=== PATIENT | female | born 1940 | race Caucasian/White ===

== ENCOUNTER 2024-07-19 20:58 | Observation (INO) ==
--- OUTSIDE RECORDS SUMMARY | 2024-07-19 21:04 | External Medical Summary | Summary of Care ---
Author Name Unknown Organization [facility] Address [address] [place] [address] Phone [phone] Care Team Providers Care Taxi Servicer Name Role Phone Lu Phillips DO Primary Care Provider Reason for Visit * Reason Onset Date Comments Advice 06/05/2024 Encounter Details Date Type Department Care Team (Late st Contact Info) Description 06/05/2024 Telephone [facility] [address] [place] [address] Lu Phillips DO [address] [place] [address] Advice Allergies No known active allergiesdocumented as of this encounter (statuses as of 07/12/2024) Medications Atorvastatin Calcium 20 MG Oral Tablet (Lipitor) Take 1 Tablet by mouth in the morning. One tab by mouth daily. 11/24/19 24 Active Lisinopril 10 MG Oral Tablet (Prinivil) Take 1 Tablet by mouth in the morning. 11/24/19 24 Active Memantine HCl 10 MG Oral Tablet (Namenda) Take 1 Tablet by mouth 2 times a day with morning and evening meals. 12/16/19 24 Active traZODone HCl 50 MG Oral Tablet (Desyrel) Take 1 Tablet by mouth at bedtime. 12/23/19 24 Active Aspirin 81 MG Oral Tablet Chewable Take 1 Tablet by mouth in the morning. 01/02/20 24 Active Multi Adult Gummies Oral Tablet Chewable Take by mouth. Active Calcitriol 0.5 MCG Oral Capsule (Rocaltrol) Take 1 Capsule by mouth in the morning. 90 Capsule 3 04/01/20 24 Active Metoprolol Succinate ER 25 MG Oral Tablet Extended Release 24 Hour (Toprol XL)Indications:E ssential hypertension with goal blood pressure less than 140/90 Take 1 Tablet by mouth in the morning. 90 Tablet 3 05/28/20 24 Active Vitamin C ER 1000-100 MG Oral Tablet Extended Release Take by mouth. Active Donepezil HCl 5 MG Oral Tablet (Aricept) Take 1 Tablet by mouth in the morning. Take with largest meal of the day.. Active Famotidine 40 MG Oral Tablet (Pepcid)Indicati ons:Hiatal hernia Take 1 Tablet by mouth at bedtime. 90 Tablet 1 12/25/19 24 024 Discontinued documented as of this encounter (statuses as of 07/12/2024) Active Problems Problem Noted Date Diagnosed Date Chronic kidney disease, stage 3b 04/01/2024 Overview: Per CKD protocol MDS (myelodysplastic syndrome) 01/10/2024 Hearing aid worn 12/25/2023 documented as of this encounter (statuses as of 07/12/2024) Immunizations Name Administration Dates Next Due Seasonal Influenza, High Dos e, Trivalent, PF, IM (Fluzone HD) 05/07/2024 documented as of this encounter Social History Tobacco Use Types Packs/Day Years Used Date Smoking Tobacco: Every Day Cigarettes Smokeless Tobacco: Never Alcohol Use Standard Drinks/Week Comments Not Currently 0 (1 standard drink = 0.6 oz pur e alcohol) PHQ-2 Answer Date Recorded PHQ Adult Total Score 0 05/30/2024 Hunger Vital Sign Answer Date Recorded Within the past 12 months, y ou worried that your food would run out before you got the money to buy more. Never true 05/30/20 24 Within the past 12 months, t he food you bought just didn't last and you didn't have money to get more. Never true 05/30/2024 Childcare Answer Date Recorded Do you feel overwhelmed with taking care of a child, family member or friend? No 05/30/2024 Does your family need help f inding childcare? (Household - for ages 0-17 years) Not on file 05/30/2024 Clothing Answer Date Recorded Have you been unable to get clothing when it was really needed? No 05/30/2024 Is your family able to get c lothes or diapers when needed? (Household - for ages 0-17 years) Not on file 05/30/2024 Personal Safety Answer Date Recorded Do you feel unsafe or have concerns for your saf ety? No 05/30/2024 Do you have concerns for you r family's safety? (Household - for ages 0-17 years) Not on file 05/30/2024 Utilities Answer Date Recorded Do you have trouble paying y our heating, water, or electric bill? No 05/30/2024 Is your family able to pay t he heat, water, or electric bill? (Household - for ages 0-17 years) Not on file 05/30/2024 Does your family have access to good internet? (Household - for ages 0-17 years) Not on file 05/30/2024 Employment Status Answer Date Recorded Are you unemployed or without regular income? No 05/30/2024 Does the household have a [facility] source of income? (Household - for ages 0-17 years) Not on file 05/30/2024 Social Connections Answer Date Recorded How often do you feel lonely or isolated from th ose around you? Never 05/30/2024 Financial Resource Strain Answer Date R ecorded Do you have any trouble payi ng for your medications, or do you think you might in the future? No 05/30/2024 Does your family have troubl e paying for medicine? (Household - for ages 0-17 years) Not on file 05/30/2024 Transportation Needs Answer Date Record ed Do you have trouble getting a ride to medical visits or work? (Adult - for ages 18 years and over) Not on file 05/30/2024 Does your family have a hard time getting a ride to doctors visits? (Household - for ages 0-17 years) Not on file 05/30/2024 Has lack of transportation k ept you from medical appointments, meetings, work, or from getting things needed for daily living? Check all that apply. No 05/30/2024 Do you (or your family) have trouble finding or paying for a ride (transportation)? (Household - for ages 0-17 years) Not on file 05/30/2024 Housing Stability Answer Date Recorded Do you currently live in a s helter or have no steady place to sleep at night? No 05/30/2024 Do you think you are at risk of becoming homeless? (Adult - for ages 18 years and over) Not on file 05/30/2024 Does your family worry about paying for your home or becoming homeless? (Household - for ages 0-17 years) Not on file 1 Are you homeless or worried that you might be in the future? No 05/30/2024 Are you (or your family) misael eless or worried that you might be in the future? (Household - for ages 0-17 years) Not on file Food Insecurity Answer Date Recorded Do you need food for this week? No 05/30/2024 Are you able to get enough f ood for your family? (Household - for ages 0-17 years) Not on file 05/30/2024 Does your family need food t his week? (Household - for ages 0-17 years) Not on file 05/30/2024 Do you always have enough fo od for your family? (Household - for ages 0-17 years) Not on file 05/30/2024 Comments No Sex and Gender Information Value Date Recorded Sex Assigned at Female 05/30/2024 10:43 AM EDT Legal Sex Female 8:28 AM EDT Gender Identity Female 05/30/2024 10:43 AM EDT Sexual Orientation Straight 05/30/2024 10 :43 AM EDT documented as of this encounter Miscellaneous Notes * Telephone Encounter - Heidi Jordan LPN - 07/11/2024 2:52 PM EST Daughter Fara calling [facility] Garcia never received the referral for Nephrology. Faxed to [facility], received confirmation that the transmission was successful. * Telephone Encounter - Weston Siddiqi OSA - 06/13/2024 8:20 AM EDT Faxed 06/13 * Telephone Encounter - Lu Phillips DO - 06/06/2024 2:15 PM EDT Okay then fax to [facility]. * Telephone Encounter - Heidi Jordan LPN - 06/05/2024 4:32 PM EDT Daughter calling would like referral for nephrology sent to [facility]. Ed is not able to see pt until December 2024. Daughter would like pt seen before then. Please fax nephrology referral to [facility] documented in this encounter Plan of Treatment Upcoming Encounters Date Type Department Care Team (Late st Contact Info) Description 07/29/2024 9:50 AM EST Laboratory Laboratory [facility] [place] [address] [place] [phone] Nader Medrano Joaquin [address] [facility] [place] [address] 07/29/2024 10:30 AM EST Office Visit Hematology/Oncology [facility] Marcela [place] [address] [phone] Nyasia Feliz MD [address] [facility] [place] [address] 07/29/2024 11:00 AM EST Immunization/Injecti on Hematology/Oncology Treatment, [place] [address] [place], [place] [phone] Marcela, Chair 10 Hem Onc [address] [place] [address] 07/30/2024 2:15 PM EST Office Visit Interventional Pain Center, [facility] [address] [place] [address] Raymundo Reynoso, DO [address] [place] [phone] 08/01/2024 1:15 PM EST Imaging [facility] [address] [place] [address] 08/19/2024 1:00 PM EST Laboratory Laboratory [facility] [place] [address] [place] [phone] Marcela, Lab Scenery [address] [place], [place] [address] 08/19/2024 2:00 PM EST Immunization/Injecti on Hematology/Oncology Treatment, [place] [address] [facility] [address] [place], [place] [phone] Marcela, Chair 9 Hem Onc [address] [place] [address] 09/23/2024 8:30 AM EST Office Visit [facility] [address] [facility] [place] [phone] Lu Phillips, DO [address] [facility] [place] [address] 10/02/2024 3:30 PM EST Office Visit Cardiology, [facility] [address] [place] [address] Vidal Phillips, DO [address] [place] [address] 01/01/2025 12:10 PM EDT Office Visit [facility] [address] [facility] [place] [phone] Lu Phillips DO [address] [facility] [place] [address] Health Maintenance Due Date Last Done Comments Pneumococcal Vaccine: 65+ Years (1 of 2 - PCV) 1946 DTap/Tdap Vaccines (1 - Tdap) 1960 Zoster Vaccines (1 of 2) 1991 Adult Wellness Visit 2007 COVID-19 Vaccine (1 - 2023- season) 2024 GFR 11/28/2024 05/30/2024, 04/21, 04/15/2024, Additional history exists Albumin/Creatinine Ratio 03/26/2025 03/26/2024 CKD PHOS USE SMARTSET 07110 04/15/2025 04/15/2024 Depression Screening 05/30/2025 05/30/2024 CKD HGB USE SMARTSET 27276 07/08/202507/08, 07/08/2024, 06/18/2024, Additional history exists DXA Scan 06/03/2034 06/03/2024 Influenza Vaccine (FLU shot) Completed 05/07/2024 HPV (Gardasil) Vaccine Aged Out No lo nger eligible based on patient's age to complete this topic Hepatitis B Vaccine Aged Out No longe r eligible based on patient's age to complete this topic MENINGOCOCCAL (MENACTRA/MENVEO) Aged Out No longer eligible based on patient's age to complete this topic documented as of this encounter Medical Devices Not on filedocumented as of this encounter Advance Directives Documents on File Type Date Recorded Patient Lab Head Expl anation Advance Directives and Living Will 01/04/2024 Fara Crowe Combined Medical POA & Living Will - signed on 11/24/2022 Healthcare Agents on File Name Relationship Healthcare Agent Relationshi p Communication Fara Junior Adult Child Health Care Agen t (per Health Care Power of Crt document) Nick Crowe Adult Child First Alternate Health Care Agent (per Health Care Power of Crt document) Care Teams Taxi Servicer Relationship Specialty Start Date End Date Lu Phillips DO [address] [place] [address] PCP - General Family Medicine 12/25/23 documented as of this encounter
--- OUTSIDE RECORDS SUMMARY | 2024-07-19 21:05 | External Medical Summary | Summary of Care ---
Author Name Unknown Organization [facility] Address [address] [place] [address] Phone [phone] Care Team Providers Care Clinical Consultant Name Role Phone Lu Phillips DO Primary Care Provider Reason for Visit * Reason Onset Date Comments Advice 06/05/2024 Encounter Details Date Type Department Care Team (Late st Contact Info) Description 06/05/2024 Telephone [facility] [address] [place] [address] Lu Phillips DO [address] [place] [address] Advice Allergies No known active allergiesdocumented as of this encounter (statuses as of 06/13/2024) Medications Medication Sig Dispensed Refills Start Date End Date Status Atorvastatin Calcium 20 MG Oral Tablet (Lipitor) Take 1 Tablet by mouth in the morning. One tab by mouth daily. 11/24/2023 Active Lisinopril 10 MG Oral Tablet (Prinivil) Take 1 Tablet by mouth in the morning. 11/24/2023 Active Memantine HCl 10 MG Oral Tablet (Namenda) Take 1 Tablet by mouth 2 times a day with morning and evening meals. 12/16/2023 Active traZODone HCl 50 MG Oral Tablet (Desyrel) Take 1 Tablet by mouth at bedtime. 12/23/2023 Active Famotidine 40 MG Oral Tablet (Pepcid)Indications:H iatal hernia Take 1 Tablet by mouth at bedtime. 90 Tablet 1 12/25/2023 Active Aspirin 81 MG Oral Tablet Chewable Take 1 Tablet by mouth in the morning. 01/02/2024 Active Multi Adult Gummies Oral Tablet Chewable Take by mouth. Active Calcitriol 0.5 MCG Oral Capsule (Rocaltrol) Take 1 Capsule by mouth in the morning. 90 Capsule 3 04/01/2024 Active Metoprolol Succinate ER 25 MG Oral Tablet Extended Release 24 Hour (Toprol XL)Indications:Essent ial hypertension with goal blood pressure less than 140/90 Take 1 Tablet by mouth in the morning. 90 Tablet 3 05/28/2024 Active Vitamin C ER 1000-100 MG Oral Tablet Extended Release Take by mouth. Acti ve Donepezil HCl 5 MG Oral Tablet (Aricept) Take 1 Tablet by mouth in the morning. Take with largest meal of the day.. Active documented as of this encounter (statuses as of 06/13/2024) Active Problems Problem Noted Date Diagnosed Date Chronic kidney disease, stage 3b 04/01/2024 Overview: Per CKD protocol MDS (myelodysplastic syndrome) 01/10/2024 Hearing aid worn 12/25/2023 documented as of this encounter (statuses as of 06/13/2024) Immunizations Name Administration Dates Next Due Seasonal [...] No 05/30/2024 Does the household have a re gular source of income? (Household - for ages [...] ages 0-17 years) Not on file 05/30/2024 Sex and Gender Information Value Date Recorded Sex Assigned at Female 05/30/2024 10:43 AM EDT Gender Identity Female 05/30/2024 10:43 AM EDT Sexual Orientation Straight 05/30/2024 10 :43 AM EDT Job Start Date Occupation Industry Not on file Not on file Not on file documented as of this encounter Miscellaneous Notes * Telephone Encounter - Weston Siddiqi OSA - 06/13/2024 8:20 AM EDT Faxed 06/13 * Telephone Encounter - Lu Phillips DO - 06/06/2024 2:15 PM EDT Okay then fax to [facility]. * Telephone Encounter - Heidi Jordan LPN - 06/05/2024 4:32 PM EDT Daughter calling would like referral for nephrology sent to [facility]. Ed is not able to see pt until December 2024. Daughter would like pt seen before then. Please fax nephrology referral to [facility] documented in this encounter Plan of Treatment Upcoming Encounters Date Type Department Care Team (Late st Contact Info) Description 06/18/2024 7:30 AM EDT Laboratory Laboratory [facility] [place] [address] [place] [phone] Nader Medrano [address] [facility] [place] [address] 06/18/2024 8:00 AM EDT Office Visit Hematology/Oncology [facility] [place] [address] [place] [phone] Nyasia Feliz MD 200 [facility] [place] [address] 06/18/2024 8:30 AM EDT Immunization/Injecti on Hematology/Oncology Treatment, [place] [address] [place] [phone] Marcela, Chair 9 Hem Onc [facility] [address] [place], [place] [address] 07/08/2024 1:00 PM EST Laboratory Laboratory [facility] Marcela [place] [address] [place] [phone] Marcela Lab [facility] [address] [place], [place] [address] 07/08/2024 2:00 PM EST Immunization/Injecti on Hematology/Oncology Treatment, [place] [address] [place] [phone] Park, Chair 9 Hem Onc [address] [place] [address] 07/30/2024 2:15 PM EST Office Visit Interventional Pain Center, [facility] [address] [place] [address] Raymundo Reynoso, DO [address] [place] [phone] 08/01/2024 1:15 PM EST Imaging Radiology [facility] 1st Floor, [place] [address] [place] [address] 09/23/2024 8:30 AM EST Office [facility] [address] [facility] [place] [phone] Lu Phillips, DO [address] [facility] [address] 10/02/2024 3:30 PM EST Office Visit Cardiology, [facility] [address] [place] [address] Vidal Phillips, DO [address] [facility] [place] [address] 01/01/2025 12:10 PM EDT Office Visit [facility] [place] [address] [facility] [place] [phone] Lu Phillips, DO [address] [facility] [address] Health Maintenance Due Date Last Done Comments Pneumococcal Vaccine: 65+ Years (1 of 2 - PCV) 1946 Adult Wellness Visit 2007 COVID-19 Vaccine (1 - 2024-25 season) 2024 DTap/Tdap Vaccines (1 - Tdap) 06/29/2024 Postponed from 1960 (Insurance/Financial) Zoster Vaccines (1 of 2) 06/29/2024 Pos tponed from 1991 (Insurance/Financial) GFR 11/28/2024 05/30/2024, 04/21, 04/15/2024, Additional history exists Albumin/Creatinine Ratio 03/26/2025 03/26/2024 CKD PHOS USE SMARTSET 38516 04/15/2025 04/15/2024 CKD HGB USE SMARTSET 09259 05/28/202505/28, 05/28/2024, 05/07/2024, Additional history exists Depression Screening 05/30/2025 05/30/2024 DXA Scan 06/03/2034 06/03/2024 Influenza Vaccine (FLU [...] Documents on File Type Date Recorded Patient Assessor Expl anation Advance Directives and Living Will 01/04/2024 Fara Crowe Combined Medical POA & Living Will - signed on 11/24/2022 Healthcare Agents on File Name Relationship Healthcare Agent Relationshi p Communication Fara Junior Adult Child Health Care Agen t (per Health Care Power of Technical Applications Specialist document) Nick Crowe Adult Child First Alternate Health Care Agent (per Health Care Power of Technical Applications Specialist document) Care Teams Clinical Consultant Relationship Specialty Start Date End Date Lu Phillips DO [address] [place] [address] PCP - General Family Medicine 12/25/23 documented as of this encounter
--- OUTSIDE RECORDS SUMMARY | 2024-07-19 21:05 | External Medical Summary | Summary of Care ---
Author Name Unknown Organization [facility] Address [address] [place] [address] Phone [phone] Care Team Providers Care Director Appointment Name Role Phone Lu Phillips DO Primary Care Provider [phone] Reason for Visit * Reason Comments Medication Administration Reblozyl 31.7m g each syringe x 2 syringes * Episode Based Medications (Routine) - Authorized Specialty Diagnoses / Procedures Referred By Contac t Referred To Contact Diagnoses MDS (myelodysplastic syndrome) (HCC) Procedures [place] INJ LUSPATERCEPT-AAMT 0.25MG Nyasia Feliz MD [address] [facility] [place] [address] Anc Hem/Onc [address] [phone] Referral ID Status Reason Start Date Expiration Date V isits Requested Visits Authorized [id number] Authorized 01/12/2024 08/20/2099 99 99 Encounter Details Date Type Department Care Team (Late st Contact Info) Description 06/18/2024 8:30 AM EDT Immunization/I njection Hematology/Oncology Treatment, [address] [phone] Marcela, Chair [address] On[address] [place] [address] MDS (myelodysplastic syndrome) (HCC)* Allergies No known active allergiesdocumented as of this encounter (statuses as of 06/18/2024) Medications Medication Sig Dispensed Refills Start Date [...] as of this encounter (statuses as of 06/18/2024) Active Problems Problem Noted Date Diagnosed Date Chronic kidney disease, stage 3b 04/01/2024 Overview: Per CKD protocol MDS (myelodysplastic syndrome) 01/10/2024 Hearing aid worn 12/25/2023 documented as of this encounter (statuses as of 06/18/2024) Immunizations Name Administration Dates Next Due Seasonal [...] on file documented as of this encounter Nursing Notes * Pita Ortiz LPN - 06/18/2024 9:09 AM EDT Reblozyl 63.4mg (31.7mg each syringe x 2 syringes) administered SQ into the left and right upper extremity per patient request. Patient tolerated injection and will return in 3 weeks. documented in this encounter Plan of Treatment Upcoming Encounters Date Type Department Care Team (Late st Contact Info) Description 07/08/2024 1:00 PM EST Laboratory Laboratory [facility] [place] [address] [phone] Nader Medrano [place] [address] [address] [facility] [place] [address] 07/08/2024 2:00 PM EST Immunization/Injecti on Hematology/Oncology Treatment, [place] [address] [place] [phone] Marcela, Chair 9 Hem Onc [facility] [address] [place] [address] 07/29/2024 9:50 AM EST Laboratory Laboratory [facility] Marcela [place] [address] [place] [address] Marcela Lab [facility] [address] [facility] [place] [address] 07/29/2024 10:30 AM EST Office Visit Hematology/Oncology [facility] Marcela [place] [address] [place] [phone] Nyasia Feliz MD [address] [place] [place] [address] 07/29/2024 11:00 AM EST Immunization/Injecti on Hematology/Oncology Treatment, [place] [address] [place] [phone] Marcela, Chair 10 Hem Onc [address] [place], [place] [address] 07/30/2024 2:15 PM EST Office Visit Interventional Pain Center, [facility] [address] [place] [address] Raymundo Reynoso, DO [address] [place] [phone] 08/01/2024 1:15 PM EST Imaging Radiology [facility] 1st Floor, [place] [address] [place] [address] 09/23/2024 8:30 AM EST Office Visit Family [facility] [place] [address] [place] [place] [phone] Lu Phillips, DO [address] [facility] [place] [address] 10/02/2024 3:30 PM EST Office Visit Cardiology, [facility] [address] [place] [address] Vidal Phillips, DO [address] [facility] [place] [address] 01/01/2025 12:10 PM EDT Office Visit [facility] [place] [place] [address] [place] [phone] Lu Phillips, DO [address] [facility] [place] [address] Health Maintenance Due Date Last Done Comments Pneumococcal Vaccine: 65+ Years (1 of 2 - PCV) 1946 Adult Wellness Visit 2007 COVID-19 Vaccine (1 - season) 2024 DTap/Tdap Vaccines (1 - Tdap) 06/29/2024 Postponed from 1960 (Insurance/Financial) Zoster Vaccines (1 of 2) 06/29/2024 Pos tponed from 1991 (Insurance/Financial) GFR 11/28/2024 05/30/2024, 04/21, 04/15/2024, Additional history exists Albumin/Creatinine Ratio 03/26/2025 03/26/2024 CKD PHOS USE SMARTSET 33890 04/15/2025 04/15/2024 Depression Screening 05/30/2025 05/30/2024 CKD HGB USE SMARTSET 04588 06/18/202506/18, 06/18/2024, 05/28/2024, Additional history exists DXA Scan 06/03/2034 06/03/2024 [...] Not on filedocumented as of this encounter Visit Diagnoses Diagnosis MDS (myelodysplastic syndrome) (HCC)- Primary Myelodysplastic syndrome, unspecified Screening mammogram for breast cancer documented in this encounter Administered Medications Active Administered Medications - up to 3 most recent administrations Medication Order MAR Action Action Date Dose Rate Site diphenhydrAMINE (Benadryl) inj 50 mg 50 mg, IV Push, ONCE PRN Other, Hypersensitivity Reaction, Starting on Mon06/18/24 at 0759, Until Mon06/19/24 at 0758, For 24 hours EPINEPHrine 1 MG/ML inj 0.3 mg 0.3 mg, Intramuscular, ONCE PRN Other, Hypersensitivity Reaction or Anaphylaxis, Starting on Mon06/18/24 at 0759, Until Mon06/19/24 at 0758, For 24 hours Hydrocortisone Sod Suc (PF) (Solu-Cortef) inj 100 mg 100 mg, IV Push, ONCE PRN Other, Hypersensitivity Reaction, Starting on Mon06/18/24 at 0759, Until Mon06/19/24 at 0758, For 24 hours oxygen GAS Inhalation, OXYGEN, First dose on Mon06/18/24 at 0830, Until Discontinued, Device/Managed by: Low Flow Device, Goal SPO2 (%): 91-95, Starting Device: Nasal Cannula, Initial Flow Rate (LPM): 2, Lowest Support: Nasal Cannula: Flow 0-6 LPM. Titrate up/down by 1 LPM., Higher Support: Non-Rebreather (NRB) Mask: Minimum of 10 LPM. Titrate to maintain bag inflation., Titration Interval: Q2 minutes and as needed., Notify Provider: For sudden DECREASE in resting SPO2 to less than 85% and when escalating delivery device., Wean patient off Oxygen when the oxygen saturation is greater than or equal to 93% Inactive Administered Medications - up to 3 most recent administrations Medication Order MAR Action Action Date Dose Rate Site Luspatercept-aamt (Reblozyl) subcutaneous inj 63.4 mg 63.4 mg (1 mg/kg 63.4 kg Treatment plan Recorded weight), Subcutaneous, ONCE, On Mon06/18/24 at 0930, For 1 dose, MAX volume 1.2 mL per syringe. Administer ____ syringes, each containing mg for TOTAL DOSE = mg. Administer subcutaneously into upper arm, thigh, and/or abdomen. If giving as multiple injections must inject into separate sites. Given 06/18/2024 9:02 AM EDT 31.7 mg Arm Left Upper Subsq SYR 06/18/2024 9:01 AM EDT 31.7 mg Ar m Right Upper documented in this encounter Advance Directives Documents on File Type Date Recorded Patient [employer] Advance Directives and Living Will 01/04/2024 Fara Crowe Combined Medical POA & Living Will - signed on 11/24/2022 Healthcare Agents on File Name Relationship [facility] Junior Adult Child Health Care Agen t (per Health Care Power of Underground Production Foreperson document) Nick Crowe Adult Child First Alternate Health Care Agent (per Health Care Power of Underground Production Foreperson document) Care Teams Director Appointment Relationship Specialty Start Date End Date Lu Phillips DO [address] [address] PCP - General Family Medicine 12/25/23 documented as of this encounter
--- OUTSIDE RECORDS SUMMARY | 2024-07-19 21:05 | External Medical Summary | Summary of Care ---
Author Name Unknown Organization [facility] Address [address] [place] [address] Phone [phone] Care Team Providers Care Sawsmith Name Role Phone Lu Phillips DO Primary Care Provider [phone] Reason for Visit * Reason Comments Follow Up Encounter Details Date Type Department Care Team (Late st Contact Info) Description 05/30/2024 10:50 AM EDT Office Visit [facility] [address] [place] [address] Lu Phillips DO [address], [place] [id number] MDS (myelodysplastic syndrome) (HCC)*; Risk and functional assessment; Chronic kidney disease, stage 3b (HCC); Coronary artery disease due to calcified coronary lesion Allergies No known active allergiesdocumented as of this encounter (statuses as of 05/30/2024) Medications Medication Sig Dispensed Refills Start Date [...] 12/23/2023 Active Famotidine 40 MG Oral Tablet (Pepcid)Indication s:Hiatal hernia Take 1 Tablet by mouth at bedtime. 90 Tablet 1 12/25/2023 Active Aspirin 81 MG Oral Tablet Chewable Take 1 Tablet by mouth in the morning. 01/02/2024 Active Multi Adult Gummies Oral Tablet Chewable Take by mouth. Activ e Calcitriol 0.5 MCG Oral Capsule (Rocaltrol) Take 1 Capsule by mouth in the morning. 90 Capsule 3 04/01/2024 Active Metoprolol Succinate ER 25 MG Oral Tablet Extended Release 24 Hour (Toprol XL)Indications:Ess ential hypertension with goal blood pressure less than 140/90 Take 1 Tablet by mouth in the morning. 90 Tablet 3 05/28/2024 Active Vitamin C ER 1000-100 MG Oral Tablet Extended Release Take by mouth. Active Donepezil HCl 5 MG Oral Tablet (Aricept) Take 1 Tablet by mouth in the morning. Take with largest meal of the day.. Active Vitamin C Adult Gummies 125 MG Oral Tablet Chewable (Ascorbic Acid) Take by mouth. 05/30/2024 Discontinu e d(Medicatio n List Clean Up) Lidocaine Viscous HCl 2 % Mouth/Throat Solution Swish and spit 15 mL as needed for Pain, Severe. Can apply using a cotton ball as well to specific tender spots 100 mL 04/01/2024 05/30/2024 Discontinue d(Medicatio n List Clean Up) documented as of this encounter (statuses as of 05/30/2024) Active Problems Problem Noted Date Diagnosed Date Chronic kidney disease, stage 3b 04/01/2024 Overview: Per CKD protocol MDS (myelodysplastic syndrome) 01/10/2024 Hearing aid worn 12/25/2023 documented as of this encounter (statuses as of 05/30/2024) Immunizations Name Administration Dates Next Due Seasonal Influenza, High Dos e, Trivalent, PF, IM (Fluzone HD) 05/07/2024 documented as of this encounter Social History Tobacco Use Types Packs/Day Years Used Date Smoking Tobacco: Every Day Cigarettes Smokeless Tobacco: Never Tobacco Cessation:Ready to Q uit: Not Asked; Counseling Given: Not Answered Alcohol Use Standard Drinks/Week Comments Not Currently [...] on file documented as of this encounter Last Filed Vital Signs Vital Sign Reading Time Taken Comments Blood Pressure 138/80 05/30/2024 10:43 AM EDT Pulse 66 05/30/2024 10:43 AM EDT Temperature 36.2 C (97.2 F) 05/30/2024 1 0:43 AM EDT Respiratory Rate 18 05/30/2024 10:4 3 AM EDT Oxygen Saturation 98% 05/30/2024 10: 43 AM EDT Inhaled Oxygen Concentration - - Weight 62.9 kg (138 lb 11.2 oz) 024 10:43 AM EDT Height 157.5 cm (5' 2") 05/30/2024 10:4 3 AM EDT Body Mass Index 25.37 05/30/2024 10:43 AM EDT documented in this encounter Patient Instructions * Patient Instructions* Alisa Buitrago LPN - 05/30/2024 10:40 AM EDT Patient Instructions - Fall Prevention (This education is for all patients over 65 regardless of symptoms) Remember to take your current medications as prescribed. In order to prevent falls, you are encouraged to: Exercise Utilize assistive/adaptive devices Avoid multifocal lenses when walking Avoid hazards in home Maintain a regular toileting schedule Any questions please contact our office. Preventing Falls in the Home (This education is for all patients over 65 regardless of symptoms) As you get older, falls are more likely. Thats because your reaction time slows. Your muscles and joints may also get stiffer, making them less flexible. Illness, medications, and vision changes can also affect your balance. A fall could leave you unable to live on your own. To make your home safer, follow these tips: Floors Put nonskid pads under area rugs Remove throw rugs Replace worn floor coverings Tack carpets firmly to each step on carpeted stairs. Put nonskid strips on the edges of uncarpeted stairs Keep floors and stairs free of clutter and cords Arrange furniture so there are clear pathways Clean up any spills right away Bathrooms Install grab bars in the tub or shower Apply nonskid strips or put a nonskid rubber mat in the tub or shower Sit on a bath chair to bathe Use bathmats with nonskid backing Lighting Keep a flashlight in each room Put a nightlight along the pathway between the bedroom and the bathroom Ramsey[employer]athan Patient Education Copyright 2008 - 2010 Anoop except where otherwise noted Preventing Falls: Exercises to Improve Balance, Flexibility, Strength, and Staying Power (This education is for all patients over 65 regardless of symptoms) Certain types of exercises may help make you less likely to fall. Try the ones below. Or do other exercises that your healthcare provider suggests. Depending on your health, you may need to start slowly. Dont let that stop you. Even small amounts of exercise can help you. Be sure to talk to yourhealthcare provider before starting any exercise program. Improve Balance Many types of exercise can help improve balance. Arnaud chi and yoga are good examples. Heres another one to try. You can do it anytime and almost anywhere. Stand next to a counter or solid support. Push yourself up onto your tiptoes. Hold for 5 seconds. If you start to lose your balance, hold on to the counter. Rest and repeat 5 times. Work up to holding for 20 to 30 seconds, if you can. Increase Flexibility Being more flexible makes it easier for you to move around safely. Try exercises like the seated hamstring stretch. Sit in a chair and put one foot on a stool. Straighten your leg and reach with both hands down either side of your leg. Reach as far down your leg as you can. Hold for about 20 seconds. Go back to the starting position. Then repeat 5 times. Switch legs. Build Strength Resistance exercises help build strength. You can do them without equipment. Or you can use weights, elastic bands, or special machines. One such exercise is called the biceps curl. You can hold a 1 pound weight or even a can of soup. Do this exercise at least 3 times a week. Strive for everyday. Sit up straight in a chair. Keep your elbow close to your body and your wrist straight. Bend your arm, moving your hand up to your shoulder. Then slowly lower your arm. Repeat 5 times. Switch to the other arm. Build Your Staying Power Aerobic exercises make your heart and lungs stronger so you can keep moving longer. Walking and swimming are two of the best types of exercises you can do. Using a stationary bike is great, too. Find an aerobic exercise that you enjoy. Start slowly and build up. Even 5 minutes is helpful. Aimfor a goal of 30 minutes, at least 3 times a week. You dont have to do 30 minutes in one session. Break it up and walk a little throughout the day. More Helpful Tips Start easy. Slowly work up to doing more. Talk with your healthcare provider about the best exercises for you. Call senior centers or health clubs about exercise programs. If needed, have a family member watch you walk every so often to check your stability. Exercise with a friend. Choose an activity you both enjoy. Try exercises that you can do anytime, anywhere. Here are two examples. Have someone with you when you first try these: Practice walking by placing one foot right in front of the other. Stand up and sit down 10 times. Repeat this throughout the day. RamseyWonolo Patient Education Copyright 2009 - 2010 Anoop except where otherwise noted. Preventing Falls: Moving Safely Using a Cane or Walker (This education is for all patients over 65 regardless of symptoms) Keep the cane away from your feet so you dont trip. A walking aid, such as a cane or walker, can help you stay more independent and avoid falls. Remember to keep your walking aid within easy reach when youre in a chair or in bed. And learn how to use it safely so you dont injure yourself. Using a Cane If you have a stronger side, hold the cane on that side. Get your balance. Move the cane and your weaker leg forward. Support your weight on both the cane and your weaker side. Step with your stronger leg. Start again from step 1. If youre using a folding walker, be sure you know how to lock it open. Check that its locked open before each use. Using a Walker Roll the walker (or lift it, if youre using one without wheels) forward about 12 inches. Step forward with your weaker leg first. Use the walker to help keep your balance. Bring your other foot forward to the center of the walker. Start again from step 1. Helpful Tips Check with your healthcare provider about the right walking aid to use. Ask about a walker with a seat attached. Check the tips of your cane or walker to make sure they have nonskid covers. Move slowly from room to room. Dont alcaraz. Sit down to get dressed. Use a jazzmine pack or backpack to keep your hands free. Get help for jobs that mean climbing, even on a stepstool. Anoop Patient Education Copyright 2008 - 2010 Anoop except where otherwise noted. Urinary Incontinence Plan of Care Documentation: (This education is for all patients over 65 regardless of symptoms) Current medications reconciled. Patient encouraged to: Practice kegal exercises Provide education materials Use the restroom every 2 hours throughout the day Limit caffeine, alcohol, spicy foods and acidic foods Keep a bladder diary Limit fluid intake 3-4 hours before bed Lose weight Prevent constipation Take fluid pills at a time when you can get to the bathroom quickly Control sugar better if diabetic Limit fluid intake to 60 oz. per day Wear support stockings (TEDs)if you have edema Alisa Buitrago LPN 05/30/2024 Kegel Exercises Kegel exercises dont require special clothing or equipment. Theyre easy to learn and simple to do. And if you do them right, no one can tell youre doing them, so they can be done almost anywhere. Your doctor, nurse, or physical therapist can answer any questions you have and help you get started. A Weak Pelvic Floor The pelvic floor muscles may weaken due to aging, and vaginal childbirth, injury, surgery, chronic cough, or lack of exercise. If the pelvic floor is weak, your bladder and other pelvic organs may sag out of place. The urethra may also open too easily and allow urine to leak out. Kegel exercises can help you strengthen your pelvic floor muscles so they can better support the pelvic organs and control urine flow. How Kegel Exercises Are Done Try each of the Kegel exercises described below. When youre doing them, try not to move your leg, buttock, or stomach muscles. While youre urinating, try to stop the flow of urine. Start and stop it as often as you can. Contract as if you were stopping your urine stream, but do it when youre not urinating. Tighten your rectum as if trying not to pass gas. Contract your anus, but dont move your buttocks. Helpful Hints Do your Kegels as often as you can. The more you do them, the faster youll feel the results. Pick an activity you do often as a reminder. For instance, do your Kegels every time you sit down. Tighten your pelvic floor before you sneeze, get up from a chair, cough, laugh, or lift. This protects your pelvic floor from injury and can help prevent urine leakage. Try to hold each Kegel for a slow count to five. You probably wont be able to hold them for thatlong at first, but keep practicing. It will get easier as your pelvic floor gets stronger. Eventually, special weights that you place in your vagina may be recommended to help make your Kegels even more effective. Anoop Patient Education Copyright 2008 - 2010 Anoop except where otherwise noted. Here are some helpful tips for your urinary incontinence: (This education is for all patients over 65 regardless of symptoms) Practice Kegel exercises Use the restroom every 2 hours throughout the day Limit caffeine, alcohol, spicy foods, and acidic foods Keep a bladder diary Limit fluid intake 3-4 hours before bed Lose weight Prevent constipation Take fluid pills at a time when can get to the bathroom quickly Control sugar better if diabetic Limit fluid intake to 60 oz. per day Any questions, please feel free to contact our office. documented in this encounter Progress Notes * Lu Phillips, - 05/30/2024 10:56 AM EDT Subjective: Isabelle Crowe is a 83 year old female. Chief Complaint Patient presents with Follow Up HPI: 83 year old female presents today with her daughter as a new patient. She carries hx of Myelodysplastic Syndrome, hx of macrocytic anemia, she has hx of R breast cancer,and she is on Luspatercept and has been seeing hematology. Sounds like her previous PCP was in [facility] and she just moved here to be closer to her daughter. She sees cardiology for CAD. Her daughter had given most of the history and recently diagnosed with Alzheimers this was done at [place] , I did review those notes. She was already on Namenda and they started her on Aricept5 mg recently. She plans on continuing care locally and I agreed to refill the medications. Ongoing R knee pain, 2 replacement had seen vic [facility], and then [facility]. Then [facility] said surgery would be took high risk. Requesting a handicap placard. She is using a cane. Renal function decline, will repeat today. May need nephrology referral. Will check urine today. PHM: Patient Active Problem List Diagnosis Hearing aid worn MDS (myelodysplastic syndrome) (HCC) Chronic kidney disease, stage 3b (HCC) Current Outpatient Medications Medication Sig Dispense Refill Atorvastatin Calcium 20 MG Oral Tablet (Lipitor) Take 1 Tablet by mouth in the morning. One tab by mouth daily. Lisinopril 10 MG Oral Tablet (Prinivil) Take 1 Tablet by mouth in the morning. Memantine HCl 10 MG Oral Tablet (Namenda) Take 1 Tablet by mouth 2 times a day with morning and evening meals. traZODone HCl 50 MG Oral Tablet (Desyrel) Take 1 Tablet by mouth at bedtime. Famotidine 40 MG Oral Tablet (Pepcid) Take 1 Tablet by mouth at bedtime. 90 Tablet 1 Aspirin 81 MG Oral Tablet Chewable Take 1 Tablet by mouth in the morning. Multi Adult Gummies Oral Tablet Chewable Take by mouth. Calcitriol 0.5 MCG Oral Capsule (Rocaltrol) Take 1 Capsule by mouth in the morning. 90 Capsule 3 Metoprolol Succinate ER 25 MG Oral Tablet Extended Release 24 Hour (Toprol XL) Take 1 Tablet by mouth in the morning. 90 Tablet 3 Vitamin C ER 1000-100 MG Oral Tablet Extended Release Take by mouth. Donepezil HCl 5 MG Oral Tablet (Aricept) Take 1 Tablet by mouth in the morning. Take with largest meal of the day.. No current facility-administered medications for this visit. Review of patient's allergies indicates: No Known Allergies Objective: BP 138/80 | Pulse 66 | Temp 36.2 C (97.2 F) (Tympanic) | Resp 18 | Ht 1.575 m (5' 2") | Wt 62.9kg (138 lb 11.2 oz) | LMP (LMP Unknown) | SpO2 98% | BMI 25.37 kg/m | BSA 1.66 m Physical Exam: General: alert, healthy, and no distress Heart: regular rate & rhythm, no murmur, and no gallops Lungs: chest symmetric with normal AP diameter, no chest deformities noted, no chest wall tenderness, lungs clear to auscultation Abdomen: abdomen soft, non-tender, normal bowel sounds, and no masses or organomegaly Extremities: no edema ASSESSMENT/PLAN: MDS (myelodysplastic syndrome) (HCC) (Primary) Risk and functional assessment Chronic kidney disease, stage 3b (HCC) - BASIC METABOLIC PANEL; Future; Expected date: 05/30/2024 - URINALYSIS WITH MICROSCOPIC EXAM; Future; Expected date: 05/30/2024 Coronary artery disease due to calcified coronary lesion On asa, beta kortney, acei. And statin. Check-out note: Keep sep appt Arrange another appt in december Labs today. Lu Phillips DO documented in this encounter Nursing Notes * Alisa Buitrago LPN - 05/30/2024 10:40 AM EDT The patient has been properly identified by confirmation of name and date of . Chief Complaint Patient presents with Follow Up Patient woul like to discuss her knee pain, Kidney issues, Alzheimer diagnosis and new medications documented in this encounter Plan of Treatment Upcoming Encounters Date Type Department Care Team (Late st Contact Info) Description 06/03/2024 9:00 AM EDT Imaging Radiology, [address] [place] [address] 06/18/2024 7:30 AM EDT Laboratory Laboratory [facility] [address] [place] [phone] [facility] [place] [address] [place] [address] [address] 06/18/2024 8:00 AM EDT Office Visit Hematology/Oncology [facility] [address] [place] [phone] Nyasia Feliz MD [address] [facility] [place] [address] 06/18/2024 8:30 AM EDT Immunization/Injecti on Hematology/Oncology Treatment, [address] [facility] [place] [phone] Marcela, Chair [address], [place] [address] 07/08/2024 1:00 PM EST Laboratory Laboratory [address] [place] [address] [place], [place] [phone] Marcela, Lab Scenery [address] [place], [place] [address] 07/08/2024 2:00 PM EST Immunization/Injecti on Hematology/Oncology Treatment, [address] [place], [place] [phone] Marcela, Chair [address] [place], [place] [address] 07/30/2024 2:15 PM EST Office Visit Interventional Pain Center, [facility] [address] [facility] [place] [address] Raymundo Reynoso, DO [address] [place] [phone] 08/01/2024 1:15 PM EST Imaging Radiology [facility] [address] [facility], [address] [place] [address] 09/23/2024 8:30 AM EST Office Visit Family [facility] [address] [facility] [place] [phone] Lu Phillips, [address] [facility] [place] [address] 10/02/2024 3:30 PM EST Office Visit Cardiology, [facility] [address] [place] [address] Vidal Phillips, DO [address] [place] [address] 01/01/2025 12:10 PM EDT Office Visit [facility] [address] [place] [address] Lu Phillips DO [address], [place] [phone] Pending Results Name Type Priority Associated Diagnoses Date /Time BASIC METABOLIC PANEL Lab Routine Chronic kidney disease, stage 3b (HCC) 05/30/2024 11:46 AM EDT URINALYSIS WITH MICROSCOPIC EXAM Lab Routine Chronic kidney disease, stage 3b (HCC) 05/30/2024 11:46 AM EDT Scheduled Orders Name Type Priority Associated Diagnoses Orde r Schedule BASIC METABOLIC PANEL Lab Routine Chronic kidney disease, stage 3b (HCC) Expected: 05/30/2024 (Approximate), Expires: 05/30/2025 URINALYSIS WITH MICROSCOPIC EXAM Lab Routine Chronic kidney disease, stage 3b (HCC) Expected: 05/30/2024 (Approximate), Expires: 05/30/2025 Health Maintenance Due Date Last Done Comments Pneumococcal Vaccine: 65+ Years (1 of 2 - PCV) 1946 DXA Scan 2006 Adult Wellness Visit 2007 COVID-19 Vaccine (1 - season) 2024 Postponed from 04/21/2024 (Patient Declined After Education) DTap/Tdap Vaccines (1 - Tdap) 06/29/2024 Postponed from 1960 (Insurance/Financial) Zoster Vaccines (1 of 2) 06/29/2024 Pos tponed from 1991 (Insurance/Financial) GFR 11/04/2024 05/07/2024, 08/01/2024, 03/26/2024, Additional history exists Albumin/Creatinine Ratio 03/26/2025 03/26/2024 CKD PHOS USE SMARTSET [id number] 04/15/2025 04/15/2024 CKD HGB USE SMARTSET [id number] 05/28/202505/28, 05/28/2024, 05/07/2024, Additional history exists Depression Screening 05/30/2025 05/30/2024 Influenza Vaccine (FLU shot) Completed 05/07/2024 HPV [...] (myelodysplastic syndrome) (HCC)- Primary Myelodysplastic syndrome, unspecified Risk and functional assessment Screening for unspecified condition Chronic kidney disease, stage 3b (HCC) Coronary artery disease due to calcified coronary lesion Screening mammogram for breast cancer documented in this encounter Advance Directives Documents on File Type Date Recorded Patient Supply Tech Expl anation Advance Directives and Living Will 01/04/2024 Fara Crowe Combined Medical POA & Living Will - signed on 11/24/2022 Healthcare Agents on File Name Relationship Healthcare Agent Relationshi p Communication Fara Junior Adult Child Health Care Agen t (per Health Care Power of Jewel Setter document) Nick Crowe Adult Child First Alternate Health Care Agent (per Health Care Power of Jewel Setter document) Care Teams Sawsmith Relationship Specialty Start Date End Date Lu Phillips DO [address] [place] [address] PCP - General Family Medicine 12/25/23 documented as of this encounter
--- OUTSIDE RECORDS SUMMARY | 2024-07-19 21:05 | External Medical Summary | Summary of Care ---
Author Name Unknown Organization [facility] Address [address] [place] [address] Phone [phone] Care Team Providers Care Workers Compensation Claims Analyst Name Role Phone Alan Lu Calvin LEE Primary Care Provider Reason for Visit * Reason Onset Date Comments Follow Up 06/28/2024 Encounter Details Date Type Department Care Team (Late st Contact Info) Description 06/28/2024 Telephone Interventional Pain Center, [facility] [address] [place] [address] Raymundo Reynoso DO [address] [place] [phone] Follow Up Allergies No known active allergiesdocumented as of this encounter (statuses as of 06/28/2024) Medications Atorvastatin Calcium 20 MG Oral Tablet (Lipitor) Take 1 Tablet by mouth in the morning. One tab by mouth daily. 4 Active Lisinopril 10 MG Oral Tablet (Prinivil) Take 1 Tablet by mouth in the morning. 4 Active Memantine HCl 10 MG Oral Tablet (Namenda) Take 1 Tablet by mouth 2 times a day with morning and evening meals. 4 Active traZODone HCl 50 MG Oral Tablet (Desyrel) Take 1 Tablet by mouth at bedtime. 4 Active Famotidine 40 MG Oral Tablet (Pepcid)Indicatio ns:Hiatal hernia Take 1 Tablet by mouth at bedtime. 90 Tablet 1 4 Active Aspirin 81 MG Oral Tablet Chewable Take 1 Tablet by mouth in the morning. 4 Active Multi Adult Gummies Oral Tablet Chewable Take by mouth. Active Calcitriol 0.5 MCG Oral Capsule (Rocaltrol) Take 1 Capsule by mouth in the morning. 90 Capsule 3 4 Active Metoprolol Succinate ER 25 MG Oral Tablet Extended Release 24 Hour (Toprol XL)Indications:Es sential hypertension with goal blood pressure less than 140/90 Take 1 Tablet by mouth in the morning. 90 Tablet 3 4 Active Vitamin C ER 1000-100 MG Oral Tablet Extended Release Take by mouth. Active Donepezil HCl 5 MG Oral Tablet (Aricept) Take 1 Tablet by mouth in the morning. Take with largest meal of the day.. Active documented as of this encounter (statuses as of 06/28/2024) Active Problems Problem Noted Date Diagnosed Date Chronic kidney disease, stage 3b 04/01/2024 Overview: Per CKD protocol MDS (myelodysplastic syndrome) 01/10/2024 Hearing aid worn 12/25/2023 documented as of this encounter (statuses as of 06/28/2024) Immunizations Name Administration Dates Next Due Seasonal [...] No 05/30/2024 Does the household have a select specialty hospitalr source of income? (Household - for ages [...] encounter Miscellaneous Notes * Telephone Encounter - Jimena Moses OSA - 06/28/2024 8:35 AM EST Patients daughter called in concerned because her mother had dementia and some days claims she doesnot have knee pain. The patient does have knee pain but tends to get confused. Wanted the office toknow ahead of time to help with any confusion. documented in this encounter Plan of Treatment Upcoming Encounters Date Type Department Care Team (Late st Contact Info) Description 07/08/2024 1:00 PM EST Laboratory Laboratory [facility] [address] [place] [phone] Marcela, Lab Scenery [address] [facility] [place] [address] 07/08/2024 2:00 PM EST Immunization/Injecti on Hematology/Oncology Treatment, [place] [facility] [phone] Park, Chair [address] Hem On[address] [place] [address] 07/29/2024 9:50 AM EST Laboratory Laboratory [facility] [place] [address] [place] [phone] Marcela Lab Scenery [address] [facility] [place] [address] 07/29/2024 10:30 AM EST Office Visit Hematology/Oncology [facility] [place] [address] [place] [phone] Nyasia Feliz MD [address] [place], [place] [address] 07/29/2024 11:00 AM EST Immunization/Injecti on Hematology/Oncology Treatment, [place] [facility] [phone] Marcela, Chair [address] On[address] [place], [place] [address] 07/30/2024 2:15 PM EST Office Visit [facility] Center, [facility] [place] [address] Raymundo Reynoso, [address] [place] [phone] 08/01/2024 1:15 PM EST Imaging Radiology [facility], [place] [address] [facility] [place] [address] 09/23/2024 8:30 AM EST Office Visit [facility] [address] Lu Phillips, DO [address] [place] [address] 10/02/2024 3:30 PM EST Office Visit Cardiology, [facility] [place] [address] Vidal Phillips, DO 132 [facility] [place] [address] 01/01/2025 12:10 PM EDT Office Visit [facility] [address] [facility] [address] Lu Phillips, DO [address] [place] [facility] [address] Health Maintenance Due Date Last Done Comments [...] Ratio 03/26/2025 03/26/2024 CKD PHOS USE SMARTSET 57257 04/15/2025 04/15/2024 Depression Screening 05/30/2025 05/30/2024 CKD HGB USE SMARTSET 46306 06/18/202506/18, 06/18/2024, 05/28/2024, Additional history exists DXA [...] Documents on File Type Date Recorded Patient Automatic Spinning Lathe Setter Expl anation Advance Directives and Living Will 01/04/2024 Fara Crowe Combined Medical POA & Living Will - signed on 11/24/2022 Healthcare Agents on File Name Relationship Healthcare Agent Relationshi p Communication Fara Junior Adult Child Health Care Agen t (per Health Care Power of Agency Service Coordinator document) Nick Crowe Adult Child First Alternate Health Care Agent (per Health Care Power of Agency Service Coordinator document) Care Teams Workers Compensation Claims Analyst Relationship Specialty Start Date End Date Lu Phillips DO [address] [place] [address] PCP - General Family Medicine 12/25/23 documented as of this encounter
--- OUTSIDE RECORDS SUMMARY | 2024-07-19 21:05 | External Medical Summary ---
Author Name Unknown Address Unknown Organization K09:[facility] [address] [place] [address] Laboratory Report Ordering Provider Test Date Status SOWMYA BEY 06/18/2024 07:34:16 Final Observation Date Value Abnormality Reference (Units ) Status SYNC LEUKOCYTES IN BLOOD BY AUTOMATED COUNT 06/18/2024 07:34:16 7.69 4.00-10.80 (K/uL) Final Neutrophils/100 leukocytes in Blood by Manual count 06/18/2024 07:34:16 65.0 40.0-75.0 (%) Final Lymphocytes/100 leukocytes in Blood by Manual count 06/18/2024 07:34:16 25.0 18.0-42.0 (%) Final Monocytes/100 leukocytes in Blood by Manual count 06/18/2024 07:34:16 6.0 1.0-11.0 (%) Final Eosinophils/100 leukocytes in Blood by Manual count 06/18/2024 07:34:16 3.0 0.0-6.0 (%) Final Metamyelocytes/100 leukocytes in Blood by Manual count 06/18/2024 07:34:16 1.0 Above high normal <=0.0 (%) Final Neutrophils [#/volume] in Blood by Manual count 06/18/2024 07:34:16 5.00 1.80-7.70 (K/uL) Final Lymphocytes [#/volume] in Blood by Manual count 06/18/2024 07:34:16 1.92 1.00-4.80 (K/uL) Final Monocytes [#/volume] in Blood by Manual count 06/18/2024 07:34:16 0.46 0.00-1.10 (K/uL) Final Eosinophils [#/volume] in Blood by Manual count 06/18/2024 07:34:16 0.23 0.00-0.70 (K/uL) Final Metamyelocytes [#/volume] in Blood by Manual count 06/18/2024 07:34:16 0.08 Above high normal <=0.00 (K/uL) Final Nucleated erythrocytes/100 leukocytes [Ratio] in Blood by Automated count 06/18/2024 07:34:16 Final Elliptocytes [Presence] in Blood by Light microscopy 06/18/2024 07:34:16 Moderate Abnormal None Seen Final Target cells [Presence] in Blood by Light microscopy 06/18/2024 07:34:16 Moderate Abnormal None Seen Final Performing Location [facility] [address] [place] [address]
--- OUTSIDE RECORDS SUMMARY | 2024-07-19 21:05 | External Medical Summary ---
Author Name Unknown Address Unknown Organization K09[facility] [address] [place] [address] Laboratory Report Ordering Provider Test Date Status SOWMYA BEY 07/08/2024 12:59:00 Final Observation Date Value Abnormality Reference (Units ) Status SYNC LEUKOCYTES IN BLOOD BY AUTOMATED COUNT 07/08/2024 12:59:00 8.63 4.00-10.80 (K/uL) Final Neutrophils/100 leukocytes in Blood by Manual count 07/08/2024 12:59:00 55.0 40.0-75.0 (%) Final Lymphocytes/100 leukocytes in Blood by Manual count 07/08/2024 12:59:00 35.0 18.0-42.0 (%) Final Monocytes/100 leukocytes in Blood by Manual count 07/08/2024 12:59:00 6.0 1.0-11.0 (%) Final Eosinophils/100 leukocytes in Blood by Manual count 07/08/2024 12:59:00 4.0 0.0-6.0 (%) Final Neutrophils [#/volume] in Blood by Manual count 07/08/2024 12:59:00 4.75 1.80-7.70 (K/uL) Final Lymphocytes [#/volume] in Blood by Manual count 07/08/2024 12:59:00 3.02 1.00-4.80 (K/uL) Final Monocytes [#/volume] in Blood by Manual count 07/08/2024 12:59:00 0.52 0.00-1.10 (K/uL) Final Eosinophils [#/volume] in Blood by Manual count 07/08/2024 12:59:00 0.35 0.00-0.70 (K/uL) Final Nucleated erythrocytes/100 leukocytes [Ratio] in Blood by Automated count 07/08/2024 12:59:00 4 Above high normal <=0 (/100 WBCs) Final Elliptocytes [Presence] in Blood by Light microscopy 07/08/2024 12:59:00 Moderate Abnormal None Seen Final Schistocytes 07/08/2024 12:59:00 Few Abnormal None Seen Final Giant platelets [Presence] in Blood by Light microscopy 07/08/2024 12:59:00 Present Abnormal None Seen Final Performing Location [facility] [address] [place] [address]
--- OUTSIDE RECORDS SUMMARY | 2024-07-19 21:05 | External Medical Summary | Summary of Care ---
Author Name Unknown Organization [facility] Address [address] [place] [address] Phone [phone] Care Team Providers Care Cable Technician Name Role Phone Lu Phillips DO Primary Care Provider Reason for Visit * Reason Onset Date Comments Advice 06/05/2024 Encounter Details Date Type Department Care Team (Late st Contact Info) Description 06/05/2024 Telephone [facility] [address] [place] [address] Lu Phillips DO [address] [place] [address] Advice Allergies No known active allergiesdocumented as of this encounter (statuses as of 06/06/2024) Medications Medication Sig Dispensed Refills Start Date [...] as of this encounter (statuses as of 06/06/2024) Active Problems Problem Noted Date Diagnosed Date Chronic kidney disease, stage 3b 04/01/2024 Overview: Per CKD protocol MDS (myelodysplastic syndrome) 01/10/2024 Hearing aid worn 12/25/2023 documented as of this encounter (statuses as of 06/06/2024) Immunizations Name Administration Dates Next Due Seasonal [...] encounter Miscellaneous Notes * Telephone Encounter - Lu Phillips DO - 06/06/2024 2:15 PM EDT Okay then fax to shawn newman. * Telephone Encounter - Heidi Jordan LPN - 06/05/2024 4:32 PM EDT Daughter calling would like referral for nephrology sent to Zachary Rowe. Ed is not able to see pt until December 2024. Daughter would like pt seen before then. Please fax nephrology referral to Shawn Newman documented in this encounter Plan of Treatment Upcoming Encounters Date Type Department Care Team (Late st Contact Info) Description 06/18/2024 7:30 AM EDT Laboratory Laboratory [facility] [place] [address] [place] [phone] Marcela Lab [facility] [address] [facility] [place] [address] 06/18/2024 8:00 AM EDT Office Visit Hematology/Oncology [facility] [place] [address] [place] [place] [phone] Nyasia Feliz MD 200 [facility] [place], [place] [address] 06/18/2024 8:30 AM EDT Immunization/Injecti on Hematology/Oncology Treatment, [address], [place] [address] Marcela, Chair 9 Hem Onc [facility] [address] [place], [place] [address] 07/08/2024 1:00 PM EST Laboratory Laboratory [facility] Marcela [place] [address] [place], [place] [phone] Marcela, Lab Scenery [address] [facility], [place] [address] 07/08/2024 2:00 PM EST Immunization/Injecti on Hematology/Oncology Treatment, [place] [facility] [phone] Marcela, Chair [address] Hem Onc [address] [place] [address] 07/30/2024 2:15 PM EST Office Visit Interventional Pain Center, [facility] [address] [facility] [place] [address] Raymundo Reynoso, DO [address] [place] [phone] 08/01/2024 1:15 PM EST Imaging Radiology [facility] 1st Floor, [place] [address] [place] [address] 09/23/2024 8:30 AM EST Office [facility], [place] [address] [address] [facility], [place] [phone] Lu Phillips, DO [address] [facility] [address] 10/02/2024 3:30 PM EST Office Visit Cardiology, [facility] [address] [facility] [place] [address] Vidal Phillips, DO [address] [place] [address] 01/01/2025 12:10 PM EDT Office Visit [facility] [place] [address] [facility] [phone] Lu Phillips, DO [address] [facility], [place] [address] Health Maintenance Due Date Last Done Comments [...] Ratio 03/26/2025 03/26/2024 CKD PHOS USE SMARTSET 66906 04/15/2025 04/15/2024 CKD HGB USE SMARTSET 50769 05/28/202505/28, 05/28/2024, 05/07/2024, Additional history exists Depression [...] Documents on File Type Date Recorded Patient Insurance Counselor Expl anation Advance Directives and Living Will 01/04/2024 Fara Crowe Combined Medical POA & Living Will - signed on 11/24/2022 Healthcare Agents on File Name Relationship Healthcare Agent Relationshi p Communication Fara Junior Adult Child Health Care Agen t (per Health Care Power of Executive Vice President And Chief Operating Officer document) Nick Crowe Adult Child First Alternate Health Care Agent (per Health Care Power of Executive Vice President And Chief Operating Officer document) Care Teams Cable Technician Relationship Specialty Start Date End Date Lu Phillips DO [address] [place], [place] [phone] PCP - General Family Medicine 12/25/23 documented as of this encounter
--- OUTSIDE RECORDS SUMMARY | 2024-07-19 21:05 | External Medical Summary | Summary of Care ---
Author Name Unknown Organization [facility] Address [address] [place] [address] Phone [phone] Care Team Providers Care Full Stack Java Developer Name Role Phone Lu Phillips DO Primary Care Provider [phone] Reason for Visit * Reason Comments Medication Administration Reblozyl * Episode Based Medications (Routine) - Authorized Specialty Diagnoses / Procedures Referred By Contyang t Referred To Contact Diagnoses MDS (myelodysplastic syndrome) (HCC) Procedures OK INJ LUSPATERCEPT-AAMT 0.25MG Nyasia Feliz MD [address] [place] [address] Phone: tel: fax: Hematology/Oncology Treatment, [address] [address] Phone: tel: fax: Referral ID Status Reason Start Date Expiration Date V isits Requested Visits Authorized [id number] Authorized 01/12/2024 08/20/2099 99 99 Encounter Details Date Type Department Care Team (Late st Contact Info) Description 07/08/2024 2:00 PM EST Immunization/I njection Hematology/Oncology Treatment, [place] [address] [place] [address] Marcela, Chair [address] [place] [address] MDS (myelodysplastic syndrome) (HCC)* Allergies No known active allergiesdocumented as of this encounter (statuses as of 07/08/2024) Medications Atorvastatin Calcium 20 MG Oral Tablet [...] Tablet by mouth at bedtime. 4 Active Aspirin 81 MG Oral Tablet [...] day.. Active Famotidine 40 MG Oral Tablet (Pepcid)Indicatio ns:Hiatal hernia TAKE 1 TABLET BY MOUTH AT BEDTIME 90 Tablet 4 Active documented as of this encounter (statuses as of 07/08/2024) Active Problems Problem Noted Date Diagnosed Date Chronic kidney disease, stage 3b 04/01/2024 Overview: Per CKD protocol MDS (myelodysplastic syndrome) 01/10/2024 Hearing aid worn 12/25/2023 documented as of this encounter (statuses as of 07/08/2024) Immunizations Name Administration Dates Next Due Seasonal [...] AM EDT documented as of this encounter Nursing Notes * Pita Ortiz LPN - 07/08/2024 2:07 PM EST Reblozyl 63.4mg administered SQ (31.7mg in left upper extremity and 31.7mg in right upper extremity). Patient tolerated injection and will return on 07/29 documented in this encounter Plan of Treatment Upcoming Encounters Date Type Department Care Team (Late st Contact Info) Description 07/29/2024 9:50 AM EST Laboratory Laboratory [facility] [place] 200 [facility] [place] [phone] Nader Medrano [place] [address] [place] [address] [address] 07/29/2024 10:30 AM EST Office Visit Hematology/Oncology [facility] [address] [place] [phone] Nyasia Feliz MD [address] [facility] [place] [address] 07/29/2024 11:00 AM EST Immunization/Injecti on Hematology/Oncology Treatment, [place] [address] [place] [phone] Marcela, Chair 10 Hem Onc [facility] [address] [place] [address] [address] 07/30/2024 2:15 PM EST Office Visit Interventional Pain Center, [facility] [address] [place] [address] Raymundo Reynoso, [address] [place] [phone] 08/01/2024 1:15 PM EST Imaging Radiology [facility] 1st [facility] 132 [facility] [place] [address] 08/19/2024 1:00 PM EST Laboratory Laboratory [facility] [place] [address] [place] [address] Marcela, Lab Scenery 200 [facility] [place] [address] 08/19/2024 2:00 PM EST Immunization/Injecti on Hematology/Oncology Treatment, [place] [address] [place] [phone] Marcela, Chair 9 Hem Onc [address] 200 [facility] [place] [address] 09/23/2024 8:30 AM EST Office Visit [facility] [address] [address] Lu Phillips, DO [address] [place] [address] 10/02/2024 3:30 PM EST Office Visit Cardiology, [facility] 132 [facility] [place] [address] Vidal Phillips, DO 132 [facility] [place] [address] 01/01/2025 12:10 PM EDT Office Visit Family [facility] [address] [place] [address] Lu Phillips, DO [address] [place] [address] Health Maintenance Due Date Last Done Comments Pneumococcal Vaccine: 65+ Years (1 of 2 - PCV) 1946 DTap/Tdap Vaccines (1 - Tdap) 1960 Zoster Vaccines (1 of 2) 1991 Adult Wellness Visit 2007 COVID-19 Vaccine (1 - season) 2024 GFR 11/28/2024 05/30/2024, 04/21, 04/15/2024, Additional history exists Albumin/Creatinine Ratio 03/26/2025 03/26/2024 CKD PHOS USE SMARTSET 93868 04/15/2025 04/15/2024 Depression Screening 05/30/2025 05/30/2024 CKD HGB USE SMARTSET 61331 07/08/202507/08, 07/08/2024, 06/18/2024, Additional history exists DXA [...] ONCE PRN Other, Hypersensitivity Reaction, Starting on Mon07/08/24 at 1324, Until Mon07/09/24 at 1323, For 24 hoursIndications:MDS (myelodysplastic syndrome) (HCC) EPINEPHrine 1 MG/ML inj 0.3 mg 0.3 mg, Intramuscular, ONCE PRN Other, Hypersensitivity Reaction or Anaphylaxis, Starting on 07/08/24 at 1324, Until Mon07/09/24 at 1323, For 24 hoursIndications:MDS (myelodysplastic syndrome) (HCC) Hydrocortisone Sod Suc (PF) (Solu-Cortef) inj 100 mg 100 mg, IV Push, ONCE PRN Other, Hypersensitivity Reaction, Starting on Mon07/08/24 at 1324, Until Mon07/09/24 at 1323, For 24 hoursIndications:MDS (myelodysplastic syndrome) (HCC) oxygen GAS Inhalation, OXYGEN, First dose on Mon07/08/24 at 1600, Until Discontinued, Device/Managed by: Low Flow Device, [...] saturation is greater than or equal to 93%Indications:MDS (myelodysplastic syndrome) ([facility]) Inactive Administered Medications - up to 3 most recent administrations Medication Order MAR Action Action Date Dose Rate Site Luspatercept-aamt (Reblozyl) subcutaneous inj 63.4 mg 63.4 mg (1 mg/kg 63.4 kg Treatment plan Recorded weight), Subcutaneous, ONCE, On Mon07/08/24 at 1500, For 1 dose, MAX volume 1.2 mL per syringe. Administer ____ syringes, each containing mg for TOTAL DOSE = mg. Administer subcutaneously into upper arm, thigh, and/or abdomen. If giving as multiple injections must inject into separate sites.Indications:MDS (myelodysplastic syndrome) ([facility]) Subsq SYR 07/08/2024 2:01 PM EST 31.7 mg Arm Right Upper Given 07/08/2024 2:00 PM EST 31.7 mg Ar m Left Upper documented in this encounter Advance Directives Documents on File Type Date Recorded Patient Management Rep Expl anation Advance Directives and Living Will 01/04/2024 Fara Crowe Combined Medical POA & Living Will - signed on 11/24/2022 Healthcare Agents on File Name Relationship Healthcare Agent [facility] p Communication Fara Junior Adult Child Health Care Agen t (per Health Care Power of Fence Laborer document) Nick Crowe Adult Child First Alternate Health Care Agent (per Health Care Power of Fence Laborer document) Care Teams Full Stack Java Developer Relationship Specialty Start Date End Date Lu Phillips DO [address] [place], [place] [phone] PCP - General Family Medicine 12/25/23 documented as of this encounter
--- OUTSIDE RECORDS SUMMARY | 2024-07-19 21:05 | External Medical Summary | Summary of Care ---
Author Name Unknown Organization [facility] Address [address] [place] [address] Phone [phone] Care Team Providers Care Custodial Worker Name Role Phone Lu Phillips DO Primary Care Provider Reason for Visit * Reason Onset Date Comments Advice 06/05/2024 Encounter Details Date Type Department Care Team (Late st Contact Info) Description 06/05/2024 Telephone [facility] [address] [place] [address] Lu Phillips DO [address] [place] [address] Advice Allergies No known active allergiesdocumented as of this encounter (statuses as of 07/11/2024) Medications Atorvastatin Calcium 20 MG Oral Tablet [...] as of this encounter (statuses as of 07/11/2024) Active Problems Problem Noted Date Diagnosed Date Chronic kidney disease, stage 3b 04/01/2024 Overview: Per CKD protocol MDS (myelodysplastic syndrome) 01/10/2024 Hearing aid worn 12/25/2023 documented as of this encounter (statuses as of 07/11/2024) Immunizations Name Administration Dates Next Due Seasonal [...] No 05/30/2024 Does the household have a [facility] source of income? (Household - for [...] received the referral for Nephrology. Faxed to [facility], received confirmation that the transmission was successful. * Telephone Encounter - Weston Siddiqi OSA - 06/13/2024 8:20 AM EDT Faxed 06/13 * Telephone Encounter - Lu Phillips DO - 06/06/2024 2:15 PM EDT Okay then fax to [facility]. * Telephone Encounter - Heidi Jordan LPN - 06/05/2024 4:32 PM EDT Daughter calling would like referral for nephrology sent to [facility]. Ludinronniefaith is not able to see pt until December 2024. Daughter would like pt seen before then. Please fax nephrology referral to [facility] documented in this encounter Plan of Treatment Upcoming Encounters Date Type Department Care Team (Late st Contact Info) Description 07/29/2024 9:50 AM EST Laboratory Laboratory [facility] [address] [place] [phone] [place], Lab [facility] [address] [facility] [place] [address] 07/29/2024 10:30 AM EST Office Visit Hematology/Oncology [facility] [place] [address] [place] [phone] Nyasia Feliz MD [address] [place] [address] 07/29/2024 11:00 AM EST Immunization/Injecti on Hematology/Oncology Treatment, [place] [address] [facility] [place] [phone] Marcela, Chair 10 Hem Onc Scen[address] [place] [address] 07/30/2024 2:15 PM EST Office Visit Interventional Pain Center, [facility] [address] [place] [address] Raymundo Reynoso, DO [address] [place] [address] 08/01/2024 1:15 PM EST Imaging Radiology [facility] 1st Floor, [place] [address] [place] [address] 08/19/2024 1:00 PM EST Laboratory Laboratory Scenery Marcela [place] [address] [place] [phone] Marcela, Lab Scenery [address] [facility] [place] [address] 08/19/2024 2:00 PM EST Immunization/Injecti on Hematology/Oncology Treatment, [place] [address] [place], [place] [phone] Marcela, Chair 9 Hem Onc Scenery [address] [place] [address] 09/23/2024 8:30 AM EST Office Visit [facility] [address] [facility] [place] [phone] Lu Phillips, DO [address] [facility] [place] [address] 10/02/2024 3:30 PM EST Office Visit Cardiology, [facility] [place] [address] Vidal Phillips, DO [address] [facility] [place] [address] 01/01/2025 12:10 PM EDT Office Visit [facility] [address] [place] [address] Lu Phillips DO [facility] [address] Health Maintenance Due Date Last Done Comments Pneumococcal Vaccine: 65+ Years (1 of 2 - PCV) 1946 DTap/Tdap Vaccines (1 - Tdap) 1960 Zoster Vaccines (1 of 2) 1991 Adult Wellness Visit 2007 COVID-19 Vaccine (1 - 2023- season) 2024 GFR 11/28/2024 05/30/2024, 04/21, 04/15/2024, Additional history exists Albumin/Creatinine Ratio 03/26/2025 03/26/2024 CKD PHOS USE SMARTSET 73004 04/15/2025 04/15/2024 Depression Screening 05/30/2025 05/30/2024 CKD HGB USE SMARTSET 25179 07/08/202507/08, 07/08/2024, 06/18/2024, Additional history exists DXA [...] Documents on File Type Date Recorded Patient Oil Sprayer Expl anation Advance Directives and Living Will 01/04/2024 Fara Crowe Combined Medical POA & Living Will - signed on 11/24/2022 Healthcare Agents on File Name Relationship Healthcare Agent Relationshi p Communication Fara Junior Adult Child Health Care Agen t (per Health Care Power of Barrel Filler document) Nick Crowe Adult Child First Alternate Health Care Agent (per Health Care Power of Barrel Filler document) Care Teams Custodial Worker Relationship Specialty Start Date End Date Lu Phillips DO [address] [place] [address] PCP - General Family Medicine 12/25/23 documented as of this encounter
--- OUTSIDE RECORDS SUMMARY | 2024-07-19 21:05 | External Medical Summary | Summary of Care ---
Author Name Unknown Organization [facility] Address [address] [place] [address] Phone [phone] Care Team Providers Care Safety Specialist Name Role Phone JohnLu spaulding Primary Care Provider Encounter Details Date Type Department Care Team (Late st Contact Info) Description 06/18/2024 Orders Only Hematology/Oncology [facility] [place] [address] [facility] [place] [phone] Nyasia Feliz MD [address] [place] [address] Allergies No known active allergiesdocumented as of [...] 05/30/2024 Does the household have a re lar source of income? (Household - for ages [...] on file documented as of this encounter Plan of Treatment Upcoming Encounters Date Type Department Care Team (Late st Contact Info) Description 07/08/2024 1:00 PM EST Laboratory Laboratory [facility] [place] [address] [phone] Nader Medrano [address] [place] [address] 07/08/2024 2:00 PM EST Immunization/Injecti on Hematology/Oncology Treatment, [place] [address] [place] [phone] Marcela, Chair 9 Hem Onc Scenery [address] [place], [place] [address] 07/29/2024 9:50 AM EST Laboratory Laboratory [facility] [place] [address] [place] [phone] Marcela, Lab Scenery [address] [facility] [place] [address] 07/29/2024 10:30 AM EST Office Visit Hematology/Oncology [facility] [place] [address] [place] [phone] Nyasia Feliz MD [address] [place] [address] 07/29/2024 11:00 AM EST Immunization/Injecti on Hematology/Oncology Treatment, [place] [address] [place], [place] [phone] Marcela, Chair 10 Hem Onc Sc[address] [place], [place] [address] 07/30/2024 2:15 PM EST Office Visit [facility]ventional [facility] Center, [facility] [address] Raymundo Reynoso, 132 [facility] [place] [phone] 08/01/2024 1:15 PM EST Imaging Radiology [facility] 1st [facility] 132 [facility] [place] [address] 09/23/2024 8:30 AM EST Office Visit [facility] [address] [place] [phone] Lu Phillips [address] [place] [address] 10/02/2024 3:30 PM EST Office Visit Cardiology, [facility] [address] [place] [address] Vidal Phillips DO [address] [place] [address] 01/01/2025 12:10 PM EDT Office Visit Family [facility] [address] [facility] [phone] Lu Phillips DO [address] [facility] [place] [address] Health Maintenance Due Date Last Done Comments [...] Ratio 03/26/2025 03/26/2024 CKD PHOS USE SMARTSET 62220 04/15/2025 04/15/2024 Depression Screening 05/30/2025 05/30/2024 CKD HGB USE SMARTSET 83507 06/18/202506/18, 06/18/2024, 05/28/2024, Additional history exists DXA [...] Documents on File Type Date Recorded Patient Fire Coordinator Expl anation Advance Directives and Living Will 01/04/2024 Fara Crowe Combined Medical POA & Living Will - signed on 11/24/2022 Healthcare Agents on File Name Relationship Healthcare Agent Relationshi p Communication Fara Junior Adult Child Health Care Agen t (per Health Care Power of Avionics Test Technician document) Nick Crowe Adult Child First Alternate Health Care Agent (per Health Care Power of Avionics Test Technician document) Care Teams Safety Specialist Relationship Specialty Start Date End Date Lu Phillips DO [address] [place] [address] PCP - General Family Medicine 12/25/23 documented as of this encounter
--- OUTSIDE RECORDS SUMMARY | 2024-07-19 21:05 | External Medical Summary | Summary of Care ---
Author Name Unknown Organization [facility] Address [address] [place] [address] Phone [phone] Care Team Providers Care Email Manager Name Role Phone JohnLu spaulding Primary Care Provider Reason for Visit * Reason Comments Follow Up Encounter Details Date Type Department Care Team (Late st Contact Info) Description 06/18/2024 8:00 AM EDT Office Visit Hematology/Oncology [facility] [place] [address] [facility] [place] [phone] Nyasia Feliz MD [address] [facility] [place] [address] MDS (myelodysplastic syndrome) (HCC)* Allergies No known [...] No 05/30/2024 Does the household have a [facility] source of income? (Household - for [...] Sign Reading Time Taken Comments Blood Pressure 140/74 06/18/2024 7:59 AM EDT Pulse 83 06/18/2024 7:59 AM EDT Temperature 36.2 C (97.2 F) 06/18/2024 7:59 AM ED T Respiratory Rate - - Oxygen Saturation 97% 06/18/2024 7:59 AM EDT Inhaled Oxygen Concentration - - Weight 64.2 kg (141 lb 8 oz) 06/18/2024 7:59 AM EDT Height - - Body Mass Index 25.88 05/30/2024 10:43 AM EDT documented in this encounter Progress Notes * Nyasia Feliz MD - 06/18/2024 8:24 AM EDT Images from the original note were not included. Outpatient Consult Note Data Source: Patient, Epic record. Data Source: Patient, Epic record. 06/18/2024 8:24 AM Isabelle Crowe [id number] 84 year old Patient Encounter: HEMATOLOGY/ONCOLOGY [facility] Cancer Diagnosis: History of myelodysplastic syndrome with ringed sideroblasts and history of macrocytic anemia currently on Luspatercept received 1st dose on 12/11/2023. History of right breast cancer was diagnosis 08/2014. Current Treatment: luspatercep,Started 11/2023 Previous Treatment: Completed 5 years of letrozole. Oncologic History : 84-year-old male with past medical history significant for the microcytic anemia for last 20 years,history of breast cancer, coronary artery disease referred with the about diagnosis. 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 She underwent right total mastectomy with axillary node dissection and adjuvant radiation therapy. She had stage T2 N0 disease and Oncotype DX was 24. She completed 5 years of letrozole. 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 She was started on Luspatercept and received so far 2 doses. Last dose was given on 01/01/2024. Patient recently relocated from [place] to live with her daughter due to dementia. Daughter reports short-term memory loss although patient able to perform activities of daily living. Notes a sedentary lifestyle. Recent cardiac CT scan revealed severe coronary calcification and possible obstructive coronary disease and following Cardiology for further management. Clinically she is doing well in excellent performance status without any new symptoms of complain. Denies any headache, dizziness, blurred vision, chest pain, shortness of breath palpitation abdominal pain distention, change in the bowel habits, bleeding, bruising, hematuria, hematochezia, fever, night sweats, weight loss. She received last blood transfusion on 11/15/2023. Currently she is smoking 1 pack per day for over 60 years. Denies drinking. She is adopted and no family history available. Interval History: She is doing well without any new symptoms complain. She has more energy level. Denies any nausea, vomiting, fever, night sweats, chest pain, palpitation abdominal pain or distention, bleeding, bruising, change in the bowel habits. She has good energy level. LABS/IMAGING: Results for orders placed or performed in visit on 06/18/24 CBC Result Value Ref Range WBC 7.69 4.00 - 10.80 K/uL RBC 2.82 3.85 - 5.15 M/uL HGB 10.4 (L) 12.0 - 15.3 g/dL HCT 30.9 (L) 36.0 - 45.2 % MCV 109.6 81.5 - 97.5 fL MCH 36.9 27.0 - 34.0 pg MCHC 33.7 32.0 - 36.0 g/dL RDW 20.4 11.5 - 15.5 % PLT 361 140 - 400 K/uL MPV 9.9 6.6 - 11.1 fL DIFFERENTIAL, TECHNOLOGIST REVIEW Result Value Ref Range WBC 7.69 4.00 - 10.80 K/uL Neutrophils % 65.0 40.0 - 75.0 % Lymphocytes % 25.0 18.0 - 42.0 % Monocytes % 6.0 1.0 - 11.0 % Eosinophils % 3.0 0.0 - 6.0 % Metamyelocytes % 1.0 (H) <=0.0 % Absolute Neutrophils 5.00 1.80 - 7.70 K/uL Absolute Lymphocytes 1.92 1.00 - 4.80 K/uL Absolute Monocytes 0.46 0.00 - 1.10 K/uL Absolute Eosinophils 0.23 0.00 - 0.70 K/uL Absolute Metamyelocytes 0.08 (H) <=0.00 K/uL nRBCs Elliptocytes Moderate (A) None Seen Target Cells Moderate (A) None Seen Since the start of the chemotherapy, there is improvement in the hemoglobin level with no requirement for transfusion. REVIEW OF SYSTEMS: General: No Fever, chills, night sweats, or weight loss. HEENT: No change in visual acuity, blurred or double vision. No epistaxis, facial pain, nasal discharge or change in hearing. Denies dysphagia, no muscosal ulceration, or sores noted. Cardiovascular: No chest pain, LAUREN, or palpitations Respiratory: No shortness of breath, cough, hemoptysis, or pleuritic chest pain Gastrointestinal: No abdominal pain, nausea, vomiting, diarrhea, rectal pain or bleeding Genitourinary: Denies Hematuria or dysuria Musculoskeletal: No bone pain Psychiatric: No vegetative signs of depression Endocrine: No symptoms of hypothyroidism or hyperglycemia Hematologic: No bleeding or lymph nodes noted As mentioned above, all of the systems were reviewed in full and are unremarkable. No past medical history on file. Current Outpatient Medications Medication Sig Dispense Refill [...] No current facility-administered medications for this visit. Facility-Administered Medications Ordered in Other Visits Medication Dose Route Frequency Provider Last Rate Last Admin Luspatercept-aamt (Reblozyl) subcutaneous inj 63.4 mg 1 mg/kg (Treatment Plan Recorded) Subcutaneous Once Nyasia Feliz MD diphenhydrAMINE (Benadryl) inj 50 mg 50 mg IV Push Once PRN Nyasia Feliz MD Hydrocortisone Sod Suc (PF) (Solu-Cortef) inj 100 mg 100 mg IV Push Once PRN Nyasia Feliz MD EPINEPHrine 1 MG/ML inj 0.3 mg 0.3 mg Intramuscular Once PRN Nyasia Feliz MD oxygen GAS Inhalation Oxygen Nyasia Feliz MD Social History Tobacco Use Smoking status: Every Day Current packs/day: 1.00 Types: Cigarettes Smokeless tobacco: Never Substance Use Topics Alcohol use: Not Currently Drug use: Never Review of patient's allergies indicates: No Known Allergies PHYSICAL EXAMINATION: General Appearance: Healthy appearing patient in no acute distress BP 140/74 (BP Site: Right Arm, BP Position: Sitting, BP Cuff Size: Regular) | Pulse 83 | Temp 36.2 C (97.2 F) (Tympanic) | Wt 64.2 kg (141 lb 8 oz) | LMP (LMP Unknown) | SpO2 97% | BMI 25.88 kg/m | BSA 1.68 m Vitals reviewed. HEENT: No oral or pharyngeal masses, ulceration or thrush noted, no sinus tenderness. Neck is supple with no thyromegaly or JVD noted. Lymph Nodes: No lymphadenopathy noted in the occipital, pre and post auricular, cervical, supra andinfraclavicular, axillary, epitrochlear, inguinal, and popliteal region. Lungs/Thorax: Clear to auscultation, no accessory muscles of respiration being used. Heart: Regular rate and rhythm, normal S1, S2 Abdomen: Soft, nontender, bowel sounds present, no appreciable hepatosplenomegaly, no palpable masses Extremeties: Good pulses bilaterally, no peripheral edema. ASSESSMENT: 84-year-old male with past medical history significant for the microcytic anemia for last 20 years,history of breast cancer, coronary artery disease referred for the continuation of treatment for myelodysplastic syndrome. She was diagnosed of breast cancer 2014 involving the right breast underwentmastectomy followed by radiation and the letrozole treatment. I believe she completed 5 years of let rozole. She also has a history of anemia and in the past was treated with injection (I believe erythropoietin) with no significant response. She also had bone marrow biopsy and aspirate done which revealed hypercellular bone marrow with dyserythropoiesis, dysgranulopoiesis and unremarkable megakaryopoiesis, no increase in the blasts. 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 Patient was started on luspatercept and received 2 cycles on every 3 weeks basis with good tolerance and without any significant side effects toxicity. She was referred for the continuation of treatment because of the recent relocation to [facility]. She is doing well without any new symptoms complain. He has good energy level. Her hemoglobin has improved since the start of the treatment. Rest of the blood counts are stable in acceptable range. Discussed with the patient and daughter about diagnosis reviewed all the available blood test result with them. PLAN: Continue current treatment. She will return clinic for follow-up in 6 weeks with CBC and CMP. The patient voiced understanding of all of the above. All questions and concerns were addressed in an apparently satisfactory manner. Nyasia Feliz MD (This note was completed using the dictation program Fluency Direct. As such, there may be misspellings, word substitutions, or other variations that should not change the essence of the clinical content of this encounter note. If there is need for further clarification, please direct questions to me.) documented in this encounter Nursing Notes * Gertrudis Walters, MED ASSIST - 06/18/2024 7:59 AM EDT Patient identifed by name and birthdate Do you have any concerns about pain management for today's visit? Yes. Patient instructed to discuss pain concerns with provider during the visit today Living Will or Advance Directive for Health Care as noted on the problem list. [facility] is a way you can talk to your provider on line through e-mail. Would you like to sign up? I can activate it for you? ALREADY ACTIVE Filed Vitals: 06/18/24 0759 BP: 140/74 Pulse: 83 Temp: 36.2 C (97.2 F) TempSrc: Tympanic SpO2: 97% Weight: 64.2 kg (141 lb 8 oz) Patient was instructed to not get up on the exam table/exam chair until directed and assisted by their provider; patient is to remain seated in the chair/ wheelchair/ exam table/ exam chair for fall prevention and safety reasons. Patient is aware to have assistance to step down off exam table/exam chair with personnel. Patient voiced full comprehension of instructions. documented in this encounter Plan of Treatment Upcoming Encounters Date Type Department Care Team (Late st Contact Info) Description 06/18/2024 8:50 AM EDT Laboratory Laboratory [facility] [place] [address] [place] [phone] Marcela, Lab Scenery [address] [place] [address] 07/08/2024 1:00 PM EST Laboratory Laboratory [facility] [place] [address] [place] [phone] Marcela, Lab Scenery [address] [place] [address] 07/08/2024 2:00 PM EST Immunization/Injecti on Hematology/Oncology Treatment, [place] [address] [facility] [place] [phone] Marcela, Chair 9 Hem Onc [facility] [address] [place] [address] 07/29/2024 9:50 AM EST Laboratory Laboratory [facility] Marcela [place] [address] [place] [phone] Marcela, Lab Scenery [address] [place] [address] 07/29/2024 10:30 AM EST Office Visit Hematology/Oncology [facility] [place] [address] [phone] Nyasia Feliz MD [address] [place] [address] 07/29/2024 11:00 AM EST Immunization/Injecti on Hematology/Oncology Treatment, [address] [place] [phone] [place], Chair 10 Hem Onc Scenery [address] [place], [place] [address] 07/30/2024 2:15 PM EST Office Visit Interventional Pain Center, [facility] [address] [facility] [place] [address] Raymundo Reynoso, DO [address] [place] [address] 08/01/2024 1:15 PM EST Imaging Radiology [facility] 1st Floor, [place] [address] [facility] [place] [address] 09/23/2024 8:30 AM EST [facility] [place] [address] [facility] [phone] Lu Phillips, DO [address] [facility] [address] 10/02/2024 3:30 PM EST Office Visit Cardiology, [facility] [address] [facility] [place] [address] Vidal Phillips, DO 132 [facility] [place] [address] 01/01/2025 12:10 PM EDT [facility] [place] [address] [facility] [phone] Lu Phillips, DO [address] [facility] [address] Health Maintenance Due Date Last Done Comments Pneumococcal Vaccine: 65+ Years (1 of 2 - PCV) 1946 Adult Wellness Visit 2007 COVID-19 Vaccine ( - 2023-25 season) 2024 DTap/Tdap Vaccines (1 - Tdap) 06/29/2024 Postponed from 1960 (Insurance/Financial) Zoster Vaccines (1 of 2) 06/29/2024 Pos tponed from 1991 (Insurance/Financial) GFR 11/28/2024 05/30/2024, 04/21, 04/15/2024, Additional history exists Albumin/Creatinine Ratio 03/26/2025 03/26/2024 CKD PHOS USE SMARTSET 35312 04/15/2025 04/15/2024 Depression Screening 05/30/2025 05/30/2024 CKD HGB USE SMARTSET 69021 06/18/202506/18, 06/18/2024, 05/28/2024, Additional history exists DXA [...] Documents on File Type Date Recorded Patient Dental Services Director Expl anation Advance Directives and Living Will 01/04/2024 Fara Crowe Combined Medical POA & Living Will - signed on 11/24/2022 Healthcare Agents on File Name Relationship Healthcare Agent Relationshi p Communication Fara Junior Adult Child Health Care Agen t (per Health Care Power of Financial Assistance Advisor document) Nick Crowe Adult Child First Alternate Health Care Agent (per Health Care Power of Financial Assistance Advisor document) Care Teams Email Manager Relationship Specialty Start Date End Date Lu Phillips DO [address] [place] [address] PCP - General Family Medicine 12/25/23 documented as of this encounter"
--- OUTSIDE RECORDS SUMMARY | 2024-07-19 21:05 | External Medical Summary ---
Author Name Unknown Address Unknown Organization K09[facility] [place] [address] Laboratory Report Ordering Provider Test Date Status SOWMYA BEY 06/18/2024 07:34:16 Final Observation Date Value Abnormality Reference (Units ) Status WBC, Total 06/18/2024 07:34:16 7.69 4.00-10.8 0 (K/uL) Final RBC 06/18/2024 07:34:16 2.82 3.85-5.15 (M/uL) Final Hemoglobin 06/18/2024 07:34:16 10.4 Below low normal 12 .0-15.3 (g/dL) Final HCT 06/18/2024 07:34:16 30.9 Below low normal 36. 0-45.2 (%) Final MCV 06/18/2024 07:34:16 109.6 81.5-97.5 (fL) Final MCH 06/18/2024 07:34:16 36.9 27.0-34.0 (pg) Final MCHC 06/18/2024 07:34:16 33.7 32.0-36.0 (g/dL) Final RDW 06/18/2024 07:34:16 20.4 11.5-15.5 (%) Final Platelets 06/18/2024 07:34:16 361 140-400 (K /uL) Final MPV 06/18/2024 07:34:16 9.9 6.6-11.1 ( fL) Final Performing Location [facility] [place] [address]
--- OUTSIDE RECORDS SUMMARY | 2024-07-19 21:05 | External Medical Summary | Summary of Care ---
Author Name Unknown Organization [facility] Address [address] [place] [address] Phone [phone] Care Team Providers Care Revenue Audit Clerk Name Role Phone Johanna Chapman DO Primary Care Provider Reason for Referral * Evaluate & Treat - Unlimited Visits (Within 10 days (routine)) - Authorized Specialty Diagnoses / Procedures Referred By Andrews rosario Referred To Contact Nephrology Diagnoses Chronic kidney disease, stage 3b (HCC) Johanna Chapman DO [address] [place] [address] Referral ID Status Reason Start Date Expiration Date Visits Requested Visits Authorized [id number] Authorized Specialty Services Required [phone] Question Answer Referral Priority Within 10 days (routine) Where should this appointment be scheduled? dE What condition is this patient being seen for? Chronic kidney disease Reason for Visit * Reason Comments Outpatient Testing Encounter Details Date Type Department Care Team (Late st Contact Info) Description 05/30/2024 11:40 AM EDT Laboratory Laboratory, [place] [address] [place] [address] [facility] Laboratory [address], [place] [phone] Chronic kidney disease, stage 3b (HCC) Allergies No known active allergiesdocumented as of this encounter (statuses as of 06/03/2024) Medications Medication Sig Dispensed Refills Start Date [...] as of this encounter (statuses as of 06/03/2024) Active Problems Problem Noted Date Diagnosed Date Chronic kidney disease, stage 3b 04/01/2024 Overview: Per CKD protocol MDS (myelodysplastic syndrome) 01/10/2024 Hearing aid worn 12/25/2023 documented as of this encounter (statuses as of 06/03/2024) Immunizations Name Administration Dates Next Due Seasonal [...] as of this encounter Miscellaneous Notes * Addendum Note - Johanna Chapman DO - 06/03/2024 1:51 PM EDTAddended by: JOHANNA CHAPMAN on: 06/03/2024 01:51 PM Modules accepted: Orders documented in this encounter Plan of Treatment Upcoming Encounters Date Type Department Care Team (Late st Contact Info) Description 06/18/2024 7:30 AM EDT Laboratory Laboratory [facility] [place] [address] [place] [phone] Nader Medrano [address] [address] 06/18/2024 8:00 AM EDT Office Visit Hematology/Oncology [facility] [place] [address] [place] [phone] Nyasia Feliz MD 200 [facility] [place] [address] 06/18/2024 8:30 AM EDT Immunization/Injecti on Hematology/Oncology Treatment [place] [address] [place] [phone] Marcela, Chair 9 Hem Onc [facility] [address] [place] [address] 07/08/2024 1:00 PM EST Laboratory Laboratory [facility] Marcela [place] [address] [phone] Marcela Lab [place] [address] [facility] [place] [address] 07/08/2024 2:00 PM EST Immunization/Injecti on Hematology/Oncology Treatment, [place] [address] [place] [address] Marcela, Chair 9 Hem Onc [address] [place] [address] 07/30/2024 2:15 PM EST Office Visit Interventional Pain Center, [facility] [address] [place] [address] Raymundo Reynoso, DO [address] [place] [address] 08/01/2024 1:15 PM EST Imaging Radiology [facility] 1st Floor, [place] [facility] [place] [address] 09/23/2024 8:30 AM EST Office Visit [facility] [address] [facility] [phone] Johanna Chapman, DO [address] [facility] [address] 10/02/2024 3:30 PM EST Office Visit Cardiology, [facility] 132 [facility] [place] [address] Vidal Chapman, DO 132 [facility] [place] [address] 01/01/2025 12:10 PM EDT Office Visit [facility] [place] [address] [facility] [place] [phone] Johanna Chapman, DO [address] [facility] [address] Scheduled Referrals Name Type Priority Associated Diagnoses Orde r Schedule NEPHROLOGY REFERRAL OP Referral Within 10 days (routine) Chronic kidney disease, stage 3b (HCC) Ordered: 06/03/2024 Health Maintenance Due Date Last Done Comments Pneumococcal Vaccine: 65+ Years (1 of 2 - PCV) 1946 DXA Scan 2006 06/03/2024 Adult Wellness Visit 2007 COVID-19 Vaccine (1 - season) 2024 DTap/Tdap Vaccines (1 - Tdap) 06/29/2024 Postponed from 1960 (Insurance/Financial) Zoster Vaccines (1 of 2) 06/29/2024 Pos tponed from 1991 (Insurance/Financial) GFR 11/28/2024 05/30/2024, 04/21, 04/15/2024, Additional history exists Albumin/Creatinine Ratio 03/26/2025 03/26/2024 CKD PHOS USE SMARTSET 74063 04/15/2025 04/15/2024 CKD HGB USE SMARTSET 85187 05/28/202505/28, 05/28/2024, 05/07/2024, Additional history exists Depression [...] Not on filedocumented as of this encounter Procedures Procedure Name Priority Date/Time Associated Diagnosis Comments BASIC METABOLIC PANEL Routine 05/30/2024 11:46 AM EDT Chronic kidney disease, stage 3b (HCC) URINALYSIS WITH MICROSCOPIC EXAM Routine 05/30/2024 11:46 AM EDT Chronic kidney disease, stage 3b (HCC) documented in this encounter Results * (ABNORMAL) URINALYSIS WITH MICROSCOPIC EXAM (05/30/2024 11:46 AM EDT) Color, Urine Yellow Colorless, Light Yellow, Yellow, Dark Yellow 05/30/2024 11:07 PM EDT [facility] Clarity, Urine Clear Clear 05/30/2024 11:[address] [facility] Glucose, Urine Negative Negative mg/dL 05/30/2024 11:[address] [facility] Bilirubin, Urine Negative Negative 05/30/2024 11:[address] [facility] Ketone, Urine Negative Negative mg/dL 05/30/2024 11:[address] [facility] Specific [place], Urine 1.022 1.003 - 1.030 05/30/2024 11:[address] [facility] Blood, Urine Negative Negative 05/30/2024 11:[address] [facility] pH, Urine 6.0 5.0 - 7.5 Units 05/30/2024 11:[address] [facility] Protein, Urine 30(A) Negative mg/dL 05/30/2024 11:[address] [facility] Urobilinogen, Urine 2.0(A) Normal mg/dL 05/30/2024 11:[address] [facility] Nitrite, Urine Negative Negative 05/30/2024 11:[address] [facility] Esterase, Urine Negative Negative 05/30/2024 11:[address] [facility] RBC, Urine 0-2 0 - 2 /HPF 05/30/2024 11:[address] [facility] WBC, Urine 0-2 0 - 2 /HPF 05/30/2024 11:[address] [facility] Bacteria, Urine 0-25 0 - 25 /HPF 05/30/2024 11:[address] [facility] Calcium Oxalate Crystal, Urine 50+(A) None /HPF 05/30/2024 11:[address] [facility] Urine Urine specimen obtained by clean catch procedure / Unknown Non-blood Collection / Unknown 05/30/2024 11:46 AM EDT 05/30/2024 11:46 AM EDT Johanna Chapman DO LAB URINE ORDERABLES LABORATORY [facility] [address] [place] [address] * (ABNORMAL) BASIC METABOLIC PANEL (05/30/2024 11:46 AM EDT) BUN 31(H) 6 - 20 mg/dL 05/31/2024 12:36 AM EDT [facility] CREATININE 1.5(H) 0.5 - 1.0 mg/dL 05/31/2024 12:36 AM EDT [facility] EGFR 35(L) >=60 mL/min 05/31/2024 12:36 AM EDT [facility] Comment:eGFR is calculated b ased on the CKD-EPI 2020 equation. SODIUM 138 135 - 146 mmol/L 05/31/2024 12:36 AM EDT [facility] POTASSIUM 4.3 3.5 - 5.1 mmol/L 05/31/2024 12:36 AM EDT [facility] CHLORIDE 99 98 - 107 mmol/L 05/31/2024 12:36 AM EDT [facility] CO2 25 22 - 32 mmol/L 05/31/2024 12:36 AM EDT [facility] ANION GAP 14 7 - 15 mmol/L 05/31/2024 12:36 AM EDT [facility] GLUCOSE 100 70 - 120 mg/dL 05/31/2024 12:36 AM EDT [facility] CALCIUM 10.2 8.4 - 10.2 mg/dL 05/31/2024 12:36 AM EDT [facility] Blood Venous blood specimen / Unknown Venipuncture / Unknown 05/30/2024 11:46 AM EDT 05/30/2024 11:46 AM EDT Johanna Chapman DO LAB BLOOD ORDERABLES Performing Organization Address City/State/[facility] Co de Phone Number LABORATORY [facility] [address] [place], [place] [phone] documented in this encounter Visit Diagnoses Diagnosis Chronic kidney disease, stage 3b (HCC) Screening mammogram for breast cancer documented in this encounter Advance Directives Documents on File Type Date Recorded Patient Solutions Sales Consultant Expl anation Advance Directives and Living Will 01/04/2024 Fara Crowe Combined Medical POA & Living Will - signed on 11/24/2022 Healthcare Agents on File Name Relationship Healthcare Agent Relationshi p Communication Fara Junior Adult Child Health Care Agen t (per Health Care Power of Plant Associate document) Nick Crowe Adult Child First Alternate Health Care Agent (per Health Care Power of Plant Associate document) Care Teams Revenue Audit Clerk Relationship Specialty Start Date End Date Johanna Chapman DO [address] [place] [address] PCP - General Family Medicine 12/25/23 documented as of this encounter
--- OUTSIDE RECORDS SUMMARY | 2024-07-19 21:05 | External Medical Summary | Summary of Care ---
Author Name Unknown Organization [facility] Address [address] [place] [address] Phone [phone] Care Team Providers Care Equipment Tester Name Role Phone Johanna Chapman DO Primary Care Provider Reason for Visit * Reason Comments eRx-Medication Refill Encounter Details Date Type Department Care Team (Late st Contact Info) Description 07/01/[address] [facility] [address] [place] [address] Johanna Chapman DO [address] [place], [place] [phone] Hiatal hernia Allergies No known active allergiesdocumented as of this encounter (statuses as of 07/03/2024) Medications Atorvastatin Calcium 20 MG Oral Tablet [...] 40 MG Oral Tablet (Pepcid)Indicati ons:Hiatal hernia TAKE 1 TABLET BY MOUTH AT BEDTIME 90 Tablet 07/03/20 24 Active Famotidine 40 MG Oral Tablet (Pepcid)Indicati ons:Hiatal hernia Take 1 Tablet by mouth at bedtime. 90 Tablet 1 12/25/19 24 024 Discontinued documented as of this encounter (statuses as of 07/03/2024) Active Problems Problem Noted Date Diagnosed Date Chronic kidney disease, stage 3b 04/01/2024 Overview: Per CKD protocol MDS (myelodysplastic syndrome) 01/10/2024 Hearing aid worn 12/25/2023 documented as of this encounter (statuses as of 07/03/2024) Immunizations Name Administration Dates Next Due Seasonal [...] encounter Miscellaneous Notes * Telephone Encounter - Johanna Chapman DO - 07/03/2024 1:40 PM ESTSigned Prescriptions: Disp Refills Famotidine 40 MG Oral Tablet (Pepcid) 90 Tab*0 Sig: TAKE 1 TABLET BY MOUTH AT BEDTIME Authorizing Provider: JOHANNA CHAPMAN * Telephone Encounter - Sheela Ta [facility] - 07/03/2024 1:18 PM EST Pending Prescriptions: Disp Refills Famotidine 40 MG Oral Tablet (Pepcid) 90 Tab*0 Sig: TAKE 1 TABLET BY MOUTH AT BEDTIME * Telephone Encounter - Sheela Ta [facility] - 07/03/2024 1:16 PM EST Please refill if continued use appropriate. Thank you, Sheela Ta, PharmD Clinical Pharmacist [facility] ([facility]) 07/03/24 1:17 PM [phone] documented in this encounter Plan of Treatment Upcoming Encounters Date Type Department Care Team (Late st Contact Info) Description 07/08/2024 1:00 PM EST Laboratory Laboratory Leonor Medrano [place] [address] [place] [address] Nader Medrano [facility] [address] [facility] [place] [address] 07/08/2024 2:00 PM EST Immunization/Injecti on Hematology/Oncology Treatment, [place] 200 [facility] [place] [address] Marcela, Chair 9 Hem Onc [address] [place], [place] [address] 07/29/2024 9:50 AM EST Laboratory Laboratory [facility] [place] [address] [place] [phone] Marcela, Lab [address] [facility] [place] [address] 07/29/2024 10:30 AM EST Office Visit Hematology/Oncology [facility] [place] [address] [place] [phone] Nyasia Feliz MD [address] [place] [address] 07/29/2024 11:00 AM EST Immunization/Injecti on Hematology/Oncology Treatment, [place] [address] [place], [place] [phone] Marcela, Chair 10 Hem Onc [address] [place], [place] [address] 07/30/2024 2:15 PM EST Office Visit [facility], [facility] [address] Raymundo Reynoso, DO 132 [facility] [phone] 08/01/2024 1:15 PM EST Imaging Radiology [facility] 1st [facility] [address] [facility] [address] 09/23/2024 8:30 AM EST Office Visit Family Practice, [facility] [address] [place] [address] Johanna Chapman, DO [address] [place] [address] 10/02/2024 3:30 PM EST Office Visit Cardiology, [facility] [address] [place] [address] Vidal Chapman, DO [address] [place] [address] 01/01/2025 12:10 PM EDT Office Visit [facility] [place] [facility] [address] [facility] [address] Johanna Chapman, DO [address] [facility] [address] Health Maintenance Due Date Last Done Comments Pneumococcal Vaccine: 65+ Years (1 of 2 - PCV) 1946 DTap/Tdap Vaccines (1 - Tdap) 1960 Zoster Vaccines (1 of 2) 1991 Adult Wellness Visit 2007 COVID-19 Vaccine ( - season) 2024 GFR 11/28/2024 05/30/2024, 04/21, 04/15/2024, Additional history exists Albumin/Creatinine Ratio 03/26/2025 03/26/2024 CKD PHOS USE SMARTSET 04546 04/15/2025 04/15/2024 Depression Screening 05/30/2025 05/30/2024 CKD HGB USE SMARTSET 99739 06/18/202506/18, 06/18/2024, 05/28/2024, Additional history exists DXA [...] as of this encounter Visit Diagnoses Diagnosis Hiatal hernia Diaphragmatic hernia without mention of obstruction or gangrene Screening mammogram for breast cancer documented in this encounter Advance Directives Documents on File Type Date Recorded Patient Washing And Screening Plant Supervisor Expl anation Advance Directives and Living Will 01/04/2024 Fara Crowe Combined Medical POA & Living Will - signed on 11/24/2022 Healthcare Agents on File Name Relationship Healthcare Agent Relationshi p Communication Fara Junior Adult Child Health Care Agen t (per Health Care Power of Environmental Science Professor document) Nick Crowe Adult Child First Alternate Health Care Agent (per Health Care Power of Environmental Science Professor document) Care Teams Equipment Tester Relationship Specialty Start Date End Date Johanna Chapman DO [address] [place] [address] PCP - General Family Medicine 12/25/23 documented as of this encounter
--- OUTSIDE RECORDS SUMMARY | 2024-07-19 21:05 | External Medical Summary | Summary of Care ---
Author Name Unknown Organization [facility] Address [address] [place] [address] Phone [phone] Care Team Providers Care Odd Piece Checker Name Role Phone HaydeeLu agrcia Calvin LEE Primary Care Provider [phone] Reason for Visit * Reason Comments Outpatient Testing Encounter Details Date Type Department Care Team (Late st Contact Info) Description 06/18/2024 7:30 AM EDT Laboratory Laboratory [facility] [address] [place] [phone] [place], Lab [facility] 200 [facility] [place] [address] MDS (myelodysplastic syndrome) (HCC) Allergies No known active allergiesdocumented as [...] 06/18/2024 8:00 AM EDT Office Visit Hematology/Oncology [place] [address] [phone] Nyasia Feliz MD [address] [address] Arrived 06/18/2024 8:30 AM EDT Immunization/Injecti on Hematology/Oncology Treatment, [place] [address] [place] [phone] Marcela, Chair 9 Hem Onc [address] [place], [place] [address] Arrived 06/18/2024 8:50 AM EDT Laboratory Laboratory [facility] [place] [address] [place] [phone] Marcela, Lab Scenery [address] [facility] [place], [place] [address] 07/08/2024 1:00 PM EST Laboratory Laboratory [facility] [address] [place] [phone] Marcela, Lab Scen[address] [facility] [place] [address] 07/08/2024 2:00 PM EST Immunization/Injecti on Hematology/Oncology Treatment, [place] [facility], [place] [phone] Marcela, Chair 9 Hem Onc [address] [place], [place] [address] 07/30/2024 2:15 PM EST Office Visit Interventional [facility] Center, [facility] [place] [address] Raymundo Reynoso, [address] [place] [phone] 08/01/2024 1:15 PM EST Imaging Radiology [facility] 1st [facility] [place] [address] 09/23/2024 8:30 AM EST Office Visit [facility] [address] [facility] [place] [phone] Lu Phillips, [address] [place] [facility] [place] [address] 10/02/2024 3:30 PM EST Office Visit Cardiology, [facility] [address] [place] [address] Vidal Phillips DO [address] [place] [address] 01/01/2025 12:10 PM EDT Office Visit Family [facility] [address] [place] [address] Lu Phillips, DO [address] [place] [address] Pending Results Name Type Priority Associated Diagnoses Date /Time CBC WITH WBC DIFFERENTIAL Lab STAT MDS (myelodysplastic syndrome) ([facility]) 06/18/2024 7:34 AM EDT CBC Lab STAT MDS (myelodysplastic syndrome) ([facility]) 06/18/2024 7:34 AM EDT DIFFERENTIAL, AUTOMATED Lab STAT MDS (myelodysplastic syndrome) ([facility]) 06/18/2024 7:34 AM EDT Health Maintenance Due Date Last Done Comments Pneumococcal Vaccine: 65+ Years (1 of 2 - PCV) 1946 Adult Wellness Visit 2007 COVID-19 Vaccine ( - season) 2024 DTap/Tdap Vaccines (1 - Tdap) 06/29/2024 Postponed from 1960 (Insurance/Financial) Zoster Vaccines (1 of 2) 06/29/2024 Pos tponed from 1991 (Insurance/Financial) GFR 11/28/2024 05/30/2024, 04/21, 04/15/2024, Additional history exists Albumin/Creatinine Ratio 03/26/2025 03/26/2024 CKD PHOS USE SMARTSET 44623 04/15/2025 04/15/2024 CKD HGB USE SMARTSET 40318 05/28/202505/28, 05/28/2024, 05/07/2024, Additional history exists Depression [...] encounter Visit Diagnoses Diagnosis MDS (myelodysplastic syndrome) (HCC) Myelodysplastic syndrome, unspecified Screening mammogram for breast cancer documented in this encounter Advance Directives Documents on File Type Date Recorded Patient Casing Fluid Tender Expl anation Advance Directives and Living Will 01/04/2024 Fara Crowe Combined Medical POA & Living Will - signed on 11/24/2022 Healthcare Agents on File Name Relationship Healthcare Agent Relationshi p Communication Fara Junior Adult Child Health Care Agen t (per Health Care Power of Medical Surgery Nurse document) Nick Crowe Adult Child First Alternate Health Care Agent (per Health Care Power of Medical Surgery Nurse document) Care Teams Odd Piece Checker Relationship Specialty Start Date End Date Lu Phillips DO [address] [place] [address] PCP - General Family Medicine 12/25/23 documented as of this encounter
--- OUTSIDE RECORDS SUMMARY | 2024-07-19 21:05 | External Medical Summary | Summary of Care ---
Author Name Unknown Organization [facility] Address [address] [place] [address] Phone [phone] Care Team Providers Care Ribbon Hanking Machine Operator Name Role Phone HaydeeLu garcia Calvin LEE Primary Care Provider Reason for Visit * Reason Comments Outpatient Testing Encounter Details Date Type Department Care Team (Late st Contact Info) Description 07/08/2024 1:00 PM EST Laboratory Laboratory [facility] [address] [place] [phone] [facility] [address] [place] [address] MDS (myelodysplastic syndrome) (HCC) Allergies No known [...] AM EDT documented as of this encounter Plan of Treatment Upcoming Encounters Date Type Department Care Team (Late st Contact Info) Description 07/08/2024 2:00 PM EST Immunization/Injecti on Hematology/Oncology Treatment, [place] [address] [place] [address] Marcela, Chair 9 Hem On[address] [address] Arrived 07/29/2024 9:50 AM EST Laboratory Laboratory [facility] [address] [place] [phone] Marcela, Lab Scenery [address] [facility] [place] [address] 07/29/2024 10:30 AM EST Office Visit Hematology/Oncology [facility] [address] [place] [phone] Nyasia Feliz MD [address] [place] [address] 07/29/2024 11:00 AM EST Immunization/Injecti on Hematology/Oncology Treatment, [place] [address] [place] [phone] Marcela, Chair 10 Hem On[address] [place] [address] [place] [address] 07/30/2024 2:15 PM EST Office Visit Interventional Pain Center, [facility] [address] [place] [address] Raymundo Reynoso, DO [address] [place] [phone] 08/01/2024 1:15 PM EST Imaging Radiology [facility] 1st [facility], [place] [address] [place] [address] 09/23/2024 8:30 AM EST Office Visit Family [facility] 226 [facility] [place] [address] Lu Phillips, DO [address] [facility] [place] [address] 10/02/2024 3:30 PM EST Office Visit Cardiology, [facility] [address] [place] [address] Vidal Phillips, DO [address] [place] [address] 01/01/2025 12:10 PM EDT Office Visit [facility] [address] [facility] [address] Lu Phillips, DO [address] [place] [address] Pending Results Name Type Priority Associated Diagnoses Date /Time CBC WITH WBC DIFFERENTIAL Lab STAT MDS (myelodysplastic syndrome) [facility]) 07/08/2024 12:59 PM EST CBC Lab STAT MDS (myelodysplastic syndrome) ([facility]) 07/08/2024 12:59 PM EST DIFFERENTIAL, AUTOMATED Lab STAT MDS (myelodysplastic syndrome) ([facility]) 07/08/2024 12:59 PM EST DIFFERENTIAL, TECHNOLOGIST REVIEW Lab Routine MDS (myelodysplastic syndrome) ([facility]) 07/08/2024 12:59 PM EST Health Maintenance Due Date Last Done Comments Pneumococcal Vaccine: 65+ Years (1 of 2 - PCV) 1946 DTap/Tdap Vaccines (1 - Tdap) 1960 Zoster Vaccines (1 of 2) 1991 Adult Wellness Visit 2007 COVID-19 Vaccine (1 - season) 2024 GFR 11/28/2024 05/30/2024, 04/21, 04/15/2024, Additional history exists Albumin/Creatinine Ratio 03/26/2025 03/26/2024 CKD PHOS USE SMARTSET 47346 04/15/2025 04/15/2024 Depression Screening 05/30/2025 05/30/2024 CKD HGB USE SMARTSET 32423 06/18/202506/18, 06/18/2024, 05/28/2024, Additional history exists DXA [...] Documents on File Type Date Recorded Patient Field Support Specialist Expl anation Advance Directives and Living Will 01/04/2024 Fara Crowe Combined Medical POA & Living Will - signed on 11/24/2022 Healthcare Agents on File Name Relationship Healthcare Agent Relationshi p Communication Fara Junior Adult Child Health Care Agen t (per Health Care Power of Lathe Turner document) Nick Crowe Adult Child First Alternate Health Care Agent (per Health Care Power of Lathe Turner document) Care Teams Ribbon Hanking Machine Operator Relationship Specialty Start Date End Date Lu Phillips DO [address] [place] [address] PCP - General Family Medicine 12/25/23 documented as of this encounter
--- OUTSIDE RECORDS SUMMARY | 2024-07-19 21:05 | External Medical Summary | Summary of Care ---
Author Name Unknown Organization [facility] Address [address] [place] [address] Phone [phone] Care Team Providers Care Electrical And Instrumentation Manager Name Role Phone Lu Phillips DO Primary Care Provider Reason for Visit * Reason Onset Date Comments FYI 03/26/2024 Encounter Details Date Type Department Care Team (Late st Contact Info) Description 03/26/2024 Telephone [facility] [address] [place] [address] Lu Phillips DO [address] [place] [address] FYI Allergies No known active allergiesdocumented as of this encounter (statuses as of 06/25/2024) Medications Medication Sig Dispensed Refills Start Date [...] by mouth in the morning. 01/02/2024 Active documented as of this encounter (statuses as of 06/25/2024) Active Problems Problem Noted Date Diagnosed Date Chronic kidney disease, stage 3b 04/01/2024 Overview: Per CKD protocol MDS (myelodysplastic syndrome) 01/10/2024 Hearing aid worn 12/25/2023 documented as of this encounter (statuses as of 06/25/2024) Social History Tobacco Use Types Packs/Day Years Used Date Smoking Tobacco: Every Day Cigarettes PHQ-2 Answer Date Recorded PHQ Adult Total [...] Telephone Encounter - Heidi Jordan LPN - 03/26/2024 2:47 PM EDT Daughter calling to make Sofia aware pt didn't fast for Lipid panel drawn today. This is FYI documented in this encounter Plan of Treatment Upcoming Encounters Date Type Department Care Team (Late st Contact Info) Description 07/08/2024 1:00 PM EST Laboratory Laboratory [facility] [address] [place] [phone] Marcela Lab [facility] [address] [place] [address] 07/08/2024 2:00 PM EST Immunization/Injecti on Hematology/Oncology Treatment, [place] [address] [place] [phone] Marcela, Chair 9 Hem Onc [facility] [address] [place] [address] 07/29/2024 9:50 AM EST Laboratory [facility] [place] [address] [place] [phone] Marcela, Lab [facility] [address] [facility] [place] [address] 07/29/2024 10:30 AM EST Office Visit Hematology/Oncology [facility] Marcela [place] [address] [place] [phone] Nyasia Feliz MD [address] [place] [address] 07/29/2024 11:00 AM EST Immunization/Injecti on Hematology/Oncology Treatment, [place] [address] [place], [place] [phone] Marcela, Chair 10 Hem Onc [address] [place] [address] 07/30/2024 2:15 PM EST Office Visit Interventional Pain Center, [facility] [address] [place] [address] Raymundo Reynoso, DO [address] [place] [phone] 08/01/2024 1:15 PM EST Imaging Radiology [facility] 1st [facility] [address] [place] [address] 09/23/2024 8:30 AM EST Office Visit [address] [address] Lu Phillips, DO [address] [place] [address] 10/02/2024 3:30 PM EST Office Visit Cardiology, [facility] [address] [place] [address] Vidal Phillips, DO [address] [place] [address] 01/01/2025 12:10 PM EDT Office Visit [place] [address] [place] [address] Lu Phillips, DO [address] [place] [address] Health Maintenance Due Date Last Done Comments [...] Ratio 03/26/2025 03/26/2024 CKD PHOS USE SMARTSET 47585 04/15/2025 04/15/2024 Depression Screening 05/30/2025 05/30/2024 CKD HGB USE SMARTSET 33396 06/18/202506/18, 06/18/2024, 05/28/2024, Additional history exists DXA [...] Documents on File Type Date Recorded 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 Supervisor [employer] Expl anation Advance Directives and Living Will 01/04/2024 Fara Crowe Combined Medical POA & Living Will - signed on 11/24/2022 Healthcare Agents on File Name Relationship Healthcare Agent Relationshi p Communication Fara Junior Adult Child Health Care Agen t (per Health Care Power of Dye Colorist Dyer document) Nick Crowe Adult Child First Alternate Health Care Agent (per Health Care Power of Dye Colorist Dyer document) Care Teams Electrical And Instrumentation Manager Relationship Specialty Start Date End Date Lu Phillips DO [address] [place] [address] PCP - General Family Medicine 12/25/23 documented as of this encounter
--- OUTSIDE RECORDS SUMMARY | 2024-07-19 21:06 | External Medical Summary | Summary of Care ---
Author Name Unknown Organization [facility] Address [address] [place] [address] Phone [phone] Care Team Providers Care Manager Culinary Name Role Phone HaydeeLu garcia Calvin LEE Primary Care Provider [phone] Reason for Visit * Reason Onset Date Comments Advice 05/10/2024 FYI 05/10/2024 Encounter Details Date Type Department Care Team (Late st Contact Info) Description 05/10/2024 Telephone [facility] [address] [place] [address] Sofia Cortes PA-C [address] [place] [address] Advice; FY (/) Allergies No known active allergiesdocumented as of this encounter (statuses as of 05/22/2024) Medications Medication Sig Dispensed Refills Start Date [...] 12/23/2023 Active Famotidine 40 MG Oral Tablet (Pepcid)Indications: Hiatal hernia Take 1 Tablet by mouth at bedtime. 90 Tablet 1 12/25/2023 Active Vitamin C Adult Gummies 125 MG Oral Tablet Chewable (Ascorbic Acid) Take by mouth. Activ e Aspirin 81 MG Oral Tablet Chewable Take 1 Tablet by mouth in the morning. 01/02/2024 Active Metoprolol Succinate ER 25 MG Oral Tablet Extended Release 24 Hour (Toprol XL) Take 1 Tablet by mouth in the morning. 34 Tablet 6 02/26/2024 Active Multi Adult Gummies Oral Tablet Chewable Take by mouth. Active Calcitriol 0.5 MCG Oral Capsule (Rocaltrol) Take 1 Capsule by mouth in the morning. 90 Capsule 3 04/01/2024 Active Lidocaine Viscous HCl 2 % Mouth/Throat Solution Swish and spit 15 mL as needed for Pain, Severe. Can apply using a cotton ball as well to specific tender spots 100 mL 04/01/2024 Active documented as of this encounter (statuses as of 05/22/2024) Active Problems Problem Noted Date Diagnosed Date Chronic kidney disease, stage 3b 04/01/2024 Overview: Per CKD protocol MDS (myelodysplastic syndrome) 01/10/2024 Hearing aid worn 12/25/2023 documented as of this encounter (statuses as of 05/22/2024) Immunizations Name Administration Dates Next Due Seasonal Influenza, High Dos e, Trivalent, PF, IM (Fluzone HD) 05/07/2024 documented as of this encounter Social History Tobacco Use Types Packs/Day Years Used Date Smoking Tobacco: Every Day Cigarettes Utilities Answer Date Recorded Do you have trouble paying y our heating, water, or electric bill? (Adult - for ages 18 years and over) Not on file 02/06/2024 Is your family able to pay t he heat, water, or electric bill? (Household - for ages 0-17 years) Not on file 02/06/2024 Does your family have access to good internet? (Household - for ages 0-17 years) Not on file 02/06/2024 Social Connections Answer Date Recorded How often do you feel lonely or isolated from those around you? (Adult - for ages 18 years and over) Not on file 02/06/2024 Sex and Gender Information Value Date Recorded Sex Assigned at Not on file Gender Identity Not on file Sexual Orientation Not on file Job Start Date Occupation Industry Not on file Not on file Not on file documented as of this encounter Miscellaneous Notes * Telephone Encounter - Joseline Baird LPN - 05/15/2024 1:02 PM EDT Patients daughter, Fara is calling. Decided she wants an appointment with Dr. Phillips to discuss knee pain, kidney issues, alzheimers diagnosis and new medication. Placed first available 05/30/24 @ 10:50 a.m. * Telephone Encounter - Alisa Buitrago LPN - 05/11/2024 12:39 PM EDT Attempted to call patient, there was no answer, left voicemail. When patient returns call, ok for JOLLY to relay message, please refer to below documentation. If needed, can transfer to dedicated nurse line. MYG sent also * Telephone Encounter - Sofia Cortes PA-C - 05/10/2024 4:13 PM EDT Trazodone is not a narcotic. Tramadol is - could that be what was prescribed? I think that they might have to go fairly [place] to fine a specialist that can tell them what the cause of her pain is - like possibly through [facility] Do they want me to start that referral process? Sofia Cortes PA-C * Telephone Encounter - Connie Gavin LPN - 05/10/2024 1:07 PM EDT Pt's daughter Fara is calling and reports that the pt just got done seeing [facility] as a second opinionof right knee pain when walking. 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 Previously was seen by [facility] 01/08/24. Neither ortho provider gave answers as to why the pt is having this pain/causing pain and why it's worsening. PT was mentioned to help strengthen the muscles but was advised it will not help the pain. Pain management was suggested as surgery is not recommended for pt's age. Does not want pt to see pain management yet. Trazodone was prescribed but this was not picked up because Fara does not want the pt on a narcotic. Wants to know where to go from here. States that they want to know what is causing this pain to the pt's right knee when walking. Asks that Sofia Cortes PA-C addresses this. Please advise. documented in this encounter Plan of Treatment Upcoming Encounters Date Type Department Care Team (Late st Contact Info) Description 05/28/2024 2:00 PM EDT Laboratory Laboratory [facility] 200 [facility] [place] [phone] Marcela, Lab [facility] 200 [facility] [place] [address] 05/28/2024 3:00 PM EDT Immunization/Injecti on Hematology/Oncology Treatment, [place] [address] [place] [phone] Marcela, Chair 9 Hem Onc [facility] 200 [facility] [place] [address] 05/30/2024 10:50 AM EDT Office Visit [facility] [address] [facility] [phone] Lu Phillips DO [address] [facility] [address] 06/03/2024 9:00 AM EDT Imaging Radiology, [address] [place] [address] 06/18/2024 7:30 AM EDT Laboratory Laboratory [facility] [place] [address] [place] [phone] Marcela Lab [address] [facility] [place] [address] 06/18/2024 8:00 AM EDT Office Visit Hematology/Oncology [facility] Marcela [place] [address] [place] [phone] Nyasia Feliz MD [address] [place] [address] 06/18/2024 8:30 AM EDT Immunization/Injecti on Hematology/Oncology Treatment, [place] [address] [place] [phone] Marcela, Chair 9 Hem Onc [address] [place] [address] 07/30/2024 2:15 PM EST Office Visit [facility], [facility] [address] [facility] [place] [address] Raymundo Reynoso DO 132 [facility] [place] [phone] 08/01/2024 1:15 PM EST Imaging Radiology [facility] 1st [facility] [place] [address] 09/23/2024 8:30 AM EST Office Visit [facility] [address] [place] [address], [place] [phone] Lu Phillips [address] [facility] [place] [address] 10/02/2024 3:30 PM EST Office Visit [facility]iology, [facility] [place] [address] Vidal Phillips DO [address] [place] [address] Health Maintenance Due Date Last Done Comments Pneumococcal Vaccine: 65+ Years (1 of 2 - PCV) 1946 Depression Screening 1953 DTap/Tdap Vaccines (1 - Tdap) 1960 Zoster Vaccines (1 of 2) 1991 DXA Scan 2006 Adult Wellness Visit 2007 COVID-19 Vaccine ( season) 2024 GFR 11/04/2024 05/07/2024, 03/22, 03/26/2024, Additional history exists Albumin/Creatinine Ratio 03/26/2025 03/26/2024 CKD PHOS USE SMARTSET 37778 04/15/2025 04/15/2024 CKD HGB USE SMARTSET 17350 05/07/202505/07, 05/07/2024, 04/17/2024, Additional history exists Influenza Vaccine (FLU shot) Completed 05/07/2024 HPV [...] Documents on File Type Date Recorded Patient Financial Manager Expl anation Advance Directives and Living Will 01/04/2024 Fara Crowe Combined Medical POA & Living Will - signed on 11/24/2022 Healthcare Agents on File Name Relationship Healthcare Agent Relationshi p Communication Fara Junior Adult Child Health Care Agen t (per Health Care Power of Inventory Management Specialist document) Nick Crowe Adult Child First Alternate Health Care Agent (per Health Care Power of Inventory Management Specialist document) Care Teams Manager Culinary Relationship Specialty Start Date End Date Lu Phillips DO [address] [place] [address] PCP - General Family Medicine 12/25/23 documented as of this encounter
--- OUTSIDE RECORDS SUMMARY | 2024-07-19 21:06 | External Medical Summary | Summary of Care ---
Author Name Unknown Organization [facility] Address [address] [place] [address] Phone [phone] Care Team Providers Care Inspector Firearms Name Role Phone HaydeeLu garcia Calvin LEE Primary Care Provider Reason for Visit * Reason Comments Outpatient Testing Encounter Details Date Type Department Care Team (Late st Contact Info) Description 05/28/2024 2:00 PM EDT Laboratory Laboratory [facility] [address] [place] [phone] [facility] Lab [facility] 200 [facility] [place] [address] MDS (myelodysplastic syndrome) (HCC) Allergies No known active allergiesdocumented as of this encounter (statuses as of 05/28/2024) Medications Medication Sig Dispensed Refills Start Date [...] specific tender spots 100 mL 04/01/2024 Active Metoprolol Succinate ER 25 MG Oral Tablet Extended Release 24 Hour (Toprol XL)Indications:Essent ial hypertension with goal blood pressure less than 140/90 Take 1 Tablet by mouth in the morning. 90 Tablet 3 05/28/2024 Active documented as of this encounter (statuses as of 05/28/2024) Active Problems Problem Noted Date Diagnosed Date Chronic kidney disease, stage 3b 04/01/2024 Overview: Per CKD protocol MDS (myelodysplastic syndrome) 01/10/2024 Hearing aid worn 12/25/2023 documented as of this encounter (statuses as of 05/28/2024) Immunizations Name Administration Dates Next Due Seasonal [...] Team (Late st Contact Info) Description 05/28/2024 3:00 PM EDT Immunization/Injecti on Hematology/Oncology Treatment, [address] [place] [phone] Marcela, Chair 2 Hem Onc [place] [address] [place] [address] [address] Arrived 05/30/2024 10:50 AM EDT Office Visit [place] [address] [place] [phone] Lu Phillips, [address] [place] [address] 06/03/2024 9:00 AM EDT Imaging Radiology, [address] [place] [address] 06/18/2024 7:30 AM EDT Laboratory Laboratory [facility] Marcela [place] [address] [place] [phone] Marcela, Lab [place] [address] [place] [address] [address] [address] 06/18/2024 8:00 AM EDT Office Visit Hematology/Oncology [facility] Marcela [place] [address] [place] [address] [phone] Nyasia Feliz MD [address] [place] [address] 06/18/2024 8:30 AM EDT Immunization/Injecti on Hematology/Oncology Treatment, [place] 200 [facility] [place] [phone] Marcela, Chair 9 Hem Onc [address] [place], [place] [address] 07/30/2024 2:15 PM EST Office Visit Interventional Pain Center, [facility] [address] [place] [address] aRymundo Reynoso, DO 132 [facility] [place] [phone] 08/01/2024 1:15 PM EST Imaging Radiology [facility] 1st Floor, [place] 132 [facility] [place] [address] 09/23/2024 8:30 AM EST Office Visit Family Practice, [place] [address] [place] [phone] Lu Phillips, [address] [place] [address] 10/02/2024 3:30 PM EST Office Visit Cardiology, [facility] 132 [facility] [place] [address] Vidal Phillips, DO 132 [facility] [place] [address] Pending Results Name Type Priority Associated Diagnoses Date /Time CBC WITH WBC DIFFERENTIAL Lab STAT MDS (myelodysplastic syndrome) ([facility]) 05/28/2024 1:36 PM EDT CBC Lab STAT MDS (myelodysplastic syndrome) ([facility]) 05/28/2024 1:36 PM EDT DIFFERENTIAL, AUTOMATED Lab STAT MDS (myelodysplastic syndrome) ([facility]) 05/28/2024 1:36 PM EDT Health Maintenance Due Date Last Done Comments Pneumococcal Vaccine: 65+ Years (1 of 2 - PCV) 1946 Depression Screening 1953 DTap/Tdap Vaccines (1 - Tdap) 1960 Zoster Vaccines (1 of 2) 1991 DXA Scan 2006 Adult Wellness Visit 2007 COVID-19 Vaccine ( season) 2024 GFR 11/04/2024 05/07/2024, 0801/2024, 03/26/2024, Additional history exists Albumin/Creatinine Ratio 03/26/2025 03/26/2024 CKD PHOS USE SMARTSET 68328 04/15/2025 04/15/2024 CKD HGB USE SMARTSET 26275 05/07/202505/07, 05/07/2024, 04/17/2024, Additional history exists Influenza [...] Documents on File Type Date Recorded Patient Library Clerk Expl anation Advance Directives and Living Will 01/04/2024 Fara Crowe Combined Medical POA & Living Will - signed on 11/24/2022 Healthcare Agents on File Name Relationship Healthcare Agent Relationshi p Communication Fara Junior Adult Child Health Care Agen t (per Health Care Power of Correspondence Coordinator document) Nick Crowe Adult Child First Alternate Health Care Agent (per Health Care Power of Correspondence Coordinator document) Care Teams Inspector Firearms Relationship Specialty Start Date End Date Lu Phillips DO [address] [place], [place] [phone] PCP - General Family Medicine 12/25/23 documented as of this encounter
--- OUTSIDE RECORDS SUMMARY | 2024-07-19 21:06 | External Medical Summary ---
Author Name Unknown Address Unknown Organization [id number]:[facility] [address] [facility] [address] [place] [address] Laboratory Report Ordering Provider Test Date Status SOWMYA BEY 05/28/2024 13:36:26 Final Observation Date Value Abnormality Reference (Units ) Status SYNC LEUKOCYTES IN BLOOD BY AUTOMATED COUNT 05/28/2024 13:36:26 7.69 4.00-10.80 (K/uL) Final Neutrophils/100 leukocytes in Blood by Manual count 05/28/2024 13:36:26 63.0 40.0-75.0 (%) Final Lymphocytes/100 leukocytes in Blood by Manual count 05/28/2024 13:36:26 25.0 18.0-42.0 (%) Final Monocytes/100 leukocytes in Blood by Manual count 05/28/2024 13:36:26 10.0 1.0-11.0 (%) Final Eosinophils/100 leukocytes in Blood by Manual count 05/28/2024 13:36:26 2.0 0.0-6.0 (%) Final Neutrophils [#/volume] in Blood by Manual count 05/28/2024 13:36:26 4.84 1.80-7.70 (K/uL) Final Lymphocytes [#/volume] in Blood by Manual count 05/28/2024 13:36:26 1.92 1.00-4.80 (K/uL) Final Monocytes [#/volume] in Blood by Manual count 05/28/2024 13:36:26 0.77 0.00-1.10 (K/uL) Final Eosinophils [#/volume] in Blood by Manual count 05/28/2024 13:36:26 0.15 0.00-0.70 (K/uL) Final Nucleated erythrocytes/100 leukocytes [Ratio] in Blood by Automated count 05/28/2024 13:36:26 Final Ovalocytes [Presence] in Blood by Light microscopy 05/28/2024 13:36:26 Moderate Abnormal None Seen Final Schistocytes 05/28/2024 13:36:26 Few Abnormal None Seen Final Performing Location [facility] [address] - [address] [place] [address]
--- OUTSIDE RECORDS SUMMARY | 2024-07-19 21:06 | External Medical Summary ---
Author Name Unknown Address Unknown Organization K01:[facility] - [address] [place] [address] Laboratory Report Ordering Provider Test Date Status ADELA SPENCER 05/30/2024 11:46:49 Final Observation Date Value Abnormality Reference (Units ) Status BUN 05/30/2024 11:46:49 31 Above high normal 6-20 (mg/dL) Final Creatinine 05/30/2024 11:46:49 1.5 Above high normal 0.5-1.0 (mg/dL) Final Glomerular filtration rate/1.73 sq M.predicted [Volume Rate/Area] in Serum, Plasma or Blood by Creatinine-based formula (CKD-EPI) 05/30/2024 11:46:49 35 Below low normal >=60 (mL/min) Final eGFR is calculated based on the CKD-EPI 2020 equation. Sodium 05/30/2024 11:46:49 138 135-146 (m mol/L) Final Potassium 05/30/2024 11:46:49 4.3 3.5-5.1 (m mol/L) Final Cl 05/30/2024 11:46:49 99 98-107 (mm ol/L) Final CO2 05/30/2024 11:46:49 25 22-32 (mmo l/L) Final Anion gap 05/30/2024 11:46:49 14 7-15 (mmol /L) Final Glucose 05/30/2024 11:46:49 100 70-120 (mg /dL) Final Calcium 05/30/2024 11:46:49 10.2 8.4-10.2 ( mg/dL) Final Performing Location [facility] - [address] [place] [address]
--- OUTSIDE RECORDS SUMMARY | 2024-07-19 21:06 | External Medical Summary ---
Author Name Unknown Address Unknown Organization K09:[facility] [place] [address] Laboratory Report Ordering Provider Test Date Status SOWMYA BEY 05/07/2024 07:45:53 Final Observation Date Value Abnormality Reference (Units ) Status WBC, Total 05/07/2024 07:45:53 5.67 4.00-10.8 0 (K/uL) Final RBC 05/07/2024 07:45:53 2.52 3.85-5.15 (M/uL) Final Hemoglobin 05/07/2024 07:45:53 9.3 Below low normal 12 .0-15.3 (g/dL) Final HCT 05/07/2024 07:45:53 27.7 Below low normal 36. 0-45.2 (%) Final MCV 05/07/2024 07:45:53 109.9 81.5-97.5 (fL) Final MCH 05/07/2024 07:45:53 36.9 27.0-34.0 (pg) Final MCHC 05/07/2024 07:45:53 33.6 32.0-36.0 (g/dL) Final RDW 05/07/2024 07:45:53 19.8 11.5-15.5 (%) Final Platelets 05/07/2024 07:45:53 372 140-400 (K /uL) Final MPV 05/07/2024 07:45:53 10.0 6.6-11.1 ( fL) Final Performing Location [facility] [place] [address]
--- OUTSIDE RECORDS SUMMARY | 2024-07-19 21:06 | External Medical Summary | Summary of Care ---
Author Name Unknown Organization [facility] Address [address] [place] [address] Phone [phone] Care Team Providers Care Fire Alarm Inspector Name Role Phone HaydeeLu garcia Calvin LEE Primary Care Provider [phone] Reason for Visit * Reason Comments Outpatient Testing Encounter Details Date Type Department Care Team (Late st Contact Info) Description 05/28/2024 2:00 PM EDT Laboratory Laboratory [facility] [address] [place] [address] [facility] Lab [facility] 200 [facility] [place] [address] MDS (myelodysplastic syndrome) (HCC) Allergies No known [...] 3:00 PM EDT Immunization/Injecti on Hematology/Oncology Treatment, [address] [place] [phone] Marcela, Chair 2 Hem Onc [place] [address] [place] [address] Arrived 05/30/2024 10:50 AM EDT Office Visit [place] [address] [place] [phone] Lu Phillips, [address] [place] [address] 06/03/2024 9:00 AM EDT Imaging Radiology, [address] [place] [address] 06/18/2024 7:30 AM EDT Laboratory Laboratory [facility] Marcela [place] [address] [place] [phone] Marcela, Lab [place] [address] [address] 06/18/2024 8:00 AM EDT Office Visit Hematology/Oncology [facility] Marcela [place] [address] [phone] Nyasia Feliz MD [address] [place] [address] 06/18/2024 8:30 AM EDT Immunization/Injecti on Hematology/Oncology Treatment, [place] 200 [facility] [place] [phone] Marcela, Chair 9 Hem Onc Scenery [address] [place], [place] [address] 07/30/2024 2:15 PM EST Office Visit Interventional Pain Center, [facility] [address] [place] [address] Raymundo Reynoso, DO [address] [place] [phone] 08/01/2024 1:15 PM EST Imaging Radiology [facility] 1st Floor, [place] 132 [facility] [place] [address] 09/23/2024 8:30 AM EST Office Visit Family Practice, [place] [address] [place] [phone] Lu Phillips, [address] [place] [address] 10/02/2024 3:30 PM EST Office Visit Cardiology, [facility] 132 [facility] [place] [address] Vidal Phillips, DO 132 [facility] [place] [address] Health Maintenance Due Date Last Done Comments Pneumococcal Vaccine: 65+ Years (1 of 2 - PCV) 1946 Depression Screening 1953 DTap/Tdap Vaccines (1 - Tdap) 1960 Zoster Vaccines (1 of 2) 1991 DXA Scan 2006 Adult Wellness Visit 2007 COVID-19 Vaccine ( - season) 2024 GFR 11/04/2024 05/07/2024, 03/22, 03/26/2024, Additional history exists Albumin/Creatinine Ratio 03/26/2025 03/26/2024 CKD PHOS USE SMARTSET 24449 04/15/2025 04/15/2024 CKD HGB USE SMARTSET 08738 05/07/202505/28, 05/28/2024, 05/07/2024, Additional history exists Influenza Vaccine (FLU shot) [...] Procedure Name Priority Date/Time Associated Diagnosis Comments DIFFERENTIAL, AUTOMATED STAT 05/28/2024 1:36 PM EDT MDS (myelodysplastic syndrome) (HCC) CBC STAT 05/28/2024 1:36 PM EDT MDS (myelodysplastic syndrome) (HCC) CBC STAT 05/28/2024 1:36 PM EDT MDS (myelodysplastic syndrome) (HCC) DIFFERENTIAL, TECHNOLOGIST REVIEW Routine 05/28/2024 1:36 PM EDT MDS (myelodysplastic syndrome) (HCC) documented in this encounter Results * (ABNORMAL) DIFFERENTIAL, TECHNOLOGIST REVIEW (05/28/2024 1:36 PM EDT) WBC 7.69 4.00 - 10.80 K/uL 05/28/2024 1:54 PM EDT [facility] 56-02 Neutrophils % 63.0 40.0 - 75.0 % 05/28/2024 1:54 PM EDT [facility]02 Lymphocytes % 25.0 18.0 - 42.0 % 05/28/2024 1:54 PM EDT [facility]02 Monocytes % 10.0 1.0 - 11.0 % 05/28/2024 1:54 PM EDT [facility] 56[facility]02 Eosinophils % 2.0 0.0 - 6.0 % 05/28/2024 1:54 PM EDT [facility] 56-02 Absolute Neutrophils 4.84 1.80 - 7.70 K/uL 05/28/2024 1:54 PM EDT [facility] 56- Absolute Lymphocytes 1.92 1.00 - 4.80 K/uL 05/28/2024 1:54 PM EDT [facility] 56- Absolute Monocytes 0.77 0.00 - 1.10 K/uL 05/28/2024 1:54 PM EDT [facility] 56- Absolute Eosinophils 0.15 0.00 - 0.70 K/uL 05/28/2024 1:54 PM EDT [facility] 56- nRBCs 05/28/2024 1:54 PM EDT [facility] 56 Ovalocytes Moderate( A) None Seen 05/28/2024 1:54 PM EDT [facility] 56- Schistocytes Few(A) None Seen 05/28/2024 1:54 PM EDT [facility] 56- Blood Venous blood specimen / Unknown Venipuncture / Unknown 05/28/2024 1:36 PM EDT 05/28/2024 1:36 PM EDT Nyasia Feliz MD LAB BLOOD [facility] 56 [address] [place] [address] * DIFFERENTIAL, AUTOMATED (05/28/2024 1:36 PM EDT) Blood Venous blood specimen / Unknown Venipuncture / Unknown 05/28/2024 1:36 PM EDT 05/28/2024 1:36 PM EDT Nyasia Feliz MD LAB BLOOD [facility] 56 [address] [place] [address] * (ABNORMAL) CBC (05/28/2024 1:36 PM EDT) Pathologist [facility] WBC 7.69 4.00 - 10.80 K/uL 05/28/2024 1:54 PM EDT [facility] 56- RBC 2.77 3.85 - 5.15 M/uL 05/28/2024 1:54 PM EDT [facility] 56 HGB 10.3(L) 12.0 - 15.3 g/dL 05/28/2024 1:54 PM EDT [facility] 56 HCT 30.2(L) 36.0 - 45.2 % 05/28/2024 1:54 PM EDT [facility] 56 MCV 109.0 81.5 - 97.5 fL 05/28/2024 1:54 PM EDT [facility] 56 MCH 37.2 27.0 - 34.0 pg 05/28/2024 1:54 PM EDT [facility] 56 MCHC 34.1 32.0 - 36.0 g/dL 05/28/2024 1:54 PM EDT [facility] 56 RDW 20.0 11.5 - 15.5 % 05/28/2024 1:54 PM EDT [facility] 56 PLT 360 140 - 400 K/uL 05/28/2024 1:54 PM EDT [address] MPV 10.2 6.6 - 11.1 fL 05/28/2024 1:54 PM EDT [facility] 56 Blood Venous blood specimen / Unknown Venipuncture / Unknown 05/28/2024 1:36 PM EDT 05/28/2024 1:36 PM EDT Nyasia Feliz MD LAB BLOOD ORDERA BLES [address] [place] [address] documented in this encounter Visit Diagnoses Diagnosis MDS (myelodysplastic syndrome) (HCC) Myelodysplastic syndrome, unspecified Screening mammogram for breast cancer documented in this encounter Advance Directives Documents on File Type Date Recorded 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 Network Engineer Expl 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 Advance Directives and Living Will 01/04/2024 Fara Crowe Combined Medical POA & Living Will - signed on 11/24/2022 Healthcare Agents on File Name Relationship Healthcare Agent [facility] p Communication Fara Junior Adult Child Health Care Agen t (per Health Care Power of Gta document) Nick Crowe Adult Child First Alternate Health Care Agent (per Health Care Power of Gta document) Care Teams Fire Alarm Inspector Relationship Specialty Start Date End Date Lu Phillips DO [address] [place] [facility] [place] [address] PCP - General Family Medicine 12/25/23 documented as of this encounter
--- OUTSIDE RECORDS SUMMARY | 2024-07-19 21:06 | External Medical Summary | Summary of Care ---
Author Name Unknown Organization [facility] Address [address] [place] [address] Phone [phone] Care Team Providers Care Lockstitch Shoulder Joiner Name Role Phone JohnLu spaulding Primary Care Provider Reason for Visit * Reason Comments Outpatient Testing Encounter Details Date Type Department Care Team (Late st Contact Info) Description 05/30/2024 11:40 AM EDT Laboratory Laboratory, [place] [address] [place] [address] [place], [facility] [address] [place] [address] Chronic kidney disease, stage 3b (HCC) Allergies [...] drink = 0.6 oz pur e alcohol) Utilities Answer Date Recorded Do you have [...] Description 06/03/2024 9:00 AM EDT Imaging Radiology, [place] [id number] [facility] [place] [address] 06/18/2024 7:30 AM EDT Laboratory Laboratory [facility] [place] [address] [place] [phone] Marcela Lab Scenery [address] [place] [address] 06/18/2024 8:00 AM EDT Office Visit Hematology/Oncology [facility] Marcela [place] [address] [phone] Nyasia Feliz MD [address] [place] [address] 06/18/2024 8:30 AM EDT Immunization/Injecti on Hematology/Oncology Treatment, [place] [address] [place] [phone] Marcela, Chair 9 Hem Onc Scene [address] [address] 07/08/2024 1:00 PM EST Laboratory Laboratory [facility] Marcel[place] [address] [phone] Marcela, Lab Scenery [address] [address] 07/08/2024 2:00 PM EST Immunization/Injecti on Hematology/Oncology Treatment, [place] [address] [place] [phone] Marcela, Chair 9 Hem Onc [address] [address] [place] [address] 07/30/2024 2:15 PM EST Office Visit Interventional Pain Center, [facility] [address] [place] [address] Raymundo Reynoso, DO [address] [place] [phone] 08/01/2024 1:15 PM EST Imaging Radiology [facility] 1st Floor, [place] [address] [place] [address] 09/23/2024 8:30 AM EST Office Visit [facility] [place] [address] [facility] [phone] Lu Phillips, DO [address] [facility] [address] 10/02/2024 3:30 PM EST Office Visit Cardiology, [facility] [address] [place] [address] Vidal Phillips, DO [address] [place] [address] 01/01/2025 12:10 PM EDT Office Visit [facility] [place] [address] [facility] [phone] Lu Phillips, DO [address] [facility] [address] Pending Results Name Type Priority Associated Diagnoses Date /Time BASIC METABOLIC PANEL Lab Routine Chronic kidney disease, stage 3b (HCC) 05/30/2024 11:46 AM EDT URINALYSIS WITH MICROSCOPIC EXAM Lab Routine Chronic kidney disease, stage 3b (HCC) 05/30/2024 11:46 AM EDT Health Maintenance Due Date Last Done Comments Pneumococcal Vaccine: 65+ Years (1 of 2 - PCV) 1947 DXA Scan 2006 Adult Wellness Visit 2007 COVID-19 Vaccine (1 - 2023- season) 2024 Postponed from 04/21/2024 (Patient Declined After Education) DTap/Tdap Vaccines (1 - Tdap) 06/29/2024 Postponed from 1960 (Insurance/Financial) Zoster Vaccines (1 of 2) 06/29/2024 Pos tponed from 1991 (Insurance/Financial) GFR 11/04/2024 05/07/2024, 03/22, 03/26/2024, Additional history exists Albumin/Creatinine Ratio 03/26/2025 03/26/2024 CKD PHOS USE SMARTSET 66767 04/15/2025 04/15/2024 CKD HGB USE SMARTSET 61195 05/28/202505/28, 05/28/2024, 05/07/2024, Additional history exists Depression [...] as of this encounter Visit Diagnoses Diagnosis Chronic kidney disease, stage 3b (HCC) Screening mammogram for breast cancer documented in this encounter Advance Directives Documents on File Type Date Recorded 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 Advance Directives and Living Will 01/04/2024 Fara Crowe Combined Medical POA & Living Will - signed on 11/24/2022 Healthcare Agents on File Name Relationship Healthcare Agent Relationshi p Communication Fara Junior Adult Child Health Care Agen t (per Health Care Power of Glass Installer Technician document) Nick Crowe Adult Child First Alternate Health Care Agent (per Health Care Power of Glass Installer Technician document) Care Teams Lockstitch Shoulder Joiner Relationship Specialty Start Date End Date Lu Phillips DO [address] [place] [address] PCP - General Family Medicine 12/25/23 documented as of this encounter
--- OUTSIDE RECORDS SUMMARY | 2024-07-19 21:06 | External Medical Summary | Summary of Care ---
Author Name Unknown Organization [facility] Address [address] [place] [address] Phone [phone] Care Team Providers Care Senior Account Director Name Role Phone Alan Luann marie Simpson DO Primary Care Provider Reason for Visit * Reason Onset Date Comments Medication Administration 05/07/2024 Flu, R eblozyl * Episode Based Medications (Routine) - Authorized Specialty Diagnoses / Procedures Referred By Contac t Referred To Contact Diagnoses MDS (myelodysplastic syndrome) (HCC) Procedures DC INJ LUSPATERCEPT-AAMT 0.25MG Nyasia Feliz MD [address] [facility] [place] [address] Anc Hem/Onc [address] [address] Referral ID Status Reason Start Date Expiration Date V isits Requested Visits Authorized [id number] Authorized 01/12/2024 06/13/2024 99 99 Encounter Details Date Type Department Care Team (Latest Contact Info) Description 05/07/2024 8:30 AM EDT Immunization/I njection Hematology/Oncology Treatment, [address] [phone] Marcela, Chair [address] [place] [address] MDS (myelodysplastic syndrome) (HCC)*; Need for prophylactic vaccination and inoculation against influenza Allergies No known active allergiesdocumented as of this encounter (statuses as of 05/07/2024) Medications Medication Sig Dispensed Refills Start Date [...] as of this encounter (statuses as of 05/07/2024) Active Problems Problem Noted Date Diagnosed Date Chronic kidney disease, stage 3b 04/01/2024 Overview: Per CKD protocol MDS (myelodysplastic syndrome) 01/10/2024 Hearing aid worn 12/25/2023 documented as of this encounter (statuses as of 05/07/2024) Immunizations Name Administration Dates Next Due Seasonal [...] on file documented as of this encounter Patient Instructions * Patient Instructions* Pita Ortiz LPN - 05/07/2024 9:15 AM EDT ~~PATIENT INSTRUCTIONS FOR FLU SHOT~~ Possible side effects of influenza vaccine, (flu shot), are usually mild and include: 1. Soreness or redness at injection site 2. Low grade fever 3. Body aches You may use Tylenol/Acetaminophen as needed for these symptoms. LET YOUR DOCTOR KNOW IMMEDIATELY IF YOU HAVE DIFFICULTY BREATHING OR SWALLOWING, EXPERIENCE ITCHINGOF FEET OR HANDS, HAVE SWELLING OF EYES, FACE OR INSIDE OF NOSE. documented in this encounter Progress Notes * Pita Ortiz LPN - 05/07/2024 9:14 AM EDT PRE - ADMINISTRATION DOCUMENTATION Are you experiencing any cold symptoms or fever? No Have you had Guillain-Fulton Syndrome (an illness that causes paralysis) within the last 6 weeks? No Have you had the flu shot in the past? YES Have you ever had a reaction to the flu shot? No Pita Ortiz LPN, 05/07/2024 9:14 AM Immunization Administration Documentation Time Out Procedure Performed: Yes Patient Identified (Ask Name/Date of ): Yes Does the patient have a fever greater than 101 degrees today? No Patient allergic to latex? No VFC Stock: Yes, Does this patient qualify for immunization through the VFC program because he/she (check only one): Yes-is enrolled in Medicaid Immunization(s) verified: Yes, Immunization Name: Flu, VIS Sheet(s) given: Yes Verified Side and Site: Yes Verified Shot(s) with Parent(s)/Patient: Yes documented in this encounter Nursing Notes * Pita Ortiz LPN - 05/07/2024 9:27 AM EDT Reblozyl adminsitered SQ 31.7mg = 0.634into the left upper extremity and 31.7mg = 0.634mL into the right upper extremity. Patient tolerated injection and will return in 3 weeks. documented in this encounter Plan of Treatment Upcoming Encounters Date Type Department Care Team (Late st Contact Info) Description 05/28/2024 2:00 PM EDT Laboratory Laboratory [facility] Marcela [place] [address] [phone] Marcela, Lab [place] [address] [address] 05/28/2024 3:00 PM EDT Immunization/Injecti on Hematology/Oncology Treatment, [place] [address] [place] [phone] Marcela, Chair 9 Hem Onc [facility] [place] [address] [address] 06/03/2024 9:00 AM EDT Imaging Radiology, [address] [place] [address] 06/18/2024 7:30 AM EDT Laboratory [facility] [place] [address] [facility] [employer] [phone] Marcela, Lab Scenery [address] [facility] [place] [address] 06/18/2024 8:00 AM EDT Office Visit Hematology/Oncology [facility] [place] [address] [place] [phone] Nyasia Feliz MD [address] [place] [address] 06/18/2024 8:30 AM EDT Immunization/Injecti on Hematology/Oncology Treatment, [place] [address] [place] [phone] Marcela, Chair 9 Hem Onc [address] [place] [address] 08/01/2024 1:15 PM EST Imaging Radiology [facility] 1st [facility] [address] [place] [address] 09/23/2024 8:30 AM EST Office Visit [address] [phone] Lu Phillips DO [address] [place] [address] 10/02/2024 3:30 PM EST Office Visit Cardiology, [facility] [address] [place] [address] Vidal Phillips, DO [address] [place] [address] Health Maintenance Due Date Last Done Comments Pneumococcal Vaccine: 65+ Years (1 of 2 - PCV) 1946 Depression Screening 1953 DTap/Tdap Vaccines (1 - Tdap) 1960 Zoster Vaccines (1 of 2) 1991 DXA Scan 2006 Adult Wellness Visit 2007 COVID-19 Vaccine ( season) 2024 GFR 10/16/2024 04/15/2024, 0801/2024, 12/11/2023 Albumin/Creatinine Ratio 03/26/2025 03/26/2024 CKD PHOS USE SMARTSET 30308 04/15/2025 04/15/2024 CKD HGB USE SMARTSET 43014 05/07/202505/07, 05/07/2024, 04/17/2024, Additional history exists Influenza [...] (myelodysplastic syndrome) (HCC)- Primary Myelodysplastic syndrome, unspecified Need for prophylactic vaccination and inoculation against influenza Screening mammogram for breast cancer documented in this encounter Administered Medications Active Administered Medications - up to 3 most recent administrations Medication Order MAR Action Action Date Dose Rate Site diphenhydrAMINE (Benadryl) inj 50 mg 50 mg, IV Push, ONCE PRN Other, Hypersensitivity Reaction, Starting on Mon05/07/24 at 0812, Until Mon05/08/24 at 0811, For 24 hours EPINEPHrine 1 MG/ML inj 0.3 mg 0.3 mg, Intramuscular, ONCE PRN Other, Hypersensitivity Reaction or Anaphylaxis, Starting on Mon05/07/24 at 0812, Until Mon05/08/24 at 0811, For 24 hours Hydrocortisone Sod Suc (PF) (Solu-Cortef) inj 100 mg 100 mg, IV Push, ONCE PRN Other, Hypersensitivity Reaction, Starting on Mon05/07/24 at 0812, Until Mon05/08/24 at 0811, For 24 hours oxygen GAS Inhalation, OXYGEN, First dose on Mon05/07/24 at 0845, Until Discontinued, Device/Managed by: Low Flow Device, [...] Treatment plan Recorded weight), Subcutaneous, ONCE, On Mon05/07/24 at 0945, For 1 dose, MAX volume 1.2 mL per syringe. Administer __2__ syringes, each containing _31.7__mg for TOTAL DOSE = _63.4_mg. Administer subcutaneously into upper arm, thigh, and/or abdomen. If giving as multiple injections must inject into separate sites. 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
--- OUTSIDE RECORDS SUMMARY | 2024-07-19 21:06 | External Medical Summary ---
Author Name Unknown Address Unknown Organization K09:[facility] [address] [place] [address] Laboratory Report Ordering Provider Test Date Status ZACK MILES 05/07/2024 07:45:53 Final Observation Date Value Abnormality Reference (Units ) Status BUN 05/07/2024 07:45:53 28 Above high normal 6-20 (mg/dL) Final Creatinine 05/07/2024 07:45:53 1.5 Above high normal 0.5-1.0 (mg/dL) Final Glomerular filtration rate/1.73 sq M.predicted [Volume Rate/Area] in Serum, Plasma or Blood by Creatinine-based formula (CKD-EPI) 05/07/2024 07:45:53 36 Below low normal >=60 (mL/min) Final eGFR is calculated based on the CKD-EPI 2020 equation. Sodium 05/07/2024 07:45:53 140 135-146 (m mol/L) Final Potassium 05/07/2024 07:45:53 4.6 3.5-5.1 (m mol/L) Final Cl 05/07/2024 07:45:53 103 98-107 (mm ol/L) Final CO2 05/07/2024 07:45:53 26 22-32 (mmo l/L) Final Anion gap 05/07/2024 07:45:53 11 7-15 (mmol /L) Final Glucose 05/07/2024 07:45:53 114 70-120 (mg /dL) Final Albumin 05/07/2024 07:45:53 4.0 3.8-5.0 (g /dL) Final AST (Aspartate aminotransferase) 05/07/2024 07:45:53 19 10-35 (U/L) Fin al Alk Phos 05/07/2024 07:45:53 43 35-130 (U/ L) Final Bilirubin, Total 05/07/2024 07:45:53 1.9 Above high no rmal <=1.2 (mg/dL) Final Calcium 05/07/2024 07:45:53 10.2 8.4-10.2 ( mg/dL) Final Protein 05/07/2024 07:45:53 6.1 6.0-8.3 (g /dL) Final ALT (Alanine aminotransferase) 05/07/2024 07:45:53 15 10-35 (U/L) Aldo arredondo Performing Location [facility] [address] [place] [address]
--- OUTSIDE RECORDS SUMMARY | 2024-07-19 21:06 | External Medical Summary ---
Author Name Unknown Address Unknown Organization K01:[facility]ATORY [facility] - [address] [facility] [id number] Laboratory Report Ordering Provider Test Date Status ADELA SPENCER 05/30/2024 11:46:49 Final Observation Date Value Abnormality Reference (Units ) Status Color of Urine by Auto 05/30/2024 11:46:49 Yellow Colorless, Light Yellow, Yellow, Dark Yellow Final Clarity, Urine 05/30/2024 11:46:49 Clear Clear Final Glucose [Mass/volume] in Urine by Automated test strip 05/30/2024 11:46:49 Negative Negative (mg/dL) Final Bilirubin.total [Presence] in Urine by Automated test strip 05/30/2024 11:46:49 Negative Negative Final Ketones [Mass/volume] in Urine by Automated test strip 05/30/2024 11:46:49 Negative Negative (mg/dL) Final Specific gravity, Urine 05/30/2024 11:46:49 1.022 1.003-1.030 Final Hemoglobin [Presence] in Urine by Automated test strip 05/30/2024 11:46:49 Negative Negative Final pH, Urine 05/30/2024 11:46:49 6.0 5.0-7.5 (Units) Final Protein [Mass/volume] in Urine by Automated test strip 05/30/2024 11:46:49 30 Abnormal Negative (mg/dL) Final Urobilinogen [Mass/volume] in Urine by Automated test strip 05/30/2024 11:46:49 2.0 Abnormal Normal (mg/dL) Final Nitrite [Presence] in Urine by Automated test strip 05/30/2024 11:46:49 Negative Negative Final Leukocyte esterase [Presence] in Urine by Automated test strip 05/30/2024 11:46:49 Negative Negative Final RBC, Urine 05/30/2024 11:46:49 0-2 0-2 (/HPF) Final WBC, Urine 05/30/2024 11:46:49 0-2 0-2 (/HPF) Final Bacteria [#/area] in Urine sediment by Microscopy high power field 05/30/2024 11:46:49 0-25 0-25 (/HPF) Final Calcium oxalate crystals [#/area] in Urine sediment by Microscopy high power field 05/30/2024 11:46:49 50+ Abnormal None (/HPF) Final Performing Location LABORATORY [facility] - [facility] [facility] [address]. [facility] [id number]
--- OUTSIDE RECORDS SUMMARY | 2024-07-19 21:06 | External Medical Summary | Summary of Care ---
Author Name Unknown Organization [facility] Address [address] [place] [address] Phone [phone] Care Team Providers Care Clinic Manager Name Role Phone JohnLu spaulding Primary Care Provider Reason for Visit * Reason Comments Follow Up 6 week follow up Encounter Details Date Type Department Care Team (Late st Contact Info) Description 05/07/2024 8:00 AM EDT [facility] [place] [address] [facility] [place] [phone] Nyasia Feliz MD [address] [facility] [place] [address] MDS (myelodysplastic syndrome) (HCC)* Allergies No known [...] of this encounter (statuses as of 05/07/2024) Social History Tobacco Use Types Packs/Day Years [...] Sign Reading Time Taken Comments Blood Pressure 130/58 05/07/2024 7:54 AM EDT Pulse 77 05/07/2024 7:54 AM EDT Temperature 36.4 C (97.5 F) 05/07/2024 7:54 AM ED T Respiratory Rate - - Oxygen Saturation 97% 05/07/2024 7:54 AM EDT Inhaled Oxygen Concentration - - Weight 64.1 kg (141 lb 4.8 oz) 05/07/2024 7:54 A M EDT Height - - Body Mass Index 25.84 05/02/2024 10:14 AM EDT documented in this encounter Progress Notes * Nyasia Feliz MD - 05/07/2024 8:20 AM EDT Images from the original note were not included. Outpatient Consult Note Data Source: Patient, Epic record. Data Source: Patient, Epic record. 05/07/2024 8:20 AM Isabelle Crowe [id number] 83 year old Patient Encounter: HEMATOLOGY[facility]ONCOLOGY [facility] Cancer Diagnosis: History of myelodysplastic syndrome with ringed sideroblasts and history of macrocytic anemia currently on Luspatercept received 1st dose on 12/11/2023. History of right breast cancer was diagnosis 08/2014. Current Treatment: luspatercep,Started 11/2023 Previous Treatment: Completed 5 years of letrozole. Oncologic History : 83-year-old male with past medical history significant for [...] given on 01/01/2024. Patient recently relocated from [place] to live with her daughter due to [...] no family history available. Interval History: She has issues with the pain in the right knee. She had knee replacement surgery done in 1999. She is following Orthopedics for further management. Otherwise she is doing well without any side effects toxicity from current treatment. Denies any headache, dizziness, blurred vision, chest pain palpitation abdominal pain or distention, nausea, vomiting, fever, night sweats, weight loss, change in the bowel habits. LABS/IMAGING: Results for orders placed or performed in visit on 05/07/24 CBC Result Value Ref Range WBC 5.67 4.00 - 10.80 K/uL RBC 2.52 3.85 - 5.15 M/uL HGB 9.3 (L) 12.0 - 15.3 g/dL HCT 27.7 (L) 36.0 - 45.2 % MCV 109.9 81.5 - 97.5 fL MCH 36.9 27.0 - 34.0 pg MCHC 33.6 32.0 - 36.0 g/dL RDW 19.8 11.5 - 15.5 % PLT 372 140 - 400 K/uL MPV 10.0 6.6 - 11.1 fL DIFFERENTIAL, AUTOMATED Result Value Ref Range WBC 5.67 4.00 - 10.80 K/uL Neutrophils % 57.3 40.0 - 75.0 % Lymphocytes % 24.7 18.0 - 42.0 % Monocytes % 13.6 (H) 1.0 - 11.0 % Eosinophils % 3.2 0.0 - 6.0 % Basophils % 1.2 0.0 - 2.0 % Absolute Neutrophils 3.25 1.80 - 7.70 K/uL Absolute Lymphocytes 1.40 1.00 - 4.80 K/ul Absolute Monocytes 0.77 0.00 - 1.10 K/uL Absolute Eosinophils 0.18 0.00 - 0.70 K/uL Absolute Basophils 0.07 0.00 - 0.20 K/uL Hemoglobin is 9.3 which is stable with normal WBC and platelet counts. Creatinine was 1.7 on 04/15/2024, she is following her PCP for further management. REVIEW OF SYSTEMS: General: No Fever, chills, [...] bleeding Genitourinary: Denies Hematuria or dysuria Musculoskeletal: Right knee pain Psychiatric: No vegetative signs of depression [...] by mouth at bedtime. 90 Tablet 1 Vitamin C Adult Gummies 125 MG Oral Tablet Chewable (Ascorbic Acid) Take by mouth. Aspirin 81 MG Oral Tablet Chewable Take 1 Tablet by mouth in the morning. Metoprolol Succinate ER 25 MG Oral Tablet Extended Release 24 Hour (Toprol XL) Take 1 Tablet by mouth in the morning. 34 Tablet 6 Multi Adult Gummies Oral Tablet Chewable Take by mouth. Calcitriol 0.5 MCG Oral Capsule (Rocaltrol) Take 1 Capsule by mouth in the morning. 90 Capsule 3 Lidocaine Viscous HCl 2 % Mouth/Throat Solution Swish and spit 15 mL as needed for Pain, Severe. Can apply using a cotton ball as well to specific tender spots 100 mL 0 No current facility-administered medications for this visit. [...] Current packs/day: 1.00 Types: Cigarettes Smokeless tobacco: Not on file Substance Use Topics Alcohol use: Not on file Drug use: Not on file Review of patient's allergies indicates: No Known Allergies PHYSICAL EXAMINATION: General Appearance: Healthy appearing patient in no acute distress BP 130/58 (BP Site: Right Arm, BP Position: Sitting, BP Cuff Size: Regular) | Pulse 77 | Temp 36.4 C (97.5 F) (Oral) | Wt 64.1 kg (141 lb 4.8 oz) | SpO2 97% | BMI 25.84 kg/m | BSA 1.67 m Vitals reviewed. HEENT: No oral or [...] Good pulses bilaterally, no peripheral edema. ASSESSMENT: 83-year-old male with past medical history significant for [...] treatment because of the recent relocation to [facility]. Clinically she is doing well without any new symptoms complain. She has issues with the right knee pain. She had knee replacement surgery done about 20 years ago. She is following Orthopedics for further management. About from the knee pain, she is doing well without any new symptoms or side effects toxicity from the current treatment. Discussed with the patient and daughter about diagnosis and rationale of treatment. Her blood counts are stable with stable hemoglobin. PLAN: Continue luspatercept. She will return clinic for follow-up in [...] documented in this encounter Nursing Notes * Yanely Martinez CMA - 05/07/2024 7:57 AM EDT Patient identifed by name and birthdate Do you have any concerns about pain management for today's visit? No Living Will or Advance Directive for Health Care as noted on the problem list. [facility] is a way you can talk to your provider on line through e-mail. Would you like to sign up? I can activate it for you? ALREADY ACTIVE Filed Vitals: 05/07/24 0754 BP: 130/58 Pulse: 77 Temp: 36.4 C (97.5 F) TempSrc: Oral SpO2: 97% Weight: 64.1 kg (141 lb 4.8 oz) Patient was instructed to not get [...] Description 05/28/2024 2:00 PM EDT Laboratory Laboratory [facility] [place] [address] [place] [phone] Marcela, Lab [place] [address] [place] [address] 05/28/2024 3:00 PM EDT Immunization/Injecti on Hematology/Oncology Treatment, [place] [address] [facility] [place] [phone] Marcela, Chair 9 Hem Onc [facility] [address] [address] 06/03/2024 9:00 AM EDT Imaging Radiology, [address] [place] [address] 06/18/2024 8:00 AM EDT Office Visit Hematology/Oncology [facility] Marcela [place] [address] [place] [phone] Nyasia Feliz MD [address] [place] [address] 08/01/2024 1:15 PM EST Imaging Radiology [facility] 1st [facility] [address] [facility] [address] 09/23/2024 8:30 AM EST Office Visit Family Practice, [place] [address] [place] [address] Lu Phillips, DO [address] [place] [address] 10/02/2024 3:30 PM EST Office Visit Cardiology, [facility] [address] [place] [address] Vidal Phillips, DO [address] [facility] [address] Health Maintenance Due Date Last Done Comments Pneumococcal Vaccine: 65+ Years (1 of 2 - PCV) 1946 Depression Screening 1953 DTap/Tdap Vaccines (1 - Tdap) 1960 Zoster Vaccines (1 of 2) 1991 DXA Scan 2006 Adult Wellness Visit 2007 COVID-19 Vaccine (1 - season) 2024 Influenza Vaccine (FLU shot) (#1) 2024 GFR 10/16/2024 04/15/2024, 08/0 01/2024, 12/11/2023 Albumin/Creatinine Ratio 03/26/2025 03/26/2024 CKD PHOS USE SMARTSET 36314 04/15/2025 04/15/2024 CKD HGB USE SMARTSET 89321 05/07/202505/07, 05/07/2024, 04/17/2024, Additional history exists HPV (Gardasil) Vaccine Aged Out No lo [...] Documents on File Type Date Recorded Patient Wellness Program Coordinator Expl anation Advance Directives and Living Will 01/04/2024 Fara Crowe Combined Medical POA & Living Will - signed on 11/24/2022 Healthcare Agents on File Name Relationship Healthcare Agent Relationshi p Communication Fara Junior Adult Child Health Care Agen t (per Health Care Power of Food Processing Chemist document) Nick Crowe Adult Child First Alternate Health Care Agent (per Health Care Power of Food Processing Chemist document) Care Teams Clinic Manager Relationship Specialty Start Date End Date Lu Phillips DO [address] [place] [address] PCP - General Family Medicine 12/25/23 documented as of this encounter"
--- OUTSIDE RECORDS SUMMARY | 2024-07-19 21:06 | External Medical Summary | Summary of Care ---
Author Name Unknown Organization [facility] Address [address] [place] [address] Phone [phone] Care Team Providers Care Access Rn Name Role Phone Alan Luann marie Simpson DO Primary Care Provider [phone] Reason for Visit * Reason Comments Medication Administration Reblozyl * Episode Based Medications (Routine) - Authorized Specialty Diagnoses / Procedures Referred By Contac t Referred To Contact Diagnoses MDS (myelodysplastic syndrome) (HCC) Procedures ME INJ LUSPATERCEPT-AAMT 0.25MG Nyasia Feliz MD [address] [facility] [place] [address] Anc Hem/Onc [address] [address] Referral ID Status Reason Start Date Expiration Date V isits Requested Visits Authorized [id number] Authorized 01/12/2024 08/20/2099 99 99 Encounter Details Date Type Department Care Team (Late st Contact Info) Description 05/28/2024 3:00 PM EDT Immunization/I njection Hematology/Oncology Treatment, [address] [phone] Marcela, Chair 2 Hem On[address] [place] [address] MDS (myelodysplastic syndrome) (HCC)* Allergies No known [...] as of this encounter Nursing Notes * Carey Blackburn RN - 05/28/2024 3:58 PM EDT Chair 12 Patient here for treatment. Labs reviewed, pharmacy aware no transfusions since last visit. Patient tolerated injections without issue. Pt discharged in stable condition. documented in this encounter Plan of Treatment Upcoming Encounters Date Type Department Care Team (Late st Contact Info) Description 05/30/2024 10:50 AM EDT Office Visit [facility] [address] [place] [facility] [place] [address] Lu Phillips DO [address] [place] [address] 06/03/2024 9:00 AM EDT Imaging Radiology, [facility] [address] [facility] [place] [address] 06/18/2024 7:30 AM EDT Laboratory Laboratory [facility] 200 [facility] [place] [address] Marcela, Lab [address] [place], [place] [address] 06/18/2024 8:00 AM EDT Office Visit Hematology/Oncology [place] [address] [place] [address] Nyasia Feliz MD [address] [place], [place] [address] 06/18/2024 8:30 AM EDT Immunization/Injecti on Hematology/Oncology Treatment, [place] 200 [facility], [place] [phone] Marcela, Chair 9 Hem Onc [address] [place] [address] 07/08/2024 1:00 PM EST Laboratory Laboratory [facility] Marcela [place] [address] [place] [address] Marcela, Lab [address] [facility] [place], [place] [address] 07/08/2024 2:00 PM EST Immunization/Injecti on Hematology/Oncology Treatment, [place] 200 [facility] [place], [place] [phone] Marcela, Chair 9 Hem Onc [address] [place], [place] [address] 07/30/2024 2:15 PM EST Office Visit Interventional [facility] Center, [facility] [address] [place] [address] Raymundo Reynoso, [address] [place] [phone] 08/01/2024 1:15 PM EST Imaging Radiology [facility] 1st [facility] [address] [place] [address] 09/23/2024 8:30 AM EST Office Visit [facility] [address] [facility], [place] [phone] Lu Phillips DO [address] [facility] [place] [address] 10/02/2024 3:30 PM EST Office Visit Cardiology, [facility] [address] [place] [address] Vidal Phillips DO [address] [place] [address] Health Maintenance Due Date Last Done Comments Pneumococcal Vaccine: 65+ Years (1 of 2 - PCV) 1947 Depression Screening 1953 DTap/Tdap Vaccines (1 - Tdap) 1960 Zoster Vaccines (1 of 2) 1991 DXA Scan 2006 Adult Wellness Visit 2007 COVID-19 Vaccine ( season) 2024 GFR 11/04/2024 05/07/2024, 03/22, 03/26/2024, Additional history exists Albumin/Creatinine Ratio 03/26/2025 03/26/2024 CKD PHOS USE SMARTSET 26679 04/15/2025 04/15/2024 CKD HGB USE SMARTSET 07189 05/28/202505/28, 05/28/2024, 05/07/2024, Additional history exists Influenza Vaccine [...] MAR Action Action Date Dose Rate Site EPINEPHrine 1 MG/ML inj 0.3 mg 0.3 mg, Intramuscular, ONCE PRN Other, Hypersensitivity Reaction or Anaphylaxis, Starting on Mon05/28/24 at 1450, Until Mon05/29/24 at 1449, For 24 hours Hydrocortisone Sod Suc (PF) (Solu-Cortef) inj 100 mg 100 mg, IV Push, ONCE PRN Other, Hypersensitivity Reaction, Starting on Mon05/28/24 at 1450, Until Mon05/29/24 at 1449, For 24 hours oxygen GAS Inhalation, OXYGEN, First dose on Mon05/28/24 at 1600, Until Discontinued, Device/Managed by: Low [...] Treatment plan Recorded weight), Subcutaneous, ONCE, On Mon05/28/24 at 1630, For 1 dose, MAX volume 1.2 mL per syringe. Administer 2 syringes, each containing 31.7 mg for TOTAL DOSE = 63.4 mg. Administer subcutaneously into upper arm, thigh, and/or abdomen. If giving as multiple injections must inject into separate sites. Subsq SYR 05/28/2024 3:37 PM EDT 31.7 mg Deltoid Right Upper Given 05/28/2024 3:36 PM EDT 31.7 mg De ltoid Left Upper documented in this encounter Advance Directives Documents on File Type Date Recorded Patient Access Rn Expl anation Advance Directives and Living Will 01/04/2024 Fara Crowe Combined Medical POA & Living Will - signed on 11/24/2022 Healthcare Agents on File Name Relationship Healthcare Agent [facility] p Communication Fara Junior Adult Child Health Care Agen t (per Health Care Power of Bore Miner Operator document) Nick Crowe Adult Child First Alternate Health Care Agent (per Health Care Power of Bore Miner Operator document) Care Teams Access Rn Relationship Specialty Start Date End Date Lu Phillips DO [address] [place], [place] [phone] PCP - General Family Medicine 12/25/23 documented as of this encounter
--- OUTSIDE RECORDS SUMMARY | 2024-07-19 21:06 | External Medical Summary ---
Author Name Unknown Address Unknown Organization K09:[facility] [place] [address] Laboratory Report Ordering Provider Test Date Status SOWMYA BEY 05/28/2024 13:36:26 Final Observation Date Value Abnormality Reference (Units ) Status WBC, Total 05/28/2024 13:36:26 7.69 4.00-10.8 0 (K/uL) Final RBC 05/28/2024 13:36:26 2.77 3.85-5.15 (M/uL) Final Hemoglobin 05/28/2024 13:36:26 10.3 Below low normal 12 .0-15.3 (g/dL) Final HCT 05/28/2024 13:36:26 30.2 Below low normal 36. 0-45.2 (%) Final MCV 05/28/2024 13:36:26 109.0 81.5-97.5 (fL) Final MCH 05/28/2024 13:36:26 37.2 27.0-34.0 (pg) Final MCHC 05/28/2024 13:36:26 34.1 32.0-36.0 (g/dL) Final RDW 05/28/2024 13:36:26 20.0 11.5-15.5 (%) Final Platelets 05/28/2024 13:36:26 360 140-400 (K /uL) Final MPV 05/28/2024 13:36:26 10.2 6.6-11.1 ( fL) Final Performing Location [facility] [place] [address]
--- OUTSIDE RECORDS SUMMARY | 2024-07-19 21:06 | External Medical Summary | Summary of Care ---
Author Name Unknown Organization [facility] Address [address] [place] [address] Phone [phone] Care Team Providers Care Skin Washer Name Role Phone Alan Luann marie Simpson DO Primary Care Provider [phone] Reason for Visit * Reason Comments Medication Administration Reblozyl * Episode Based Medications (Routine) - Authorized Specialty Diagnoses / Procedures Referred By Contac t Referred To Contact Diagnoses MDS (myelodysplastic syndrome) (HCC) Procedures [place] INJ LUSPATERCEPT-AAMT 0.25MG Nyasia Feliz MD 200 [facility] [place] [address] Anc Hem/Onc [address] [address] Referral ID Status Reason Start Date Expiration Date V isits Requested Visits Authorized [id number] Authorized 01/12/2024 08/20/2099 99 99 Encounter Details Date Type Department Care Team (Late st Contact Info) Description 05/28/2024 3:00 PM EDT Immunization/I njection Hematology/Oncology Treatment, [address] [address] Marcela, Chair 2 Hem Onc [address] [place] [address] MDS (myelodysplastic syndrome) (HCC)* Allergies No known [...] Description 05/30/2024 10:50 AM EDT Office Visit [facility] [address] [place] [facility] [place] [place] [address] Lu Phillips DO [address] [place] [address] 06/03/2024 9:00 AM EDT Imaging Radiology, [facility] [address] [facility] [place] [address] 06/18/2024 7:30 AM EDT Laboratory Laboratory [facility] 200 [facility] [place] [address] Marcela, Lab [address] [place], [place] [address] 06/18/2024 8:00 AM EDT Office Visit Hematology/Oncology [address] [place] [address] [place] [address] Nyasia Feliz MD [address] [place], [place] [address] 06/18/2024 8:30 AM EDT Immunization/Injecti on Hematology/Oncology Treatment, [place] 200 [facility], [place] [phone] Marcela, Chair 9 Hem Onc [address] [place] [address] 07/08/2024 1:00 PM EST Laboratory Laboratory [facility] Marcela [place] [address] [place] [address] Marcela, Lab [address] [facility] [place], [place] [address] 07/08/2024 2:00 PM EST Immunization/Injecti on Hematology/Oncology Treatment, [place] 200 [facility], [place] [address] Marcela, Chair 9 Hem Onc [address] [place], [place] [address] 07/30/2024 2:15 PM EST Office Visit Interventional Pain Center, [facility] [address] [place] [address] Raymundo Reynoso, [address] [place] [phone] 08/01/2024 1:15 PM EST Imaging Radiology [facility] 1st [facility] [address] [place] [address] 09/23/2024 8:30 AM EST Office Visit [facility] [address] [facility], [place] [phone] Lu Phillips DO [address] [facility] [place] [address] 10/02/2024 3:30 PM EST Office Visit Cardiology, [facility] [address] [place] [address] Vidal Phillips DO [address] [place] [address] Health Maintenance Due Date Last Done Comments Pneumococcal Vaccine: 65+ Years (1 of 2 - PCV) 1946 Depression Screening 1953 DTap/Tdap Vaccines (1 - Tdap) 1960 Zoster Vaccines (1 of 2) 1991 DXA Scan 2006 Adult Wellness Visit 2007 COVID-19 Vaccine ( season) 2024 GFR 11/04/2024 05/07/2024, 03/22, 03/26/2024, Additional history exists Albumin/Creatinine Ratio 03/26/2025 03/26/2024 CKD PHOS USE SMARTSET 48261 04/15/2025 04/15/2024 CKD HGB USE SMARTSET 67854 05/28/202505/28, 05/28/2024, 05/07/2024, Additional history exists Influenza [...] Documents on File Type Date Recorded Patient Security Orderly Expl anation Advance Directives and Living Will 01/04/2024 Fara Crowe Combined Medical POA & Living Will - signed on 11/24/2022 Healthcare Agents on File Name Relationship [facility] Fara Junior Adult Child Health Care Agen t (per Health Care Power of Gear Setter document) Nick Crowe Adult Child First Alternate Health Care Agent (per Health Care Power of Gear Setter document) Care Teams Skin Washer Relationship Specialty Start Date End Date Lu Phillips DO [address], [place] [phone] PCP - General Family Medicine 12/25/23 documented as of this encounter
--- OUTSIDE RECORDS SUMMARY | 2024-07-19 21:06 | External Medical Summary | Summary of Care ---
Author Name Unknown Organization [facility] Address [address] [place] [address] Phone [phone] Care Team Providers Care Dermatology Nurse Practitioner Name Role Phone HaydeeLu garcia Calvin LEE Primary Care Provider Reason for Visit * Reason Comments Outpatient Testing Encounter Details Date Type Department Care Team (Late st Contact Info) Description 05/07/2024 7:30 AM EDT Laboratory Laboratory [facility] [address] [place] [phone] [place], Lab [facility] [address] [place] [address] MDS (myelodysplastic syndrome) ([facility]ER[facility]); Chronic kidney disease, stage 3b (HCC); Elevated blood sugar level Allergies No known active allergiesdocumented as of [...] Team (Late st Contact Info) Description 05/07/2024 8:30 AM EDT Immunization/Injectio n Hematology/Oncology Treatment, [place] [address] [place] [phone] Marcela, Chair 9 Hem Onc Scenery [address] [place] [address] Arrived 05/28/2024 2:00 PM EDT Laboratory Laboratory [facility] [place] [address] [place] [phone] Marcela, Lab [facility] [address] [facility] [place] [address] 05/28/2024 3:00 PM EDT Immunization/Injectio n Hematology/Oncology Treatment, [place] [facility] [phone] Marcela, Chair 9 Hem Onc Scenery [address] [place] [address] 06/03/2024 9:00 AM EDT Imaging Radiology, [place] [address] [facility] [place] [address] 08/01/2024 1:15 PM EST Imaging Radiology [facility] 1st [facility] [address] [facility] [place] [address] 09/23/2024 8:30 AM EST [facility] Visit [facility] [address] [facility] [phone] Lu Phillips DO [address] [facility] [address] 10/02/2024 3:30 PM EST Office Visit Cardiology, [facility] [address] [facility] [place] [address] Vidal Phillips, DO [address] [facility] [place] [address] Pending Results Name Type Priority Associated Diagnoses Date /Time CBC WITH WBC DIFFERENTIAL Lab STAT MDS (myelodysplastic syndrome) (HCC) 05/07/2024 7:45 AM EDT COMPREHENSIVE METABOLIC PANEL Lab Routine Chronic kidney disease, stage 3b (HCC) Elevated blood sugar level 05/07/2024 7:45 AM EDT HEMOGLOBIN A1C Lab Routine Elevated blood sugar level 05/07/2024 7:45 AM EDT CBC Lab STAT MDS (myelodysplastic syndrome) (HCC) 05/07/2024 7:45 AM EDT DIFFERENTIAL, AUTOMATED Lab STAT MDS (myelodysplastic syndrome) (HCC) 05/07/2024 7:45 AM EDT Health Maintenance Due Date Last Done Comments Pneumococcal Vaccine: 65+ Years (1 of 2 - PCV) 1946 Depression Screening 1953 DTap/Tdap Vaccines (1 - Tdap) 1960 Zoster Vaccines (1 of 2) 1991 DXA Scan 2006 Adult Wellness Visit 2007 COVID-19 Vaccine (1 - season) 2024 Influenza Vaccine (FLU shot) (#1) 2024 GFR 10/16/2024 04/15/2024, 01/2024, 12/11/2023 Albumin/Creatinine Ratio 03/26/2025 03/26/2024 CKD PHOS USE SMARTSET 40611 04/15/2025 04/15/2024 CKD HGB USE SMARTSET 84427 04/17/202504/17, 04/15/2024, 04/15/2024, Additional history exists HPV (Gardasil) Vaccine Aged [...] MDS (myelodysplastic syndrome) (HCC) Myelodysplastic syndrome, unspecified Chronic kidney disease, stage 3b (HCC) Elevated blood sugar level Other abnormal glucose Screening mammogram for breast cancer documented in this encounter Advance Directives Documents on File Type Date Recorded Patient Market Maker Expl anation Advance Directives and Living Will 01/04/2024 Fara Crowe Combined Medical POA & Living Will - signed on 11/24/2022 Healthcare Agents on File Name Relationship Healthcare Agent Relationshi p Communication Fara Junior Adult Child Health Care Agen t (per Health Care Power of Radiology Asst document) Nick Crowe Adult Child First Alternate Health Care Agent (per Health Care Power of Radiology Asst document) Care Teams Dermatology Nurse Practitioner Relationship Specialty Start Date End Date Lu Phillips DO [address] [place] [address] PCP - General Family Medicine 12/25/23 documented as of this encounter
--- OUTSIDE RECORDS SUMMARY | 2024-07-19 21:06 | External Medical Summary | Summary of Care ---
Author Name Unknown Organization [facility] Address [address] [place] [address] Phone [phone] Care Team Providers Care Edge Banding Off Bearer Name Role Phone Alan Luann marie Simpson DO Primary Care Provider Reason for Visit * Reason Onset Date Comments Medication Administration 05/07/2024 Flu, R eblozyl * Episode Based Medications (Routine) - Authorized Specialty Diagnoses / Procedures Referred By Contac t Referred To Contact Diagnoses MDS (myelodysplastic syndrome) (HCC) Procedures [place] INJ LUSPATERCEPT-AAMT 0.25MG Nyasia Feliz MD 200 [facility] [place] [address] Anc Hem/Onc [address] [address] Referral ID Status Reason Start Date Expiration Date V isits Requested Visits Authorized [id number] Authorized 01/12/2024 06/13/2024 99 99 Encounter Details Date Type Department Care Team (Latest Contact Info) Description 05/07/2024 8:30 AM EDT Immunization/I njection Hematology/Oncology Treatment, [address] [phone] Marcela, Chair [address] [place] [address] MDS (myelodysplastic syndrome) (HCC)*; Need for prophylactic [...] symptoms or fever? No Have you had Guillain-[place] Syndrome (an illness that causes paralysis) within [...] Description 05/28/2024 2:00 PM EDT Laboratory Laboratory [facility] Marcela [place] [address] [phone] Marcela, Lab [place] [address] [address] 05/28/2024 3:00 PM EDT Immunization/Injecti on Hematology/Oncology Treatment, [place] [address] [place] [phone] Marcela, Chair 9 Hem Onc [facility] [place] [address] [address] 06/03/2024 9:00 AM EDT Imaging Radiology, [address] [place] [address] 06/18/2024 7:30 AM EDT Laboratory [facility] [place] [address] [facility] [phone] Marcela, Lab Scenery [address] [facility] [place] [address] 06/18/2024 8:00 AM EDT Office Visit Hematology/Oncology [facility] [place] [address] [place] [phone] Nyasia Feliz MD [address] [place] [address] 06/18/2024 8:30 AM EDT Immunization/Injecti on Hematology/Oncology Treatment, [place] [address] [place] [phone] Marcela, Chair 9 Hem Onc Scenery [address] [place] [address] 08/01/2024 1:15 PM EST Imaging Radiology [facility] 1st [facility] [address] [place] [address] 09/23/2024 8:30 AM EST Office Visit [address] [phone] Lu Phillips DO [address] [place] [address] 10/02/2024 3:30 PM EST Office Visit Cardiology, [facility] [address] [place] [address] Vidal Phillips, DO [address] [place] [address] Health Maintenance Due Date Last Done Comments Pneumococcal Vaccine: 65+ Years (1 of 2 - PCV) 1946 Depression Screening 1953 DTap/Tdap Vaccines (1 - Tdap) 1960 Zoster Vaccines (1 of 2) 1991 DXA Scan 2006 Adult Wellness Visit 2007 COVID-19 Vaccine ( season) 2024 GFR 10/16/2024 04/15/2024, 0801/2024, 12/11/2023 Albumin/Creatinine Ratio 03/26/2025 03/26/2024 CKD PHOS USE SMARTSET 12204 04/15/2025 04/15/2024 CKD HGB USE SMARTSET 80700 05/07/202505/07, 05/07/2024, 04/17/2024, Additional history exists Influenza [...] Documents on File Type Date Recorded Patient Meter Tester Polyphase Expl anation Advance Directives and Living Will 01/04/2024 Fara Crowe Combined Medical POA & Living Will - signed on 11/24/2022 Healthcare Agents on File Name Relationship Healthcare Agent Relationshi p Communication Fara Junior Adult Child Health Care Agen t (per Health Care Power of Reservoir Engineering Manager document) Nick Crowe Adult Child First Alternate Health Care Agent (per Health Care Power of Reservoir Engineering Manager document) Care Teams Edge Banding Off Bearer Relationship Specialty Start Date End Date Lu Phillips DO [address] [place] [address] PCP - General Family Medicine 12/25/23 documented as of this encounter
--- OUTSIDE RECORDS SUMMARY | 2024-07-19 21:06 | External Medical Summary ---
Author Name Unknown Address Unknown Organization K01:[facility] - [address] [facility] [address] Laboratory Report Ordering Provider Test Date Status GINGERNUPURRUSSEL 05/07/2024 07:45:53 Final Observation Date Value Abnormality Reference (Units ) Status HbA1C 05/07/2024 07:45:53 5.7 Above high normal 4. 0-5.6 (%) Final The use of HbA1c to monitor glycemic status is based on normal hemoglobin and HbA composition. This test should not be used in patients with abnormal hemoglobin that affects the half life of the red blood cell or the in vivo glycation rates. Glucose, estimated average 05/07/2024 07:45:53 117 <126 (mg/dL) Final Performing Location [facility] - [address] [facility] [address]
--- OUTSIDE RECORDS SUMMARY | 2024-07-19 21:06 | External Medical Summary | Summary of Care ---
Author Name Unknown Organization [facility] Address [address] [place] [address] Phone [phone] Care Team Providers Care Market Manager Name Role Phone Alan Luann marie Simpson DO Primary Care Provider [phone] Reason for Visit * Reason Comments Medication Administration Reblozyl * Episode Based Medications (Routine) - Authorized Specialty Diagnoses / Procedures Referred By Contac t Referred To Contact Diagnoses MDS (myelodysplastic syndrome) (HCC) Procedures [place] INJ LUSPATERCEPT-AAMT 0.25MG Nyasia Feliz MD 200 [facility] [place] [address] Anc Hem/Onc [address] [address] Referral ID Status Reason Start Date Expiration Date V isits Requested Visits Authorized [id number] Authorized 01/12/2024 08/20/2099 99 99 Encounter Details Date Type Department Care Team (Late st Contact Info) Description 05/28/2024 3:00 PM EDT Immunization/I njection Hematology/Oncology Treatment, [address] [phone] Marcela, Chair [address] Hem On[address] [place] [address] MDS (myelodysplastic syndrome) (HCC)* Allergies No known active allergiesdocumented as of this encounter (statuses as of 05/29/2024) Medications Medication Sig Dispensed Refills Start Date [...] as of this encounter (statuses as of 05/29/2024) Active Problems Problem Noted Date Diagnosed Date Chronic kidney disease, stage 3b 04/01/2024 Overview: Per CKD protocol MDS (myelodysplastic syndrome) 01/10/2024 Hearing aid worn 12/25/2023 documented as of this encounter (statuses as of 05/29/2024) Immunizations Name Administration Dates Next Due Seasonal [...] Description 05/30/2024 10:50 AM EDT Office Visit [facility] [address] [place] [facility] [place] [phone] Lu Phillips DO [address] [place] [address] 06/03/2024 9:00 AM EDT Imaging Radiology, [facility] [address] [facility] [place] [address] 06/18/2024 7:30 AM EDT Laboratory Laboratory [facility] [place] [phone] Marcela, Lab Scenery [address] [place], [place] [address] 06/18/2024 8:00 AM EDT Office Visit Hematology/Oncology Scenery [place] [address] [place] [phone] Nyasia Feliz MD [address] [place], [place] [address] 06/18/2024 8:30 AM EDT Immunization/Injecti on Hematology/Oncology Treatment, [place] 200 [facility], [place] [phone] Marcela, Chair 9 Hem Onc Scenery [address] [place] [address] 07/08/2024 1:00 PM EST Laboratory Laboratory [facility] Marcela [place] [address] [place] [address] Marcela, Lab Scenery [address] [facility] [place], [place] [address] 07/08/2024 2:00 PM EST Immunization/Injecti on Hematology/Oncology Treatment, [place] 200 [facility], [place] [address] Marcela, Chair 9 Hem Onc Scenery [address] [place], [place] [address] 07/30/2024 2:15 PM EST Office Visit [facility] [address] [place] [address] Raymundo Reynoso, [address] [place] [phone] 08/01/2024 1:15 PM EST Imaging Radiology [facility] 1st [facility] [address] [place] [address] 09/23/2024 8:30 AM EST Office Visit [facility] [address] [facility], [place] [phone] Lu Phillips DO [address] [facility] [place] [address] 10/02/2024 3:30 PM EST Office Visit Cardiology, [facility] [address] [place] [address] Vidal Phillips DO [address] [place] [address] Health Maintenance Due Date Last Done Comments Pneumococcal Vaccine: 65+ Years (1 of 2 - PCV) 1946 Depression Screening 1953 DTap/Tdap Vaccines (1 - Tdap) 1960 Zoster Vaccines (1 of 2) 1991 DXA Scan 2006 Adult Wellness Visit 2007 COVID-19 Vaccine ( season) 2024 GFR 11/04/2024 05/07/2024, 03/22, 03/26/2024, Additional history exists Albumin/Creatinine Ratio 03/26/2025 03/26/2024 CKD PHOS USE SMARTSET 04999 04/15/2025 04/15/2024 CKD HGB USE SMARTSET 33602 05/28/202505/28, 05/28/2024, 05/07/2024, Additional history exists Influenza [...] cancer documented in this encounter Administered Medications Inactive Administered Medications - up to 3 [...] Documents on File Type Date Recorded Patient Sack Sewer Expl anation Advance Directives and Living Will 01/04/2024 Fara Crowe Combined Medical POA & Living Will - signed on 11/24/2022 Healthcare Agents on File Name Relationship Healthcare Agent Relationshi p Communication Fara Junior Adult Child Health Care Agen t (per Health Care Power of Tire Assembler document) Nick Crowe Adult Child First Alternate Health Care Agent (per Health Care Power of Tire Assembler document) Care Teams Market Manager Relationship Specialty Start Date End Date Lu Phillips DO [address] [place] [address] PCP - General Family Medicine 12/25/23 documented as of this encounter
--- NOTE | 2024-07-19 21:14 | Emergency Department Note ---
History of Present Illness General Chief complaint: Stroke/CVA Symptoms Stated complaint: CVA Symptoms Time Seen by Provider: 07/19/24 21:01 Source: EMS History of Present Illness Provider complaint: Strokelike symptoms 84-year-old female with history of Alzheimer's dementia presents to the emergency department for strokelike symptoms. According to EMS at 1930 the patient started becoming increasing confused and having slurred speech per family. EMS reported that her symptoms lasted approximately 45 minutes and then their arrival her symptoms had resolved. Patient denies any falls or traumas. No pain. Home Medications Medication Instructions Recorded Confirmed Type amoxicillin 875 mg-potassium 1 tab PO BID #20 tabs 03/31/24 Rx clavulanate 125 mg tablet ascorbic acid (vitamin C) 500 mg 500 mg PO QAM 03/31/24 03/31/24 History tablet (Vitamin C) aspirin 81 mg tablet,delayed 81 mg PO [facility] 03/31/24 03/31/24 History release atorvastatin 20 mg tablet 20 mg PO QA 03/31/24 03/31/24 History calcitriol 0.5 mcg capsule 0.5 mcg PO QA 03/31/24 03/31/24 History famotidine 40 mg tablet 40 mg PO HS 03/31/24 03/31/24 History lisinopril 10 mg tablet 10 mg PO QA 03/31/24 03/31/24 History memantine 10 mg tablet 20 mg PO HS 03/31/24 03/31/24 History metoprolol succinate 25 mg 25 mg PO QAM 03/31/24 03/31/24 History tablet,extended release 24 hr multivitamin 1 tab PO QA 03/31/24 03/31/24 History trazodone 50 mg tablet 50 mg PO 03/31/24 03/31/24 History Allergies Allergy/AdvReac Type Severity Reaction Status Date / Time No Known Allergies Allergy Unverified 03/31/24 09:01 Past Med/Surg History Problem List (Updated 07/19/24 @ 22:29 by Rocco Gordon MD) TIA (transient ischemic attack) (Acute) Medical History No pertinent family history HTN (hypertension) HLD (hyperlipidemia) Surgical History No pertinent past surgical history Social History Smoking Status: Unknown if ever smoked Preferred Language: Pashto Feels Safe at Home: Yes Physical Exam Vital Signs Vital Signs - 24 hr 07/19/24 21:06 07/19/24 21:09 07/19/24 21:19 Temperature Temperature Source Pulse Rate 72 Pulse Rate [Apical] Pulse Rate from SpO2 Sensor Respiratory Rate Respiratory Effort / Characteristics Respiratory Depth Respiratory Pattern Blood Pressure 200/93 H Blood Pressure [Left Arm] Blood Pressure Mean 113 Blood Pressure Mean [Left Arm] Pulse Oximetry 93 Oxygen Delivery Method Room Air Sepsis Recent Fever Within 48 Hours Sepsis New/Unexplained Change in Mental Status Sepsis Action Taken by Nursing 07/19/24 21:19 07/19/24 21:24 07/19/24 21:26 Temperature 36.6 C Temperature Source Oral Pulse Rate 35 L 85 Pulse Rate [Apical] 72 Pulse Rate from SpO2 Sensor Respiratory Rate 18 Respiratory Effort / Characteristics Non-Labored Spontaneous Respiratory Depth Normal Respiratory Pattern Regular Blood Pressure Blood Pressure [Left Arm] 215/110 H Blood Pressure Mean Blood Pressure Mean [Left Arm] 145 Pulse Oximetry 93 Oxygen Delivery Method Room Air Sepsis Recent Fever Within 48 Hours Sepsis New/Unexplained Change in Mental Status Sepsis Action Taken by Nursing 07/19/24 21:30 07/19/24 21:31 07/19/24 21:38 Temperature 36.6 C Temperature Source Oral Pulse Rate 77 91 H Pulse Rate [Apical] Pulse Rate from SpO2 Sensor 81 Respiratory Rate 20 20 Respiratory Effort / Characteristics Non-Labored Spontaneous Respiratory Depth Normal Respiratory Pattern Regular Blood Pressure 215/110 H 210/110 H Blood Pressure [Left Arm] Blood Pressure Mean 140 143 Blood Pressure Mean [Left Arm] Pulse Oximetry 97 94 Oxygen Delivery Method Room Air Sepsis Recent Fever Within 48 Hours No Sepsis New/Unexplained Change in Mental Status Yes Sepsis Action Taken by Nursing No Action Required 07/19/24 21:42 Temperature Temperature Source Pulse Rate 84 Pulse Rate [Apical] Pulse Rate from SpO2 Sensor 75 Respiratory Rate 21 Respiratory Effort / Characteristics Respiratory Depth Respiratory Pattern Blood Pressure Blood Pressure [Left Arm] Blood Pressure Mean Blood Pressure Mean [Left Arm] Pulse Oximetry 92 Oxygen Delivery Method Sepsis Recent Fever Within 48 Hours Sepsis New/Unexplained Change in Mental Status Sepsis Action Taken by Nursing Physical Exam HENT: Exam performed. -Head: Normocephalic and atraumatic. -Right Ear: External ear normal. No mastoid erythema -Left Ear: External ear normal. No mastoid erythema -Mouth/Throat: The oropharynx is clear and moist. No trismus in the jaw. No dental abscesses or uvula swelling. No oropharyngeal exudate or tonsillar abscesses. EYES: Conjunctivae and EOM are normal. Pupils are equal, round, and reactive to light. Right eye exhibits no discharge. Left eye exhibits no discharge. No scleral icterus. NECK: Normal range of motion. Neck supple. No JVD present.No rigidity. No tracheal deviation and normal range of motion present. CV: Normal rate, regular rhythm, normal heart sounds and intact distal pulses. There is no peripheral edema. Palpable radial pulses bue. PULM/CHEST: Effort normal and breath sounds normal. No respiratory distress. No stridor. no wheezes. no rales. NEURO: normal strength. No cranial nerve deficit or sensory deficit. Coordination and gait normal. Cerebellar tests wnl. Course Course 2100: The patient was evaluated in room A12. A complete history and physical exam was performed Cardiac monitoring: An order was placed for continuous cardiac monitoring. The monitor shows a rate of 60 with sinus rhythm interpreted by il 2114: Patient is [id number] creatinine is elevated. Will hold off on CT angios at this time as the patient has no neurological findings at this time. 2203: Patient remains neurologically intact. No focal neurological deficits. Family confirms EMS story. CT of the head unremarkable. Patient will be admitted for TIA workup. Administered Medications Discontinued Medications Ondansetron HCl (Ondansetron Inj 2 Mg/Ml 2 Ml Vial) 4 mg IV NOW STA Stop: 07/19/24 21:28 Last Admin: 07/19/24:29 Dose: 4 mg Documented By: [facility] Medical Decision Making Laboratory Data Attestation: I reviewed the patient's lab results. 07/19/24 21:11 07/19/24 21:11 Lab Results 07/19/24 07/19/24 Range/Units 21:06 21:11 WBC 9.94 (4.8-10.8) K/ul RBC 2.68 L (4.20-5.40) M/uL Hgb 9.8 L (12.0-16.0) g/dl Hct 27.7 L (37.0-47.0) % MCV 103.4 H (80.0-100.0) fL MCH 36.6 H (25.0-34.0) pg MCHC 35.4 (32.0-36.0) g/dL RDW Std Deviation 76.6 H (36.4-46.3) fL RDW Coeff of Jadiel 20.1 H (11.5-14.5) % Plt Count 378 (130-400) K/uL MPV 10.1 (9.4-12.4) fL Immature Gran % (Auto) 0.9 % Neut % (Auto) 70.9 % Lymph % (Auto) 13.8 % Cotton % (Auto) 13.7 % Eos % (Auto) 0.3 % Baso % (Auto) 0.4 % Neut # (Auto) 7.05 H (1.40-6.50) K/uL Lymph # (Auto) 1.37 (1.20-3.40) K/uL Cotton # (Auto) 1.36 H (0.11-0.59) K/uL Eos # (Auto) 0.03 (0.00-0.50) K/uL Baso # (Auto) 0.04 (0.00-0.20) K/uL Immature Gran # (Auto) 0.09 (0.01-0.20) K/uL Absolute Nucleated RBC 0.07 (0.00-0.12) K/uL Nucleated RBC % (auto) 0.7 % Anisocytosis Present Ovalocytes 1+ PT 10.9 (9.0-12.0) Seconds INR 1.0 (0.9-1.1) APTT 23 (21-31) Seconds PTT Ratio 0.9 Sodium 136 (136-145) mmol/L Potassium 4.4 (3.5-5.1) mmol/L Chloride 101 (98-107) mmol/L Carbon Dioxide 28 (21-32) mmol/L Anion Gap 7 (3-11) BUN 34 H (6-23) mg/dl Creatinine 1.60 H (0.6-1.2) mg/dl Est Cr Clr Drug Dosing 25.0 ml/min eGFR 31.80 BUN/Creatinine Ratio 21.3 H (10-20) Glucose 109 H (70-99(Fasting)) mg/dl POC Glucose 121 H (70-99) mg/dl Calcium 10.4 H (8.6-10.3) mg/dl Magnesium 1.8 (1.7-2.4) mg/dl Total Bilirubin 1.7 H (0.2-1.0) mg/dl AST 28 (13-39) U/L ALT 16 (7-52) U/L Alkaline Phosphatase 36 (34-104) U/L Troponin I High Sens 10.1 (0-14) pg/ml Total Protein 6.8 (6.0-8.3) gm/dl Albumin 4.3 (3.4-5.0) gm/dl Globulin 2.5 (2.5-4.0) gm/dl Albumin/Globulin Ratio 1.7 (0.9-2) Imaging Data Attestation: I personally reviewed and interpreted this imaging study as follows: My Impression: CT head: No ICH Radiologist's Impression: Head CT 07/19/24 21:06 CR Exam(s): CT HEAD Without Contrast EXAM: CT Head Without Intravenous Contrast CLINICAL HISTORY: Reason for exam: neuro deficit, acute stroke suspected. TECHNIQUE: Axial computed tomography images of the head/brain without intravenous contrast. CTDI is 36.43 mGy and DLP is 625.8 mGy-cm. Automated exposure control was utilized for the study. A dose lowering technique was utilized adhering to the principles of ALARA. COMPARISON: No relevant prior studies available. FINDINGS: Brain: No intracranial hemorrhage, mass-effect, or cerebral edema. Global parenchymal atrophy. Periventricular and subcortical low attenuation which is nonspecific but favored to represent chronic microvascular ischemic changes. Chronic right cerebellar infarct. Ventricles: Unremarkable. Bones/joints: Unremarkable. No fracture. Soft tissues: Unremarkable. Sinuses: No acute sinusitis. Mastoid air cells: Unremarkable as visualized. IMPRESSION: 1. No acute intracranial abnormality. Communications: Call Doctor Stroke Electronically signed by: Johan Hernandes MD 07/19/24 21:39 PM ECG Data Attestation: I personally reviewed and interpreted this ECG as follows: Rate (beats per minute): 65 Rhythm: + normal sinus ECG Intervals/blocks: + Normal QRS, + Normal [place] and + Normal QT-c ECG ST segments: + Normal ST segments Additional Comments: Baseline artifact and wander [facility] Narrative 2104: The patient was evaluated in room A12. A complete history and physical exam was performed Cardiac monitoring: An order was placed for continuous cardiac monitoring. The monitor shows a rate of 60 with sinus rhythm interpreted by me 2114: Patient is [id number] creatinine is elevated. Will hold off on CT angios at this time as the patient has no neurological findings at this time. 2203: Patient remains neurologically intact. No focal neurological deficits. Family confirms EMS story. CT of the head unremarkable. Patient will be admitted for TIA workup. Impression & Plan TIA (transient ischemic attack) Discharge Plan Visit Data Chief Complaint: Stroke/CVA Symptoms Stated Complaint: CVA Symptoms ED Provider: Rocco Gordon Discharge Problem: TIA (transient ischemic attack) Patient Disposition: Admitted As Inpatient Forms Stand Alone Forms: [facility] Prescriptions Prescriptions: No Action multivitamin Tablet 1 tab PO QAM atorvastatin 20 mg tablet 20 mg PO QAM trazodone 50 mg tablet 50 mg PO HS famotidine 40 mg tablet 40 mg PO HS aspirin 81 mg Tablet,Delayed Release (Dr/Ec) 81 mg PO QAM ascorbic acid (vitamin C) [Vitamin C] 500 mg Tablet 500 mg PO QAM calcitriol 0.5 mcg capsule 0.5 mcg PO QAM lisinopril 10 mg tablet 10 mg PO QAM metoprolol succinate 25 mg tablet extended release 24 hr 25 mg PO QAM memantine 10 mg tablet 20 mg PO HS amoxicillin-pot clavulanate 875-125 mg tablet 1 tab PO BID Qty: 20 0RF Referrals Referrals: Lu Phillips DO [Primary Care Provider] -
[2024-07-19] MEDS: ONDANSETRON INJ 2 MG/ML 2 ML VIAL IV STA (21:29)
[2024-07-19 21:36] LABS: Basophils # (auto) 0.04 K/uL (0.00-0.20); Basophils % (auto) 0.4 %; Eosinophils # (auto) 0.03 K/uL (0.00-0.50); Eosinophils % (auto) 0.3 %; Hematocrit (blood only) 27.7 % (37.0-47.0); Hemoglobin 9.8 g/dl (12.0-16.0); Immature Granulocytes # (auto) 0.09 K/uL (0.01-0.20); Immature Granulocytes % (auto) 0.9 %; Lymphocytes # (auto) 1.37 K/uL (1.20-3.40); Lymphocytes % (auto) 13.8 %; Mean Corpuscular Hemoglobin 36.6 pg (25.0-34.0); Mean Corpuscular Hgb Conc 35.4 g/dL (32.0-36.0); Mean Corpuscular Volume 103.4 fL (80.0-100.0); Mean Platelet Volume 10.1 fL (9.4-12.4); Monocytes # (auto) 1.36 K/uL (0.11-0.59); Monocytes % (auto) 13.7 %; Neutrophils # (auto) 7.05 K/uL (1.40-6.50); Neutrophils % (auto) 70.9 %; Nucleated RBC # (auto) 0.07 K/uL (0.00-0.12); Nucleated RBC % (auto) 0.7 %; Platelet Count 378 K/uL (130-400); RDW Coefficient of Variation 20.1 % (11.5-14.5); RDW Standard Deviation 76.6 fL (36.4-46.3); Red Blood Count 2.68 M/uL (4.20-5.40); White Blood Count 9.94 K/ul (4.8-10.8)
--- NOTE | 2024-07-19 21:40 | CT Scan Report ---
Exam(s): CT HEAD Without Contrast EXAM: CT Head Without Intravenous Contrast CLINICAL HISTORY: Reason for exam: neuro deficit, acute stroke suspected. TECHNIQUE: Axial computed tomography images of the head/brain without intravenous contrast. CTDI is 36.43 mGy and DLP is 625.8 mGy-cm. Automated exposure control was utilized for the study. A dose lowering technique was utilized adhering to the principles of ALARA. COMPARISON: No relevant prior studies available. FINDINGS: Brain: No intracranial hemorrhage, mass-effect, or cerebral edema. Global parenchymal atrophy. Periventricular and subcortical low attenuation which is nonspecific but favored to represent chronic microvascular ischemic changes. Chronic right cerebellar infarct. Ventricles: Unremarkable. Bones/joints: Unremarkable. No fracture. Soft tissues: Unremarkable. Sinuses: No acute sinusitis. Mastoid air cells: Unremarkable as visualized. IMPRESSION: 1. No acute intracranial abnormality. Communications: Call Doctor Stroke Electronically signed by: Johan Hernandes MD 07/19/24 21:39 PM
[2024-07-19 21:41] LABS: Albumin Globulin Ratio 1.7 (0.9-2); Albumin Level 4.3 gm/dl (3.4-5.0); BUN Creatinine Ratio 21.3 (10-20); Bilirubin,Total 1.7 mg/dl (0.2-1.0); Calcium 10.4 mg/dl (8.6-10.3); Globulin 2.5 gm/dl (2.5-4.0); Magnesium 1.8 mg/dl (1.7-2.4); Potassium 4.4 mmol/L (3.5-5.1); Total Protein 6.8 gm/dl (6.0-8.3)
[2024-07-19 21:48] LABS: Troponin I High Sensitivity 10.1 pg/ml (0-14)
[2024-07-19 21:51] LABS: Partial Thromboplastin Ratio 0.9; Partial Thromboplastin Time 23 Seconds (21-31); Prothrombin Time 10.9 Seconds (9.0-12.0)
[2024-07-19 21:57] LABS: Anisocytosis Present; Ovalocytes 1+
[2024-07-19] MEDS: METOPROLOL TARTRATE 1 MG/ML VIAL IV STA (22:20)
[2024-07-19] MEDS: MAGNESIUM SULFATE / D5W 1 GM/100 ML BAG IV ONE (22:20)
--- NOTE | 2024-07-19 22:37 | History & Physical Report ---
Date of Service July 19, 2024 Assessment & Plan (1) TIA (transient ischemic attack): Plan: Presenting as transient dysarthria Possible aspirin failure Hypertension, elevated secondary to above hx CAD PVD, outpatient carotid Dopplers December 2023 showed less than 50% stenosis right ICA, 50 to 69% stenosis left ICA mild AR hyperlipidemia, on statin Rx breast cancer status post surgery ARF on CRI, hypercalcemia hx myelodysplastic syndrome, patient follows with [facility] [employer] chronic anemia, hemoglobin at baseline dementia, patient currently back to baseline mentation as per family. Hyperglycemia likely prediabetes, hemoglobin A1c of 5.27 April 2024 ongoing tobacco abuse OBS Medical telemetry Neurochecks Add Plavix to aspirin for now for secondary stroke prevention in light of possible aspirin failure Continue statin Rx Permissive hypertension until acute stroke ruled out, IV metoprolol as needed SBP greater than 180 MRI/MRA brain, TTE, carotid Dopplers for stroke workup Neurology consult contingent on testing results Update lipid profile Baseline UA, monitor creatinine response to IVF, hold lisinopril until creatinine back to baseline Hold calcitriol for now given hyperglycemia Recheck renal function in a.m. Nicotine replacement therapy as needed DVT prophylaxis. Heparin subcu Full code Patient children requesting updates providers. Ms. Fara Junior, contact #[phone]. Mr. Romero Chiloana cristina, contact #[phone]. Text document was generated using [employer] voice recognition software. It may contain grammatical or spelling errors. Kindly contact undersigned for clarification of any documentation item in question. History of Present Illness Chief Complaint: I do not know as per patient Slurred speech as per family Primary Care Provider: Lu Phillips, DO History obtained from patient, family, and records. Limited history from patient secondary to dementia. Medical history significant for CAD, PVD, mild AR (TTE 2023), hypertension, hyperlipidemia, breast cancer status post surgery, CRI (baseline creatinine 1.5), myelodysplastic syndrome, chronic anemia (baseline hemoglobin 8-9), dementia, ongoing tobacco abuse. Patient was having dinner with family tonight when she was noted to have transient slurred speech symptoms. Having more difficulty moving around. Compliant with home medications including aspirin. Recovering from a viral illness from last week as per family. Patient denies headache, chest pain, SOB, cough, abdominal pain symptoms. No prior episodes as per daughter. Highest SBP of 200s documented at the ER Patient currently back to baseline as per family. 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, originally from [place] but relocated to [place] to reside with daughter last spring due to worsening dementia Allergies Allergy/AdvReac Type Severity Reaction Status Date / Time No Known Allergies Allergy Unverified 03/31/24 09:01 Home Medications Medication Instructions Recorded Confirmed Type aspirin 81 mg tablet,delayed 81 mg PO QAM 03/31/24 07/20/24 History release atorvastatin 20 mg tablet 20 mg PO QAM 03/31/24 07/20/24 History calcitriol 0.5 mcg capsule 0.5 mcg PO QAM 03/31/24 07/20/24 History famotidine 40 mg tablet 40 mg PO HS 03/31/24 07/20/24 History lisinopril 10 mg tablet 10 mg PO QAM 03/31/24 07/20/24 History memantine 10 mg tablet 20 mg PO HS 03/31/24 07/20/24 History metoprolol succinate 25 mg 25 mg PO QAM 03/31/24 07/20/24 History tablet,extended release 24 hr multivitamin 1 tab PO QAM 03/31/24 07/20/24 History trazodone 50 mg tablet 50 mg PO HS 03/31/24 07/20/24 History donepezil 5 mg tablet 5 mg PO HS 07/19/24 07/20/24 History Past Med/Surg History Problem List (Updated 07/19/24 @ 22:29 by Rocco Gordon MD) TIA (transient ischemic attack) (Acute) Medical History No pertinent family history HTN (hypertension) HLD (hyperlipidemia) Surgical History No pertinent past surgical history Social History Smoking Status: Current every day smoker Tobacco Type: Cigarettes Second Hand Exposure: No; Do You Dip or Chew Tobacco: No; Hx Alcohol Use: No Hx Substance Use: No Preferred Language: Sri Lankan Communication Ability: Effective Train Examiner Required: No Current Living Situation: Family Feels Safe at Home: Yes Safety Concerns: Feels Safe At This Time Assistive Devices: Cane, Denture - Upper, Hearing Aid - Bilateral and Walker Review of Systems Review of Systems: Could not be reliably obtained secondary to dementia Physical Exam Physical Exam: GENERAL: Demented, pleasant, no dysarthria, no respiratory distress SKIN: Pallor, warm HEENT: Pale palpebral conjunctivae, no ptosis, dry buccal mucosa NECK : Supple, no tenderness CHEST : CTA, no tenderness HEART : RRR systolic murmur ABDOMEN: Some distention, nontender EXTREMITIES : Minimal bilateral LE swelling (chronic as per daughter) without tenderness, no other conspicuous deformities noted NEUROLOGIC : Demented, no facial asymmetry, MMTS BUE/BLE 12/23 Results & Data Results & Data Vital Signs (Past 12 Hours) Vital Signs Temp Pulse Pulse Resp BP BP Pulse Ox 07/19/24 22:25 70 181/140 H 07/19/24 21:42 84 21 92 07/19/24 21:38 36.6 C 91 H 20 210/110 H 94 07/19/24 21:31 215/110 H 07/19/24 21:30 77 20 97 07/19/24 21:26 85 07/19/24 21:24 35 L 07/19/24 21:19 36.6 C 72 18 215/110 H 93 07/19/24 21:19 93 07/19/24 21:09 200/93 H 07/19/24 21:06 72 O2 Del Method 07/19/24 22:25 07/19/24 21:42 07/19/24 21:38 Room Air 07/19/24 21:31 07/19/24 21:30 07/19/24 21:26 07/19/24 21:24 07/19/24 21:19 Room Air 07/19/24 21:19 Room Air 07/19/24 21:09 07/19/24 21:06 Laboratory Results Laboratory Results WBC 9.94 K/ul (4.8-10.8) 07/19/24 21:11 RBC 2.68 M/uL (4.20-5.40) L 07/19/24 21:11 Hgb 9.8 g/dl (12.0-16.0) L 07/19/24 21:11 Hct 27.7 % (37.0-47.0) L 07/19/24 21:11 MCV 103.4 fL (80.0-100.0) H 07/19/24 21:11 MCH 36.6 pg (25.0-34.0) H 07/19/24 21:11 MCHC 35.4 g/dL (32.0-36.0) 07/19/24 21:11 RDW Std Deviation 76.6 fL (36.4-46.3) H 07/19/24 21:11 RDW Coeff of Jadiel 20.1 % (11.5-14.5) H 07/19/24 21:11 Plt Count 378 K/uL (130-400) 07/19/24 21:11 MPV 10.1 fL (9.4-12.4) 07/19/24 21:11 Immature Gran % (Auto) 0.9 % 07/19/24 21:11 Neut % (Auto) 70.9 % 07/19/24 21:11 Lymph % (Auto) 13.8 % 07/19/24 21:11 Hitchcock % (Auto) 13.7 % 07/19/24 21:11 Eos % (Auto) 0.3 % 07/19/24 21:11 Baso % (Auto) 0.4 % 07/19/24 21:11 Neut # (Auto) 7.05 K/uL (1.40-6.50) H 07/19/24 21:11 Lymph # (Auto) 1.37 K/uL (1.20-3.40) 07/19/24 21:11 Hitchcock # (Auto) 1.36 K/uL (0.11-0.59) H 07/19/24 21:11 Eos # (Auto) 0.03 K/uL (0.00-0.50) 07/19/24 21:11 Baso # (Auto) 0.04 K/uL (0.00-0.20) 07/19/24 21:11 Immature Gran # (Auto) 0.09 K/uL (0.01-0.20) 07/19/24 21:11 Absolute Nucleated RBC 0.07 K/uL (0.00-0.12) 07/19/24 21:11 Nucleated RBC % (auto) 0.7 % 07/19/24 21:11 Anisocytosis Present 07/19/24 21:11 Ovalocytes 1+ 07/19/24 21:11 PT 10.9 Seconds (9.0-12.0) 07/19/24 21:11 INR 1.0 (0.9-1.1) 07/19/24 21:11 APTT 23 Seconds (21-31) 07/19/24 21:11 PTT Ratio 0.9 07/19/24 21:11 Sodium 136 mmol/L (136-145) 07/19/24 21:11 Potassium 4.4 mmol/L (3.5-5.1) 07/19/24 21:11 Chloride 101 mmol/L (98-107) 07/19/24 21:11 Carbon Dioxide 28 mmol/L (21-32) 07/19/24 21:11 Anion Gap 7 (3-11) 07/19/24 21:11 BUN 34 mg/dl (6-23) H 07/19/24 21:11 Creatinine 1.60 mg/dl (0.6-1.2) H 07/19/24 21:11 Est Cr Clr Drug Dosing 25.0 ml/min 07/19/24 21:11 eGFR 31.80 07/19/24 21:11 BUN/Creatinine Ratio 21.3 (10-20) H 07/19/24 21:11 Glucose 109 mg/dl (70-99(Fasting)) H 07/19/24 21:11 POC Glucose 121 mg/dl (70-99) H 07/19/24 21:06 Calcium 10.4 mg/dl (8.6-10.3) H 07/19/24 21:11 Phosphorus 3.0 mg/dl (2.5-4.9) 07/19/24 21:11 Magnesium 1.8 mg/dl (1.7-2.4) 07/19/24 21:11 Total Bilirubin 1.7 mg/dl (0.2-1.0) H 07/19/24 21:11 AST 28 U/L (13-39) 07/19/24 21:11 ALT 16 U/L (7-52) 07/19/24 21:11 Alkaline Phosphatase 36 U/L (34-104) 07/19/24 21:11 Troponin I High Sens 10.1 pg/ml (0-14) 07/19/24 21:11 Total Protein 6.8 gm/dl (6.0-8.3) 07/19/24 21:11 Albumin 4.3 gm/dl (3.4-5.0) 07/19/24 21:11 Globulin 2.5 gm/dl (2.5-4.0) 07/19/24 21:11 Albumin/Globulin Ratio 1.7 (0.9-2) 07/19/24 21:[address] 07/19/24 21:06 CR Exam(s): CT HEAD Without Contrast EXAM: CT Head Without Intravenous Contrast CLINICAL HISTORY: Reason for exam: neuro deficit, acute stroke suspected. TECHNIQUE: Axial computed tomography images of the head/brain without intravenous contrast. CTDI is 36.43 mGy and DLP is 625.8 mGy-cm. Automated exposure control was utilized for the study. A dose lowering technique was utilized adhering to the principles of ALARA. COMPARISON: No relevant prior studies available. FINDINGS: Brain: No intracranial hemorrhage, mass-effect, or cerebral edema. Global parenchymal atrophy. Periventricular and subcortical low attenuation which is nonspecific but favored to represent chronic microvascular ischemic changes. Chronic right cerebellar infarct. Ventricles: Unremarkable. Bones/joints: Unremarkable. No fracture. Soft tissues: Unremarkable. Sinuses: No acute sinusitis. Mastoid air cells: Unremarkable as visualized. IMPRESSION: 1. No acute intracranial abnormality. Communications: Call Doctor Stroke Electronically signed by: Johan Hernandes MD 07/19/24 21:39 PM Diagnostic Findings EKG as per my interpretation :Rate 65, NSR, LAD, LAFB, LVH, inferior infarct
[2024-07-19] MEDS ORDERED: PHARMACIST DISCHARGE MED REC CONSULT PRN (22:39)
[2024-07-19] MEDS ORDERED: ACETAMINOPHEN 325 MG TAB PO PRN (22:41)
[2024-07-19] MEDS ORDERED: PROMETHAZINE 6.25 MG/50.25 ML BAG IV PRN (22:41)
[2024-07-19] MEDS: CLOPIDOGREL BISULFATE 75 MG TAB PO ONE (22:53)
--- NOTE | 2024-07-19 23:48 | XRay Report ---
Exam(s): XR CXR 1 VIEW EXAM: XR Chest, 1 View CLINICAL HISTORY: Reason for exam: neuro deficit, acute stroke suspected. TECHNIQUE: Frontal view of the chest. COMPARISON: No relevant prior studies available. FINDINGS: Lungs: Atelectasis at the left base. Right lung is clear. Pleural space: No pleural effusion. No pneumothorax. Heart: Unremarkable. No cardiomegaly. IMPRESSION: No acute findings in the chest. Electronically signed by: Johan Hernandes MD 07/19/24 23:46 PM
[2024-07-20] MEDS: SODIUM CHLORIDE 0.9% 1,000 ML IV ONE (00:24)
[2024-07-20] MEDS: METOPROLOL TARTRATE 1 MG/ML VIAL IV STA (00:24)
--- NOTE | 2024-07-20 01:02 | Ultrasound Report ---
Exam(s): US CAROTID EXAM: US Duplex Bilateral Extracranial Arteries CLINICAL HISTORY: Reason for exam: tia. TECHNIQUE: Real-time duplex ultrasound scan of the extracranial arteries integrating B-mode two-dimensional vascular structure, Doppler spectral analysis and color flow Doppler imaging. COMPARISON: None FINDINGS: Exam is limited by patient movement and inability to tolerate pressure of the probe. Right common carotid artery: Unremarkable. No occlusion or significant stenosis on color flow and spectral Doppler imaging. Right internal carotid artery: Peak systolic velocity in the right ICA measures 57.9 cm/s. No occlusion or significant stenosis on color flow and spectral Doppler imaging. Right external carotid artery: Unremarkable. No occlusion or significant stenosis on color flow and spectral Doppler imaging. Right vertebral artery: Unremarkable. Antegrade flow. Right ICA/CCA ratio: Unremarkable. Within normal limits. Left common carotid artery: Unremarkable. No occlusion or significant stenosis on color flow and spectral Doppler imaging. Left internal carotid artery: Peak systolic velocity in the left ICA measures 37.2 cm/s. No occlusion or significant stenosis on color flow and spectral Doppler imaging. Left external carotid artery: Unremarkable. No occlusion or significant stenosis on color flow and spectral Doppler imaging. Left vertebral artery: Unremarkable. Antegrade flow. Left ICA/CCA ratio: Unremarkable. Within normal limits. Lymph nodes: Unremarkable. No lymphadenopathy. CAROTID STENOSIS REFERENCE USING SRU CRITERIA: Mild - <50% stenosis. ICA PSV is less than 125 cm/second and plaque or intimal thickening is visible. Moderate - 50-69% stenosis. ICA PSV is 125 to 230 cm/second and plaque is visible. Severe - 70-94% stenosis. ICA PSV is more than 230 cm/second and visible plaque with lumen narrowing is seen. Near occlusion - 95-99% stenosis. ICA PSV is variable and significant plaque with luminal narrowing is seen. Occluded - 100% stenosis. No flow identified. IMPRESSION: 1. No definite hemodynamically significant stenosis in either ICA. 2. Normal antegrade flow in bilateral vertebral arteries. Electronically signed by: Alec Mcallister M.D. 07/20/24 01:01 AM
[2024-07-20] MEDS: FAMOTIDINE 40 MG TABLET PO SCH (02:20)
[2024-07-20] MEDS: HEPARIN SOD 5,000 UNIT/0.5 ML VIAL SQ SCH (05:46)
[2024-07-20 06:23] LABS: Basophils # (auto) 0.04 K/uL (0.00-0.20); Basophils % (auto) 0.6 %; Eosinophils # (auto) 0.05 K/uL (0.00-0.50); Eosinophils % (auto) 0.8 %; Hematocrit (blood only) 26.8 % (37.0-47.0); Hemoglobin 9.5 g/dl (12.0-16.0); Immature Granulocytes # (auto) 0.04 K/uL (0.01-0.20); Immature Granulocytes % (auto) 0.6 %; Lymphocytes # (auto) 1.29 K/uL (1.20-3.40); Lymphocytes % (auto) 20.4 %; Mean Corpuscular Hemoglobin 36.5 pg (25.0-34.0); Mean Corpuscular Hgb Conc 35.4 g/dL (32.0-36.0); Mean Corpuscular Volume 103.1 fL (80.0-100.0); Mean Platelet Volume 9.9 fL (9.4-12.4); Monocytes # (auto) 1.04 K/uL (0.11-0.59); Monocytes % (auto) 16.4 %; Neutrophils # (auto) 3.87 K/uL (1.40-6.50); Neutrophils % (auto) 61.2 %; Nucleated RBC # (auto) 0.05 K/uL (0.00-0.12); Nucleated RBC % (auto) 0.8 %; Platelet Count 360 K/uL (130-400); RDW Standard Deviation 76.5 fL (36.4-46.3); White Blood Count 6.33 K/ul (4.8-10.8)
[2024-07-20 06:23] LABS: Appearance Urine Clear (Clear); Bacteria Urine Automated None Seen (None Seen); Bilirubin Urine Negative (Negative); Blood Urine Negative (Negative); Cast Urine Automated 0-2 /lpf (0-2); Color Urine Yellow; Epithelial Cell Urine Auto 0-2 /hpf (0-2); Glucose Urine UA Negative (Negative); Ketones Urine Negative (Negative); Leukocyte Esterase Urine Trace (Negative); Nitrite Urine Negative (Negative); Protein Urine Negative (Negative); RBC Urine Automated 0-2 /hpf (0-2); Specific Gravity Urine 1.009 (1.000-1.030); Urobilinogen Urine Negative (Negative); WBC Urine Automated 0-5 /hpf (0-5)
[2024-07-20 06:53] LABS: BUN Creatinine Ratio 19.2 (10-20); Calcium 9.5 mg/dl (8.6-10.3); Chol HDL Ratio 2.3 (0-5); Creatinine Clr Calc Pharmacy 25.2 ml/min; Potassium 4.2 mmol/L (3.5-5.1)
[2024-07-20 07:21] LABS: Estimated Average Glucose 117 mg/dl; Hemoglobin A1C 5.7 % (4.5-5.6)
--- NOTE | 2024-07-20 07:49 | Hospitalist Progress Note ---
Date of Service July 20, 2024 Assessment & Plan (1) TIA (transient ischemic attack): Plan Pt is an 84yoF with PMHx significant for CAD, PVD, mild AR (TTE 2023), hypertension, hyperlipidemia, breast cancer status post surgery, CKD, myelodysplastic syndrome, chronic anemia (baseline hemoglobin 8-9), dementia, ongoing tobacco abuse Presenting as transient dysarthria Possible aspirin failure Hypertension, elevated secondary to above hx CAD PVD, outpatient carotid Dopplers December 2023 showed less than 50% stenosis right ICA, 50 to 69% stenosis left ICA mild AR hyperlipidemia, on statin Rx breast cancer status post surgery ARF on CRI, hypercalcemia hx myelodysplastic syndrome, patient follows with [facility] [employer] data [employer] chronic anemia, hemoglobin at baseline dementia, patient currently back to baseline mentation as per family. Hyperglycemia likely prediabetes, hemoglobin A1c of 5.27 April 2024 ongoing tobacco abuse OBS Medical telemetry Neurochecks Add Plavix to aspirin for now for secondary stroke prevention in light of possible aspirin failure Continue statin Rx Permissive hypertension until acute stroke ruled out, IV metoprolol as needed SBP greater than 180 MRI/MRA brain, TTE, carotid Dopplers for stroke workup Neurology consult contingent on testing results Update lipid profile Baseline UA, monitor creatinine response to IVF, hold lisinopril until creatinine back to baseline Hold calcitriol for now given hyperglycemia Recheck renal function in a.m. Nicotine replacement therapy as needed DVT prophylaxis. Heparin subcu Full code Patient children requesting updates providers. Ms. Fara Junior, contact #[phone]. Mr. Nick Crowe, contact #[phone]. Text document was generated using [employer] voice recognition software. It may contain grammatical or spelling errors. Kindly contact undersigned for clarification of any documentation item in question. Admission and Anticipated Discharge Date Admission Date: July 19, 2024 Results & Data Results & Data Vital Signs (Past 12 Hours) Vital Signs Temp Pulse Pulse Pulse Resp BP BP 07/20/24 07:18 58 L 07/20/24 06:12 74 177/83 H 07/20/24 03:52 36.4 C L 67 18 185/86 H 07/20/24 01:00 60 160/85 H 07/20/24 00:38 07/20/24 00:38 36.5 C 86 20 191/106 H 07/20/24 00:24 68 190/102 H 07/20/24 00:15 70 07/19/24 23:25 67 20 190/94 H 07/19/24 22:25 70 181/140 H 07/19/24 21:42 84 21 07/19/24 21:38 36.6 C 91 H 20 210/110 H 07/19/24 21:31 215/110 H 07/19/24 21:30 77 20 07/19/24 21:26 85 07/19/24 21:24 35 L 07/19/24 21:19 36.6 C 72 18 215/110 H 07/19/24 21:19 07/19/24 21:09 200/93 H 07/19/24 21:06 72 Pulse Ox O2 Del Method 07/20/24 07:18 07/20/24 06:12 07/20/24 03:52 93 Room Air 07/20/24 01:00 07/20/24 00:38 Room Air 07/20/24 00:38 97 Room Air 07/20/24 00:24 07/20/24 00:15 07/19/24 23:25 93 Room Air 07/19/24 22:25 07/19/24 21:42 92 07/19/24 21:38 94 Room Air 07/19/24 21:31 07/19/24 21:30 97 07/19/24 21:26 07/19/24 21:24 07/19/24 21:19 93 Room Air 07/19/24 21:19 93 Room Air 07/19/24 21:09 07/19/24 21:06
[2024-07-20] MEDS: ASPIRIN 81 MG ECTAB PO SCH (09:24)
[2024-07-20] MEDS: METOPROLOL SUCC 25MG EXT REL TAB PO SCH (09:24)
[2024-07-20] MEDS: CLOPIDOGREL BISULFATE 75 MG TAB PO SCH (09:24)
[2024-07-20] MEDS: MEMANTINE HCL 10 MG TAB PO SCH (09:25)
[2024-07-20] MEDS: DONEPEZIL HCL 5 MG TAB PO SCH (09:25)
[2024-07-20] MEDS: MULTIVITAMIN TAB PO SCH (09:25)
[2024-07-20] MEDS: ATORVASTATIN 20 MG TAB PO SCH (09:25)
--- NOTE | 2024-07-20 10:59 | Magnetic Resonance Report ---
EXAM: MR brain wo con CLINICAL HISTORY: PT DAUGHTER STATES PT HAS DEMENTIA. ALTERED MENTAL STATUS. LAST NIGHT DEVELOPED SLURRED SPEEECH. NOT MAKING SENSE. UNABLE TO GET DRESSED OR DO ANYTHING. COULD NOT WALK. NO HX OF STROKE. NO RECENT HEAD TRAUMA. HX OF MDS BLOOD CANCER AND BREAST CANCER. NO PRIOR SURGERY. FAST PROPS FOR MOTION TECHNIQUE: MRI of the brain was performed without contrast with multiplanar sequences obtained. COMPARISON: No previous studies are available for comparison. FINDINGS: Brain Parenchyma: Moderate age-related cerebral involutional changes were noted. Diffuse periventricular white matter sheet of altered signals eliciting low T1, bright T2, and FLAIR WIs signals, no diffusion restriction, likely related to chronic small vessel ischemic changes. No evidence of acute infarction or hemorrhage. Normal dickey-white matter differentiation. No mass lesions or focal cortical abnormalities were identified. Ventricles and Sulci: [id number] Mildly dilated size of the lateral /[id number].5.1.2 third ventricles./OBX.5.1.2/OBX.5.1 Sylvian fissures, sulci, and cisterns are within normal limits. Posterior Fossa: Right cerebellar cortical and subcortical area of encephalomalacia related to old infarction noted. The cerebellum and brainstem appear normal without evidence of mass lesions or signal abnormalities. Cranial Nerves: Normal course and appearance of cranial nerves identified. Vessels: No evidence of vascular malformations or aneurysms. Intracranial arteries and veins appear normal without evidence of stenosis or occlusion. Orbits and Skull Base: Orbits and skull base structures are normal without evidence of abnormalities. IMPRESSION: 1. Moderate age-related cerebral involutional changes are seen. 2. Deep periventricular abnormal white matter signals related to chronic small vessel ischemic disease. 3. Evidence of right cerebellar area of encephalomalacia noted. Electronically signed by Skip Ding 07-20-2024 10:58 AM
--- NOTE | 2024-07-20 11:15 | Magnetic Resonance Report ---
EXAM: MR angio head wo con CLINICAL HISTORY: PT DAUGHTER STATES PT HAS DEMENTIA. ALTERED MENTAL STATUS. LAST NIGHT DEVELOPED SLURRED SPEEECH. NOT MAKING SENSE. UNABLE TO GET DRESSED OR DO ANYTHING. COULD NOT WALK. NO HX OF STROKE. NO RECENT HEAD TRAUMA. HX OF MDS BLOOD CANCER AND BREAST CANCER. NO PRIOR SURGERY. PT MOTION BEST SCANS POSSIBLE. TECHNIQUE: MRA of the head was performed without intravenous contrast. 3D [id number]-cv-[id number] (TOF) sequences were acquired through the [place]. COMPARISON: None. FINDINGS: Diffuse atherosclerotic changes involving the cerebral vessels in terms of irregular intima, No gross stenotic changes. Intracranial Arteries: Right Internal Carotid Artery (ICA): The proximal segment is normal The middle segment is normal The distal segment is normal Left Internal Carotid Artery (ICA): The proximal segment is normal The middle segment is normal The distal segment is normal Right Middle Cerebral Artery (MCA): The M1 segment is normal The M2 segment is normal Left Middle Cerebral Artery (MCA): The M1 segment is normal The M2 segment is normal Right Anterior Cerebral Artery (STEPHAN): The A1 segment is normal The A2 segment is normal Left Anterior Cerebral Artery (STEPHAN): A1 segment of SETPHAN is hypoplastic. The A2 segment is normal Anterior Communicating Artery (ACoA): The ACoA is normal Right Posterior Cerebral Artery (TRANSFER OPERATOR): The P1 segment is normal The P2 segment is normal Left Posterior Cerebral Artery (TRANSFER OPERATOR): The P1 segment is normal The P2 segment is normal Posterior Communicating Artery (PCoA): Bilateral origins of the TRANSFER OPERATOR from the PCoA with hypertrophied PCoA. 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 Vertebral Arteries: The right vertebral artery is normal The left vertebral artery is normal Additional Findings: [place] is normal There is no evidence of aneurysms, significant stenosis, or vascular malformations identified. Overall, the MRA of the head demonstrates normal findings without evidence of significant stenosis, aneurysm, or vascular malformation. Clinical correlation is recommended for further evaluation of any specific clinical symptoms or incidental findings. IMPRESSION: 1. Diffuse atherosclerotic changes of the cerebral arteries were noted. 2. Bilateral origins of the TRANSFER OPERATOR from the PCoA with hypertrophied PCoA. 3. 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 4. 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 Electronically signed by Skip Ding 07-20-2024 11:14 AM
--- NOTE | 2024-07-20 13:06 | Electrocardiogram Report ---
Test Reason : Blood Pressure : */* mmHG Vent. Rate : 65 BPM Atrial Rate : 65 BPM P-R Int : 170 ms QRS Dur : 80 ms QT Int : 400 ms P-R-T Axes : -3 -4 65 degrees QTcB Int : 416 ms Normal sinus rhythm Minimal voltage criteria for LVH, may be normal variant ( R in aVL ) Inferior infarct , age undetermined Abnormal ECG No previous ECGs available Confirmed by Eligio Brower ([id number]) on 07/20/2024 1:06:48 PM Referred By: REFERRED SELF Confirmed By: Eligio Brower
--- NOTE | 2024-07-20 13:08 | Neurology Consultation ---
Date of Consultation July 20, 2024 Assessment & Plan (1) TIA (transient ischemic attack): Resolved ambulatory dysfunction in a 84F with a PMH of HTN, HLD, DM and dementia. Exam is currently normal. MRI shows no evidence of stroke and CTA shows some bilateral carotid stenosis but nothing critical. While this sounds more like a global encephalopathy rather than a stroke, its hard to know for certain. 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 After connecting through interactive tele-video, patient was identified by name and date of and/or wristband check.Patient (or authorized healthcare players club representative) was informed that this was a telemedicine visit and it was being conducted confidentially over secure lines. My office door was closed and no one else was present in the room with me.Patient (or authorized healthcare players club representative) provided consent to proceed with the visit, expressed an understanding of privacy and security of the telemedicine visit, and gave permission to have a hospital players club representative in the room in order to assist with the visit and to conduct portions of the visit, as needed. I informed the patient (or authorized healthcare players club representative) that I reviewed their record and presented the opportunity for them to ask any questions regarding the visit today. The patient agreed to participate. History of Present Illness Reason for Consultation: stroke like symptoms Attending Physician: Porsche Roth MD History of Present Illness Isabelle Crowe is a 84F with a PMH of HTN, HLD, dementia, myelodysplastic syndrome, who presents with stroke like symptoms. Her daughter reports that about 1 week ago she had a cold and during that time her cognitive skills declined significantly. She was doing better from that perspective and then last night she started walking with a hunch in her back and falling forward when she walked. She then had more trouble than normal getting ready for bed and getting into bed and her speech started to slur. This was concern for EMS was called. Currently, per the daughter, her mother is doing much better. She says her gait is more normal and her thinking is at her baseline. The patient has no current complaints. No reported headaches, fevers, chest pain or SOB. No clear focal weakness or numbness. Allergies Allergy/AdvReac Type Severity Reaction Status Date / Time No Known Allergies Allergy Unverified 03/31/24 09:01 Home Medications Medication Instructions Recorded Confirmed Type aspirin 81 mg tablet,delayed 81 mg PO QAM 03/31/24 07/20/24 History release atorvastatin 20 mg tablet 20 mg PO QAM 03/31/24 07/20/24 History calcitriol 0.5 mcg capsule 0.5 mcg PO QAM 03/31/24 07/20/24 History famotidine 40 mg tablet 40 mg PO HS 03/31/24 07/20/24 History lisinopril 10 mg tablet 10 mg PO QAM 03/31/24 07/20/24 History memantine 10 mg tablet 20 mg PO HS 03/31/24 07/20/24 History metoprolol succinate 25 mg 25 mg PO QAM 03/31/24 07/20/24 History tablet,extended release 24 hr multivitamin 1 tab PO QAM 03/31/24 07/20/24 History trazodone 50 mg tablet 50 mg PO HS 03/31/24 07/20/24 History donepezil 5 mg tablet 5 mg PO HS 07/19/24 07/20/24 History Patient History Medical History No pertinent family history HTN (hypertension) HLD (hyperlipidemia) Surgical History No pertinent past surgical history Social History Smoking Status: Current every day smoker Tobacco Type: Cigarettes Second Hand Exposure: No; Do You Dip or Chew Tobacco: No; Hx Alcohol Use: No Hx Substance Use: No Preferred Language: Burmese Communication Ability: Effective Adjuster Piano Action Required: No Current Living Situation: Family Feels Safe at Home: Yes Safety Concerns: Feels Safe At This Time Assistive Devices: Cane, Denture - Upper, Hearing Aid - Bilateral and Walker Review of Systems See HPI Physical Exam NEUROLOGIC EXAMINATION: Mental Status:alert, orientated to person alone but not to place or time. decreased attention and doesn't understand her situation. follow simple commands briskly Cranial Nerves: CN 2 - no visual defect on confrontation and pupils round, equal, reactive to light CN 3, 4, 6 - extra-ocular movements intact and no nystagmus CN 5 - facial sensation intact CN 7 - no facial asymmetry CN 8 - intact hearing CN 9, 10 - palate symmetric, normal gag CN 11 - good shoulder shrug CN 12 - tongue midline MOTOR: Strength was at least antigravity throughout, Pronator drift was absent, and There were no abnormal movements SENSATION: intact GAIT: deferred COORDINATION: no ataxia with finger to nose testing and heel to mantilla testing REFLEXES: cannot assess over telemedicine Results & Data Vital Signs (Past 12 Hours) Vital Signs Temp Pulse Pulse Resp BP Pulse Ox O2 Del Method 07/20/24 11:48 36.8 C 65 18 178/81 H 97 Room Air 07/20/24 08:15 36.8 C 55 L 17 164/86 H 96 Room Air 07/20/24 07:18 58 L 07/20/24 06:12 74 177/83 H 07/20/24 03:52 36.4 C L 67 18 185/86 H 93 Room Air Laboratory Results Abnormal Lab Results 07/19/24 07/19/24 07/19/24 21:06 21:11 21:37 WBC 9.94 RBC 2.68 L Hgb 9.8 L Hct 27.7 L MCV 103.4 H MCH 36.6 H MCHC 35.4 RDW Std Deviation 76.6 H RDW Coeff of Jadiel 20.1 H Plt Count 378 MPV 10.1 Immature Gran % (Auto) 0.9 Neut % (Auto) 70.9 Lymph % (Auto) 13.8 [place] % (Auto) 13.7 Eos % (Auto) 0.3 Baso % (Auto) 0.4 Neut # (Auto) 7.05 H Lymph # (Auto) 1.37 [place] # (Auto) 1.36 H Eos # (Auto) 0.03 Baso # (Auto) 0.04 Immature Gran # (Auto) 0.09 Absolute Nucleated RBC 0.07 Nucleated RBC % (auto) 0.7 Anisocytosis Present Ovalocytes 1+ PT 10.9 INR 1.0 APTT 23 PTT Ratio 0.9 Sodium 136 Potassium 4.4 Chloride 101 Carbon Dioxide 28 Anion Gap 7 BUN 34 H Creatinine 1.60 H Est Cr Clr Drug Dosing 25.0 eGFR 31.80 BUN/Creatinine Ratio 21.3 H Glucose 109 H POC Glucose 121 H Estimat Average Glucose Hemoglobin A1c Calcium 10.4 H Phosphorus 3.0 Magnesium 1.8 Total Bilirubin 1.7 H AST 28 ALT 16 Alkaline Phosphatase 36 Troponin I High Sens 10.1 Total Protein 6.8 Albumin 4.3 Globulin 2.5 Albumin/Globulin Ratio 1.7 Triglycerides Cholesterol LDL Cholesterol, Calc VLDL Cholesterol, Calc HDL Cholesterol Cholesterol/HDL Ratio Urine Color Urine Appearance Urine pH Ur Specific Omar Urine Protein Urine Glucose (UA) Urine Ketones Urine Blood Urine Nitrite Urine Bilirubin Urine Urobilinogen Ur Leukocyte Esterase Urine WBC (Auto) Urine RBC (Auto) U Hyaline Cast (Auto) U Epithel Cells (Auto) Urine Bacteria (Auto) Blood Type B Positive Antibody Screen NEGATIVE 07/20/24 07/20/24 05:31 Unknown WBC 6.33 RBC 2.60 L Hgb 9.5 L Hct 26.8 L MCV 103.1 H MCH 36.5 H MCHC 35.4 RDW Std Deviation 76.5 H RDW Coeff of Jadiel 20.0 H Plt Count 360 MPV 9.9 Immature Gran % (Auto) 0.6 Neut % (Auto) 61.2 Lymph % (Auto) 20.4 [place] % (Auto) 16.4 Eos % (Auto) 0.8 Baso % (Auto) 0.6 Neut # (Auto) 3.87 Lymph # (Auto) 1.29 [place] # (Auto) 1.04 H Eos # (Auto) 0.05 Baso # (Auto) 0.04 Immature Gran # (Auto) 0.04 Absolute Nucleated RBC 0.05 Nucleated RBC % (auto) 0.8 Anisocytosis Ovalocytes PT INR APTT PTT Ratio Sodium 138 Potassium 4.2 Chloride 104 Carbon Dioxide 28 Anion Gap 6 BUN 28 H Creatinine 1.46 H Est Cr Clr Drug Dosing 25.2 eGFR 35.50 BUN/Creatinine Ratio 19.2 Glucose 96 POC Glucose Estimat Average Glucose 117 Hemoglobin A1c 5.7 H Calcium 9.5 Phosphorus Magnesium Total Bilirubin AST ALT Alkaline Phosphatase Troponin I High Sens 11.0 Total Protein Albumin Globulin Albumin/Globulin Ratio Triglycerides 67 Cholesterol 117 LDL Cholesterol, Calc 53 VLDL Cholesterol, Calc 13 HDL Cholesterol 51 Cholesterol/HDL Ratio 2.3 Urine Color Yellow Urine Appearance Clear Urine pH 6.0 Ur Specific Omar 1.009 Urine Protein Negative Urine Glucose (UA) Negative Urine Ketones Negative Urine Blood Negative Urine Nitrite Negative Urine Bilirubin Negative Urine Urobilinogen Negative Ur Leukocyte Esterase Trace H Urine WBC (Auto) 0-5 Urine RBC (Auto) 0-2 U Hyaline Cast (Auto) 0-2 U Epithel Cells (Auto) 0-2 Urine Bacteria (Auto) None Seen Blood Type Antibody Screen Diagnostic Findings Chest X-Ray 07/19/24 21:06 Exam(s): XR CXR 1 VIEW EXAM: XR Chest, 1 View CLINICAL HISTORY: Reason for exam: neuro deficit, acute stroke suspected. TECHNIQUE: Frontal view of the chest. COMPARISON: No relevant prior studies available. FINDINGS: Lungs: Atelectasis at the left base. Right lung is clear. Pleural space: No pleural effusion. No pneumothorax. Heart: Unremarkable. No cardiomegaly. IMPRESSION: No acute findings in the chest. Electronically signed by: Johan Hernandes MD 07/19/24 23:[address] 07/19/24 21:06 CR Exam(s): CT HEAD Without Contrast EXAM: CT Head Without Intravenous Contrast CLINICAL HISTORY: Reason for exam: neuro deficit, acute stroke suspected. TECHNIQUE: Axial computed tomography images of the head/brain without intravenous contrast. CTDI is 36.43 mGy and DLP is 625.8 mGy-cm. Automated exposure control was utilized for the study. A dose lowering technique was utilized adhering to the principles of ALARA. COMPARISON: No relevant prior studies available. FINDINGS: Brain: No intracranial hemorrhage, mass-effect, or cerebral edema. Global parenchymal atrophy. Periventricular and subcortical low attenuation which is nonspecific but favored to represent chronic microvascular ischemic changes. Chronic right cerebellar infarct. Ventricles: Unremarkable. Bones/joints: Unremarkable. No fracture. Soft tissues: Unremarkable. Sinuses: No acute sinusitis. Mastoid air cells: Unremarkable as visualized. IMPRESSION: 1. No acute intracranial abnormality. Communications: Call Doctor Stroke Electronically signed by: Johan Hernandes MD 07/19/24 21:39 PM Carotid Doppler Study 07/19/24 22:42 Exam(s): US CAROTID EXAM: US Duplex Bilateral Extracranial Arteries CLINICAL HISTORY: Reason for exam: tia. TECHNIQUE: Real-time duplex ultrasound scan of the extracranial arteries integrating B-mode two-dimensional vascular structure, Doppler spectral analysis and color flow Doppler imaging. COMPARISON: None FINDINGS: Exam is limited by patient movement and inability to tolerate pressure of the probe. Right common carotid artery: Unremarkable. No occlusion or significant stenosis on color flow and spectral Doppler imaging. Right internal carotid artery: Peak systolic velocity in the right ICA measures 57.9 cm/s. No occlusion or significant stenosis on color flow and spectral Doppler imaging. Right external carotid artery: Unremarkable. No occlusion or significant stenosis on color flow and spectral Doppler imaging. Right vertebral artery: Unremarkable. Antegrade flow. Right ICA/CCA ratio: Unremarkable. Within normal limits. Left common carotid artery: Unremarkable. No occlusion or significant stenosis on color flow and spectral Doppler imaging. Left internal carotid artery: Peak systolic velocity in the left ICA measures 37.2 cm/s. No occlusion or significant stenosis on color flow and spectral Doppler imaging. Left external carotid artery: Unremarkable. No occlusion or significant stenosis on color flow and spectral Doppler imaging. Left vertebral artery: Unremarkable. Antegrade flow. Left ICA/CCA ratio: Unremarkable. Within normal limits. Lymph nodes: Unremarkable. No lymphadenopathy. CAROTID STENOSIS REFERENCE USING SRU CRITERIA: Mild - <50% stenosis. ICA PSV is less than 125 cm/second and plaque or intimal thickening is visible. Moderate - 50-69% stenosis. ICA PSV is 125 to 230 cm/second and plaque is visible. Severe - 70-94% stenosis. ICA PSV is more than 230 cm/second and visible plaque with lumen narrowing is seen. Near occlusion - 95-99% stenosis. ICA PSV is variable and significant plaque with luminal narrowing is seen. Occluded - 100% stenosis. No flow identified. IMPRESSION: 1. No definite hemodynamically significant stenosis in either ICA. 2. Normal antegrade flow in bilateral vertebral arteries. Electronically signed by: Alec Mcallister M.D. 07/20/24 01:01 AM Brain MRI 07/20/24 09:17 EXAM: MR brain wo con CLINICAL HISTORY: PT DAUGHTER STATES PT HAS DEMENTIA. ALTERED MENTAL STATUS. LAST NIGHT DEVELOPED SLURRED SPEEECH. NOT MAKING SENSE. UNABLE TO GET DRESSED OR DO ANYTHING. COULD NOT WALK. NO HX OF STROKE. NO RECENT HEAD TRAUMA. HX OF MDS BLOOD CANCER AND BREAST CANCER. NO PRIOR SURGERY. FAST PROPS FOR MOTION TECHNIQUE: MRI of the brain was performed without contrast with multiplanar sequences obtained. COMPARISON: No previous studies are available for comparison. FINDINGS: Brain Parenchyma: Moderate age-related cerebral involutional changes were noted. Diffuse periventricular white matter sheet of altered signals eliciting low T1, bright T2, and FLAIR WIs signals, no diffusion restriction, likely related to chronic small vessel ischemic changes. No evidence of acute infarction or hemorrhage. Normal dickey-white matter differentiation. No mass lesions or focal cortical abnormalities were identified. Ventricles and Sulci: [id number] Mildly dilated size of the lateral /[id number].5.1.2 third ventricles./OBX.5.1.2/OBX.5.1 Sylvian fissures, sulci, and cisterns are within normal limits. Posterior Fossa: Right cerebellar cortical and subcortical area of encephalomalacia related to old infarction noted. The cerebellum and brainstem appear normal without evidence of mass lesions or signal abnormalities. Cranial Nerves: Normal course and appearance of cranial nerves identified. Vessels: No evidence of vascular malformations or aneurysms. Intracranial arteries and veins appear normal without evidence of stenosis or occlusion. Orbits and Skull Base: Orbits and skull base structures are normal without evidence of abnormalities. IMPRESSION: 1. Moderate age-related cerebral involutional changes are seen. 2. Deep periventricular abnormal white matter signals related to chronic small vessel ischemic disease. 3. Evidence of right cerebellar area of encephalomalacia noted. Electronically signed by Skip Ding 07-20-2024 10:58 AM Head MRA 07/20/24 09:17 EXAM: MR angio head wo con CLINICAL HISTORY: PT DAUGHTER STATES PT HAS DEMENTIA. ALTERED MENTAL STATUS. LAST NIGHT DEVELOPED SLURRED SPEEECH. NOT MAKING SENSE. UNABLE TO GET DRESSED OR DO ANYTHING. COULD NOT WALK. NO HX OF STROKE. NO RECENT HEAD TRAUMA. HX OF MDS BLOOD CANCER AND BREAST CANCER. NO PRIOR SURGERY. PT MOTION BEST SCANS POSSIBLE. TECHNIQUE: MRA of the head was performed without intravenous contrast. 3D [id number]-[id number] (TOF) sequences were acquired through the [employer]lowa dee-ni' of [place]. COMPARISON: None. FINDINGS: Diffuse atherosclerotic changes involving the cerebral vessels in terms of irregular intima, No gross stenotic changes. Intracranial Arteries: Right Internal Carotid Artery (ICA): The proximal segment is normal The middle segment is normal The distal segment is normal Left Internal Carotid Artery (ICA): The proximal segment is normal The middle segment is normal The distal segment is normal Right Middle Cerebral Artery (MCA): The M1 segment is normal The M2 segment is normal Left Middle Cerebral Artery (MCA): The M1 segment is normal The M2 segment is normal Right Anterior Cerebral Artery (STEPHAN): The A1 segment is normal The A2 segment is normal Left Anterior Cerebral Artery (STEPHAN): A1 segment of STEPHAN is hypoplastic. The A2 segment is normal Anterior Communicating Artery (ACoA): The ACoA is normal Right Posterior Cerebral Artery (WIRING MECHANIC): The P1 segment is normal The P2 segment is normal Left Posterior Cerebral Artery (WIRING MECHANIC): The P1 segment is normal The P2 segment is normal Posterior Communicating Artery (PCoA): Bilateral origins of the WIRING MECHANIC from the PCoA with hypertrophied PCoA. 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 Vertebral Arteries: The right vertebral artery is normal The left vertebral artery is normal Additional Findings: The tolowa dee-ni' of [place] is normal There is no evidence of aneurysms, significant stenosis, or vascular malformations identified. Overall, the MRA of the head demonstrates normal findings without evidence of significant stenosis, aneurysm, or vascular malformation. Clinical correlation is recommended for further evaluation of any specific clinical symptoms or incidental findings. IMPRESSION: 1. Diffuse atherosclerotic changes of the cerebral arteries were noted. 2. Bilateral origins of the WIRING MECHANIC from the PCoA with hypertrophied PCoA. 3. 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 4. 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 Electronically signed by Skip Ding 07-20-2024 11:14 AM
--- NOTE | 2024-07-20 13:10 | Electrocardiogram Report ---
Test Reason : Blood Pressure : */* mmHG Vent. Rate : 71 BPM Atrial Rate : 71 BPM P-R Int : 172 ms QRS Dur : 82 ms QT Int : 408 ms P-R-T Axes : -8 2 90 degrees QTcB Int : 443 ms Normal sinus rhythm Inferior infarct (cited on or before 19-Jul-2024) Abnormal ECG When compared with ECG of 19-Jul-2024 21:09, (unconfirmed) No significant change was found Confirmed by Eligio Brower ([id number]) on 07/20/2024 1:10:21 PM Referred By: REFERRED SELF Confirmed By: Eligio Brower
[2024-07-20] MEDS ORDERED: STROKE PATIENT DISCHARGE STA (14:28)
--- NOTE | 2024-07-20 14:33 | Discharge Summary ---
Discharge Summary Date of Service July 20, 2024 Principal Dx & Hospital Course #1 = Principal Diagnosis (1) Encephalopathy: Plan Pt is an 84yoF with PMHx significant for Alzhiemer's Dementia, CAD, PVD, mild AR (TTE 2023), hypertension, hyperlipidemia, breast cancer status post surgery, CRI (baseline creatinine 1.5), myelodysplastic syndrome, chronic anemia (baseline hemoglobin 8-9), dementia, ongoing tobacco abuse who was brought in by her children for concern of slurred speech at home. Patient was evaluated for stroke with head CT, head and neck CTA, brain MRI as well as brain MRA with no new strokes noted. Imaging did note old stroke changes in the right cerebellar area of the brain. She was evaluated by physical therapy and Occupational Therapy who recommended home with home health services and 24-hour care as well as a home walker. Her echo was pending at the time of discharge awaiting read by cardiology. She was evaluated by neurology who recommended 21 days of dual antiplatelet therapy with aspirin and Plavix with discontinuation of Plavix thereafter. Working diagnosis for neurology was global encephalopathy versus TIA. Neurology also advised that she continue with her home statin and discontinue home memantine and donepezil as per neurology's discussion with the family, they were not seeing any benefit with those medications. Patient's creatinine was also noted to be significantly elevated at 1.6 on admission before downtrending to 1.4 the next day. Her home lisinopril was held and was held on discharge as well. Patient's family states that she has a scheduled appointment with nephrology after discharge. Patient and family were advised to continue with that scheduled appointment for further evaluation and management. PCP or nephrology can decide at that time whether to resume home lisinopril. Please ensure close follow-up with nephrology after discharge. Please ensure follow-up of pending echo at the time of discharge. Patient provided with a prescription for PT OT services at home. Notes For Next Care Provider please ensure follow-up with nephrology please ensure follow-up of pending echocardiogram at the time of discharge Medication Changes From Visit Per Neurology: -Plavix 75 mg daily for an additional 19 days to complete 21 days of treatment with continued aspirin 81 mg daily - hold orders continue home memantine and donepezil as patient's family states they do not feel like it was helping Hold home lisinopril in setting of acute on chronic kidney disease Admission HPI Per Admitting Provider History obtained from patient, family, and records. Limited history from patient secondary to dementia. Medical history significant for CAD, PVD, mild AR (TTE 2023), hypertension, hyperlipidemia, breast cancer status post surgery, CRI (baseline creatinine 1.5 ), myelodysplastic syndrome, chronic anemia (baseline hemoglobin 8-9), dementia, ongoing tobacco abuse. Patient was having dinner with family tonight when she was noted to have transient slurred speech symptoms. Having more difficulty moving around. Compliant with home medications including aspirin. Recovering from a viral illness from last week as per family. Patient denies headache, chest pain, SOB, cough, abdominal pain symptoms. No prior episodes as per daughter. Highest SBP of 200s documented at the ER Patient currently back to baseline as per family. 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, originally from [place] but relocated to [place] to reside with daughter last spring due to worsening dementia Admission Exam Per Admitting Provider GENERAL: Demented, pleasant, no dysarthria, no respiratory distress SKIN: Pallor, warm HEENT: Pale palpebral conjunctivae, no ptosis, dry buccal mucosa NECK : Supple, no tenderness CHEST : CTA, no tenderness HEART : RRR systolic murmur ABDOMEN: Some distention, nontender EXTREMITIES : Minimal bilateral LE swelling (chronic as per daughter) without tenderness, no other conspicuous deformities noted NEUROLOGIC : Demented, no facial asymmetry, MMTS BUE/BLE 5/5 Discharge Exam General: Alert. No acute distress Psych: Appropriate mood and affect Neuro: Left side weaker than right, otherwise exam grossly unremarkable HEENT: NC/AT CV: RRR Resp: Breath sounds clear bilaterally, no increased effort of breathing Abdomen: Soft, nontender Extremities: No edema in lower extremities bilaterally. Updated Medication List Medication Instructions Recorded Confirmed Type aspirin 81 mg tablet,delayed 81 mg PO QAM 03/31/24 07/20/24 History release atorvastatin 20 mg tablet 20 mg PO QAM 03/31/24 07/20/24 History calcitriol 0.5 mcg capsule 0.5 mcg PO QAM 03/31/24 07/20/24 History famotidine 40 mg tablet 40 mg PO HS 03/31/24 07/20/24 History lisinopril 10 mg tablet 10 mg PO QAM 03/31/24 07/20/24 History metoprolol succinate 25 mg 25 mg PO QAM 03/31/24 07/20/24 History tablet,extended release 24 hr multivitamin 1 tab PO QAM 03/31/24 07/20/24 History trazodone 50 mg tablet 50 mg PO HS 03/31/24 07/20/24 History clopidogrel 75 mg tablet 75 mg PO QAM #19 tabs 07/20/24 Rx Hospital Stay Data Consultations 07/19/24 22:04 ED Decision to Admit Stat 07/20/24 11:41 Consult Neurology Routine Chest X-Ray 07/19/24 21:06 Exam(s): XR CXR 1 VIEW EXAM: XR Chest, 1 View CLINICAL HISTORY: Reason for exam: neuro deficit, acute stroke suspected. TECHNIQUE: Frontal view of the chest. COMPARISON: No relevant prior studies available. FINDINGS: Lungs: Atelectasis at the left base. Right lung is clear. Pleural space: No pleural effusion. No pneumothorax. Heart: Unremarkable. No cardiomegaly. IMPRESSION: No acute findings in the chest. Electronically signed by: Johan Hernandes MD 07/19/24 23:[address] 07/19/24 21:06 CR Exam(s): CT HEAD Without Contrast EXAM: CT Head Without Intravenous Contrast CLINICAL HISTORY: Reason for exam: neuro deficit, acute stroke suspected. TECHNIQUE: Axial computed tomography images of the head/brain without intravenous contrast. CTDI is 36.43 mGy and DLP is 625.8 mGy-cm. Automated exposure control was utilized for the study. A dose lowering technique was utilized adhering to the principles of ALARA. COMPARISON: No relevant prior studies available. FINDINGS: Brain: No intracranial hemorrhage, mass-effect, or cerebral edema. Global parenchymal atrophy. Periventricular and subcortical low attenuation which is nonspecific but favored to represent chronic microvascular ischemic changes. Chronic right cerebellar infarct. Ventricles: Unremarkable. Bones/joints: Unremarkable. No fracture. Soft tissues: Unremarkable. Sinuses: No acute sinusitis. Mastoid air cells: Unremarkable as visualized. IMPRESSION: 1. No acute intracranial abnormality. Communications: Call Doctor Stroke Electronically signed by: Johan Hernandes MD 07/19/24 21:39 PM Carotid Doppler Study 07/19/24 22:42 Exam(s): US CAROTID EXAM: US Duplex Bilateral Extracranial Arteries CLINICAL HISTORY: Reason for exam: tia. TECHNIQUE: Real-time duplex ultrasound scan of the extracranial arteries integrating B-mode two-dimensional vascular structure, Doppler spectral analysis and color flow Doppler imaging. COMPARISON: None FINDINGS: Exam is limited by patient movement and inability to tolerate pressure of the probe. Right common carotid artery: Unremarkable. No occlusion or significant stenosis on color flow and spectral Doppler imaging. Right internal carotid artery: Peak systolic velocity in the right ICA measures 57.9 cm/s. No occlusion or significant stenosis on color flow and spectral Doppler imaging. Right external carotid artery: Unremarkable. No occlusion or significant stenosis on color flow and spectral Doppler imaging. Right vertebral artery: Unremarkable. Antegrade flow. Right ICA/CCA ratio: Unremarkable. Within normal limits. Left common carotid artery: Unremarkable. No occlusion or significant stenosis on color flow and spectral Doppler imaging. Left internal carotid artery: Peak systolic velocity in the left ICA measures 37.2 cm/s. No occlusion or significant stenosis on color flow and spectral Doppler imaging. Left external carotid artery: Unremarkable. No occlusion or significant stenosis on color flow and spectral Doppler imaging. Left vertebral artery: Unremarkable. Antegrade flow. Left ICA/CCA ratio: Unremarkable. Within normal limits. Lymph nodes: Unremarkable. No lymphadenopathy. CAROTID STENOSIS REFERENCE USING SRU CRITERIA: Mild - <50% stenosis. ICA PSV is less than 125 cm/second and plaque or intimal thickening is visible. Moderate - 50-69% stenosis. ICA PSV is 125 to 230 cm/second and plaque is visible. Severe - 70-94% stenosis. ICA PSV is more than 230 cm/second and visible plaque with lumen narrowing is seen. Near occlusion - 95-99% stenosis. ICA PSV is variable and significant plaque with luminal narrowing is seen. Occluded - 100% stenosis. No flow identified. IMPRESSION: 1. No definite hemodynamically significant stenosis in either ICA. 2. Normal antegrade flow in bilateral vertebral arteries. Electronically signed by: Alec Mcallister M.D. 07/20/24 01:01 AM Brain MRI 07/20/24 09:17 EXAM: MR brain wo con CLINICAL HISTORY: PT DAUGHTER STATES PT HAS DEMENTIA. ALTERED MENTAL STATUS. LAST NIGHT DEVELOPED SLURRED SPEEECH. NOT MAKING SENSE. UNABLE TO GET DRESSED OR DO ANYTHING. COULD NOT WALK. NO HX OF STROKE. NO RECENT HEAD TRAUMA. HX OF MDS BLOOD CANCER AND BREAST CANCER. NO PRIOR SURGERY. FAST PROPS FOR MOTION TECHNIQUE: MRI of the brain was performed without contrast with multiplanar sequences obtained. COMPARISON: No previous studies are available for comparison. FINDINGS: Brain Parenchyma: Moderate age-related cerebral involutional changes were noted. Diffuse periventricular white matter sheet of altered signals eliciting low T1, bright T2, and FLAIR WIs signals, no diffusion restriction, likely related to chronic small vessel ischemic changes. No evidence of acute infarction or hemorrhage. Normal dickey-white matter differentiation. No mass lesions or focal cortical abnormalities were identified. Ventricles and Sulci: [id number] Mildly dilated size of the lateral /[id number].5.1.2 third ventricles./OBX.5.1.2/OBX.5.1 Sylvian fissures, sulci, and cisterns are within normal limits. Posterior Fossa: Right cerebellar cortical and subcortical area of encephalomalacia related to old infarction noted. The cerebellum and brainstem appear normal without evidence of mass lesions or signal abnormalities. Cranial Nerves: Normal course and appearance of cranial nerves identified. Vessels: No evidence of vascular malformations or aneurysms. Intracranial arteries and veins appear normal without evidence of stenosis or occlusion. Orbits and Skull Base: Orbits and skull base structures are normal without evidence of abnormalities. IMPRESSION: 1. Moderate age-related cerebral involutional changes are seen. 2. Deep periventricular abnormal white matter signals related to chronic small vessel ischemic disease. 3. Evidence of right cerebellar area of encephalomalacia noted. Electronically signed by Skip Ding 07-20-2024 10:58 AM Head MRA 07/20/24 09:17 EXAM: MR angio head wo con CLINICAL HISTORY: PT DAUGHTER STATES PT HAS DEMENTIA. ALTERED MENTAL STATUS. LAST NIGHT DEVELOPED SLURRED SPEEECH. NOT MAKING SENSE. UNABLE TO GET DRESSED OR DO ANYTHING. COULD NOT WALK. NO HX OF STROKE. NO RECENT HEAD TRAUMA. HX OF MDS BLOOD CANCER AND BREAST CANCER. NO PRIOR SURGERY. PT MOTION BEST SCANS POSSIBLE. TECHNIQUE: MRA of the head was performed without intravenous contrast. 3D Qtgl-fb-[id number] (TOF) sequences were acquired through the [facility]. COMPARISON: None. FINDINGS: Diffuse atherosclerotic changes involving the cerebral vessels in terms of irregular intima, No gross stenotic changes. Intracranial Arteries: Right Internal Carotid Artery (ICA): The proximal segment is normal The middle segment is normal The distal segment is normal Left Internal Carotid Artery (ICA): The proximal segment is normal The middle segment is normal The distal segment is normal Right Middle Cerebral Artery (MCA): The M1 segment is normal The M2 segment is normal Left Middle Cerebral Artery (MCA): The M1 segment is normal The M2 segment is normal Right Anterior Cerebral Artery (STEPHAN): The A1 segment is normal The A2 segment is normal Left Anterior Cerebral Artery (STEPHAN): A1 segment of STEPHAN is hypoplastic. The A2 segment is normal Anterior Communicating Artery (ACoA): The ACoA is normal Right Posterior Cerebral Artery (WET SILK HANGER): The P1 segment is normal The P2 segment is normal Left Posterior Cerebral Artery (WET SILK HANGER): The P1 segment is normal The P2 segment is normal Posterior Communicating Artery (PCoA): Bilateral origins of the WET SILK HANGER from the PCoA with hypertrophied PCoA. 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 Vertebral Arteries: The right vertebral artery is normal The left vertebral artery is normal Additional Findings: The [facility] [place] is normal There is no evidence of aneurysms, significant stenosis, or vascular malformations identified. Overall, the MRA of the head demonstrates normal findings without evidence of significant stenosis, aneurysm, or vascular malformation. Clinical correlation is recommended for further evaluation of any specific clinical symptoms or incidental findings. IMPRESSION: 1. Diffuse atherosclerotic changes of the cerebral arteries were noted. 2. Bilateral origins of the WET SILK HANGER from the PCoA with hypertrophied PCoA. 3. 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 4. 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 Electronically signed by Skip Ding 07-20-2024 11:14 AM [id number] Diagnostic Imagining Performed 07/19/24 21:06 CT head/brain wo con Stat 07/19/24 22:42 US carotid doppler BI Routine 07/20/24 09:17 MR angio head wo con Routine MR brain wo con Routine Pending Results Patient Have Any Pending Studies at Discharge: No Discharge Instructions Given to Patient (Per Discharging Provider) Isabelle, You came in with concern for slurred speech at home. You had head and neck imaging done which did not note an acute stroke. You were evaluated by the neurologist who stated that your symptoms were likely related to a possible transient ischemic attack (mini stroke) or more likely global encephalopathy. He recommended that you continue with Plavix for an additional 19 days and continue with your aspirin indefinitely. He recommended that you continue with your home statin. Per your discussion with neurology, you and your family noted that your home memantine and donepezil was not providing any benefit. He recommends that you discontinue those medications at home. It was noted that you had some kidney disease which is likely chronic. We are holding your home lisinopril as that can make your kidney function worse. Adeel rios keep close follow-up with nephrology as currently scheduled and they or your PCP will determine whether the lisinopril can be resumed. Please keep close follow up with your primary care provider after discharge. Please do not hesitate to come back to the emergency room if your symptoms worsen or return. It was a pleasure taking care of you while you were here. Total Time Total Time Spent Total Time Spent (In Minutes): 65
[2024-07-20 15:04] VITALS: PULSE 59; RESP 17; TEMP 98.1; O2SAT 95
[2024-07-20] MEDS: amLODIPine BESYLATE 5 MG TAB PO ONE (15:50)
[2024-07-20 15:51] VITALS: BP 178/81
[2024-07-20] MEDS ORDERED: traZODone HCL 50 MG TAB PO SCH (21:00)
[2024-07-22 08:59] LABS: iSTAT Creatinine 1.8 mg/dl (0.6-1.3); iSTAT Hemoglobin 11.2 g/dl (12.0-16.0); iSTAT Ionized Calcium 1.27 mmol/l (1.12-1.32); iSTAT Potassium 4.4 mmol/L (3.3-5.0)
--- NOTE | 2024-07-22 10:49 | Pharmacy Report ---
Pharmacist Stroke Counseling - Date of Service July 22, 2024 - Scope: Pharmacy has been consulted to provide medication discharge counseling for this patient admitted with [ischemic stroke] [hemorrhagic stroke] [transient ischemic attack] as per the Pharmacist Discharge Counseling for Stroke Patients Prot ocol. - Medications on Discharge: Home Medications Medication Instructions Recorded Confirmed aspirin 81 mg tablet,delayed 81 mg PO QAM 03/31/24 07/20/24 release atorvastatin 20 mg tablet 20 mg PO QAM 03/31/24 07/20/24 calcitriol 0.5 mcg capsule 0.5 mcg PO QAM 03/31/24 07/20/24 famotidine 40 mg tablet 40 mg PO HS 03/31/24 07/20/24 lisinopril 10 mg tablet 10 mg PO QAM 03/31/24 07/20/24 metoprolol succinate 25 mg 25 mg PO QAM 03/31/24 07/20/24 tablet,extended release 24 hr multivitamin 1 tab PO QAM 03/31/24 07/20/24 trazodone 50 mg tablet 50 mg PO HS 03/31/24 07/20/24 New Rx's Medication Instructions Recorded amlodipine 5 mg tablet 5 mg PO DAILY #30 tabs 07/20/24 clopidogrel 75 mg tablet 75 mg PO QAM #19 tabs 07/20/24 - Action: The above medications, specifically ones for stroke treatment/prophylaxis, have been reviewed in detail with the patient and/or patient apprenticeship representative(s) prior to discharge. This includes indication, common adverse reactions, drug interactions, and medication administration. Medication counseling has been employed using the teach-back method to ensure understanding. - Outcome: The patient and/or patient apprenticeship representative(s) have demonstrated understanding of the medications. Additional comments: Spoke with patient's daughter about her mother's change/addition of medication. She stated that she picked up the prescription for plavix and amlodipine on the way home from the hospital Monday. 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 Indications and side effects of medications reviewed. Her daughter expressed understanding and her only question was if the aspirin was to be continued while she was on plavix. As per discharge instruction, the aspirin is to be continued indefinitely and this was explained to her. No further questions or concerns. Thank you for allowing pharmacy to be involved in the care of this patient. Please call [phone] with any additional questions
--- NOTE | 2024-07-26 14:39 | Coding Query ---
A supporting diagnosis is required for the test/procedure performed on this patient in order for us to be reimbursed by the patient's insurance. Please provide a supporting diagnosis for the following test/procedure listed below next to the test name along with your signature. *If there is no additional diagnosis for this patient that would support the following test/procedure please document that below next to the test/procedure. Test(s)/Procedure(s) that require a supporting diagnosis: * [id number] MRA head w/o contrast DIAGNOSIS: TIA Provider Signature: JNO Date: ____08/01/2024___ Thank you Roxana Mckinney Health Information Management Once completed, please kindly fax back to [phone] For questions please call [phone] [facility]
== END 2024-07-20 16:07 | disposition home health service (06) ==
LOC: ED 20:58 → 2N 20:58

== ENCOUNTER 2025-03-24 05:42 | Inpatient (IN) ==
--- NOTE | 2025-03-24 07:04 | Emergency Department Note ---
Impression & Plan Compression fracture of L3 vertebra, Chronic kidney disease, Falls ED Provider Note NAME: KODY SHIN AGE: 84 SEX: F : 1940 ARRIVES VIA: Ambulance INFORMANT: Patient, ED PROVIDER(S): Jens Olson MD CHIEF COMPLAINT: Falls, back pain HPI: This is an 84-year-old female presenting for frequent falls at home. Patient has had difficulty with ambulation over the past 3 to 4 weeks. She has had back pain for this same period of time, was seen in outside hospital where she was diagnosed with spinal stenosis. She is awaiting spinal consultation. She has noted increasing weakness over this time. She has a history of Alzheimer's dementia. Her daughter is her primary maintenance director and at this time she has fallen 2 times tonight and over 6 times in the past 1 week. Daughter also works and states that he is have difficulty take care of her mother due to the Alzheimer's and now new falls. Patient complains of buttocks and lower back pain. No urinary or bowel incontinence, no motor weakness. ROS: See above HPI for pertinent positives & negatives. A total of 10 systems reviewed and were otherwise negative. PAST MEDICAL HISTORY: See Below PAST SURGICAL HISTORY: See Below FAMILY HISTORY: See Below SOCIAL HISTORY: See Below HOME MEDICATIONS: See Below ALLERGIES: See Below VITALS: See Below PHYSICAL EXAMINATION: General: resting comfortably in no acute distress Head: Normocephalic and atraumatic Eyes: Normal inspection, extraocular muscles intact Ear, nose, throat: Normal external exam Neck: Normal range of motion Respiratory: lungs clear to auscultation bilaterally Cardiovascular: Regular rate/rhythm, no murmur GI: soft, nontender, no guarding or rebound Extremities: nontender, moves all extremities Neuro: The patient awake and alert, appropriately conversive, no focal deficits, symmetric faces Skin: Warm, dry, and intact MEDICAL DECISION MAKING: This is a 84-year-old female seen for frequent falls/lower back pain. Will do screening CT to assess for new injury. Otherwise we will get basic blood work. Based on patient's multiple frequent falls, difficult maintain care of at home, consider SNF placement. Daughter on board with this plan at this time. - Blood work reveals leukocytosis of 15.7, needed to 9.4, creatinine 1.41 - Imaging of the abdomen pelvis and lumbar region does reveal an a acute to subacute appearing fracture of the L3 vertebra with minimal height loss and no retropulsion of fragments -Will admit the patient for back pain, pain control as well as placement -[facility] Differential diagnosis: Compression fracture, spinal stenosis, cauda equina, fracture, pelvic fracture Independent History obtained from: Daughter Diagnostics interpreted by me: ECG: ECG independently interpreted by me with normal sinus rhythm with PVC, rate of 70, normal axis, normal CT, normal QRS, normal QTc, no ST segment elevations consistent with STEMI criteria Cardiac Monitoring: An order was placed for continuous cardiac monitoring. The monitor shows a rate of 70 with sinus rhythm. Past Med/Surg History Problem List (Updated 03/24/25 @ 14:48 by Jens Olson MD) Falls (Acute) Compression fracture of L3 vertebra (Acute) Chronic kidney disease-mineral and bone disorder Chronic kidney disease (Acute) Medical History Coronary artery disease severe calcific vascular disease on imaging PFO (patent foramen ovale) Breast cancer 09/04 infiltrative ductal carcinoma. right total mastectomy with axillary node dissection and adjuvant radiation therapy. T2 N0 disease. Completed 5 years letrozole. Myelodysplastic syndrome with ringed sideroblast. follows with [facility] Dementia Alzheimers type TIA (transient ischemic attack) HTN (hypertension) HLD (hyperlipidemia) Surgical History History of mastectomy, total Family History Other Hypertension Social History Smoking Status: Current every day smoker Tobacco Type: Cigarettes Second Hand Exposure: No; Do You Dip or Chew Tobacco: No; Hx Alcohol Use: No Hx Substance Use: No Preferred Language: Vietnamese Communication Ability: Impaired Supplemental Manager Required: No Current Living Situation: Family current occupational status: retired Feels Safe at Home: Yes Diet: regular caffeine: Yes (1-1.5 cups coffee daily) Dental Care, Regularly: Yes Physical Activity Frequency: Does not Exercise Seatbelt Use: always Do you think of yourself as: straight/heterosexual Gender Identity: Female Assistive Devices: Cane, Hearing Aid - Bilateral and Walker Allergies Allergies Allergy/AdvReac Type Severity Reaction Status Date / Time No Known Allergies Allergy Unverified 11/26/24 12:56 Home Meds Home Medications Medication Instructions Recorded Confirmed aspirin 81 mg tablet,delayed 0 mg PO QAM 03/31/24 03/24/25 release atorvastatin 20 mg tablet 20 mg PO QAM 03/31/24 03/24/25 famotidine 40 mg tablet 40 mg PO HS 03/31/24 03/24/25 metoprolol succinate 25 mg 25 mg PO QAM 03/31/24 03/24/25 tablet,extended release 24 hr multivitamin 1 tab PO QAM 03/31/24 03/24/25 trazodone 50 mg tablet 50 mg PO HS 03/31/24 03/24/25 amlodipine 5 mg tablet 5 mg PO QAM 02/06/25 03/24/25 gabapentin 100 mg capsule 100 - 300 mg PO TID PRN Pain 03/24/25 03/24/25 lidocaine 5 % topical patch 1 patch topical DAILY 03/24/25 03/24/25 oxycodone 5 mg tablet 5 mg PO Q6H PRN Pain 03/24/25 03/24/25 Results & Data (ED) Vital Signs Vital Signs - 24 hr 03/24/25 05:44 03/24/25 05:54 03/24/25 06:00 Temperature 37.0 C Temperature Source Oral Pulse Rate 78 71 60 Pulse Rate [Apical] Pulse Rate from SpO2 Sensor Pulse Rhythm Respiratory Rate 14 19 Respiratory Effort / Characteristics Non-Labored Spontaneous Respiratory Depth Normal Respiratory Pattern Regular Blood Pressure 163/89 H 181/79 H Blood Pressure [Right Arm] Blood Pressure Mean 113 113 Blood Pressure Mean [Right Arm] Pulse Oximetry 95 93 Oxygen Delivery Method Room Air Room Air Sepsis Recent Fever Within 48 Hours No Sepsis New/Unexplained Change in Mental Status N/A Sepsis Action Taken by Nursing No Action Required 03/24/25 06:59 03/24/25 07:00 03/24/25 07:36 Temperature Temperature Source Pulse Rate 60 66 66 Pulse Rate [Apical] Pulse Rate from SpO2 Sensor Pulse Rhythm Regular Respiratory Rate 20 16 Respiratory Effort / Characteristics Respiratory Depth Respiratory Pattern Blood Pressure 178/74 H 175/80 H Blood Pressure [Right Arm] Blood Pressure Mean 108 111 Blood Pressure Mean [Right Arm] Pulse Oximetry 94 93 95 Oxygen Delivery Method Room Air Room Air Room Air Sepsis Recent Fever Within 48 Hours Sepsis New/Unexplained Change in Mental Status Sepsis Action Taken by Nursing 03/24/25 09:31 03/24/25 09:58 03/24/25 11:12 Temperature Temperature Source Pulse Rate 57 L 54 L 57 L Pulse Rate [Apical] Pulse Rate from SpO2 Sensor Pulse Rhythm Respiratory Rate 18 14 Respiratory Effort / Characteristics Respiratory Depth Respiratory Pattern Blood Pressure 171/72 H 178/108 H Blood Pressure [Right Arm] Blood Pressure Mean 102 131 Blood Pressure Mean [Right Arm] Pulse Oximetry 94 94 Oxygen Delivery Method Room Air Room Air Sepsis Recent Fever Within 48 Hours Sepsis New/Unexplained Change in Mental Status Sepsis Action Taken by Nursing 03/24/25 12:15 03/24/25 12:26 03/24/25 13:55 Temperature Temperature Source Pulse Rate 55 L 67 Pulse Rate [Apical] 59 L Pulse Rate from SpO2 Sensor Pulse Rhythm Respiratory Rate 16 20 Respiratory Effort / Characteristics Non-Labored Respiratory Depth Normal Respiratory Pattern Blood Pressure 185/77 H Blood Pressure [Right Arm] 185/77 H Blood Pressure Mean 113 Blood Pressure Mean [Right Arm] 113 Pulse Oximetry 96 92 Oxygen Delivery Method Room Air Sepsis Recent Fever Within 48 Hours Sepsis New/Unexplained Change in Mental Status Sepsis Action Taken by Nursing 03/24/25 14:00 Temperature Temperature Source Pulse Rate 60 Pulse Rate [Apical] Pulse Rate from SpO2 Sensor 60 Pulse Rhythm Respiratory Rate 16 Respiratory Effort / Characteristics Respiratory Depth Respiratory Pattern Blood Pressure 162/69 H Blood Pressure [Right Arm] Blood Pressure Mean 100 Blood Pressure Mean [Right Arm] Pulse Oximetry 94 Oxygen Delivery Method Room Air Sepsis Recent Fever Within 48 Hours Sepsis New/Unexplained Change in Mental Status Sepsis Action Taken by Nursing Laboratory Data 03/24/25 06:40 03/24/25 06:40 Lab Results 03/24/25 03/24/25 03/24/25 Range/Units 06:40 08: 11:42 WBC 15.67 H (4.8-10.8) K/ul RBC 2.83 L (4.20-5.40) M/uL Hgb 9.4 L (12.0-16.0) g/dl Hct 28.5 L (37.0-47.0) % MCV 100.7 H (80.0-100.0) fL MCH 33.2 (25.0-34.0) pg MCHC 33.0 (32.0-36.0) g/dL RDW Std Deviation 90.9 H (36.4-46.3) fL RDW Coeff of Jadiel 24.3 H (11.5-14.5) % Plt Count 371 (130-400) K/uL MPV 9.8 (9.4-12.4) fL Immature Gran % (Auto) 1.0 % Neut % (Auto) 84.2 % Lymph % (Auto) 6.1 % [place] % (Auto) 8.4 % Eos % (Auto) 0.1 % Baso % (Auto) 0.2 % Neut # (Auto) 13.19 H (1.40-6.50) K/uL Lymph # (Auto) 0.96 L (1.20-3.40) K/uL [place] # (Auto) 1.32 H (0.11-0.59) K/uL Eos # (Auto) 0.01 (0.00-0.50) K/uL Baso # (Auto) 0.03 (0.00-0.20) K/uL Immature Gran # (Auto) 0.16 (0.01-0.20) K/uL Absolute Nucleated RBC 0.20 H (0.00-0.12) K/uL Nucleated RBC % (auto) 1.3 % Polychromasia 1+ Anisocytosis Present Pappenheimer Bodies 1+ Target Cells 1+ Sodium 140 (136-145) mmol/L Potassium 4.5 (3.5-5.1) mmol/L Chloride 107 (98-107) mmol/L Carbon Dioxide 25 (21-32) mmol/L Anion Gap 8 (3-11) BUN 37 H (6-23) mg/dl Creatinine 1.41 H (0.6-1.2) mg/dl Est Cr Clr Drug Dosing 30.7 ml/min eGFR 37.01 BUN/Creatinine Ratio 26.2 H (10-20) Glucose 96 (70-99(Fasting)) mg/dl Calcium 9.6 (8.6-10.3) mg/dl Total Bilirubin 1.2 H (0.2-1.0) mg/dl AST 23 (13-39) U/L ALT 20 (7-52) U/L Alkaline Phosphatase 68 (34-104) U/L Total Protein 6.9 (6.0-8.3) gm/dl Albumin 4.2 (3.4-5.0) gm/dl Globulin 2.7 (2.5-4.0) gm/dl Albumin/Globulin Ratio 1.6 (0.9-2) Procalcitonin 0.10 (0-0.5) ng/ml Urine Color Yellow Urine Appearance Clear (Clear) Urine pH 7.5 (4.5-7.5) Ur Specific [place] 1.010 (1.000-1.030) Urine Protein Negative (Negative) Urine Glucose (UA) Negative (Negative) Urine Ketones Negative (Negative) Urine Blood Negative (Negative) Urine Nitrite Negative (Negative) Urine Bilirubin Negative (Negative) Urine Urobilinogen Negative (Negative) Ur Leukocyte Esterase Negative (Negative) Urine Comment Administered Medications Heparin Sodium (Porcine) (Heparin Sod 5,000 Unit/0.5 Ml Vial) 5,000 units SQ Q8 KIARA Stop: 04/23/25 13:59 Last Admin: 03/24/25 14:43 Dose: 5,000 units Documented By: Pregabalin (Pregabalin 25 Mg Cap) 25 mg PO TID KIARA Stop: 04/23/25 13:59 Last Admin: 03/24/25 14:43 Dose: 25 mg Documented By: Discontinued Medications Dexamethasone 4 mg/ Syringe 1 mls @ 1 mls/min IV NOW STA Stop: 03/24/25 11:44 Last Admin: 03/24/25 12:29 Dose: 1 mls/min Documented By: KASANDRA Ioversol (Optiray 320 100ml) 93 ml IV ONCE ONE Stop: 03/24/25 08:06 Last Admin: 03/24/25 08:05 Dose: 93 ml Documented By: LAYO Imaging Data Radiologist's Impression: Abdomen/Pelvis CT 03/24/25 06:54 CT SCAN OF THE ABDOMEN AND PELVIS WITH IV CONTRAST CLINICAL HISTORY: Multiple falls. Abdominal and back pain. COMPARISON STUDY: July 2024 TECHNIQUE: Following the IV administration of 93 cc of Optiray 320, CT scan of the abdomen and pelvis is performed from the lung bases to the proximal femora. Images are reviewed in the axial, sagittal, and coronal planes. IV contrast was administered without complication. A dose lowering technique was utilized adhering to the principles of ALARA. FINDINGS: Lung bases: Interstitial opacities the lung bases are likely atelectatic. There is no basilar pneumothorax. There is a moderate hiatal hernia. There are coronary artery calcifications. Liver: There is a tiny cyst within the right hepatic lobe. There are no findings to indicate acute hepatic injury. Minimal ductal prominence is in keeping with prior cholecystectomy. Gallbladder: Surgically absent Spleen: There is no evidence of acute splenic injury. No splenic masses are visualized. Pancreas: There are no pancreatic masses. There is no ductal dilatation. Adrenal glands: No focal adrenal masses are visualized Kidneys: There is no evidence of acute renal injury. No suspicious solid renal masses are visualized. Abdominal vasculature: There are moderately extensive atheromatous calcifications. There is no aneurysm. There is no evidence of acute vascular injury. Bowel: There is no evidence of acute bowel injury. There is moderate stool throughout the colon with mild rectal distention. There is no evidence of bowel obstruction. Peritoneum: No peritoneal masses are visualized. There is a small fat-containing right inguinal hernia. There is a tiny fat-containing umbilical hernia. Lymphadenopathy: None Pelvic viscera: The uterus is surgically absent. The bladder is mildly distended. There is minimal perivesical stranding , finding of doubtful acute clinical significance. Skeletal structures: There is an acute L3 compression fracture with minimal retropulsion. This may be further described in the CT scan of the lumbar spine IMPRESSION: 1. Acute L3 burst fracture 2. Otherwise no evidence of acute intra-abdominal or pelvic injury. ACT 112: Negative or not required by law. Electronically signed by: Ministerio Laws M.D. 03/24/2025 8:[address] 03/24/25 06:54 CT SCAN OF THE LUMBAR SPINE WITH IV CONTRAST CLINICAL HISTORY: Falls. Back pain. COMPARISON STUDY: Abdominal CT dated 08/16/2024 TECHNIQUE: Following the IV administration of 93 cc of Optiray 320, CT scan of the lumbar spine is performed from the lower thoracic spine to sacrum. Images are reviewed in the axial, sagittal, and coronal planes. IV contrast was administered without complication. A dose lowering technique was utilized adhering to the principles of ALARA. CT DOSE: 1110.34 mGy.cm FINDINGS: The skeletal structures are osteopenic. There is an acute to subacute- appearing burst type compression fracture of L3. Minimal periostitis is seen. Fracture involves the superior and inferior endplate, as well as the anterior and posterior cortex. Loss of height is mild and there is no significant retropulsion of fragments. There is associated paravertebral edema at this level. No additional acute fracture is identified involving the lumbar spine. There is a mild chronic inferior endplate compression deformity of L4. Vertebral body height is otherwise maintained throughout the lumbar spine. There is 5 mm of anterolisthesis at L5-S1. Mild anterolisthesis is also seen at L4-L5. Alignment is otherwise preserved. There is hyperlordosis of the lumbar spine. The transverse and spinous processes appear intact. There is no spondylolysis. No lytic or blastic lesion is seen. Anterior and lateral marginal osteophytes are seen throughout. Facet arthropathy is noted in the lower lumbar region. There is severe disc space narrowing at L1-L2 and L5-S1. Milder disc space narrowing is seen at the remaining lumbar levels. There is a small posterior disc bulges at L1-L2, L2-L3, and L4-L5. There is no CT evidence of high-grade central canal stenosis. Lateral disc bulges are seen bilaterally at L4-L5 and L5-S1. This contributes to bilateral subarticular and neural foraminal stenosis at both levels. Imaged portions of the sacrum and bony pelvis appear intact. There is fatty atrophy of the paraspinous musculature. The paraspinous soft tissues are otherwise normal in appearance. There is moderate atherosclerotic calcification and ectasia of the abdominal aorta. 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 No retroperitoneal lymphadenopathy is identified. A small duodenal diverticulum is noted. The partially visualized bladder appears distended. IMPRESSION: 1. There is an acute to subacute-appearing burst type compression fracture of L3. Loss of height is mild and there is no significant retropulsion of fragments. 2. No additional acute fracture is identified. 3. Osteopenia with additional chronic and spondylotic changes as above. 4. Additional findings as above. ACT 112: Negative or not required by law. Electronically signed by: Edi Delgado M.D. 03/24/2025 8:24 AM Chest X-Ray 03/24/25 06:56 EXAM: XR chest 1V portable CLINICAL HISTORY: weakness TECHNIQUE: An X-ray image of the chest is obtained in AP projection. COMPARISON: No prior studies are available for comparison. FINDINGS: Pulmonary Parenchyma: Mild homogeneous opacification of left lower zone obscuring the left costophrenic recess. No evidence of atelectasis/focal nodule seen. Heart and Mediastinum: Cardiomegaly. No mediastinal widening or masses. No hilar or mediastinal lymphadenopathy. Bony Thorax: Bony thorax appears intact without fractures or deformities. Soft Tissues: Soft tissues overlying the chest wall are unremarkable. IMPRESSION: Mild homogeneous opacification of the left lower zone obscures the left costophrenic recess. could be a left Small pleural effusion with underlying lung parenchymal inflammation. Suggest clinical and lab correlation. Electronically signed by Zack Murillo 03-24-2025 09:06 AM Discharge Plan Visit Data Chief Complaint: Fall Stated Complaint: GLF X2, BACK AND CHEST PAIN ED Provider: Jens Olson Discharge Problem: Compression fracture of L3 vertebra, Chronic kidney disease, Falls Patient Disposition: Admitted As Inpatient Condition: Fair Forms Stand Alone Forms: Arden Reed Prescriptions Prescriptions: No Action multivitamin Tablet 1 tab PO QAM Patient Comments: 03/24- otc unable to verify atorvastatin 20 mg tablet 20 mg PO QAM trazodone 50 mg tablet 50 mg PO HS famotidine 40 mg tablet 40 mg PO HS aspirin 81 mg Tablet,Delayed Release (Dr/Ec) 0 mg PO QAM Patient Comments: 03/24- otc unable to verify metoprolol succinate 25 mg tablet extended release 24 hr 25 mg PO QAM amlodipine 5 mg tablet 5 mg PO QAM lidocaine 5 % adhesive patch,medicated 1 patch topical DAILY Patient Comments: 03/24- last filled 03/09 30 day supply #30 gabapentin 100 mg capsule 100 - 300 mg PO TID PRN (Reason: Pain) Patient Comments: 03/24- last filled 03/20 5 day supply #45 oxycodone 5 mg tablet 5 mg PO Q6H PRN (Reason: Pain) Patient Comments: 03/24- last filled 03/20 5 day supply #45 Referrals Referrals: Lu Phillips DO [Primary Care Provider] - Discharge Problem: Compression fracture of L3 vertebra Qualifiers: Encounter type: initial encounter Qualified Code(s): S32.030A - Wedge compression fracture of third lumbar vertebra, initial encounter for closed fracture Chronic kidney disease Qualifiers: Chronic kidney disease stage: stage 3 (moderate)
[2025-03-24 07:25] LABS: Hematocrit (blood only) 28.5 % (37.0-47.0); Hemoglobin 9.4 g/dl (12.0-16.0); Immature Granulocytes # (auto) 0.16 K/uL (0.01-0.20); Immature Granulocytes % (auto) 1.0 %; Mean Corpuscular Hemoglobin 33.2 pg (25.0-34.0); Mean Corpuscular Volume 100.7 fL (80.0-100.0); Platelet Count 371 K/uL (130-400); RDW Standard Deviation 90.9 fL (36.4-46.3); Red Blood Count 2.83 M/uL (4.20-5.40); White Blood Count 15.67 K/ul (4.8-10.8)
[2025-03-24 07:36] LABS: Alanine Aminotransferase 20.0 U/L (7-52); Albumin Globulin Ratio 1.6 (0.9-2); Alkaline Phosphatase 68.0 U/L (34-104); Anion Gap 8.0 (3-11); Bilirubin,Total 1.2 mg/dl (0.2-1.0); Blood Urea Nitrogen 37.0 mg/dl (6-23); Calcium 9.6 mg/dl (8.6-10.3); Carbon Dioxide 25.0 mmol/L (21-32); Chloride 107.0 mmol/L (98-107); Creatinine Clr Calc Pharmacy 30.7 ml/min; Globulin 2.7 gm/dl (2.5-4.0); Glucose 96.0 mg/dl (70-99(Fasting)); Potassium 4.5 mmol/L (3.5-5.1); Sodium 140.0 mmol/L (136-145); Total Protein 6.9 gm/dl (6.0-8.3)
[2025-03-24 07:49] LABS: Anisocytosis Present; Polychromasia 1+; Target Cells 1+
[2025-03-24] MEDS: OPTIRAY 320 100ml IV ONE (08:05)
--- NOTE | 2025-03-24 08:25 | CT Scan Report ---
CT SCAN OF THE LUMBAR SPINE WITH IV CONTRAST CLINICAL HISTORY: Falls. Back pain. COMPARISON STUDY: Abdominal CT dated 08/16/2024 TECHNIQUE: Following the IV administration of 93 cc of Optiray 320, CT scan of the lumbar spine is p erformed from the lower thoracic spine to sacrum. Images are reviewed in the axial, sagittal, and cor onal planes. IV contrast was administered without complication. A dose lowering technique was utiliz ed adhering to the principles of ALARA. CT DOSE: 1110.34 mGy.cm FINDINGS: The skeletal structures are osteopenic. There is an acute to subacute-appearing burst type compression fracture of L3. Minimal periostitis is seen. Fracture involves the superior and inferior endplate, as well as the anterior and posterior cortex. Loss of height is mild and there is no signif icant retropulsion of fragments. There is associated paravertebral edema at this level. No additional acute fracture is identified involving the lumbar spine. There is a mild chronic inferior endplate c ompression deformity of L4. Vertebral body height is otherwise maintained throughout the lumbar spine . There is 5 mm of anterolisthesis at L5-S1. Mild anterolisthesis is also seen at L4-L5. Alignment is otherwise preserved. There is hyperlordosis of the lumbar spine. The transverse and spinous processe s appear intact. There is no spondylolysis. No lytic or blastic lesion is seen. Anterior and lateral marginal osteophytes are seen throughout. Facet arthropathy is noted in the lower lumbar region. Ther e is severe disc space narrowing at L1-L2 and L5-S1. Milder disc space narrowing is seen at the remai prashanth lumbar levels. There is a small posterior disc bulges at L1-L2, L2-L3, and L4-L5. There is no CT evidence of high-grade central canal stenosis. Lateral disc bulges are seen bilaterally at L4-L5 and L5-S1. This contributes to bilateral subarticular and neural foraminal stenosis at both levels. Imag ed portions of the sacrum and bony pelvis appear intact. There is fatty atrophy of the paraspinous mu sculature. The paraspinous soft tissues are otherwise normal in appearance. There is moderate atheros clerotic calcification and ectasia of the abdominal aorta. 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 No retroperitoneal lymphadenopathy is identified. A small duodenal diver ticulum is noted. The partially visualized bladder appears distended. IMPRESSION: 1. There is an acute to subacute-appearing burst type compression fracture of L3. Loss of height is m ild and there is no significant retropulsion of fragments. 2. No additional acute fracture is identified. 3. Osteopenia with additional chronic and spondylotic changes as above. 4. Additional findings as above. ACT 112: Negative or not required by law. Electronically signed by: Edi Delgado M.D. 03/24/2025 8:24 AM
--- NOTE | 2025-03-24 08:38 | CT Scan Report ---
CT SCAN OF THE ABDOMEN AND PELVIS WITH IV CONTRAST CLINICAL HISTORY: Multiple falls. Abdominal and back pain. COMPARISON STUDY: July 2024 TECHNIQUE: Following the IV administration of 93 cc of Optiray 320, CT scan of the abdomen and pelvi s is performed from the lung bases to the proximal femora. Images are reviewed in the axial, sagittal , and coronal planes. IV contrast was administered without complication. A dose lowering technique wa s utilized adhering to the principles of ALARA. FINDINGS: Lung bases: Interstitial opacities the lung bases are likely atelectatic. There is no basilar pneumot horax. There is a moderate hiatal hernia. There are coronary artery calcifications. Liver: There is a tiny cyst within the right hepatic lobe. There are no findings to indicate acute he patic injury. Minimal ductal prominence is in keeping with prior cholecystectomy. Gallbladder: Surgically absent Spleen: There is no evidence of acute splenic injury. No splenic masses are visualized. Pancreas: There are no pancreatic masses. There is no ductal dilatation. Adrenal glands: No focal adrenal masses are visualized Kidneys: There is no evidence of acute renal injury. No suspicious solid renal masses are visualized. Abdominal vasculature: There are moderately extensive atheromatous calcifications. There is no aneury sm. There is no evidence of acute vascular injury. Bowel: There is no evidence of acute bowel injury. There is moderate stool throughout the colon with mild rectal distention. There is no evidence of bowel obstruction. Peritoneum: No peritoneal masses are visualized. There is a small fat-containing right inguinal herni a. There is a tiny fat-containing umbilical hernia. Lymphadenopathy: None Pelvic viscera: The uterus is surgically absent. The bladder is mildly distended. There is minimal p erivesical stranding , finding of doubtful acute clinical significance. Skeletal structures: There is an acute L3 compression fracture with minimal retropulsion. This may be further described in the CT scan of the lumbar spine IMPRESSION: 1. Acute L3 burst fracture 2. Otherwise no evidence of acute intra-abdominal or pelvic injury. ACT 112: Negative or not required by law. Electronically signed by: Ministerio Laws M.D. 03/24/2025 8:35 AM
[2025-03-24 08:57] LABS: Appearance Urine Clear (Clear); Glucose Urine UA Negative (Negative)
--- NOTE | 2025-03-24 09:06 | XRay Report ---
EXAM: XR chest 1V portable CLINICAL HISTORY: weakness TECHNIQUE: An X-ray image of the chest is obtained in AP projection. COMPARISON: No prior studies are available for comparison. FINDINGS: Pulmonary Parenchyma: Mild homogeneous opacification of left lower zone obscuring the left costophrenic recess. No evidence of atelectasis/focal nodule seen. Heart and Mediastinum: Cardiomegaly. No mediastinal widening or masses. No hilar or mediastinal lymphadenopathy. Bony Thorax: Bony thorax appears intact without fractures or deformities. Soft Tissues: Soft tissues overlying the chest wall are unremarkable. IMPRESSION: Mild homogeneous opacification of the left lower zone obscures the left costophrenic recess. could be a left Small pleural effusion with underlying lung parenchymal inflammation. Suggest clinical and lab correlation. Electronically signed by Zack Murillo 03-24-2025 09:06 AM
--- NOTE | 2025-03-24 10:16 | History & Physical Report ---
Date of Service March 24, 2025 Assessment & Plan (1) Coronary artery disease: (2) Myelodysplastic syndrome: (3) Dementia: (4) HTN (hypertension): (5) HLD (hyperlipidemia): (6) Compression fracture of L3 vertebra: (7) Falls: Plan The patient is a 84-year-old female who presented to the ED on 04/14 s/p multiple mechanical falls over the past week, found to have an acute L3 compression fracture Ambulatory dysfunction Generalized weakness L3 compression fracture PT/OT, tramadol as needed for pain control Will likely need rehab on DC, consult Ortho for further recommendations DVT prophylaxis Hx MDS: Leukocytosis and anemia chronic, patient's daughter reports outpatient infusions every 3 weeks for MDS Hx HTN/HLD: Continue amlodipine/statin/aspirin/metoprolol Hx Alzheimer's dementia: Continue trazodone at bedtime Hx CKD: Baseline creatinine 1.5, currently 1.4, monitor BMP daily A total of 60 minutes were spent on chart review/reviewing diagnostic data/facilitating plan of care/discussion with consultants Full code DVT prophylaxis: Heparin subcu History of Present Illness Chief Complaint: Lower back pain, frequent falls Primary Care Provider: Lu Phillips, The patient is an 84-year-old female with a past medical history of dementia, HTN, HLD, CAD, PVD, mild AR, breast cancer s/p mastectomy, CKD, MDS, anemia who presents to the ED on 03/24/25 with complaints on ongoing lower back pain and frequent falls. 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 The patient was found sitting next to her walker this a.m. by her daughter. Denies any loss of consciousness or head injuries. Patient was seen at [facility] about a week ago and was diagnosed with lumbar spinal stenosis. Scheduled to see an orthopedic doctor on 01 April the small but has not been seen yet. Prior to this back pain in the falls, the patient was using a cane independently to get around. Patient denies any fever/chills. She denies any nausea/vomiting/diarrhea/abdominal pain. On arrival to the ED, labs remarkable for WBC 15, hemoglobin 9.4, BUN 37, creatinine 1.41 Urinalysis negative Abdomen/pelvis CT showed an acute L3 burst fracture Lumbar spine CT shows an acute to subacute burst type compression fracture of L3, loss of height is mild Chest x-ray showed: Mild homogeneous opacification of the left lower zone obscures the left costophrenic recess. could be a left Small pleural effusion with underlying lung parenchymal inflammation. Suggest clinical and lab correlation. The patient will be admitted for further management of ambulatory dysfunction and L3 compression fracture Allergies Allergy/AdvReac Type Severity Reaction Status Date / Time No Known Allergies Allergy Unverified 11/26/24 12:56 Home Medications Medication Instructions Recorded Confirmed Type aspirin 81 mg tablet,delayed 0 mg PO QAM 03/31/24 03/24/25 History release atorvastatin 20 mg tablet 20 mg PO QAM 03/31/24 03/24/25 History famotidine 40 mg tablet 40 mg PO HS 03/31/24 03/24/25 History metoprolol succinate 25 mg 25 mg PO QAM 03/31/24 03/24/25 History tablet,extended release 24 hr multivitamin 1 tab PO QAM 03/31/24 03/24/25 History trazodone 50 mg tablet 50 mg PO HS 03/31/24 03/24/25 History amlodipine 5 mg tablet 5 mg PO QAM 02/06/25 03/24/25 History gabapentin 100 mg capsule 100 - 300 mg PO TID PRN Pain 03/24/25 03/24/25 History lidocaine 5 % topical patch 1 patch topical DAILY 03/24/25 03/24/25 History oxycodone 5 mg tablet 5 mg PO Q6H PRN Pain 03/24/25 03/24/25 History Past Med/Surg History Problem List (Updated 03/24/25 @ 10:40 by CORI Watkins) Falls Compression fracture of L3 vertebra Chronic kidney disease-mineral and bone disorder Chronic kidney disease Medical History Coronary artery disease severe calcific vascular disease on imaging PFO (patent foramen ovale) Breast cancer 09/04 infiltrative ductal carcinoma. right total mastectomy with axillary node dissection and adjuvant radiation therapy. T2 N0 disease. Completed 5 years letrozole. Myelodysplastic syndrome with ringed sideroblast. 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 Required: No Current Living Situation: Family current occupational status: retired Feels Safe at Home: Yes Diet: regular caffeine: Yes (1-1.5 cups coffee daily) Dental Care, Regularly: Yes Physical Activity Frequency: Does not Exercise Seatbelt Use: always Do you think of yourself as: straight/heterosexual Gender Identity: Female Assistive Devices: Cane, Hearing Aid - Bilateral and Walker Review of Systems Review of Systems: All systems reviewed & are unremarkable except as noted in HPI & below Physical Exam Constitutional: WD/WN, vitals as above Eyes: PERRL, conjunctivae normal, anicteric sclerae ENMT: external ear and nose normal, oropharynx normal Respiratory: normal respiratory effort, lungs clear to auscultation Cardiovascular: RRR, no murmur, no edema Gastrointestinal (Abdomen): normal bowel sounds, soft, nontender, no hepatosplenomegaly Musculoskeletal: no cyanosis or clubbing, extremities motor strength 5/5 Skin: no rashes, warm and dry Neurologic: PERRL, EOMI, accommodation nl, no face palsy, no dysarthria Psychiatric: A+Ox3, euthymic affect Lymphatic: no cervical or axillary lymphadenopathy Results & Data Results & Data Vital Signs (Past 12 Hours) Vital Signs Temp Pulse Resp BP Pulse Ox O2 Del Method 03/24/25 09:58 54 L 03/24/25 09:31 57 L 18 171/72 H 94 Room Air 03/24/25 07:36 66 16 175/80 H 95 Room Air 03/24/25 07:00 66 20 178/74 H 93 Room Air 03/24/25 06:59 60 94 Room Air 03/24/25 06:00 60 19 181/79 H 93 Room Air 03/24/25 05:54 71 03/24/25 05:44 37.0 C 78 14 163/89 H 95 Room Air Diagnostic Findings Laboratory Results WBC 15.67 K/ul (4.8-10.8) H 03/24/25 06:40 RBC 2.83 M/uL (4.20-5.40) L 03/24/25 06:40 Hgb 9.4 g/dl (12.0-16.0) L 03/24/25 06:40 Hct 28.5 % (37.0-47.0) L 03/24/25 06:40 MCV 100.7 fL (80.0-100.0) H 03/24/25 06:40 MCH 33.2 pg (25.0-34.0) 03/24/25 06:40 MCHC 33.0 g/dL (32.0-36.0) 03/24/25 06:40 RDW Std Deviation 90.9 fL (36.4-46.3) H 03/24/25 06:40 RDW Coeff of Jadiel 24.3 % (11.5-14.5) H 03/24/25 06:40 Plt Count 371 K/uL (130-400) 03/24/25 06:40 MPV 9.8 fL (9.4-12.4) 03/24/25 06:40 Immature Gran % (Auto) 1.0 % 03/24/25 06:40 Neut % (Auto) 84.2 % 03/24/25 06:40 Lymph % (Auto) 6.1 % 03/24/25 06:40 [place] % (Auto) 8.4 % 03/24/25 06:40 Eos % (Auto) 0.1 % 03/24/25 06:40 Baso % (Auto) 0.2 % 03/24/25 06:40 Neut # (Auto) 13.19 K/uL (1.40-6.50) H 03/24/25 06:40 Lymph # (Auto) 0.96 K/uL (1.20-3.40) L 03/24/25 06:40 [place] # (Auto) 1.32 K/uL (0.11-0.59) H 03/24/25 06:40 Eos # (Auto) 0.01 K/uL (0.00-0.50) 03/24/25 06:40 Baso # (Auto) 0.03 K/uL (0.00-0.20) 03/24/25 06:40 Immature Gran # (Auto) 0.16 K/uL (0.01-0.20) 03/24/25 06:40 Absolute Nucleated RBC 0.20 K/uL (0.00-0.12) H 03/24/25 06:40 Nucleated RBC % (auto) 1.3 % 03/24/25 06:40 Polychromasia 1+ 03/24/25 06:40 Anisocytosis Present 03/24/25 06:40 Pappenheimer Bodies 1+ 03/24/25 06:40 Target Cells 1+ 03/24/25 06:40 Sodium 140 mmol/L (136-145) 03/24/25 06:40 Potassium 4.5 mmol/L (3.5-5.1) 03/24/25 06:40 Chloride 107 mmol/L (98-107) 03/24/25 06:40 Carbon Dioxide 25 mmol/L (21-32) 03/24/25 06:40 Anion Gap 8 (3-11) 03/24/25 06:40 BUN 37 mg/dl (6-23) H 03/24/25 06:40 Creatinine 1.41 mg/dl (0.6-1.2) H 03/24/25 06:40 Est Cr Clr Drug Dosing 30.7 ml/min 03/24/25 06:40 eGFR 37.01 03/24/25 06:40 BUN/Creatinine Ratio 26.2 (10-20) H 03/24/25 06:40 Glucose 96 mg/dl (70-99(Fasting)) 03/24/25 06:40 Calcium 9.6 mg/dl (8.6-10.3) 03/24/25 06:40 Total Bilirubin 1.2 mg/dl (0.2-1.0) H 03/24/25 06:40 AST 23 U/L (13-39) 03/24/25 06:40 ALT 20 U/L (7-52) 03/24/25 06:40 Alkaline Phosphatase 68 U/L (34-104) 03/24/25 06:40 Total Protein 6.9 gm/dl (6.0-8.3) 03/24/25 06:40 Albumin 4.2 gm/dl (3.4-5.0) 03/24/25 06:40 Globulin 2.7 gm/dl (2.5-4.0) 03/24/25 06:40 Albumin/Globulin Ratio 1.6 (0.9-2) 03/24/25 06:40 Urine Color Yellow 03/24/25 08:25 Urine Appearance Clear (Clear) 03/24/25 08:25 Urine pH 7.5 (4.5-7.5) 03/24/25 08:25 Ur Specific [place] 1.010 (1.000-1.030) 03/24/25 08:25 Urine Protein Negative (Negative) 03/24/25 08:25 Urine Glucose (UA) Negative (Negative) 03/24/25 08: Urine Ketones Negative (Negative) 03/24/25 08:25 Urine Blood Negative (Negative) 03/24/25 08:25 Urine Nitrite Negative (Negative) 03/24/25 08:25 Urine Bilirubin Negative (Negative) 03/24/25 08:25 Urine Urobilinogen Negative (Negative) 03/24/25 08:25 Ur Leukocyte Esterase Negative (Negative) 03/24/25 08:25 Urine Comment 03/24/25 08:25 Impressions Abdomen/Pelvis CT 03/24/25 06:54 CT SCAN OF THE ABDOMEN AND PELVIS WITH IV CONTRAST CLINICAL HISTORY: Multiple falls. Abdominal and back pain. COMPARISON STUDY: July 2024 TECHNIQUE: Following the IV administration of 93 cc of Optiray 320, CT scan of the abdomen and pelvis is performed from the lung bases to the proximal femora. Images are reviewed in the axial, sagittal, and coronal planes. IV contrast was administered without complication. A dose lowering technique was utilized adhering to the principles of ALARA. FINDINGS: Lung bases: Interstitial opacities the lung bases are likely atelectatic. There is no basilar pneumothorax. There is a moderate hiatal hernia. There are coronary artery calcifications. Liver: There is a tiny cyst within the right hepatic lobe. There are no findings to indicate acute hepatic injury. Minimal ductal prominence is in keeping with prior cholecystectomy. Gallbladder: Surgically absent Spleen: There is no evidence of acute splenic injury. No splenic masses are visualized. Pancreas: There are no pancreatic masses. There is no ductal dilatation. Adrenal glands: No focal adrenal masses are visualized Kidneys: There is no evidence of acute renal injury. No suspicious solid renal masses are visualized. Abdominal vasculature: There are moderately extensive atheromatous calcifications. There is no aneurysm. There is no evidence of acute vascular injury. Bowel: There is no evidence of acute bowel injury. There is moderate stool throughout the colon with mild rectal distention. There is no evidence of bowel obstruction. Peritoneum: No peritoneal masses are visualized. There is a small fat-containing right inguinal hernia. There is a tiny fat-containing umbilical hernia. Lymphadenopathy: None Pelvic viscera: The uterus is surgically absent. The bladder is mildly distended. There is minimal perivesical stranding , finding of doubtful acute clinical significance. Skeletal structures: There is an acute L3 compression fracture with minimal retropulsion. This may be further described in the CT scan of the lumbar spine IMPRESSION: 1. Acute L3 burst fracture 2. Otherwise no evidence of acute intra-abdominal or pelvic injury. ACT 112: Negative or not required by law. Electronically signed by: Ministerio Laws M.D. 03/24/2025 8:[address] 03/24/25 06:54 CT SCAN OF THE LUMBAR SPINE WITH IV CONTRAST CLINICAL HISTORY: Falls. Back pain. COMPARISON STUDY: Abdominal CT dated 08/16/2024 TECHNIQUE: Following the IV administration of 93 cc of Optiray 320, CT scan of the lumbar spine is performed from the lower thoracic spine to sacrum. Images are reviewed in the axial, sagittal, and coronal planes. IV contrast was administered without complication. A dose lowering technique was utilized adhering to the principles of ALARA. CT DOSE: 1110.34 mGy.cm FINDINGS: The skeletal structures are osteopenic. There is an acute to subacute- appearing burst type compression fracture of L3. Minimal periostitis is seen. Fracture involves the superior and inferior endplate, as well as the anterior and posterior cortex. Loss of height is mild and there is no significant retropulsion of fragments. There is associated paravertebral edema at this level. No additional acute fracture is identified involving the lumbar spine. There is a mild chronic inferior endplate compression deformity of L4. Vertebral body height is otherwise maintained throughout the lumbar spine. There is 5 mm of anterolisthesis at L5-S1. Mild anterolisthesis is also seen at L4-L5. Alignment is otherwise preserved. There is hyperlordosis of the lumbar spine. The transverse and spinous processes appear intact. There is no spondylolysis. No lytic or blastic lesion is seen. Anterior and lateral marginal osteophytes are seen throughout. Facet arthropathy is noted in the lower lumbar region. There is severe disc space narrowing at L1-L2 and L5-S1. Milder disc space narrowing is seen at the remaining lumbar levels. There is a small posterior disc bulges at L1-L2, L2-L3, and L4-L5. There is no CT evidence of high-grade central canal stenosis. Lateral disc bulges are seen bilaterally at L4-L5 and L5-S1. This contributes to bilateral subarticular and neural foraminal stenosis at both levels. Imaged portions of the sacrum and bony pelvis appear intact. There is fatty atrophy of the paraspinous musculature. The paraspinous soft tissues are otherwise normal in appearance. There is moderate atherosclerotic calcification and ectasia of the abdominal aorta. 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 No retroperitoneal lymphadenopathy is identified. A small duodenal diverticulum is noted. The partially visualized bladder appears distended. IMPRESSION: 1. There is an acute to subacute-appearing burst type compression fracture of L3. Loss of height is mild and there is no significant retropulsion of fragments. 2. No additional acute fracture is identified. 3. Osteopenia with additional chronic and spondylotic changes as above. 4. Additional findings as above. ACT 112: Negative or not required by law. Electronically signed by: Edi Delgado M.D. 03/24/2025 8:24 AM Chest X-Ray 03/24/25 06:56 EXAM: XR chest 1V portable CLINICAL HISTORY: weakness TECHNIQUE: An X-ray image of the chest is obtained in AP projection. COMPARISON: No prior studies are available for comparison. FINDINGS: Pulmonary Parenchyma: Mild homogeneous opacification of left lower zone obscuring the left costophrenic recess. No evidence of atelectasis/focal nodule seen. Heart and Mediastinum: Cardiomegaly. No mediastinal widening or masses. No hilar or mediastinal lymphadenopathy. Bony Thorax: Bony thorax appears intact without fractures or deformities. Soft Tissues: Soft tissues overlying the chest wall are unremarkable. IMPRESSION: Mild homogeneous opacification of the left lower zone obscures the left costophrenic recess. could be a left Small pleural effusion with underlying lung parenchymal inflammation. Suggest clinical and lab correlation. Electronically signed by Zack Murillo 03-24-2025 09:06 AM Supervising Physician Co-Signing Physician Notes Patient seen and examined at bedside. Daughter present as well. Right lower back pain noted radiating into hip. Patient orientation slightly worse than prior, not moving well anymore per daughter. On exam, patient alert and oriented x2-3 slightly confused, right lower back pain to palpation (lateral in origin, appears around T10-L4). L3 burst fracture noted, acute to subacute in nature. Presentation consistent with L3 burst fracture causing neuropathic and nociceptive acute pain. Rotate from gabapentin to lyrica tid, voltaren cream on right side of back and hip, ortho spine consult, rotate oxycodone to dilaudid 2mg q4hr prn, dilaudid 0.5mg IV breakthrough. PT/OT ordered. Decadron 4mg daily for acute bone pain. I have seen and discussed the case with the collaborating advanced practitioner. I agree with the above H&P. I have reviewed and confirmed the patients medical history, the findings on physical examination, and the patients diagnosis and treatment plan with Panchito PERSAUD and agree with the information documented. I spent a total of 30 minutes coordinating, documenting, and providing care for this patient excluding time spent in the performance of separately billed services. All of the aforementioned completed outside of collaborating with the assigned advanced practitioner for a full treatment plan. I have reviewed the advanced practitioner's documentation, and I agree with, and take responsibility for the plan of care
--- NOTE | 2025-03-24 11:45 | Electrocardiogram Report ---
Test Reason : Blood Pressure : */* mmHG Vent. Rate : 70 BPM Atrial Rate : 70 BPM P-R Int : 168 ms QRS Dur : 72 ms QT Int : 366 ms P-R-T Axes : 55 5 39 degrees QTcB Int : 395 ms Sinus rhythm with Premature supraventricular complexes Abnormal ECG When compared with ECG of 05-Feb-2025 21:43, Premature supraventricular complexes are now Present Criteria for Inferior infarct are no longer Present Confirmed by Noel Mathew ([id number]) on 03/24/2025 11:44:56 AM Referred By: REFERRED SELF Confirmed By: Noel Mathew
[2025-03-24] MEDS: dexAMETHasone 4 MG in SYRINGE 0 ML IV STA (12:29)
[2025-03-24] MEDS: PREGABALIN 25 MG CAP PO SCH (14:43)
[2025-03-24] MEDS: HEPARIN SOD 5,000 UNIT/0.5 ML VIAL SQ SCH (14:43)
[2025-03-24] MEDS: POLYETHYLENE (MIRALAX) 17 GM PACK PO SCH (17:37)
[2025-03-24] MEDS: HYDROmorphone INJ 0.5 MG/0.5 ML SYR IV PRN (17:46)
[2025-03-24] MEDS: FAMOTIDINE 40 MG TABLET PO SCH (20:51)
[2025-03-24] MEDS: DICLOFENAC SOD 1% GEL 100 GM TUBE EXT SCH (21:24)
[2025-03-25 06:49] LABS: Hematocrit (blood only) 26.1 % (37.0-47.0); Hemoglobin 8.6 g/dl (12.0-16.0); Immature Granulocytes # (auto) 0.12 K/uL (0.01-0.20); Immature Granulocytes % (auto) 1.3 %; Mean Corpuscular Hemoglobin 32.1 pg (25.0-34.0); Mean Corpuscular Volume 97.4 fL (80.0-100.0); Platelet Count 339 K/uL (130-400); RDW Standard Deviation 86.1 fL (36.4-46.3); Red Blood Count 2.68 M/uL (4.20-5.40); White Blood Count 9.42 K/ul (4.8-10.8)
[2025-03-25 07:17] LABS: Anisocytosis Present; Ovalocytes 1+; Polychromasia 3+; Target Cells 1+; Tear Drop Cells 1+
[2025-03-25 07:20] LABS: Alanine Aminotransferase 19.0 U/L (7-52); Albumin Globulin Ratio 1.5 (0.9-2); Alkaline Phosphatase 66.0 U/L (34-104); Anion Gap 7.0 (3-11); Bilirubin,Total 1.2 mg/dl (0.2-1.0); Blood Urea Nitrogen 34.0 mg/dl (6-23); Calcium 8.9 mg/dl (8.6-10.3); Carbon Dioxide 26.0 mmol/L (21-32); Chloride 105.0 mmol/L (98-107); Creatinine Clr Calc Pharmacy 31.4 ml/min; Globulin 2.4 gm/dl (2.5-4.0); Glucose 108.0 mg/dl (70-99(Fasting)); Potassium 4.5 mmol/L (3.5-5.1); Sodium 138.0 mmol/L (136-145); Total Protein 6.0 gm/dl (6.0-8.3)
--- NOTE | 2025-03-25 09:17 | Orthopedic Consultation ---
Date of Consultation March 25, 2025 Assessment & Plan (1) Compression fracture of L3 vertebra: Patient presents with an acute L3 fracture. There is minimal retropulsed fragments in the canal and believe this can be treated conservatively. In terms of stability we are going to order an LSO brace to be worn when she is up and walking. She can remove it in bed and when she is in a chair. Will have her seen by PT and OT and she will likely need half-way placement. In terms of pain control IV Tylenol may be beneficial given her history of dementia and to avoid acute delirium. If you have any other questions or concerns please contact our service. History of Present Illness Attending Physician: Shad Alanis MD History of Present Illness Patient is a pleasant 84-year-old female who is admitted through the emergency room yesterday due to repetitive falls. She has had multiple falls in the past several weeks and developed acute onset of back pain. CT scans were performed through the emergency department revealing an acute L3 burst fracture. We are consulted for recommendations. The patient was seen bedside in room 375 her daughter was present. States she has a lot of pain in her back and her daughter also states that she is complaining of pain in her right anterior chest wall. She is not complaining of any pain going down her legs or any numbness or tingling. She has had multiple times of pain control with oxycodone, morphine, and gabapentin. Per the daughter these have not been working. The patient denies any other numbness, tingling, or paresthesias. Allergies Allergy/AdvReac Type Severity Reaction Status Date / Time No Known Allergies Allergy Unverified 11/26/24 12:56 Home Medications Medication Instructions Recorded Confirmed Type aspirin 81 mg tablet,delayed 0 mg PO QA 03/31/24 03/24/25 History release atorvastatin 20 mg tablet 20 mg PO QAM 03/31/24 03/24/25 History famotidine 40 mg tablet 40 mg PO 03/31/24 03/24/25 History metoprolol succinate 25 mg 25 mg PO QAM 03/31/24 03/24/25 History tablet,extended release 24 hr multivitamin 1 tab PO QAM 03/31/24 03/24/25 History trazodone 50 mg tablet 50 mg PO 03/31/24 03/24/25 History amlodipine 5 mg tablet 5 mg PO QA 02/06/25 03/24/25 History gabapentin 100 mg capsule 100 - 300 mg PO TID PRN Pain 03/24/25 03/24/25 History lidocaine 5 % topical patch 1 patch topical DAILY 03/24/25 03/24/25 History oxycodone 5 mg tablet 5 mg PO Q6H PRN Pain 03/24/25 03/24/25 History Patient History Medical History Coronary artery disease severe calcific vascular disease on imaging PFO (patent foramen ovale) Breast cancer 09/04 infiltrative ductal carcinoma. right total mastectomy with axillary node dissection and adjuvant radiation therapy. T2 N0 disease. Completed 5 years letrozole. Myelodysplastic syndrome with ringed sideroblast. follows with Ed Dover [place] Dementia Alzheimers type TIA (transient ischemic attack) HTN (hypertension) HLD (hyperlipidemia) Surgical History History of mastectomy, total Family History Other Hypertension Social History Smoking Status: Current every day smoker Tobacco Type: Cigarettes Second Hand Exposure: No; Do You Dip or Chew Tobacco: No; Hx Alcohol Use: No Hx Substance Use: No Preferred Language: Lao Communication Ability: Impaired Cribber Required: No Beliefs That Will Affect Care: None Current Living Situation: Family current occupational status: retired Feels Safe at Home: Yes Safety Concerns: Feels Safe At This Time Diet: regular caffeine: Yes (1-1.5 cups coffee daily) Dental Care, Regularly: Yes Physical Activity Frequency: Does not Exercise Seatbelt Use: always Do you think of yourself as: straight/heterosexual Gender Identity: Female Assistive Devices: Cane, Hearing Aid - Bilateral and Walker Assistive Devices Comment: BL hearing aids here Physical Exam Physical Exam: On exam the patient is alert and oriented. She answers questions appropriately. She is tender in the lower portion of the lumbar spine. Her lower extremity motor exam reveals no focal atrophy or strength 5 out of 5 to detailed muscle testing without exception. Lifting her heels up off the bed however creates more tenderness in the lower portion of her back. She is nontender with range of motion of the hips or knees. Sensations intact distally. Her abdomen soft nontender calves are supple and nontender. Cardiovascular exam reveals no gross abnormalities her respirations are unlabored and smooth. Results & Data Vital Signs (Past 12 Hours) Vital Signs Temp Pulse Resp BP Pulse Ox O2 Del Method 03/25/25 07:11 36.9 C 87 16 136/69 97 Room Air 03/24/25 23:17 36.7 C 70 16 149/76 H 96 Room Air Diagnostic Findings CT scan of the lumbar spine performed was reviewed. This reveals grade 1 spondylolisthesis at L4-5 and L5-S1 with vacuum disc phenomenon at L5-S1. There is an L3 burst fracture with superior and inferior endplate deformities and mild loss of height in the middle column. There is minimal retropulsed fragments no significant canal stenosis is noted. There is an old inferior endplate deformity of L4 as well. (1) Compression fracture of L3 vertebra Encounter type: initial encounter Qualified Code(s): S32.030A - Wedge compression fracture of third lumbar vertebra, initial encounter for closed fracture
[2025-03-25] MEDS: ATORVASTATIN 20 MG TAB PO SCH (09:18)
[2025-03-25] MEDS: ASPIRIN 81 MG ECTAB PO SCH (09:18)
[2025-03-25] MEDS: METOPROLOL SUCC 25MG EXT REL TAB PO SCH (09:18)
--- NOTE | 2025-03-25 09:40 | Orthopedic Consultation ---
Date of Service March 25, 2025 Assessment & Plan (1) Compression fracture of L3 vertebra: * Case/imaging reviewed and discussed with Dr Dempsey * Recommend closed management of L3 compression fx * LSO brace ordered * Limit bending, twisting, lifting motions * Disposition: TBD, rehab? * Daily treatment: Physical Therapy/ Occupational Therapy per protocol * Weight bearing status: As tolerated * Pain control * Remainder care per primary team Plan Pt seen and examined, plan as above with LS brace and mobilization. Will need rehab, can followup with either myself or Dr. Anne office, which ever they would prefer. History of Present Illness Reason for Consultation: . Low back pain Requesting Physician: . Attending Physician: Shad Alanis MD .Patient is a 84y/o female with low back pain. PMH including CAD, breast cancer, dementia, TIA, HTN, HLD. Presents to hospital with low back pain and lower extremity weakness after multiple falls over the past several weeks. Patient's daughter is in room and provides insight to injury history. Per report patient has had multiple falls over the past 4 weeks, most recently has developed low back pain over the past week or so which has made ambulation more difficult. Reports weakness in both legs secondary to low back pain with motion. Presents to ED for evaluation. Current workup including CT lumbar spine demonstrating L3 compression fracture. Admitted to hospital medicine team. Orthopedics consulted for management recommendations. At time of exam patient sitting comfortably in bed, no acute distress. Endorses moderate pain of the low back at rest that increases slightly with activity. Denies tingling or numbness of bilateral lower extremity. Reports some difficulty with ambulation secondary to pain, but states that her strength is present just painful. Allergies Allergy/AdvReac Type Severity Reaction Status Date / Time No Known Allergies Allergy Unverified 11/26/24 12:56 Home Medications Medication Instructions Recorded Confirmed Type aspirin 81 mg tablet,delayed 0 mg PO QAM 03/31/24 03/24/25 History release atorvastatin 20 mg tablet 20 mg PO QAM 03/31/24 03/24/25 History famotidine 40 mg tablet 40 mg PO HS 03/31/24 03/24/25 History metoprolol succinate 25 mg 25 mg PO QAM 03/31/24 03/24/25 History tablet,extended release 24 hr multivitamin 1 tab PO QAM 03/31/24 03/24/25 History trazodone 50 mg tablet 50 mg PO HS 03/31/24 03/24/25 History amlodipine 5 mg tablet 5 mg PO QAM 02/06/25 03/24/25 History gabapentin 100 mg capsule 100 - 300 mg PO TID PRN Pain 03/24/25 03/24/25 History lidocaine 5 % topical patch 1 patch topical DAILY 03/24/25 03/24/25 History oxycodone 5 mg tablet 5 mg PO Q6H PRN Pain 03/24/25 03/24/25 History Past Med/Surg History Problem List (Updated 03/24/25 @ 14:48 by Jens Olson MD) Falls (Acute) Compression fracture of L3 vertebra (Acute) Chronic kidney disease-mineral and bone disorder Chronic kidney disease (Acute) Medical History Coronary artery disease severe calcific vascular disease on imaging PFO (patent foramen ovale) Breast cancer 09/04 infiltrative ductal carcinoma. right total mastectomy with axillary node dissection and adjuvant radiation therapy. T2 N0 disease. Completed 5 years letrozole. Myelodysplastic syndrome with ringed sideroblast. follows with Dr. James [facility] Dementia Alzheimers type TIA (transient ischemic attack) HTN (hypertension) HLD (hyperlipidemia) Surgical History History of mastectomy, total Family History Other Hypertension Social History Smoking Status: Current every day smoker Tobacco Type: Cigarettes Second Hand Exposure: No; Do You Dip or Chew Tobacco: No; Hx Alcohol Use: No Hx Substance Use: No Preferred Language: Monegasque Communication Ability: Effective Specialty Department Supervisor Required: No Beliefs That Will Affect Care: None Current Living Situation: Family current occupational status: retired Feels Safe at Home: Yes Safety Concerns: Feels Safe At This Time Diet: regular caffeine: Yes (1-1.5 cups coffee daily) Dental Care, Regularly: Yes Physical Activity Frequency: Does not Exercise Seatbelt Use: always Do you think of yourself as: straight/heterosexual Gender Identity: Female Assistive Devices: Cane, Hearing Aid - Bilateral and Walker Assistive Devices Comment: BL hearing aids here Review of Systems All systems reviewed & are unremarkable except as noted in HPI & below. Physical Exam . * General: Alert and oriented, no acute distress * Constitutional: well-developed, well-nourished. * Respiratory: Normal respiratory effort, no distress * Gastrointestinal: No tenderness to palpation, no rigidity or guarding. * Skin: No rash or lesion. * Neurologic: Grossly normal * Musculoskeletal: Lumbar spine region with no obvious deformity or overlying skin changes. Otherwise no abnormality noted to bilateral lower extremity. Mild TTP midline lumbar spine at the L3 region, mild lumbar paraspinal spasm and tenderness. Otherwise no specific tenderness of bilateral gluteal region, thigh, lower legs. AROM hip flexion 5/5 bilaterally, ankle dorsiflexion/plantarflexion 5/5 bilaterally. Sensation intact plantar/dorsal foot. Brisk capillary refill. Results & Data Results & Data Laboratory Results . Diagnostic Findings CT Lumbar spine: IMPRESSION: 1. There is an acute to subacute-appearing burst type compression fracture of L3. Loss of height is mild and there is no significant retropulsion of fragments. 2. No additional acute fracture is identified. 3. Osteopenia with additional chronic and spondylotic changes as above. 4. Additional findings as above. PG Care Time/CCT Total # of Minutes Spent Total Time Spent with Patient: Total time spent is greater than 50% in coordination of care (as documented) at patient's floor/unit and/or counseling patient: [place] [address] IN/OBS CONSULT LVL 5,80M Patient Type New Medical Decision Making Moderate Complexity Diagnoses Compression fracture of L3 vertebra S32.030A Encounter type: initial encounter (1) Compression fracture of L3 vertebra Encounter type: initial encounter Qualified Code(s): S32.030A - Wedge compression fracture of third lumbar vertebra, initial encounter for closed fracture
--- NOTE | 2025-03-25 10:20 | Hospitalist Progress Note ---
Date of Service March 25, 2025 Assessment & Plan (1) Coronary artery disease: (2) Myelodysplastic syndrome: (3) Dementia: (4) HTN (hypertension): (5) HLD (hyperlipidemia): (6) Compression fracture of L3 vertebra: (7) Falls: Plan The patient is a 84-year-old female who presented to the ED on 04/14 s/p multiple mechanical falls over the past week, found to have an acute L3 compression fracture Ambulatory dysfunction Generalized weakness L3 compression fracture Patient presents after mechanical fall CT of the lumbar spine shows acute to subacute appearing burst type compression fracture of L3 Evaluated by orthospine; continue pain control. Patient's gabapentin has been changed to Lyrica. She is on dexamethasone 4 mg IV daily; plan to continue steriod for 5 days. LSO brace PT/OT eval; dc to rehab in next few days. Hx MDS: Leukocytosis and anemia chronic, patient's daughter reports outpatient infusions every 3 weeks for MDS Hx HTN/ Continue amlodipine/metoprolol Hyperlipidemia- continue on statin Hx Alzheimer's dementia: Continue trazodone at bedtime Hx CKD:at baseline-monitor Full code DVT prophylaxis: Heparin subcu Please note the above document was generated using voice recognition software. It may contain grammatical, syntax or spelling errors. Any formal questions or concerns about the content, text or information contained within the body of this dictation should be directly addressed to the provider for clarification Admission and Anticipated Discharge Date Admission Date: March 24, 2025 Subjective Patient seen and examined at bedside. She is comfortable; not in any distress. Has not required pain medication for pain control. Review of Systems Review of Systems: All systems reviewed & are unremarkable except as noted in Subjective Physical Exam Physical Exam: Constitutional: WD/WN, vitals as above, NAD, sitting up in bed, pleasant, conversing easily Respiratory: normal respiratory effort, lungs clear to auscultation, no wheeze, rales, rhonchi. Normal insp/exp effort, no accessory muscle use Cardiovascular: RRR, no murmur, no edema Vessels: no JVD or carotid bruit Chest: normal inspection of chest Abdomen: normal bowel sounds, soft, nontender, no hepatosplenomegaly Musculoskeletal: Tenderness in lower spine Skin: no rashes, warm and dry normal turgor Neurologic: PERRL, EOMI, accommodation nl, no face palsy, no dysarthria CN's II- XI intact bilaterally and moves all extremities Psychiatric: A+Ox3, euthymic affect Results & Data Results & Data Vital Signs (Past 12 Hours) Vital Signs Temp Pulse Resp BP Pulse Ox O2 Del Method 03/25/25 07:11 36.9 C 87 16 136/69 97 Room Air 03/24/25 23:17 36.7 C 70 16 149/76 H 96 Room Air (6) Compression fracture of L3 vertebra Encounter type: initial encounter Qualified Code(s): S32.030A - Wedge compression fracture of third lumbar vertebra, initial encounter for closed fracture
[2025-03-25] MEDS: MAGNESIUM CITRATE 296 ML/BTL PO STA (10:31)
[2025-03-25] MEDS: dexAMETHasone 4 MG in SYRINGE 0 ML IV SCH (11:18)
[2025-03-26] MEDS: ACETAMINOPHEN 325 MG TAB PO PRN (06:04)
[2025-03-26 12:06] VITALS: RESP 18
--- NOTE | 2025-03-26 16:15 | Hospitalist Progress Note ---
Date of Service March 26, 2025 Assessment & Plan (1) Coronary artery disease: (2) Myelodysplastic syndrome: (3) Dementia: (4) HTN (hypertension): (5) HLD (hyperlipidemia): (6) Compression fracture of L3 vertebra: (7) Falls: Plan The patient is a 84-year-old female who presented to the ED on 04/14 s/p multiple mechanical falls over the past week, found to have an acute L3 compression fracture Ambulatory dysfunction Generalized weakness L3 compression fracture Patient presents after mechanical fall CT of the lumbar spine shows acute to subacute appearing burst type compression fracture of L3 Evaluated by orthospine; continue pain control. Patient's gabapentin has been changed to Lyrica. She is on dexamethasone 4 mg IV daily; plan to continue steriod for 5 days. LSO brace PT/OT eval; dc to rehab in next few days. Hx MDS: Leukocytosis and anemia chronic, patient's daughter reports outpatient infusions every 3 weeks for MDS Hx HTN/ Continue amlodipine/metoprolol Hyperlipidemia- continue on statin Hx Alzheimer's dementia: Continue trazodone at bedtime Hx CKD:at baseline-monitor Full code DVT prophylaxis: Heparin subcu possible dc to rehab [place]. Please note the above document was generated using voice recognition software. It may contain grammatical, syntax or spelling errors. Any formal questions or concerns about the content, text or information contained within the body of this dictation should be directly addressed to the provider for clarification Admission and Anticipated Discharge Date Admission Date: March 24, 2025 Subjective Patient seen and examined at bedside. She is comfortable; not in any distress. Reports pain under control. Physical Exam Physical Exam: Constitutional: WD/WN, vitals as above, NAD, pleasant, conversing easily Respiratory: normal respiratory effort, lungs clear to auscultation, no wheeze, rales, rhonchi. Normal insp/exp effort, no accessory muscle use Cardiovascular: RRR, no murmur, no edema Vessels: no JVD or carotid bruit Chest: normal inspection of chest Abdomen: normal bowel sounds, soft, nontender, no hepatosplenomegaly Musculoskeletal: Tenderness in lower spine Skin: no rashes, warm and dry normal turgor Neurologic: PERRL, EOMI, accommodation nl, no face palsy, no dysarthria CN's II- XI intact bilaterally and moves all extremities Psychiatric: A+Ox3, euthymic affect Results & Data Results & Data Vital Signs (Past 12 Hours) Vital Signs Temp Pulse Resp BP Pulse Ox O2 Del Method 03/26/25 14:39 36.6 C 81 18 115/68 95 Room Air 03/26/25 12:02 37.4 C 77 18 109/72 97 Room Air 03/26/25 08:16 37.1 C 63 16 192/71 H 94 Room Air (6) Compression fracture of L3 vertebra Encounter type: initial encounter Qualified Code(s): S32.030A - Wedge compression fracture of third lumbar vertebra, initial encounter for closed fracture
[2025-03-27 07:02] VITALS: BP 110/70; PULSE 80; TEMP 97.9; O2SAT 97
--- NOTE | 2025-03-27 12:32 | XRay Report ---
XR chest 1V portable CLINICAL HISTORY: palpable chest pain, ro rib fracture/other path COMPARISON STUDY: 03/24/2025 FINDINGS: Stable small hiatal hernia. Stable mild cardiomegaly without pulmonary vascular congestion. No consolidation or pleural effusion. No grossly displaced rib fractures seen. IMPRESSION: No acute findings. ACT 112: Negative or not required by law. Electronically signed by: Tao Valdes M.D. 03/27/2025 12:31 PM
--- NOTE | 2025-03-27 14:50 | Discharge Summary ---
Date of Service March 27, 2025 Admission HPI Per Admitting Provider The patient is an 84-year-old female with a past medical history of dementia, HTN, HLD, CAD, PVD, mild AR, breast cancer s/p mastectomy, CKD, MDS, anemia who presents to the ED on 03/24/25 with complaints on ongoing lower back pain and frequent falls. 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 The patient was found sitting next to her walker this a.m. by her daughter. Denies any loss of consciousness or head injuries. Patient was seen at [facility] about a week ago and was diagnosed with lumbar spinal stenosis. Scheduled to see an orthopedic doctor on 01 April the small but has not been seen yet. Prior to this back pain in the falls, the patient was using a cane independently to get around. Patient denies any fever/chills. She denies any nausea/vomiting/diarrhea/abdominal pain. On arrival to the ED, labs remarkable for WBC 15, hemoglobin 9.4, BUN 37, creatinine 1.41 Urinalysis negative Abdomen/pelvis CT showed an acute L3 burst fracture Lumbar spine CT shows an acute to subacute burst type compression fracture of L3, loss of height is mild Chest x-ray showed: Mild homogeneous opacification of the left lower zone obscures the left costophrenic recess. could be a left Small pleural effusion with underlying lung parenchymal inflammation. Suggest clinical and lab correlation. The patient will be admitted for further management of ambulatory dysfunction and L3 compression fracture Admission Exam Per Admitting Provider Constitutional: WD/WN, vitals as above Eyes: PERRL, conjunctivae normal, anicteric sclerae ENMT: external ear and nose normal, oropharynx normal Respiratory: normal respiratory effort, lungs clear to auscultation Cardiovascular: RRR, no murmur, no edema Gastrointestinal (Abdomen): normal bowel sounds, soft, nontender, no hepatosplenomegaly Musculoskeletal: no cyanosis or clubbing, extremities motor strength 5/5 Skin: no rashes, warm and dry Neurologic: PERRL, EOMI, accommodation nl, no face palsy, no dysarthria Psychiatric: A+Ox3, euthymic affect Lymphatic: no cervical or axillary lymphadenopathy Principal Diagnosis Ambulatory dysfunction Generalized weakness L3 compression fracture Discharge Exam Constitutional: WD/WN, vitals as above, NAD, pleasant, conversing easily Respiratory: normal respiratory effort, lungs clear to auscultation, no wheeze, rales, rhonchi. Normal insp/exp effort, no accessory muscle use Cardiovascular: RRR, no murmur, no edema Vessels: no JVD or carotid bruit Chest: normal inspection of chest Abdomen: normal bowel sounds, soft, nontender, no hepatosplenomegaly Musculoskeletal: Tenderness in lower spine Skin: no rashes, warm and dry normal turgor Neurologic: PERRL, EOMI, accommodation nl, no face palsy, no dysarthria CN's II- XI intact bilaterally and moves all extremities Psychiatric: A+Ox3, euthymic affect Discharge Data Allergies Allergy/AdvReac Type Severity Reaction Status Date / Time No Known Allergies Allergy Unverified 11/26/24 12:56 Consultations 03/24/25 09:18 ED Decision to Admit Stat 03/24/25 11:42 Consult Orthopedic Spine Surgery Routine 03/24/25 16:19 Consult Orthopedic Spine Surgery Routine Ordered Studies 03/24/25 06:54 CT abd pelvis IV con only Stat CT lumbar spine w con Stat Hospital Course (1) Coronary artery disease: (2) Myelodysplastic syndrome: (3) Dementia: (4) HTN (hypertension): (5) HLD (hyperlipidemia): (6) Compression fracture of L3 vertebra: (7) Falls: Plan The patient is a 84-year-old female who presented to the ED on 04/14 s/p multiple mechanical falls over the past week, found to have an acute L3 compression fracture Ambulatory dysfunction Generalized weakness L3 compression fracture Patient presents after mechanical fall CT of the lumbar spine shows acute to subacute appearing burst type compression fracture of L3 Evaluated by orthospine; continue pain control. Patient's gabapentin has been changed to Lyrica. She is on dexamethasone 4 mg IV daily; plan to continue steriod for 5 days. will be dc'd on 2 more days of steroid today. LSO brace PT/OT eval; dc to rehab today Hx MDS: Leukocytosis and anemia chronic, patient's daughter reports outpatient infusions every 3 weeks for MDS Hx HTN/ Continue amlodipine/metoprolol Hyperlipidemia- continue on statin Hx Alzheimer's dementia: Continue trazodone at bedtime Hx CKD:at baseline-monitor Full code DVT prophylaxis: Heparin subcu Patient is being discharged to rehab with following instructions at the point of discharge: Follow-up with your primary care physician within a week time and likely you will need labs CBC/CMP/magnesium/phosphorus. For your L3 compression fracture, continue with physical therapy, you will be discharged on pain medication. Complete the course of steroid. Continue to utilize LSO brace with activity. Follow-up with orthospine in 1 to 2 weeks time upon discharge. Take your medications as prescribed. Please make sure that you are able to get your medications today by calling your pharmacy before you leave the hospital so that your treatment continuity is not broken. Please note the above document was generated using voice recognition software. It may contain grammatical, syntax or spelling errors. Any formal questions or concerns about the content, text or information contained within the body of this dictation should be directly addressed to the provider for clarification Home Health Attestation I certify that this patient is under my care and that I, or a physicians data entry assistant working with me, had a face to-face encounter that meets the home health [id number] encounter requirements with this patient. The encounter with the patient was in whole, or in part, for the following medical condition, which is the primary reason for home health care (list medical condition): I certify that, based on my findings, the following services are medically necessary home health services: My clinical findings support the need for the above services because: Further, I certify that my clinical findings support that this patient is h omebound (i.e. absences from home require considerable and taxing effort and are for medical reasons or sabianism services or infrequently or of short duration when for other reasons) because: Certification for Home Health Services: Based on the above findings, I certify that this patient is confined to the home and needs intermittent shelter care, physical therapy and/or speech therapy or continues to need occupational therapy. The patient is under my care, and I have initiated the establishment of the plan of care. This patient will be followed by a physician who will periodically review the plan of care. Total Time Total Time Spent Total Time Spent (In Minutes): 35 Discharge Plan Discharge Items Patient Disposition: Transfer Inpatient Rehab Fac Reason For Visit: FALLS, WEAKNESS, 13 COMP FX Discharge Diagnosis: Ambulatory dysfunction Generalized weakness L3 compression fracture Condition on Discharge: Fair Activity: As commented below Activity Comment: continue with physical therapy at rehab Non-emergency contact: Primary Care Provider Call non-emergency contact if: you have any medication questions and your symptoms worsen Follow-up/Referrals: Lu Phillips DO [Primary Care Provider] - Diet: Heart Healthy Addtl Attending Provider Instructions: Follow-up with your primary care physician within a week time and likely you will need labs CBC/CMP/magnesium/phosphorus. For your L3 compression fracture, continue with physical therapy, you will be discharged on pain medication. Complete the course of steroid. Continue to utilize LSO brace with activity. Follow-up with orthospine in 1 to 2 weeks time upon discharge. Take your medications as prescribed. Please make sure that you are able to get your medications today by calling your pharmacy before you leave the hospital so that your treatment continuity is not broken. Pending Studies at Discharge: No Stand-Alone Forms: My [facility] Skilled Items Patient informed of condition?: Yes DNR: No Discharge Level of Care: Acute rehab Communicable Disease: No Discharge Prognosis: Stable Lines: None Urinary Catheter: No Medications and DC Order Prescriptions: New amlodipine 5 mg Tablet 2.5 mg PO QAM Qty: 15 0RF diclofenac sodium [Voltaren Arthritis Pain] 1 % Gel 4 g EXT Q12 PRN (Reason: right low back/hip pain) Qty: 100 0RF hydromorphone [Dilaudid] 2 mg Tablet 2 mg PO Q8H PRN (Reason: severe pain (scale score 7-10)) 5 Days Qty: 15 0RF pregabalin 25 mg Capsule 25 mg PO TID Qty: 90 0RF dexamethasone 4 mg tablet 4 mg PO DAILY 2 Days Qty: 2 0RF Continued multivitamin Tablet 1 tab PO QAM Patient Comments: 03/24- otc unable to verify atorvastatin 20 mg tablet 20 mg PO QAM trazodone 50 mg tablet 50 mg PO HS famotidine 40 mg tablet 40 mg PO HS aspirin 81 mg Tablet,Delayed Release (Dr/Ec) 0 mg PO QAM Patient Comments: 03/24- otc unable to verify metoprolol succinate 25 mg tablet extended release 24 hr 25 mg PO QAM lidocaine 5 % adhesive patch,medicated 1 patch topical DAILY Patient Comments: 03/24- last filled 03/09 30 day supply #30 oxycodone 5 mg tablet 5 mg PO Q6H PRN (Reason: Pain) Patient Comments: 03/24- last filled 03/20 5 day supply #45 Discontinued amlodipine 5 mg tablet 5 mg PO QAM gabapentin 100 mg capsule 100 - 300 mg PO TID PRN (Reason: Pain) Patient Comments: 03/24- last filled 03/20 5 day supply #45 Discharge Orders: Discharge Order (Routine); Ordered 03/27/25 Ordered By: Robin Ernst Admission Data Admit Date/Time: 03/24/25 10:04 Attending Provider: Robin Ernst Admit Provider: Ian Mckay Primary Care Provider: Lu Phillips Other Providers: Ian Mckay; Angel Naylor; Ben Dempsey; [place],[facility]; [facility]
--- NOTE | 2025-03-27 17:43 | Electrocardiogram Report ---
Test Reason : Blood Pressure : */* mmHG Vent. Rate : 79 BPM Atrial Rate : 79 BPM P-R Int : 174 ms QRS Dur : 80 ms QT Int : 372 ms P-R-T Axes : -7 -12 52 degrees QTcB Int : 426 ms Sinus rhythm with Premature supraventricular complexes possible Inferior infarct , age undetermined Anterior infarct (cited on or before 19-Nov-2024) Abnormal ECG Confirmed by Noel Mathew ([id number]) on 03/27/2025 5:43:33 PM Referred By: REFERRED SELF Confirmed By: Noel Mathew
== END 2025-03-27 17:31 | DRG 552 ==
LOC: ED 05:42 → SUATTDRO 10:04 → 3N 10:04

== ENCOUNTER 2025-04-09 14:06 | Inpatient (IN) ==
--- NOTE | 2025-04-09 14:35 | Emergency Department Note ---
Impression & Plan GI bleed, Symptomatic anemia, Weakness ED Provider Note NAME: KODY SHIN AGE: 84 SEX: F : 1940 ARRIVES VIA: Walk-In INFORMANT: Patient ED PROVIDER(S): Renny Orlando DO CHIEF COMPLAINT: Need for rehab HPI: Patient is an 84-year-old female with a recent fall in February with an L3 compression fracture who was seen and evaluated and placed in rehab. She was just discharged from rehab home. Per daughter who is present at bedside she notes that that she has been having trouble getting her around in the house. Denies any new focal weakness or numbness. No chest pain or shortness of breath. No dysuria, urgency, or frequency. No other exacerbating or remitting factors. ADDITIONAL HISTORY OBTAINED: Per HPI Chronic Medical/Social Conditions Affecting Care: Per HPI PAST MEDICAL HISTORY:See Below PAST SURGICAL HISTORY:See Below FAMILY HISTORY:See Below SOCIAL HISTORY:See Below HOME MEDICATIONS:See Below ALLERGIES:See Below VITALS:See Below PHYSICAL EXAMINATION: GENERAL: Sitting up in bed, alert, well appearing, well nourished, no distress, non-toxic EYE EXAM: normal conjunctiva. PERRL and EOM's grossly intact. OROPHARYNX: no exudate, no erythema, lips, buccal mucosa, and tongue normal and mucous membranes are moist NECK: supple, no nuchal rigidity, no adenopathy, non-tender LUNGS: Clear to auscultation. Normal chest wall mechanics HEART: no murmurs, S1 normal and S2 normal ABDOMEN: abdomen soft, non-tender, normo-active bowel sounds, no masses, no rebound or guarding. BACK: Back is symmetrical on inspection and there is no deformity, no midline tenderness, no CVA tenderness. SKIN: no rashes and no bruising UPPER EXTREMITIES: upper extremities are grossly normal. LOWER EXTREMITIES: No pitting edema. NEURO EXAM: Normal sensorium, cranial nerves II-XII grossly intact, normal speech, no gross weakness of arms, no gross weakness of legs. MEDICAL DECISION MAKING: Patient is a 84-year-old female who presents to the ER brought in by daughter for placement as she felt she was discharged too early from rehab. IV was established and blood work was obtained. Labs showed no significant leukocytosis. Hemoglobin of 6 down from 8-1/2. Rectally heme positive dark stool. Patient was placed on a Protonix drip and bolus. BMP with a creatinine 1.5. LFTs bilirubin and lipase was unremarkable. Patient was typed and screened and ordered 2 units PRBCs after discussion with daughter who was present at bedside as patient does have dementia. Consults/Care Managements Discussions: Per [facility] Triage Nursing notes reviewed. Limited review of prior medical records performed Vital Signs: reviewed and remarkable for no significant abnormalities Differential diagnosis: Infection, dehydration, metabolic abnormality, hypo/hyperglycemia, electrolyte disturbance, anemia, hypoxia, cardiac sources, intracerebral event, toxicologic, neurologic, as well as other pathologies. ER treatment provided: See below Diagnostics interpreted by me include EKG and cardiac monitoring as listed below: -Cardiac Monitoring: An order was placed for continuous cardiac monitoring. The monitor shows a rate of 80 with sinus rhythm. -ECG: none -Laboratory studies:Interpreted by me as stated above in MDM and shown below. Imaging studies: Xrays: As interpreted by me:none CTs show: none Procedures:none Critical Care: I have personally spent 33 minutes of critical care time in the direct management of this patient. This includes bedside care, interpretation of diagnostic studies, and testing, discussion with consultants, patient, and family members, and other required patient management activities. This 33 minutes is in excess of all separately billable procedures. Past Med/Surg History Problem List (Updated 04/09/25 @ 17:16 by Renny Orlando DO) Weakness (Acute) Symptomatic anemia (Acute) GI bleed (Acute) Falls (Acute) Compression fracture of L3 vertebra (Acute) Chronic kidney disease-mineral and bone disorder Chronic kidney disease (Acute) Medical History Coronary artery disease severe calcific vascular disease on imaging PFO (patent foramen ovale) Breast cancer 09/04 infiltrative ductal carcinoma. right total mastectomy with axillary node dissection and adjuvant radiation therapy. T2 N0 disease. Completed 5 years letrozole. Myelodysplastic syndrome with ringed sideroblast. follows with [facility] [place] Dementia Alzheimers type TIA (transient ischemic attack) HTN (hypertension) HLD (hyperlipidemia) Surgical History History of mastectomy, total right Family History Other Hypertension Social History Smoking Status: Never smoker Tobacco Type: Cigarettes Second Hand Exposure: No; Do You Dip or Chew Tobacco: No; Hx Alcohol Use: No Hx Substance Use: No Preferred Language: [place]ese Communication Ability: Effective Pediatric Critical Care Nurse Required: No Beliefs That Will Affect Care: None Current Living Situation: Family current occupational status: retired Feels Safe at Home: Yes Diet: regular caffeine: Yes (1-1.5 cups coffee daily) Dental Care, Regularly: Yes Physical Activity Frequency: Does not Exercise Seatbelt Use: always Do you think of yourself as: straight/heterosexual Gender Identity: Female Assistive Devices: Cane, Hearing Aid - Bilateral and Walker Allergies Allergies Allergy/AdvReac Type Severity Reaction Status Date / Time No Known Allergies Allergy Unverified 04/09/25 16:30 Home Meds Home Medications Medication Instructions Recorded Confirmed aspirin 81 mg tablet,delayed 81 mg PO QAM 03/31/24 04/09/25 release atorvastatin 20 mg tablet 20 mg PO QAM 03/31/24 04/09/25 famotidine 40 mg tablet 40 mg PO HS 03/31/24 04/09/25 metoprolol succinate 25 mg 25 mg PO QAM 03/31/24 04/09/25 tablet,extended release 24 hr multivitamin 1 tab PO QAM 03/31/24 04/09/25 trazodone 50 mg tablet 50 mg PO HS 03/31/24 04/09/25 levofloxacin 250 mg tablet 250 mg PO DAILY 04/09/25 04/09/25 lidocaine 4 % topical patch 1 patch topical DAILY 04/09/25 04/09/25 polyethylene glycol 3350 17 17 g PO Q2D 04/09/25 04/09/25 gram/dose oral powder (Miralax) Previous Rx's Medication Instructions Recorded amlodipine 5 mg tablet 2.5 mg (1/2 x 5 mg) PO QAM #15 tabs 03/27/25 diclofenac sodium 1 % topical gel 4 g EXT Q12 PRN right low back/hip 03/27/25 (Voltaren Arthritis Pain) pain #100 grams pregabalin 25 mg capsule 25 mg PO TID #90 caps 08/07/25 Results & Data (ED) Vital Signs Vital Signs - 24 hr 04/09/25 14:10 04/09/25 16:08 04/09/25 16:46 Temperature 36.3 C L Temperature Source Temporal Artery Scan Pulse Rate 80 72 Pulse Rate [Apical] 81 Pulse Rhythm Regular Respiratory Rate 18 16 Respiratory Effort / Characteristics Non-Labored Spontaneous Respiratory Depth Normal Respiratory Pattern Regular Blood Pressure 128/81 Blood Pressure [Right Arm] 163/85 H Blood Pressure Mean 96 Blood Pressure Mean [Right Arm] 111 Blood Pressure Position Sitting Pulse Oximetry 95 94 Oxygen Delivery Method Room Air Room Air Sepsis Recent Fever Within 48 Hours No Sepsis New/Unexplained Change in Mental Status No Sepsis Action Taken by Nursing No Action Required 04/09/25 16:46 Temperature Temperature Source Pulse Rate Pulse Rate [Apical] Pulse Rhythm Respiratory Rate Respiratory Effort / Characteristics Respiratory Depth Respiratory Pattern Blood Pressure Blood Pressure [Right Arm] Blood Pressure Mean Blood Pressure Mean [Right Arm] Blood Pressure Position Pulse Oximetry 94 Oxygen Delivery Method Room Air Sepsis Recent Fever Within 48 Hours Sepsis New/Unexplained Change in Mental Status Sepsis Action Taken by Nursing Laboratory Data 04/09/25 14:51 04/09/25 14:51 Lab Results 04/09/25 04/09/25 Range/Units 14:51 16:20 WBC 8.86 (4.8-10.8) K/ul RBC 1.82 L (4.20-5.40) M/uL Hgb 6.0 L* (12.0-16.0) g/dl Hct 18.4 L* (37.0-47.0) % MCV 101.1 H (80.0-100.0) fL MCH 33.0 (25.0-34.0) pg MCHC 32.6 (32.0-36.0) g/dL RDW Std Deviation 92.0 H (36.4-46.3) fL RDW Coeff of Jadiel 25.1 H (11.5-14.5) % Plt Count 494 H (130-400) K/uL MPV 10.1 (9.4-12.4) fL Immature Gran % (Auto) 1.7 % Neut % (Auto) 71.6 % Lymph % (Auto) 11.5 % Hockley % (Auto) 13.5 % Eos % (Auto) 1.5 % Baso % (Auto) 0.2 % Neut # (Auto) 6.34 (1.40-6.50) K/uL Lymph # (Auto) 1.02 L (1.20-3.40) K/uL [place]ockley # (Auto) 1.20 H (0.11-0.59) K/uL Eos # (Auto) 0.13 (0.00-0.50) K/uL Baso # (Auto) 0.02 (0.00-0.20) K/uL Immature Gran # (Auto) 0.15 (0.01-0.20) K/uL Absolute Nucleated RBC 0.04 (0.00-0.12) K/uL Nucleated RBC % (auto) 0.5 % Anisocytosis Present Rouleaux 1+ Sodium 136 (136-145) mmol/L Potassium 4.5 (3.5-5.1) mmol/L Chloride 107 (98-107) mmol/L Carbon Dioxide 22 (21-32) mmol/L Anion Gap 7 (3-11) BUN 33 H (6-23) mg/dl Creatinine 1.55 H (0.6-1.2) mg/dl Est Cr Clr Drug Dosing 27.6 ml/min eGFR 33.04 BUN/Creatinine Ratio 21.3 H (10-20) Glucose 154 H (70-99(Fasting)) mg/dl Calcium 9.2 (8.6-10.3) mg/dl Total Bilirubin 0.7 (0.2-1.0) mg/dl AST 15 (13-39) U/L ALT 15 (7-52) U/L Alkaline Phosphatase 69 (34-104) U/L Total Protein 6.6 (6.0-8.3) gm/dl Albumin 3.6 (3.4-5.0) gm/dl Globulin 3.0 (2.5-4.0) gm/dl Albumin/Globulin Ratio 1.2 (0.9-2) Lipase 54 (11-82) U/L Crossmatch See Detail Administered Medications Pantoprazole Sodium 40 mg/ (Dextrose) 100 mls @ 20 mls/hr IV Q5H KIARA Stop: 05/09/25 15:59 Last Admin: 04/09/25 16:51 Dose: 8 mg/hr, 20 mls/hr Documented By: DELLA Discontinued Medications Pantoprazole Sodium 80 mg/ (Dextrose) 120 mls @ 480 mls/hr IV NOW ONE Stop: 04/09/25 15:45 Last Infusion: 04/09/25 16:52 Dose: Infused Documented By: Admin: 04/09/25 16:32 Dose: 480 mls/hr Documented By: Discharge Plan Visit Data Chief Complaint: Back Injury/Pain Stated Complaint: FRACTURE VERTEBRAE MORE REHAB ED Provider: Renny Orlando Discharge Problem: GI bleed, Symptomatic anemia, Weakness Condition: Fair Forms Stand Alone Forms: My [facility] [place] [employer] Prescriptions Prescriptions: No Action multivitamin Tablet 1 tab PO QAM Patient Comments: 03/24- otc unable to verify atorvastatin 20 mg tablet 20 mg PO QAM trazodone 50 mg tablet 50 mg PO HS famotidine 40 mg tablet 40 mg PO HS aspirin 81 mg Tablet,Delayed Release (Dr/Ec) 81 mg PO QAM Patient Comments: 03/24- otc unable to verify metoprolol succinate 25 mg tablet extended release 24 hr 25 mg PO QAM amlodipine 5 mg Tablet 2.5 mg PO QAM Qty: 15 0RF diclofenac sodium [Voltaren Arthritis Pain] 1 % Gel 4 g EXT Q12 PRN (Reason: right low back/hip pain) Qty: 100 0RF pregabalin 25 mg Capsule 25 mg PO TID Qty: 90 0RF lidocaine 4 % Adhesive Patch,Medicated 1 patch TOPICAL DAILY polyethylene glycol 3350 [Miralax] 17 gram/dose Powder 17 g PO Q2D levofloxacin 250 mg tablet 250 mg PO DAILY Rx Instructions: BEGIN 04/09/25 X 4 DAYS. Referrals Referrals: Lu Phillips DO [Primary Care Provider] - Discharge Problem: GI bleed Qualifiers: GI bleed type/associated pathology: unspecified gastrointestinal hemorrhage type Qualified Code(s): K92.2 - Gastrointestinal hemorrhage, unspecified
[2025-04-09 15:21] LABS: Hematocrit (blood only) 18.4 % (37.0-47.0); Hemoglobin 6.0 g/dl (12.0-16.0); Mean Corpuscular Hemoglobin 33.0 pg (25.0-34.0); Mean Corpuscular Volume 101.1 fL (80.0-100.0); Platelet Count 494 K/uL (130-400); RDW Standard Deviation 92.0 fL (36.4-46.3); Red Blood Count 1.82 M/uL (4.20-5.40); White Blood Count 8.86 K/ul (4.8-10.8)
[2025-04-09] MEDS ORDERED: SODIUM CHLORIDE 0.9% 100 ML IV PRN (15:24)
[2025-04-09 15:34] LABS: Alanine Aminotransferase 15.0 U/L (7-52); Albumin Globulin Ratio 1.2 (0.9-2); Alkaline Phosphatase 69.0 U/L (34-104); Anion Gap 7.0 (3-11); Bilirubin,Total 0.7 mg/dl (0.2-1.0); Blood Urea Nitrogen 33.0 mg/dl (6-23); Calcium 9.2 mg/dl (8.6-10.3); Carbon Dioxide 22.0 mmol/L (21-32); Chloride 107.0 mmol/L (98-107); Creatinine Clr Calc Pharmacy 27.6 ml/min; Globulin 3.0 gm/dl (2.5-4.0); Glucose 154.0 mg/dl (70-99(Fasting)); Lipase 54.0 U/L (11-82); Potassium 4.5 mmol/L (3.5-5.1); Sodium 136.0 mmol/L (136-145); Total Protein 6.6 gm/dl (6.0-8.3)
[2025-04-09 15:54] LABS: Anisocytosis Present; Immature Granulocytes # (auto) 0.15 K/uL (0.01-0.20); Immature Granulocytes % (auto) 1.7 %; Rouleaux 1+
--- NOTE | 2025-04-09 16:17 | History & Physical Report ---
<Statement entered by José Dang, - 04/09/25 18:22> Patient seen and examined at bedside #Acute on chronic anemia -In setting of MDS and suspected UGIB -Acute blood loss anemia -Baseline Hgb around 8, down to 6 today in ED -Asymptomatic, incidental finding -FOBT positive. no other GI s/s acute blood loss anemia Plan -Protonix drip started in ED, can continue or switch to BID dosing -2 PRBCs ordered -REcheck Hgb in AM. -Appreciate GI input -Holding home ASA #? UTI. started on levaquin as OP yesterday for possible UTI although daughter at bedside reports negative urine culture. recheck urine here and if negative, stop FQ as she displays no s/s of a UTI. Date of Service April 09, 2025 Assessment & Plan (1) Symptomatic anemia: (2) GI bleed: (3) Compression fracture of L3 vertebra: (4) Chronic kidney disease: (5) Myelodysplastic syndrome: (6) Dementia: (7) HTN (hypertension): (8) HLD (hyperlipidemia): (9) Weakness: Plan 84 year old F presents after returning home post acute rehab stay for compression fracture; difficult for daugher to care for given limited mobility and dementia. Incidentally found to have acute GIB with Hgb 6.0. Pt will be admitted for further w/u of GIB will receive 2UPRBC, continue IV Protonix gtt, trend H/H, avoid nephrotoxic agents as able, await further evaluation from GI. Consider renal ultrasound and/or Nephro consult if worsening BLAIR. Will order PT/OT for further rehab placement reccs. GIB: Incidental finding of low hemoglobin 6.0; Baseline hemoglobin 8.3-8.6 Type and cross ordered and blood consent obtained in ED 2U PRBCs ordered; no transfusion reactions or complications with blood transfusions in the past Last transfusion was last October 2023 FOBT positive Takes MiraLAX every other day Started on Protonix drip in ED GI consult placed Hold baby aspirin for now Compression fracture of L3: Occurred s/p fall at the beginning on March Was discharged to this and followed up with orthospine yesterday 04/08 Patient has back brace on; recommended by orthospine for more weeks PT OT for placement purposes Takes Lyrica that was started at [facility]; continue UTI: Diagnosed 04/08 at [facility] Per patient's daughter urine culture negative Was ordered Levaquin at [facility] x 4 days, first dose given today; continue MDS: Chronic Follows Dr. Feliz Last transfusion was last October 2023 Baseline hemoglobin 8.3-8.6 not transfusion dependent Takes Reblozyl as outpatient HTN: chronic Takes amlodipine and metoprolol; continue as normotensive. If becomes hypotensive hold HLD: Chronic Takes atorvastatin; continue Disposition: PCP: Dr. Phillips Code Status: DNR/DNI VTE Prophylaxis: Teds and SCDs for now spoke with daughter outside of room and she feels that she can no longer take care of her mother at home given her advancing dementia; health that [facility] was too aggressive for her and would like to look at more of a skilled approach to her rehab with possible long-term placement thereafter. I spent a total of 82 minutes coordinating, documenting, and providing care for this patient excluding time spent inthe performance of separately billed services or time spent by another provider/QHP. History of Present Illness Chief Complaint: GIB Primary Care Provider: Lu Phillips DO Ms. Crowe is an 84 year old female that recently was admitted to [facility] s/p L3 fracture from 03/27-04/08 and returned home. Her daughter felt that she was persistently weak and felt she could not care for her at home. She is looking for SNF placement for continued rehab and possible fdc placement. Incidentally, she was found to have anemia and a suspected GIB with a hgb drop at 6.0. Her baseline is 8.3-8.6.. Pt does have a PMH that includes MDS and her last blood transfusion was 10/2023. She follows with [facility] for her MDS. An additional past medical history includes dementia, HTN, HLD and recent UTI. From a compression fracture perspective, she was seen for follow up with orthospine yesterday who recommended her back brace remain in place for another 4 weeks. No leukocytosis, Hgb 6.0, mild BLAIR creatinine 1.55; baseline around 1.2-1.3. On examination she is pleasantly confused, but able to participate in conversation. She is not in any apparent distress. She is normotensive without tachycardia. Patient is pleasantly confused at her baseline with her dementia. I spoke with daughter outside of room and she feels that she can no longer take care of her mother at home given her advancing dementia; health that [facility] was too aggressive for her and would like to look at more of a skilled approach to her rehab with possible long-term placement thereafter. Patient will be admitted for further evaluation of her GIB; will receive 2UPRBC, continue IV Protonix gtt, trend H/H, avoid nephrotoxic agents as able, await further evaluation from GI. Consider renal ultrasound and/or Nephro consult if worsening BLAIR. Will order PT/OT for further rehab placement reccs. Allergies Allergy/AdvReac Type Severity Reaction Status Date / Time No Known Allergies Allergy Unverified 04/09/25 16:30 Home Medications Medication Instructions Recorded Confirmed Type aspirin 81 mg tablet,delayed 81 mg PO QAM 03/31/24 04/09/25 History release atorvastatin 20 mg tablet 20 mg PO QAM 03/31/24 04/09/25 History famotidine 40 mg tablet 40 mg PO HS 03/31/24 04/09/25 History metoprolol succinate 25 mg 25 mg PO QAM 03/31/24 04/09/25 History tablet,extended release 24 hr multivitamin 1 tab PO QAM 03/31/24 04/09/25 History trazodone 50 mg tablet 50 mg PO HS 03/31/24 04/09/25 History amlodipine 5 mg tablet 2.5 mg (1/2 x 5 mg) PO QAM #15 tabs 03/27/25 04/09/25 Rx diclofenac sodium 1 % topical gel 4 g EXT Q12 PRN right low back/hip 03/27/25 04/09/25 Rx (Voltaren Arthritis Pain) pain #100 grams pregabalin 25 mg capsule 25 mg PO TID #90 caps 03/27/25 04/09/25 Rx levofloxacin 250 mg tablet 250 mg PO DAILY 04/09/25 04/09/25 History lidocaine 4 % topical patch 1 patch topical DAILY 04/09/25 04/09/25 History polyethylene glycol 3350 17 17 g PO Q2D 04/09/25 04/09/25 History gram/dose oral powder (Miralax) Past Med/Surg History Problem List (Updated 04/09/25 @ 17:16 by Renny Orlando DO) Weakness (Acute) Symptomatic anemia (Acute) GI bleed (Acute) Falls (Acute) Compression fracture of L3 vertebra (Acute) Chronic kidney disease-mineral and bone disorder Chronic kidney disease (Acute) Medical History Coronary artery disease severe calcific vascular disease on imaging PFO (patent foramen ovale) Breast cancer 09/04 infiltrative ductal carcinoma. right total mastectomy with axillary node dissection and adjuvant radiation therapy. T2 N0 disease. Completed 5 years letrozole. Myelodysplastic syndrome with ringed sideroblast. follows with [facility] [place] Dementia Alzheimers type TIA (transient ischemic attack) HTN (hypertension) HLD (hyperlipidemia) Surgical History History of mastectomy, total right Family History Other Hypertension Social History Smoking Status: Never smoker Tobacco Type: Cigarettes Second Hand Exposure: No; Do You Dip or Chew Tobacco: No; Hx Alcohol Use: No Hx Substance Use: No Preferred Language: Kazakh Communication Ability: Effective Property Management Specialist Required: No Beliefs That Will Affect Care: None Current Living Situation: Family current occupational status: retired Feels Safe at Home: Yes Diet: regular caffeine: Yes (1-1.5 cups coffee daily) Dental Care, Regularly: Yes Physical Activity Frequency: Does not Exercise Seatbelt Use: always Do you think of yourself as: straight/heterosexual Gender Identity: Female Assistive Devices: Cane, Hearing Aid - Bilateral and Walker Review of Systems Review of Systems: Neuro: (-) Falls, trauma, slurred speech HEENT: (-) MOULTON, dizziness, dysphagia, visual or auditory changes CV: (-) CP, palpitations, swelling Resp: (-) SOB GI: (-) appetite changes, N/V/D, bowel changes : (-) urinary changes Skin: (-) rashes Psych: (-) anxiety, depression Physical Exam Physical Exam: Neuro: AAOx2, PERRLA, no aphagia, memory changes, CNII-XII grossly intact HEENT: head normocephalic, moist mucus membranes CV: S1/S2, (-) M/G/R, (-) edema, cap refill < 3 seconds Resp: Lungs CTA in all obrien. On RA GI: Abdomen S/NT/ND, Ax4 bowel sounds, (-) CVA tenderness Musculoskeletal: 5/5 B/L UE strength, 5/5 B/L LE strength. No gait disturbance Skin: (-) rashes , (-) erythema. Psych: euthymic mood Results & Data Results & Data Vital Signs (Past 12 Hours) Vital Signs Temp Pulse Resp BP Pulse Ox O2 Del Method 04/09/25 16:08 72 04/09/25 14:10 36.3 C L 80 18 128/81 95 Room Air Laboratory Results Short CBC 04/09/25 Range/Units 14:51 WBC 8.86 (4.8-10.8) K/ul Hgb 6.0 L* (12.0-16.0) g/dl Hct 18.4 L* (37.0-47.0) % Plt Count 494 H (130-400) K/uL BMP 04/09/25 14:51 Sodium 136 Potassium 4.5 Chloride 107 Carbon Dioxide 22 BUN 33 H Creatinine 1.55 H Glucose 154 H Calcium 9.2 Liver Function 04/09/25 Range/Units 14:51 Total Bilirubin 0.7 (0.2-1.0) mg/dl AST 15 (13-39) U/L ALT 15 (7-52) U/L Alkaline Phosphatase 69 (34-104) U/L Albumin 3.6 (3.4-5.0) gm/dl Code Status & VTE Plan Code Status Full Code in the event of cardiac or respiratory arrest VTE Prophylaxis Plan VTE Prophylaxis will be ordered: Yes (2) GI bleed GI bleed type/associated pathology: unspecified gastrointestinal hemorrhage type Qualified Code(s): K92.2 - Gastrointestinal hemorrhage, unspecified (3) Compression fracture of L3 vertebra Encounter type: initial encounter Qualified Code(s): S32.030A - Wedge compression fracture of third lumbar vertebra, initial encounter for closed fracture (4) Chronic kidney disease Chronic kidney disease stage: stage 3 (moderate)
[2025-04-09] MEDS: PANTOprazole 40 MG in DEXTROSE 5% MINI-B 100 ML IV SCH (16:51)
[2025-04-09] MEDS ORDERED: MAGNESIUM HYDROXIDE SUSP 30 ML UDC PO PRN (18:55)
[2025-04-09] MEDS ORDERED: ALUMINUM/MAGNESIUM SUSP 30 ML UDC PO PRN (18:55)
[2025-04-09] MEDS ORDERED: POLYETHYLENE (MIRALAX) 17 GM PACK PO PRN (18:55)
[2025-04-09] MEDS: PANTOPRAZOLE BOLUS/DRIP IV STA (20:17)
[2025-04-09] MEDS: PREGABALIN 25 MG CAP PO SCH (20:21)
[2025-04-09 23:11] LABS: Appearance Urine Clear (Clear); Bacteria Urine Automated None Seen (None Seen); Cast Urine Automated 0-2 /lpf (0-2); Epithelial Cell Urine Auto 0-2 /hpf (0-2); Glucose Urine UA Negative (Negative); RBC Urine Automated 0-2 /hpf (0-2); WBC Urine Automated 21-50 /hpf (0-5)
[2025-04-10 01:39] LABS: Hematocrit (blood only) 31.1 % (37.0-47.0); Hemoglobin 10.5 g/dl (12.0-16.0)
[2025-04-10 06:41] LABS: Hematocrit (blood only) 30.8 % (37.0-47.0); Hemoglobin 10.8 g/dl (12.0-16.0); Mean Corpuscular Hemoglobin 32.5 pg (25.0-34.0); Mean Corpuscular Volume 92.8 fL (80.0-100.0); Platelet Count 346 K/uL (130-400); RDW Standard Deviation 73.0 fL (36.4-46.3); Red Blood Count 3.32 M/uL (4.20-5.40); White Blood Count 7.58 K/ul (4.8-10.8)
[2025-04-10 07:20] LABS: Anion Gap 8.0 (3-11); Calcium 9.0 mg/dl (8.6-10.3); Carbon Dioxide 20.0 mmol/L (21-32); Chloride 110.0 mmol/L (98-107); Potassium 4.2 mmol/L (3.5-5.1); Sodium 138.0 mmol/L (136-145)
[2025-04-10 07:25] LABS: Blood Urea Nitrogen 27.0 mg/dl (6-23); Creatinine Clr Calc Pharmacy 29.3 ml/min; Glucose 129.0 mg/dl (70-99(Fasting))
--- NOTE | 2025-04-10 09:46 | Gastrointestinal Consultation ---
Date of Consultation April 10, 2025 Assessment & Plan (1) Symptomatic anemia: -Continue IV Protonix gtt -Continue to monitor H/H -Keep NPO for EGD today. Patient and daughter agreeable to investigate for UGI sources of bleeding. Supervising Physician Co-Signing Physician Notes Worsening anemia. Patient taking NSAIDs and aspirin. Has myelodysplastic syndrome. EGD to evaluate potential upper GI source of bleeding source. Does have heartburn. Reviewed with patient and daughter patient has some dementia. Informed consent obtained from the daughter. History of Present Illness Reason for Consultation: "GIB" Attending Physician: Ruben Davila DO History of Present Illness Patient is an 84 yo female who presented to the ED due to persistent weakness. She had recently been in longterm rehab for a compression fracture but was not doing well at home. Her daughter brought her to the hospital. She was noted to have a hemoglobin of 6.0. She has a history of MDS and her baseline hemoglobin is around 8.3-8.6. Last blood transfusion prior to this admission was 10/2023. She follows with [facility] for her MDS. She denies melena, hematemesis, hematochezia, epigastric pain, nausea, or vomiting. She has occasional heartburn and reflux. She has dementia. She notes some NSAID use several weeks ago. She has smoked cigarettes since she was 13. She takes Aspirin. She has received 2 units of PRBCs. She is on IV Protonix drip. Repeat H/H this AM 10.8/30.8. Heme positive stool. Patient will be admitted for further evaluation of her GIB; will receive 2UPRBC, continue IV Protonix gtt, trend H/H, avoid nephrotoxic agents as able, await further evaluation from GI. Consider renal ultrasound and/or Nephro consult if worsening BLAIR. Will order PT/OT for further rehab placement recs. Unclear if she's had an EGD in the past. They do believe she has had numerous colonoscopies. Allergies Allergy/AdvReac Type Severity Reaction Status Date / Time No Known Allergies Allergy Unverified 04/09/25 16:30 Home Medications Medication Instructions Recorded Confirmed Type aspirin 81 mg tablet,delayed 81 mg PO QAM 03/31/24 04/09/25 History release atorvastatin 20 mg tablet 20 mg PO QAM 03/31/24 04/09/25 History famotidine 40 mg tablet 40 mg PO HS 03/31/24 04/09/25 History metoprolol succinate 25 mg 25 mg PO QAM 03/31/24 04/09/25 History tablet,extended release 24 hr multivitamin 1 tab PO QAM 03/31/24 04/09/25 History trazodone 50 mg tablet 50 mg PO HS 03/31/24 04/09/25 History amlodipine 5 mg tablet 2.5 mg (1/2 x 5 mg) PO QAM #15 tabs 03/27/25 04/09/25 Rx diclofenac sodium 1 % topical gel 4 g EXT Q12 PRN right low back/hip 03/27/25 04/09/25 Rx (Voltaren Arthritis Pain) pain #100 grams pregabalin 25 mg capsule 25 mg PO TID #90 caps 03/27/25 04/09/25 Rx levofloxacin 250 mg tablet 250 mg PO DAILY 04/09/25 04/09/25 History lidocaine 4 % topical patch 1 patch topical DAILY 04/09/25 04/09/25 History polyethylene glycol 3350 17 17 g PO Q2D 04/09/25 04/09/25 History gram/dose oral powder (Miralax) Patient History Medical History Coronary artery disease severe calcific vascular disease on imaging PFO (patent foramen ovale) Breast cancer 09/04 infiltrative ductal carcinoma. right total mastectomy with axillary node dissection and adjuvant radiation therapy. T2 N0 disease. Completed 5 years letrozole. Myelodysplastic syndrome with ringed sideroblast. follows with Dr. [facility] Dementia Alzheimers type TIA (transient ischemic attack) HTN (hypertension) HLD (hyperlipidemia) Surgical History History of mastectomy, total right Family History Other Hypertension Social History Smoking Status: Current every day smoker Tobacco Type: Cigarettes Second Hand Exposure: No; Do You Dip or Chew Tobacco: No; Tobacco Cessation Education Requested by Patient: No Hx Alcohol Use: No Hx Substance Use: No Preferred Language: Croatian Communication Ability: Effective Ibm Bpm Developer Required: No Beliefs That Will Affect Care: None Current Living Situation: Family current occupational status: retired Other Information That Helps Us Care for You: No Feels Safe at Home: Yes Safety Concerns: Feels Safe At This Time Diet: regular caffeine: Yes (1-1.5 cups coffee daily) Dental Care, Regularly: Yes Physical Activity Frequency: Does not Exercise Seatbelt Use: always Do you think of yourself as: straight/heterosexual Gender Identity: Female Assistive Devices: Hearing Aid - Bilateral, Hospital Bed and Walker Review of Systems Gastrointestinal: + heartburn; no abdominal pain, no nause a, no vomiting, no coffee ground emesis, no hematemesis, no change in stools, no diarrhea/loose stools, no blood in stools and no melena Physical Exam Constitutional: not ill appearing Respiratory: normal respiratory effort Cardiovascular: Rate/Rhythm: regular rate Gastrointestinal (Abdomen): normal bowel sounds, soft, nontender, no hepatosplenomegaly Psychiatric: Orientation: alert and oriented x 3 Results & Data Vital Signs (Past 12 Hours) Vital Signs Temp Pulse Pulse Resp BP BP Pulse Ox 04/10/25 07:44 36.6 C 69 18 150/79 H 97 04/10/25 07:43 72 04/10/25 04:00 36.9 C 62 18 161/83 H 94 04/10/25 00:46 64 04/09/25 23:53 36.6 C 73 16 162/71 H 97 04/09/25 22:51 36.5 C 71 18 181/75 H 93 04/09/25 22:28 62 04/09/25 21:51 37.0 C 74 18 186/76 H 95 O2 Del Method 04/10/25 07:44 Room Air 04/10/25 07:43 04/10/25 04:00 Room Air 04/10/25 00:46 04/09/25 23:53 04/09/25 22:51 04/09/25 22:28 04/09/25 21:51 PG Care Time/CCT Total # of Minutes Spent Total Time Spent with Patient: Total time spent is greater than 50% in coordination of care (as documented) at patient's floor/unit and/or counseling patient: Coding Level of Care Code 29483 INT INP/OBS CARE 3/75MIN Diagnoses Symptomatic anemia D64.9
--- NOTE | 2025-04-10 10:27 | Anesthesiology Consultation ---
Date of Service April 10, 2025 Assessment & Plan Chart Review Chart Review: Acceptable Risk for Surgery and Patient NOT seen in Pre Admission Testing Consults Requested none ASA ASA3 Proposed Anesthesia Anesthesia Type: MAC Risk / Benefits Reviewed With: PT / POA / Parent / Guardian, Accepts Plan and Informed Consent Obtained (Daughter provided written consent; all questions answered) History Surgery Operation Date: 04/10/25 16:45 Proposed Procedures p Esophagogastroduodenoscopy Dr. Timbo Izquierdo MD Height/Weight Height: 5 ft 3 in Weight: 78.2 kg Allergies Allergy/AdvReac Type Severity Reaction Status Date / Time No Known Allergies Allergy Unverified 04/09/25 16:30 Medications Home Medications Medication Instructions Recorded Confirmed Last Taken aspirin 81 mg tablet,delayed 81 mg PO QAM 03/31/24 04/09/25 04/09/25 08:20 release atorvastatin 20 mg tablet 20 mg PO QAM 03/31/24 04/09/25 04/09/25 08:30 famotidine 40 mg tablet 40 mg PO HS 03/31/24 04/09/25 04/08/25 20:30 metoprolol succinate 25 mg 25 mg PO QAM 03/31/24 04/09/25 04/09/25 08:30 tablet,extended release 24 hr multivitamin 1 tab PO QAM 03/31/24 04/09/25 03/30/24 trazodone 50 mg tablet 50 mg PO HS 03/31/24 04/09/25 04/08/25 20:30 amlodipine 5 mg tablet 2.5 mg (1/2 x 5 mg) PO QAM #15 tabs 03/27/25 04/09/25 04/09/25 08:20 diclofenac sodium 1 % topical gel 4 g EXT Q12 PRN right low back/hip 03/27/25 04/09/25 04/08/25 (Voltaren Arthritis Pain) pain #100 grams pregabalin 25 mg capsule 25 mg PO TID #90 caps 03/27/25 04/09/25 04/09/25 12:00 levofloxacin 250 mg tablet 250 mg PO DAILY 04/09/25 04/09/25 04/09/25 08:30 lidocaine 4 % topical patch 1 patch topical DAILY 04/09/25 04/09/25 Unknown polyethylene glycol 3350 17 17 g PO Q2D 04/09/25 04/09/25 Unknown gram/dose oral powder (Miralax) Active Medications Generic Name Dose Route Start Last Admin Trade Name Dedrick PRN Reason Stop Dose Admin Pregabalin 25 mg 04/09/25 21:00 04/09/25 20:21 Pregabalin 25 Mg Cap PO 05/09/25 20:59 25 mg TID KIARA Administration Trazodone HCl 50 mg 04/09/25 21:00 04/09/25 20:21 Trazodone Hcl 50 Mg Tab PO 05/09/25 20:59 50 mg HS KIARA Administration NPO Date Last Intake of Fluids: 04/09/21 Time Last Intake of Fluids: 23:00 Past Medical History Medical History Coronary artery disease severe calcific vascular disease on imaging PFO (patent foramen ovale) Breast cancer 09/04 infiltrative ductal carcinoma. right total mastectomy with axillary node dissection and adjuvant radiation therapy. T2 N0 disease. Completed 5 years letrozole. Myelodysplastic syndrome with ringed sideroblast. follows with Dr. [facility] Dementia Alzheimers type TIA (transient ischemic attack) HTN (hypertension) HLD (hyperlipidemia) Exercise / Class Metabolic Activity III < 4 Walking/Shop/Light housework Past Family History Family History Other Hypertension Past Surgical History Surgical History History of mastectomy, total right Past Anesthesia History No Hx of Anesthesia Complications and No Family Hx of Anesthesia Complications History of PONV No Hx of PONV and No Hx of Motion Sickness Social History Smoking Status: Current every day smoker Do You Dip or Chew Tobacco: No Hx Alcohol Use: No Hx Substance Use: No substance use type: does not use Review of Systems ROS Unobtainable: All systems reviewed & are unremarkable except as noted in HPI & below Physical Exam Vital Signs Last Vital Signs Temp 36.6 C 04/10/25 07:44 Pulse 69 04/10/25 07:44 Resp 18 04/10/25 07:44 BP 150/79 H 04/10/25 07:44 Pulse Ox 97 04/10/25 07:44 O2 Del Method Room Air 04/10/25 07:44 Constitutional + obese; no acute distress ENMT Mouth: + dentures Thyromental Distance: > or= 3.5 Finger Breadths Mallampati Class: II Neck normal visual inspection Respiratory normal respiratory effort; no respiratory distress Cardiovascular Rate/Rhythm: regular rate and regular rhythm Musculoskeletal Extremities: extremities normal to inspection Neurologic moves all extremities Psychiatric Orientation: alert and oriented x 3 (oriented to person only) Testing Laboratory Results 04/10/25 06:22 04/10/25 06:22 Urine Color Yellow 04/09/25 Unknown Urine Appearance Clear (Clear) 04/09/25 Unknown Urine pH 5.5 (4.5-7.5) 04/09/25 Unknown Ur Specific [place] 1.017 (1.000-1.030) 04/09/25 Unknown Urine Protein 1+ (Negative) H 04/09/25 Unknown Urine Glucose (UA) Negative (Negative) 04/09/25 Unknown Urine Ketones Negative (Negative) 04/09/25 Unknown Urine Nitrite Negative (Negative) 04/09/25 Unknown Ur Leukocyte Esterase 2+ (Negative) H 04/09/25 Unknown Urine WBC (Auto) 21-50 /hpf (0-5) H 04/09/25 Unknown Urine RBC (Auto) 0-2 /hpf (0-2) 04/09/25 Unknown U Hyaline Cast (Auto) 0-2 /lpf (0-2) 04/09/25 Unknown U Epithel Cells (Auto) 0-2 /hpf (0-2) 04/09/25 Unknown Urine Bacteria (Auto) None Seen (None Seen) 04/09/25 Unknown Blood Type B Positive 04/09/25 16:20 Antibody Screen NEGATIVE 04/09/25 16:20
--- NOTE | 2025-04-10 11:25 | Communication Note ---
Date of Service: April 10, 2025 EGD Large hiatal hernia. Jose erosion at the yuki of the diaphragm. A few poorly formed nonbleeding angiodysplastic lesions in the duodenum. These could not be made to bleed on direct contact. No bleeding source identified in the upper GI tract no active bleeding. The findings upper GI tract could be associate with iron deficiency anemia but would not typically be associated with a significant drop in hemoglobin as she is demonstrated. Her hemoglobin went from 6-10.8 after 2 units this is a more marked increase than you would expect for 2 units of packed cells were typically only 1 g of hemoglobin occurs per unit of transfused cells. Follow clinical course. Should evaluate for iron deficiency. With her hiatal hernia and Jose erosions which are traumatic erosions I would probably leave this patient on a PPI pantoprazole / omeprazole 40 mg/day.
--- NOTE | 2025-04-10 11:29 | Anesthesiology Progress Note ---
Date of Service April 10, 2025 Anesthesia Post Procedure Vital Signs Vital Signs: Temp Pulse Pulse Resp BP BP BP 04/10/25 11:24 37.0 C 65 16 146/80 H 04/10/25 11:18 04/10/25 10:46 37.0 C 79 16 04/10/25 07:44 36.6 C 69 18 150/79 H 04/10/25 07:43 72 04/10/25 04:00 36.9 C 62 18 161/83 H 04/10/25 00:46 64 04/09/25 23:53 36.6 C 73 16 162/71 H 04/09/25 22:51 36.5 C 71 18 181/75 H 04/09/25 22:28 62 04/09/25 21:51 37.0 C 74 18 186/76 H 04/09/25 21:21 36.5 C 87 18 163/77 H 04/09/25 21:06 36.7 C 68 18 170/79 H 04/09/25 20:47 36.6 C 63 18 167/75 H 04/09/25 20:25 36.5 C 78 18 169/88 H 04/09/25 19:52 36.6 C 75 18 173/74 H 04/09/25 18:52 36.6 C 71 178/76 H 04/09/25 18:22 37.1 C 69 18 149/81 H 04/09/25 18:07 37.2 C 72 16 158/69 H 04/09/25 17:45 36.9 C 68 19 158/94 H 04/09/25 17:44 36.9 C 68 16 158/94 H 04/09/25 16:46 04/09/25 16:46 81 16 163/85 H 04/09/25 16:08 72 04/09/25 14:10 36.3 C L 80 18 128/81 Pulse Ox O2 Del Method 04/10/25 11:24 93 Room Air 04/10/25 11:18 Room Air 04/10/25 10:46 95 Room Air 04/10/25 07:44 97 Room Air 04/10/25 07:43 04/10/25 04:00 94 Room Air 04/10/25 00:46 04/09/25 23:53 97 04/09/25 22:51 93 04/09/25 22:28 04/09/25 21:51 95 04/09/25 21:21 93 04/09/25 21:06 93 04/09/25 20:47 93 04/09/25 20:25 96 04/09/25 19:52 96 04/09/25 18:52 95 04/09/25 18:22 93 04/09/25 18:07 94 04/09/25 17:45 93 04/09/25 17:44 92 Room Air 04/09/25 16:46 94 Room Air 04/09/25 16:46 94 Room Air 04/09/25 16:08 04/09/25 14:10 95 Room Air Pain Intensity Lower Back: Pain Intensity: 7 Transfer of Care Handoff Completed per policy Notes Mental Status: alert / awake / arousable and participated in evaluation Nausea / Vomiting: adequately controlled Pain: adequately controlled Airway Patency, RR, SpO2: stable & adequate BP & HR: stable & adequate Hydration State: stable & adequate Anesthetic Complications: no major complications apparent and Pt Satisfied with anesthetic care
--- NOTE | 2025-04-10 11:32 | GI REPORT ---
[facility] Patient: KODY HSIN : 1940 Sex at : Female Age: 84 Years Procedure: Upper GI endoscopy Date: 04/10/2025 Attending Physician: Gucci Izquierdo MD Referring MD: Indications: - Suspected upper gastrointestinal bleeding - Significant fall in H&H, heme positive Medications: - Monitored Anesthesia Care Complications: - No immediate complications. Estimated Blood Loss: - Estimated blood loss: None. Procedure: - The egd scope was introduced through the mouth and advanced to the second part of the duodenum. - The upper GI endoscopy was accomplished without difficulty. - The patient tolerated the procedure well. Findings: - A large hiatal hernia was present. - A few small erosions with no bleeding and no stigmata of recent bleeding were found in the cardia. - Two diminutive angioectasias without bleeding were found in the second portion of the duodenum. Impression: - Large hiatal hernia. - Erosive gastropathy with no bleeding and no stigmata of recent bleeding. - Two non-bleeding angioectasias in the duodenum. - No specimens collected. - No blood in the upper GI tract. No active bleeding. She had a few Jose erosions which are traumatic erosions related to hiatal hernia. These had no stigmata of bleeding. There were few diminutive poorly formed red spots which could be AVMs in the duodenum. These could not be made to bleed on direct contact. Not likely to be sources of any significant bleeding. At this point situation may be related to her myelodysplastic syndrome. Should rule out iron deficiency. With her Jose erosions recommended PPI to prevent development of arash ulcerations. Recommendation: Procedure Code(s): - 66148, Esophagogastroduodenoscopy, flexible, transoral; diagnostic, including collection of specimen(s) by brushing or washing, when performed (separate procedure) Diagnosis Code(s): - K44.9, Diaphragmatic hernia without obstruction or gangrene - K31.89, Other diseases of stomach and duodenum - K31.819, Angiodysplasia of stomach and duodenum without bleeding CPT(R) - 2023 copyright [employer]. All Rights Reserved. The CPT codes, CCI edits and ICD codes generated are intended as suggestions and were generated based on input data. These codes are preliminary and upon progressive care manager review may be revised to meet current compliance and payer requirements. The provider is responsible for the final determination of appropriate codes, and modifiers. Gucci Izquierdo MD This document has been electronically signed. Note Initiated:04/10/2025 Note Completed:04/10/2025 11:32 AM \\[email or web address]\Results\[email or web address]\[id number]
--- NOTE | 2025-04-10 12:35 | Hospitalist Progress Note ---
Date of Service April 10, 2025 Assessment & Plan (1) Acute on chronic anemia: (2) Large hiatal hernia: (3) Erosive gastritis: (4) AVM (arteriovenous malformation) of stomach, acquired: (5) Myelodysplastic syndrome: (6) Compression fracture of L3 vertebra: (7) Dementia: (8) HTN (hypertension): (9) HLD (hyperlipidemia): (10) Chronic renal failure, stage 3b: (11) Coronary artery disease: Plan Patient 84-year-old female who presented with acute on chronic anemia. EGD did not reveal any definitive source of bleeding but did show hiatal hernia some erosive gastritis and some AVMs. Continue PPI orally 2 times daily Advance diet Monitor hemoglobin. Patient also still debilitated due to her L3 compression fracture, continue brace, continue with therapy evaluation Between the patient's and mobility and dementia daughter unable to care for her at home and looking for more of a long-term rehab placement, case management aware Due to the fact the patient received PRBCs x 2 units iron studies would be altered at this time after transfusion. Can consider iron studies in the future Renal function at baseline, monitor as needed Admission and Anticipated Discharge Date Admission Date: April 09, 2025 Subjective Patient feeling significantly improved after transfusion. Daughter at bedside as well. Physical Exam Physical Exam: Constitutional: Alert, nontoxic HEENT: Mucous membranes moist. Lungs: Clear to auscultation, decreased, no wheezes rales or rhonchi CV: S1-S2, regular Abdomen: Soft, nontender, nondistended Extremities: No significant edema Neuro: No focal deficits Psych: Cooperative, impaired memory Results & Data Results & Data Vital Signs (Past 12 Hours) Vital Signs Temp Pulse Pulse Resp BP BP Pulse Ox 04/10/25 11:57 71 16 151/78 H 95 04/10/25 11:38 60 16 163/76 H 93 04/10/25 11:24 37.0 C 65 16 146/80 H 93 04/10/25 11:18 04/10/25 10:46 37.0 C 79 16 95 04/10/25 07:44 36.6 C 69 18 150/79 H 97 04/10/25 07:43 72 04/10/25 04:00 36.9 C 62 18 161/83 H 94 04/10/25 00:46 64 O2 Del Method 04/10/25 11:57 Room Air 04/10/25 11:38 Room Air 04/10/25 11:24 Room Air 04/10/25 11:18 Room Air 04/10/25 10:46 Room Air 04/10/25 07:44 Room Air 04/10/25 07:43 04/10/25 04:00 Room Air 04/10/25 00:46 Diagnostic Findings Reviewed imaging, laboratory and diagnostic studies. Pertinent findings as below. Hemoglobin 10.8, significantly improved much more than expected with the transfusion of only 2 units of packed red blood cells Creatinine 1.44, baseline Reviewed EGD report (6) Compression fracture of L3 vertebra Encounter type: initial encounter Qualified Code(s): S32.030A - Wedge compression fracture of third lumbar vertebra, initial encounter for closed fracture (7) Dementia Dementia type: Alzheimer's Alzheimer's disease onset: late onset Dementia severity: moderate
[2025-04-10] MEDS: ATORVASTATIN 20 MG TAB PO SCH (12:46)
[2025-04-10] MEDS: METOPROLOL SUCC 25MG EXT REL TAB PO SCH (12:46)
[2025-04-10] MEDS: ACETAMINOPHEN 325 MG TAB PO PRN (14:50)
[2025-04-10] MEDS: LIDOCAINE 2% 2 ML VIAL/AMP(20MG/ML) INFIL ONE (15:07)
[2025-04-10] MEDS: PROPOFOL IV EMULSION 10 MG/ML 20 ML VIAL IV ONE (15:08)
[2025-04-10 22:44] VITALS: RESP 18
[2025-04-11 06:16] LABS: Hematocrit (blood only) 35.6 % (37.0-47.0); Hemoglobin 12.1 g/dl (12.0-16.0); Mean Corpuscular Hemoglobin 31.9 pg (25.0-34.0); Mean Corpuscular Volume 93.9 fL (80.0-100.0); Platelet Count 350 K/uL (130-400); RDW Standard Deviation 74.3 fL (36.4-46.3); Red Blood Count 3.79 M/uL (4.20-5.40); White Blood Count 7.97 K/ul (4.8-10.8)
[2025-04-11 06:47] LABS: Anion Gap 8.0 (3-11); Blood Urea Nitrogen 27.0 mg/dl (6-23); Calcium 9.1 mg/dl (8.6-10.3); Carbon Dioxide 21.0 mmol/L (21-32); Chloride 109.0 mmol/L (98-107); Creatinine Clr Calc Pharmacy 27.1 ml/min; Glucose 107.0 mg/dl (70-99(Fasting)); Potassium 4.0 mmol/L (3.5-5.1); Sodium 138.0 mmol/L (136-145)
[2025-04-11 07:44] VITALS: PULSE 74; TEMP 97.9; O2SAT 96
--- NOTE | 2025-04-11 11:10 | Discharge Summary ---
Discharge Summary Date of Service April 11, 2025 Principal Dx & Hospital Course #1 = Principal Diagnosis (1) Acute on chronic anemia: (2) Large hiatal hernia: (3) Erosive gastritis: (4) AVM (arteriovenous malformation) of stomach, acquired: (5) Myelodysplastic syndrome: (6) Compression fracture of L3 vertebra: (7) Dementia: (8) HTN (hypertension): (9) HLD (hyperlipidemia): (10) Chronic renal failure, stage 3b: (11) Coronary artery disease: Plan Patient 84-year-old female with known myelodysplasia syndrome and chronic anemia that has required transfusions in the past. However, patient's hemoglobin had been stable on the current treatment. Outpatient laboratory studies showed a significant drop in her hemoglobin and there was reported heme positive stool in the emergency department. Patient was admitted for this acute anemia. She was immediately transfused 2 units of packed red blood cells. With this intervention surprisingly her hemoglobin went from 6-10. This is a much greater since increase in hemoglobin then would be expected with just 2 units of packed red blood cells. GI consultation was obtained. She did undergo EGD. Did show hiatal hernia with some mild erosive gastritis but no evidence of bleeding. Her diet was advanced and she was continued on a PPI. Her pain was controlled with oral medications she has known compression fracture. Follow-up hemoglobin was even more significantly increased at 12 on the day of discharge. With these follow-up hemoglobins raises the suspicion that perhaps that initial hemoglobin of 6 was a lab error. There is no evidence of bleeding and the patient is doing well. She was quite deconditioned family was requesting admission back to rehab. Case management was involved in her care. They coordinated her to return to [facility]. Day of discharge vital signs are stable. Eating well. Pain is controlled. Can be discharged home to follow-up with her outpatient providers. Updated patient's daughter plans for discharge. She is agreeable and planning on transporting Notes For Next Care Provider Intermittently monitor hemoglobin Follow-up with her outpatient oncologist as previous Medication Changes From Visit Oxycodone as needed for pain Admission HPI Per Admitting Provider Ms. Crowe is an 84 year old female that recently was admitted to [facility] s/p L3 fracture from 03/27-04/08 and returned home. Her daughter felt that she was persistently weak and felt she could not care for her at home. She is looking for SNF placement for continued rehab and possible buttermaker placement. Incidentally, she was found to have anemia and a suspected GIB with a hgb drop at 6.0. Her baseline is 8.3-8.6.. Pt does have a PMH that includes MDS and her last blood transfusion was 10/2023. She follows with [facility] for her MDS. An additional past medical history includes dementia, HTN, HLD and recent UTI. From a compression fracture perspective, she was seen for follow up with orthospine yesterday who recommended her back brace remain in place for another 4 weeks. No leukocytosis, Hgb 6.0, mild BLAIR creatinine 1.55; baseline around 1.2-1.3. On examination she is pleasantly confused, but able to participate in conversation. She is not in any apparent distress. She is normotensive without tachycardia. Patient is pleasantly confused at her baseline with her dementia. I spoke with daughter outside of room and she feels that she can no longer take care of her mother at home given her advancing dementia; health that [facility] was too aggressive for her and would like to look at more of a skilled approach to her rehab with possible long-term placement thereafter. Patient will be admitted for further evaluation of her GIB; will receive 2UPRBC, continue IV Protonix gtt, trend H/H, avoid nephrotoxic agents as able, await further evaluation from GI. Consider renal ultrasound and/or Nephro consult if worsening BLIAR. Will order PT/OT for further rehab placement reccs. Admission Exam Per Admitting Provider See H&P Discharge Exam Constitutional: Alert, nontoxic, no acute distress HEENT: Mucous membranes moist. Lungs: Clear to auscultation, decreased, no wheezes rales or rhonchi CV: S1-S2, regular Abdomen: Soft, nontender, nondistended Extremities: No significant edema Musculoskeletal: Patient wearing supportive back brace Neuro: No focal deficits Psych: Cooperative, normal mood, impaired memory Updated Medication List Medication Instructions Recorded Confirmed Type famotidine 40 mg tablet 40 mg PO HS 03/31/24 04/09/25 History multivitamin 1 tab PO QAM 03/31/24 04/09/25 History levofloxacin 250 mg tablet 250 mg PO DAILY 04/09/25 04/09/25 History acetaminophen 500 mg tablet 1,000 mg (2 x 500 mg) PO Q6H PRN 04/11/25 Rx (Tylenol Extra Strength) pain (scale score 1-3) #100 tabs amlodipine 5 mg tablet 2.5 mg (1/2 x 5 mg) PO QAM #15 tabs 04/11/25 Rx aspirin 81 mg tablet,delayed 81 mg PO QAM #90 tabs 04/11/25 Rx release atorvastatin 20 mg tablet 20 mg PO QAM #30 tabs 04/11/25 Rx diclofenac sodium 1 % topical gel 4 g EXT Q12 PRN right low back/hip 04/11/25 Rx (Voltaren Arthritis Pain) pain #100 grams lidocaine 4 % topical patch 1 patch topical DAILY #30 ea 04/11/25 Rx metoprolol succinate 25 mg 25 mg PO QAM #30 tabs 04/11/25 Rx tablet,extended release 24 hr oxycodone 5 mg tablet 5 mg PO Q4H PRN pain #10 tabs 04/11/25 Rx pantoprazole 40 mg tablet,delayed 40 mg PO BID #60 tabs 04/11/25 Rx release polyethylene glycol 3350 17 17 g PO DAILY #30 grams 04/11/25 Rx gram/dose oral powder (Miralax) pregabalin 25 mg capsule 25 mg PO TID #90 caps 04/11/25 Rx trazodone 50 mg tablet 50 mg PO HS #30 tabs 04/11/25 Rx Hospital Stay Data Consultations 04/09/25 15:02 ED Decision to Admit Stat 04/09/25 16:16 Consult Gastroenterology Routine Procedures Performed Operation Date: 04/10/25 16:45 Actual Procedures p Esophagogastroduodenoscopy - Gucci Izquierdo MD Diagnostic Imagining Performed Reviewed imaging, laboratory and diagnostic studies. Pertinent findings as below. Hemoglobin 12.1 Platelets of 350 Electrolytes stable Creatinine 1.56 which is her baseline EGD again showed hiatal hernia, erosive gastritis questionable AVMs but no evidence of active bleeding Pending Results Patient Have Any Pending Studies at Discharge: No Discharge Instructions Given to Patient (Per Discharging Provider) Continue rehabilitation at rehab facility Follow-up with your specialist outpatient as previously scheduled Total Time Total Time Spent Total Time Spent (In Minutes): 34
[2025-04-11 12:13] VITALS: BP 150/79
--- NOTE | 2025-04-11 12:45 | Gastroenterology Progress Note ---
Date of Service April 11, 2025 Assessment & Plan (1) Jose ulcer: Plan: -Continue PPI -Continue to monitor H/H Admission and Anticipated Discharge Date Admission Date: April 09, 2025 Subjective Patient is an 84 yo female with anemia who underwent an EGD on 04/10/25 and was found to have Jose ulcerations. She notes she is feeling well today. H/H 12.1/35.6. Iron studies were recently performed through her ceo at [facility]. No further issues at present. Review of Systems Gastrointestinal: no abdominal pain, no hematemesis and no melena Physical Exam Gastrointestinal (Abdomen): normal bowel sounds, soft, nontender, no hepatosplenomegaly Results & Data Results & Data Vital Signs (Past 12 Hours) Vital Signs Temp Pulse Resp BP BP Pulse Ox O2 Del Method 04/11/25 12:12 36.6 C 74 18 166/82 H 150/79 H 96 04/11/25 08:24 Room Air 04/11/25 07:43 36.6 C 74 18 166/82 H 96 Room Air PG Care Time/CCT Total # of Minutes Spent Total Time Spent with Patient: Total time spent is greater than 50% in coordination of care (as documented) at patient's floor/unit and/or counseling patient: Coding Level of Care Code 03962 SUB INP/OBS CARE 2/35MIN Diagnoses Jose ulcer K25.9
--- NOTE | 2025-04-14 13:38 | Coding Query ---
To promote full compliance with coding requirements relating to patient care, provider participation is requested in all cases of demand generator manager uncertainty. Please assist us with the question(s) below: Coding Question(s): The diagnosis below was documented in the H&P, then subsequently fell off all further documentation. Please indicate if it is still a possible diagnosis or ruled out. Physician's Response(s): ACUTE BLOOD LOSS ANEMIA (documented on H&P) ( ) Diagnosed and POA (x ) Ruled out. Please specify the most likely type/source of Acute Anemia, or specify if unknown:_Suspect anemia with at baseline with suspected lab error initially showing acute blood loss. ( ) Other (please specify) MTDD
== END 2025-04-11 13:22 | DRG 379 ==
LOC: ED 14:06 → 2N 16:06 → SUATTDRO 16:06 → 2N 18:19

== ENCOUNTER 2025-05-17 11:11 | Inpatient (IN) ==
--- NOTE | 2025-05-17 11:54 | Emergency Department Note ---
ED Provider Note History of Present Illness Chief Complaint: Back Injury/Pain Stated Complaint: BACK PAIN Time Seen by Provider: 05/17/25 11:35 Source: patient and family Mode of arrival: ambulatory Limitations: no limitations Patient is an 84-year-old female who presents to the emergency department with her daughter at bedside with complaints of back pain. Patient's daughter reports that she had a compression fracture of her L3 approximately 1 month ago and then was sent to [facility] for rehab but notes that she had 2 new falls while at [facility] without subsequent imaging. Patient's daughter reports that she was not improving while she was at [facility] and actually seems to be regressing and having more difficulty ambulating so she brought her home. Patient's daughter reports that she has been doing 2 oxycodone and 500 mg of Tylenol at home for pain and it only helps with the pain for a brief time and then the pain returns. Patient's daughter reports that she is unable to complete the activities of daily living due to the discomfort that she is having. Patient's daughter is concerned that she may have further fracture and damage to her back after the subsequent falls. Patient denies any loss of bladder or bowel control. Patient also denies any numbness or tingling. Home Medications Medication Instructions Recorded Confirmed Type multivitamin 1 tab PO QAM 03/31/24 05/17/25 History acetaminophen 500 mg tablet 1,000 mg (2 x 500 mg) PO Q6H PRN 04/11/25 05/17/25 Rx (Tylenol Extra Strength) pain (scale score 1-3) #100 tabs amlodipine 5 mg tablet 2.5 mg (1/2 x 5 mg) PO QAM #15 tabs 04/11/25 05/17/25 Rx aspirin 81 mg tablet,delayed 81 mg PO QAM #90 tabs 04/11/25 05/17/25 Rx release atorvastatin 20 mg tablet 20 mg PO QAM #30 tabs 04/11/25 05/17/25 Rx metoprolol succinate 25 mg 25 mg PO QAM #30 tabs 04/11/25 05/17/25 Rx tablet,extended release 24 hr oxycodone 5 mg tablet 5 mg PO Q4H PRN pain #10 tabs 04/11/25 05/17/25 Rx pantoprazole 40 mg tablet,delayed 40 mg PO BID #60 tabs 04/11/25 05/17/25 Rx release polyethylene glycol 3350 17 17 g PO DAILY #30 grams 04/11/25 05/17/25 Rx gram/dose oral powder (Miralax) trazodone 50 mg tablet 50 mg PO HS #30 tabs 04/11/25 05/17/25 Rx calcitonin (salmon) 200 1 spray intranasal DAILY 05/17/25 05/17/25 History unit/actuation nasal spray Allergies Allergy/AdvReac Type Severity Reaction Status Date / Time No Known Allergies Allergy Unverified 04/09/25 16:30 Past Med/Surg History Problem List (Updated 05/17/25 @ 16:17 by Dinoarh Dennison PA-C) Closed L1 vertebral fracture (Acute) Jose ulcer AVM (arteriovenous malformation) of stomach, acquired Erosive gastritis Large hiatal hernia Chronic renal failure, stage 3b Acute on chronic anemia Weakness (Acute) Symptomatic anemia (Acute) GI bleed (Acute) Falls (Acute) Compression fracture of L3 vertebra (Acute) Chronic kidney disease-mineral and bone disorder Chronic kidney disease (Acute) Medical History Coronary artery disease severe calcific vascular disease on imaging PFO (patent foramen ovale) Breast cancer 09/04 infiltrative ductal carcinoma. right total mastectomy with axillary node dissection and adjuvant radiation therapy. T2 N0 disease. Completed 5 years letrozole. Myelodysplastic syndrome with ringed sideroblast. follows with Dr. 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 Required: No Beliefs That Will Affect Care: None Current Living Situation: Family current occupational status: retired Feels Safe at Home: Yes Diet: regular caffeine: Yes (1-1.5 cups coffee daily) Dental Care, Regularly: Yes Physical Activity Frequency: Does not Exercise Seatbelt Use: always Do you think of yourself as: straight/heterosexual Gender Identity: Female Assistive Devices: Cane and Walker Physical Exam Vital Signs Vital Signs - 24 hr 05/17/25 11:14 05/17/25 11:50 05/17/25 13:00 Temperature 36.4 C L Temperature Source Oral Pulse Rate 77 Pulse Rate [Finger] 80 Respiratory Rate 20 19 Respiratory Effort / Characteristics Non-Labored Non-Labored Spontaneous Respiratory Depth Normal Normal Respiratory Pattern Regular Regular Blood Pressure 129/80 Blood Pressure Mean 96 Pulse Oximetry 92 2 L Oxygen Delivery Method Room Air Room Air Nasal Cannula Sepsis Recent Fever Within 48 Hours No Sepsis New/Unexplained Change in Mental Status N/A Sepsis Action Taken by Nursing No Action Required VITAL SIGNS - Vital signs and nursing notes were reviewed. GENERAL -84-year-old female appearing her stated age and in noticeable discomfort throughout the exam. Patient's daughter is at bedside. NECK - FROM of the cervical spine. ABDOMEN - Abdominal contour without pulsations or visible masses. BS normoactive all four quadrants. MUSCULOSKELETAL - ROM of the lumbar spine region was limited due to discomfort. No step-off deformities were palpated down the cervical, thoracic, or lumbar spines. Increased tenderness to Palpation experienced at the level of the lumbar spine bilateral paraspinal muscle distribution. NEUROLOGIC - REFLEXES: +3/4 patellar reflexes B/L, +3/4 Achilles reflexes B/L. SENSORY: Spinothalamic tract was found to be intact with ability to discriminate sharp versus dull sensation at the level of hip joint down do the great toe. No sensory defects of the dorsal column were appreciated utilizing light touch for evaluation. CEREBELLAR: Pt able to perform rapid alternating movements of the feet. EXTREMITIES - Range of Motion - No tremors, ticks, or fasciculations of the lower extremities noticed during inspection. FROM of the lower extremities. Pt able to perform straight leg raises B/L without any difficulty, but does note some increased discomfort. Pt had + 4 strength appreciated bilaterally in the lower extremities against examiner's resistance. VASCULAR - Capillary refill of the great toe was brisk. No mottling or blanching of the extremities present. +3/5 dorsalis pedis pulses palpated bilaterally. Course Administered Medications Acetaminophen (Acetaminophen 500 Mg Tab) 1,000 mg PO Q8H KIARA Stop: 06/16/25 14:29 Last Admin: 05/17/25 15:45 Dose: 1,000 mg Documented By: daysi Hydromorphone HCl (Hydromorphone Inj 0.5 Mg/0.5 Ml Syr) 0.25 mg IV Q6H PRN PRN Reason: Severe Pain (Scale 7, 8, 9,10) Stop: 05/31/25 14:18 Last Admin: 05/17/25 15:45 Dose: 0.25 mg Documented By: daysi Discontinued Medications Fentanyl Citrate (Fentanyl Citrate Pf 100 Mcg/2 Ml Vial) 25 mcg IV NOW STA Stop: 05/17/25 11:51 Last Admin: 05/17/25 12:13 Dose: 25 mcg Documented By: GARRETT Ondansetron HCl (Ondansetron Inj 2 Mg/Ml 2 Ml Vial) 4 mg IV NOW STA Stop: 05/17/25 11:51 Last Admin: 05/17/25 12:09 Dose: 4 mg Documented By: GARRETT Medical Decision Making Differential Diagnosis Fracture, subluxation, anterolisthesis, degenerative change, muscular strain, sprain, among others Medical Records Attestation: I reviewed the patient's medical records. Home Medications was personally reviewed by me Laboratory Data Attestation: I reviewed the patient's lab results. 05/17/25 12:15 05/17/25 12:15 Lab Results 05/17/25 Range/Units 12:15 WBC 13.82 H (4.8-10.8) K/ul RBC 3.27 L (4.20-5.40) M/uL Hgb 10.0 L (12.0-16.0) g/dl Hct 31.0 L (37.0-47.0) % MCV 94.8 (80.0-100.0) fL MCH 30.6 (25.0-34.0) pg MCHC 32.3 (32.0-36.0) g/dL RDW Std Deviation 79.8 H (36.4-46.3) fL RDW Coeff of Jadiel 23.4 H (11.5-14.5) % Plt Count 312 (130-400) K/uL MPV 9.8 (9.4-12.4) fL Immature Gran % (Auto) 1.3 % Neut % (Auto) 84.2 % Lymph % (Auto) 4.4 % Putnam % (Auto) 9.3 % Eos % (Auto) 0.7 % Baso % (Auto) 0.1 % Neut # (Auto) 11.63 H (1.40-6.50) K/uL Lymph # (Auto) 0.61 L (1.20-3.40) K/uL Putnam # (Auto) 1.29 H (0.11-0.59) K/uL Eos # (Auto) 0.09 (0.00-0.50) K/uL Baso # (Auto) 0.02 (0.00-0.20) K/uL Immature Gran # (Auto) 0.18 (0.01-0.20) K/uL Absolute Nucleated RBC 0.25 H (0.00-0.12) K/uL Nucleated RBC % (auto) 1.8 % Polychromasia 2+ Basophilic Stippling 1+ Anisocytosis Present Ovalocytes 1+ Sodium 137 (136-145) mmol/L Potassium 4.4 (3.5-5.1) mmol/L Chloride 104 (98-107) mmol/L Carbon Dioxide 26 (21-32) mmol/L Anion Gap 7 (3-11) BUN 29 H (6-23) mg/dl Creatinine 1.61 H (0.6-1.2) mg/dl Est Cr Clr Drug Dosing Not Reportable eGFR 31.57 BUN/Creatinine Ratio 18.0 (10-20) Glucose 153 H (70-99(Fasting)) mg/dl Calcium 8.7 (8.6-10.3) mg/dl Total Bilirubin 2.3 H (0.2-1.0) mg/dl AST 17 (13-39) U/L ALT 17 (7-52) U/L Alkaline Phosphatase 64 (34-104) U/L Total Protein 6.1 (6.0-8.3) gm/dl Albumin 3.4 (3.4-5.0) gm/dl Globulin 2.7 (2.5-4.0) gm/dl Albumin/Globulin Ratio 1.3 (0.9-2) Imaging Data Radiologist's Impression: Thoracic Spine CT 05/17/25 11:50 EXAM: CT Thoracic and Lumbar Spine Without Intravenous Contrast INDICATION: Back pain and right radiculopathy. TECHNIQUE: Axial computed tomography images of the thoracic and lumbar spine without intravenous contrast. Sagittal and coronal reformatted images were created and reviewed. This CT exam was performed using one or more of the following dose reduction techniques: automated exposure control, adjustment of the mA and/or kV according to patient size, and/or use of iterative reconstruction technique. COMPARISON: Lumbar spine CT 03/24/2025 and plain radiographs of the thoracic spine 11/19/2024 FINDINGS: Vertebrae: The bones are demineralized. There is new slight decreased height loss of compression fracture of L3 since a prior study. No retropulsion and mild canal stenosis. Stable moderate to severe multilevel degenerative changes including anterolisthesis at L4-L5 and L5-S1. Mild superior endplate compression deformity of L1 has occurred since the prior exam. Appearance chronic. No retropulsion. Diffuse thoracolumbar spondylosis and lumbar facet arthrosis. Diffuse thoracolumbar disc base narrowing relatively sparing L2-L3, L3-L4 and L4-L5. Discs/spinal canal/neural foramina: See above. Soft tissues: No significant abnormality noted. Mediastinum: Moderate hiatal hernia. IMPRESSION: 1. Severe thoracolumbar osteoporosis and degenerative changes. 2. Very mild superior endplate insufficiency fracture with minimal concavity of L1 has occurred since the exam of 03/24/2025. 3. Stable compression fracture L3. 4. No acute change of the thoracic spine. ACT 112: N/A Electronically signed by Edith Parr 05-17-2025 13:[address] 05/17/25 11:53 EXAM: CT Thoracic and Lumbar Spine Without Intravenous Contrast INDICATION: Back pain and right radiculopathy. TECHNIQUE: Axial computed tomography images of the thoracic and lumbar spine without intravenous contrast. Sagittal and coronal reformatted images were created and reviewed. This CT exam was performed using one or more of the following dose reduction techniques: automated exposure control, adjustment of the mA and/or kV according to patient size, and/or use of iterative reconstruction technique. COMPARISON: Lumbar spine CT 03/24/2025 and plain radiographs of the thoracic spine 11/19/2024 FINDINGS: Vertebrae: The bones are demineralized. There is new slight decreased height loss of compression fracture of L3 since a prior study. No retropulsion and mild canal stenosis. Stable moderate to severe multilevel degenerative changes including anterolisthesis at L4-L5 and L5-S1. Mild superior endplate compression deformity of L1 has occurred since the prior exam. Appearance chronic. No retropulsion. Diffuse thoracolumbar spondylosis and lumbar facet arthrosis. Diffuse thoracolumbar disc base narrowing relatively sparing L2-L3, L3-L4 and L4-L5. Discs/spinal canal/neural foramina: See above. Soft tissues: No significant abnormality noted. Mediastinum: Moderate hiatal hernia. IMPRESSION: 1. Severe thoracolumbar osteoporosis and degenerative changes. 2. Very mild superior endplate insufficiency fracture with minimal concavity of L1 has occurred since the exam of 03/24/2025. 3. Stable compression fracture L3. 4. No acute change of the thoracic spine. ACT 112: N/A Electronically signed by Edith Parr 05-17-2025 13:15 PM MDM Narrative Patient is an 84-year-old female who presents to the emergency department with her daughter at bedside with complaints of back pain. Patient's daughter reports that she had a compression fracture of her L3 approximately 1 month ago and then was sent to [facility] for rehab but notes that she had 2 new falls while at [facility] without subsequent imaging. Patient's daughter reports that she was not improving while she was at [facility] and actually seems to be regressing and having more difficulty ambulating so she brought her home. Patient's daughter reports that she has been doing 2 oxycodone and 500 mg of Tylenol at home for pain and it only helps with the pain for a brief time and then the pain returns. Patient's daughter reports that she is unable to complete the activities of daily living due to the discomfort that she is having. Patient's daughter is concerned that she may have further fracture and damage to her back after the subsequent falls. Patient denies any loss of bladder or bowel control. Patient also denies any numbness or tingling. Patient was evaluated by myself and findings were noted in the physical exam above. Patient was ordered IV placement, lab work, urinalysis, and a CT of the thoracic and lumbar spines. Patient was also ordered a dose of fentanyl for her discomfort. Patient's lab work resulted with an elevated white blood cell count of 13.82. Patient has been on a tapered dose of prednisone which is the likely culprit for her elevated white blood cell count as the patient does not have any complaints of any urinary symptoms or abdominal pain that may be a source of that infection. Patient has some mild anemia with a hemoglobin of 10.0 and hematocrit of 31.0. That appears to be baseline levels for the patient as she has chronic issues with anemia. Patient had no significant electrolyte imbalance noted. Patient had a CT of the thoracic and lumbar spine that was completed and they were both interpreted by radiology to note some severe thoracolumbar osteoporosis and degenerative change. There is also note of a very mild superior endplate insufficiency fracture with minimal concavity at the L1 that is new since her previous imaging on March 24 of this year. I discussed these findings with the patient and her daughter at bedside and they both verbalized understanding. I discussed with the patient and her daughter at bedside that because her discomfort has been not been manageable at home that it would be reasonable for her to be admitted to the hospital for further evaluation by our medical service as well as orthopedic spine. It would also be reasonable for the patient to be considered for placement at a skilled facility for rehabilitation and would require hospitalization first. Patient verbalized understanding was agreeable to the plan for admission to the hospital with intentions of discharged to a rehabilitation facility. Patient's daughter was also agreeable to the plan. I spoke with the [facility] hospitalist group and gave them a full report of the patient's chief complaint, current status and the results of her imaging and lab work. Dr. Tejada agreed to admit the patient under his service for further evaluation and management. [facility] refer to [facility] team's documentation for further evaluation and management of this patient. Impression Compression fracture of L3 vertebra, Falls, Closed L1 vertebral fracture Discharge Plan Visit Data Chief Complaint: Back Injury/Pain Stated Complaint: BACK PAIN ED Provider: Eligio Nunn ED Midlevel Provider: Hellen Sosa Discharge Problem: Compression fracture of L3 vertebra, Falls, Closed L1 vertebral fracture Patient Disposition: Admitted As Inpatient Condition: Fair Discharge Instructions Interventions: ED Discharge Assessment Last Done: 05/17/25 15:02 ED DC CONDITION Conditon at Discharge Condition at Discharge: Fair Discharge Problem: Compression fracture of L3 vertebra Qualifiers: Encounter type: subsequent encounter Fracture healing: with routine healing Q ualified Code(s): S32.030D - Wedge compression fracture of third lumbar vertebra, subsequent encounter for fracture with routine healing Closed L1 vertebral fracture Qualifiers: Encounter type: initial encounter Fracture morphology: unspecified fracture morphology Qualified Code(s): S32.019A - Unspecified fracture of first lumbar vertebra, initial encounter for closed fracture
--- NOTE | 2025-05-17 11:54 | Emergency Department Note ---
ED Visit Note I was consulted by the Advanced Practice Provider, CORI Mcgee. I personally made/approved the management plan and take responsibility for the patient management. I performed a substantive portion of the visit. This includes the aspects of: -History/Physical/Personally seeing the patient -MDM .
[2025-05-17] MEDS: ONDANSETRON INJ 2 MG/ML 2 ML VIAL IV STA (12:09)
[2025-05-17 12:38] LABS: Hematocrit (blood only) 31.0 % (37.0-47.0); Hemoglobin 10.0 g/dl (12.0-16.0); Immature Granulocytes # (auto) 0.18 K/uL (0.01-0.20); Immature Granulocytes % (auto) 1.3 %; Mean Corpuscular Hemoglobin 30.6 pg (25.0-34.0); Mean Corpuscular Volume 94.8 fL (80.0-100.0); Platelet Count 312 K/uL (130-400); RDW Standard Deviation 79.8 fL (36.4-46.3); Red Blood Count 3.27 M/uL (4.20-5.40); White Blood Count 13.82 K/ul (4.8-10.8)
[2025-05-17 13:00] LABS: Alanine Aminotransferase 17 U/L (7-52); Albumin Globulin Ratio 1.3 (0.9-2); Albumin Level 3.4 gm/dl (3.4-5.0); Alkaline Phosphatase 64 U/L (34-104); Anion Gap 7 (3-11); Bilirubin,Total 2.3 mg/dl (0.2-1.0); Blood Urea Nitrogen 29 mg/dl (6-23); Calcium 8.7 mg/dl (8.6-10.3); Carbon Dioxide 26 mmol/L (21-32); Chloride 104 mmol/L (98-107); Globulin 2.7 gm/dl (2.5-4.0); Glucose 153 mg/dl (70-99(Fasting)); Potassium 4.4 mmol/L (3.5-5.1); Sodium 137 mmol/L (136-145); Total Protein 6.1 gm/dl (6.0-8.3)
--- NOTE | 2025-05-17 13:15 | CT Scan Report ---
EXAM: CT Thoracic and Lumbar Spine Without Intravenous Contrast INDICATION: Back pain and right radiculopathy. TECHNIQUE: Axial computed tomography images of the thoracic and lumbar spine without intravenous contrast. Sagittal and coronal reformatted images were created and reviewed. This CT exam was performed using one or more of the following dose reduction techniques: automated exposure control, adjustment of the mA and/or kV according to patient size, and/or use of iterative reconstruction technique. COMPARISON: Lumbar spine CT 03/24/2025 and plain radiographs of the thoracic spine 11/19/2024 FINDINGS: Vertebrae: The bones are demineralized. There is new slight decreased height loss of compression fracture of L3 since a prior study. No retropulsion and mild canal stenosis. Stable moderate to severe multilevel degenerative changes including anterolisthesis at L4-L5 and L5-S1. Mild superior endplate compression deformity of L1 has occurred since the prior exam. Appearance chronic. No retropulsion. Diffuse thoracolumbar spondylosis and lumbar facet arthrosis. Diffuse thoracolumbar disc base narrowing relatively sparing L2-L3, L3-L4 and L4-L5. Discs/spinal canal/neural foramina: See above. Soft tissues: No significant abnormality noted. Mediastinum: Moderate hiatal hernia. IMPRESSION: 1. Severe thoracolumbar osteoporosis and degenerative changes. 2. Very mild superior endplate insufficiency fracture with minimal concavity of L1 has occurred since the exam of 03/24/2025. 3. Stable compression fracture L3. 4. No acute change of the thoracic spine. ACT 112: N/A Electronically signed by Edith Parr 05-17-2025 13:15 PM
[2025-05-17 13:27] LABS: Anisocytosis Present; Basophilic Stippling 1+; Ovalocytes 1+; Polychromasia 2+
--- NOTE | 2025-05-17 13:47 | History & Physical Report ---
Date of Service May 17, 2025 Assessment & Plan (1) Closed L1 vertebral fracture: (2) Falls: (3) Compression fracture of L3 vertebra: (4) Weakness: (5) Dementia: (6) HTN (hypertension): (7) HLD (hyperlipidemia): (8) Chronic kidney disease: Plan This is an 84 y/o female with dementia, HTN, CAD, PVD, MDS, breast cancer s/p mastectomy, anemia, CKD3, and other history as outlined below who was brought to the ED today by her daughter due to severe back pain. Pt was diagnosed with acute L3 burst fracture in early March, sent to rehab at [facility] then [facility]. She has reportedly had two more falls at [facility], now with worsening lower back and right hip pain. Her pain has become more difficult to control, and patient has been significantly limited in her ambulation so daughter brought her to the ED today for evaluation. In the ED, CT of the thoracic and lumbar spine showed new superior endplate fracture of L1. She was referred for admission for pain control and possible placement for additional rehab though daughter requests that she not go back to [facility]. #Intractable back pain #L1 endplate fracture, L3 burst fracture #Recurrent falls #Ambulatory dysfunction - Admit to med surg - PT/OT evaluations - Scheduled acetaminophen, Lidocaine patch with prn oxycodone for mild to moderate patient, prn IV Dilaudid (low-dose) for severe pain - MRI L-spine - Consult ortho spine for additional recs - pt follows with [facility] - Consult pain management for assistance with pain control Patient's daughter requests that all providers/specialists call her for additional history and with updates as patient often does not remember events that occurred or discussions that are had due to her advanced dementia. #Chronic anemia/MDS - H&H appear to be at baseline, no evidence of acute blood loss - Continue to follow with Dr. Feliz outpatient #Hypertension - BP slightly elevated at present in the setting of pain - Chronic, continue outpatient regimen #Hyperlipidemia - Chronic, continue statin #Dementia - Fall precautions, frequent reorientation - Daughter requests updates as discussed - On trazodone at chronically - will continue #CKD3 - baseline creatinine around 1.5 - Creatinine today 1.6, continue to monitor Pt was seen and reviewed with collaborating physician, Dr. Tejada. Plan of care discussed and as outlined above. Daughter was at the bedside for the entire visit and contributed to the discussion. All of her questions were answered. Code status: DNR/DNI per pt's daughter DVT prophylaxis: subQ heparin Jocelyn Dennison PA-C History of Present Illness Chief Complaint: intractable back pain Primary Care Provider: Lu Phillips DO This is an 84 y/o female with dementia, HTN, CAD, PVD, MDS, breast cancer s/p mastectomy, anemia, and other history as outlined below who was brought to the ED today by her daughter due to severe back pain. Pt has advanced dementia so most of history was obtained from her daughter at the bedside and from review of outpatient notes from PCP/Rosemary and from recent admission. Pt was originally admitted to [facility] 03/24/25 to 03/27/25 after she had a series of falls at home with resultant back pain, imaging showed acute L3 burst fracture. This was managed conservatively and pt was discharged to [facility] where she was from 03/27-04/08 when she was discharged home. On 04/09, she was readmitted due to incidental finding of low hgb in the setting of possible GI bleed. She was evaluated by GI and underwent EGD that showed mild erosive gastritis, hiatal hernia but no evidence of bleeding. She was discharged to [facility] on 04/11 for continued rehab where she was from 04/11-05/07. There were reportedly two falls when she was at [facility] but no additional imaging completed. Pt's daughter reports that pt was not progressing there and in fact her pain and ambulatory dysfunction seemed worse so she brought her home. She was discharged on a prednisone taper. She saw her PCP on 05/09 due to ongoing pain who recommended MRI L-spine and attempted to prescribe Butrans patch, which insurance denied unless a prior authorization was completed. This is in process but pt has not been able to obtain this yet. Pt's daughter has been giving patient acetaminophen 500 mg plus oxycodone 10 mg over the last few days, which seems to provide only a couple hours of relief. Pt's pain is relieved when she is lying flat but becomes severe with sitting up or any attempt at ambulation. Because of the severity of the pain, pt has mostly been lying in bed. Daughter is her primary digital strategist but she also has a home health aide for four hours per day. Pt developed significant drowsiness and slurred speech on Lyrica, did not have significant relief on gabapentin, and developed an unknown cardiac reaction with morphine. Her back pain recently seems to be more in anterior right hip area, even into the groin at times. She uses a walker for ambulation. She denies chest pain, SOB, cough, N/V/D, fevers, chills. Her bowel pattern recently has tended towards constipation, for which the daughter has been giving patient Miralax. Allergies Allergy/AdvReac Type Severity Reaction Status Date / Time No Known Allergies Allergy Unverified 04/09/25 16:30 Home Medications Medication Instructions Recorded Confirmed Type multivitamin 1 tab PO QAM 03/31/24 05/17/25 History acetaminophen 500 mg tablet 1,000 mg (2 x 500 mg) PO Q6H PRN 04/11/25 05/17/25 Rx (Tylenol Extra Strength) pain (scale score 1-3) #100 tabs amlodipine 5 mg tablet 2.5 mg (1/2 x 5 mg) PO QAM #15 tabs 04/11/25 05/17/25 Rx aspirin 81 mg tablet,delayed 81 mg PO QAM #90 tabs 04/11/25 05/17/25 Rx release atorvastatin 20 mg tablet 20 mg PO QAM #30 tabs 04/11/25 05/17/25 Rx metoprolol succinate 25 mg 25 mg PO QAM #30 tabs 04/11/25 05/17/25 Rx tablet,extended release 24 hr oxycodone 5 mg tablet 5 mg PO Q4H PRN pain #10 tabs 04/11/25 05/17/25 Rx pantoprazole 40 mg tablet,delayed 40 mg PO BID #60 tabs 04/11/25 05/17/25 Rx release polyethylene glycol 3350 17 17 g PO DAILY #30 grams 04/11/25 05/17/25 Rx gram/dose oral powder (Miralax) trazodone 50 mg tablet 50 mg PO HS #30 tabs 04/11/25 05/17/25 Rx calcitonin (salmon) 200 1 spray intranasal DAILY 05/17/25 05/17/25 History unit/actuation nasal spray Past Med/Surg History Problem List (Updated 05/17/25 @ 16:17 by Dinorah Jesi, PA-C) Closed L1 vertebral fracture (Acute) Jose ulcer AVM (arteriovenous malformation) of stomach, acquired Erosive gastritis Large hiatal hernia Chronic renal failure, stage 3b Acute on chronic anemia Weakness (Acute) Symptomatic anemia (Acute) GI bleed (Acute) Falls (Acute) Compression fracture of L3 vertebra (Acute) Chronic kidney disease-mineral and bone disorder Chronic kidney disease (Acute) Medical History Coronary artery disease severe calcific vascular disease on imaging PFO (patent foramen ovale) Breast cancer 09/04 infiltrative ductal carcinoma. right total mastectomy with axillary node dissection and adjuvant radiation therapy. T2 N0 disease. Completed 5 years letrozole. Myelodysplastic syndrome with ringed sideroblast. follows with [facility] [place] Dementia Alzheimers type TIA (transient ischemic attack) HTN (hypertension) HLD (hyperlipidemia) Surgical History History of mastectomy, total right Family History Other Hypertension Social History Smoking Status: Former smoker Tobacco Type: Cigarettes Second Hand Exposure: No; Do You Dip or Chew Tobacco: No; Hx Alcohol Use: No Hx Substance Use: No Preferred Language: [place] Communication Ability: Impaired Ampoule Inspector Required: No Beliefs That Will Affect Care: None Current Living Situation: Family current occupational status: retired Feels Safe at Home: Yes Diet: regular caffeine: Yes (1-1.5 cups coffee daily) Dental Care, Regularly: Yes Physical Activity Frequency: Does not Exercise Seatbelt Use: always Do you think of yourself as: straight/heterosexual Gender Identity: Female Assistive Devices: Cane and Walker Review of Systems Review of Systems: Limited due to advanced dementia - see HPI Physical Exam Physical Exam: Please see physician note for details of the physical exam. Results & Data Results & Data Vital Signs (Past 12 Hours) Vital Signs Temp Pulse Resp BP Pulse Ox O2 Del Method 05/17/25 11:50 Room Air 05/17/25 11:14 36.4 C L 77 20 129/80 92 Room Air Laboratory Results Lab Results 05/17/25 Range/Units 12:15 WBC 13.82 H (4.8-10.8) K/ul RBC 3.27 L (4.20-5.40) M/uL Hgb 10.0 L (12.0-16.0) g/dl Hct 31.0 L (37.0-47.0) % MCV 94.8 (80.0-100.0) fL MCH 30.6 (25.0-34.0) pg MCHC 32.3 (32.0-36.0) g/dL RDW Std Deviation 79.8 H (36.4-46.3) fL RDW Coeff of Jadiel 23.4 H (11.5-14.5) % Plt Count 312 (130-400) K/uL MPV 9.8 (9.4-12.4) fL Immature Gran % (Auto) 1.3 % Neut % (Auto) 84.2 % Lymph % (Auto) 4.4 % Bond % (Auto) 9.3 % Eos % (Auto) 0.7 % Baso % (Auto) 0.1 % Neut # (Auto) 11.63 H (1.40-6.50) K/uL Lymph # (Auto) 0.61 L (1.20-3.40) K/uL Bond # (Auto) 1.29 H (0.11-0.59) K/uL Eos # (Auto) 0.09 (0.00-0.50) K/uL Baso # (Auto) 0.02 (0.00-0.20) K/uL Immature Gran # (Auto) 0.18 (0.01-0.20) K/uL Absolute Nucleated RBC 0.25 H (0.00-0.12) K/uL Nucleated RBC % (auto) 1.8 % Polychromasia 2+ Basophilic Stippling 1+ Anisocytosis Present Ovalocytes 1+ Sodium 137 (136-145) mmol/L Potassium 4.4 (3.5-5.1) mmol/L Chloride 104 (98-107) mmol/L Carbon Dioxide 26 (21-32) mmol/L Anion Gap 7 (3-11) BUN 29 H (6-23) mg/dl Creatinine 1.61 H (0.6-1.2) mg/dl Est Cr Clr Drug Dosing Not Reportable eGFR 31.57 BUN/Creatinine Ratio 18.0 (10-20) Glucose 153 H (70-99(Fasting)) mg/dl Calcium 8.7 (8.6-10.3) mg/dl Total Bilirubin 2.3 H (0.2-1.0) mg/dl AST 17 (13-39) U/L ALT 17 (7-52) U/L Alkaline Phosphatase 64 (34-104) U/L Total Protein 6.1 (6.0-8.3) gm/dl Albumin 3.4 (3.4-5.0) gm/dl Globulin 2.7 (2.5-4.0) gm/dl Albumin/Globulin Ratio 1.3 (0.9-2) Diagnostic Findings Thoracic Spine CT 05/17/25 11:50 EXAM: CT Thoracic and Lumbar Spine Without Intravenous Contrast INDICATION: Back pain and right radiculopathy. TECHNIQUE: Axial computed tomography images of the thoracic and lumbar spine without intravenous contrast. Sagittal and coronal reformatted images were created and reviewed. This CT exam was performed using one or more of the following dose reduction techniques: automated exposure control, adjustment of the mA and/or kV according to patient size, and/or use of iterative reconstruction technique. COMPARISON: Lumbar spine CT 03/24/2025 and plain radiographs of the thoracic spine 11/19/2024 FINDINGS: Vertebrae: The bones are demineralized. There is new slight decreased height loss of compression fracture of L3 since a prior study. No retropulsion and mild canal stenosis. Stable moderate to severe multilevel degenerative changes including anterolisthesis at L4-L5 and L5-S1. Mild superior endplate compression deformity of L1 has occurred since the prior exam. Appearance chronic. No retropulsion. Diffuse thoracolumbar spondylosis and lumbar facet arthrosis. Diffuse thoracolumbar disc base narrowing relatively sparing L2-L3, L3-L4 and L4-L5. Discs/spinal canal/neural foramina: See above. Soft tissues: No significant abnormality noted. Mediastinum: Moderate hiatal hernia. IMPRESSION: 1. Severe thoracolumbar osteoporosis and degenerative changes. 2. Very mild superior endplate insufficiency fracture with minimal concavity of L1 has occurred since the exam of 03/24/2025. 3. Stable compression fracture L3. 4. No acute change of the thoracic spine. ACT 112: N/A Electronically signed by Edith Parr 05-17-2025 13:[address] 05/17/25 11:53 EXAM: CT Thoracic and Lumbar Spine Without Intravenous Contrast INDICATION: Back pain and right radiculopathy. TECHNIQUE: Axial computed tomography images of the thoracic and lumbar spine without intravenous contrast. Sagittal and coronal reformatted images were created and reviewed. This CT exam was performed using one or more of the following dose reduction techniques: automated exposure control, adjustment of the mA and/or kV according to patient size, and/or use of iterative reconstruction technique. COMPARISON: Lumbar spine CT 03/24/2025 and plain radiographs of the thoracic spine 11/19/2024 FINDINGS: Vertebrae: The bones are demineralized. There is new slight decreased height loss of compression fracture of L3 since a prior study. No retropulsion and mild canal stenosis. Stable moderate to severe multilevel degenerative changes including anterolisthesis at L4-L5 and L5-S1. Mild superior endplate compression deformity of L1 has occurred since the prior exam. Appearance chronic. No retropulsion. Diffuse thoracolumbar spondylosis and lumbar facet arthrosis. Diffuse thoracolumbar disc base narrowing relatively sparing L2-L3, L3-L4 and L4-L5. Discs/spinal canal/neural foramina: See above. Soft tissues: No significant abnormality noted. Mediastinum: Moderate hiatal hernia. IMPRESSION: 1. Severe thoracolumbar osteoporosis and degenerative changes. 2. Very mild superior endplate insufficiency fracture with minimal concavity of L1 has occurred since the exam of 03/24/2025. 3. Stable compression fracture L3. 4. No acute change of the thoracic spine. ACT 112: N/A Electronically signed by Ediht Parr 05-17-2025 13:15 PM Medications Administered Discontinued Medications Fentanyl Citrate (Fentanyl Citrate Pf 100 Mcg/2 Ml Vial) 25 mcg IV NOW STA Stop: 05/17/25 11:51 Last Admin: 05/17/25 12:13 Dose: 25 mcg Documented By: GARRETT Ondansetron HCl (Ondansetron Inj 2 Mg/Ml 2 Ml Vial) 4 mg IV NOW STA Stop: 05/17/25 11:51 Last Admin: 05/17/25 12:09 Dose: 4 mg Documented By: Supervising Physician Co-Signing Physician Notes Brought in by daughter for worsening back pain limiting activity Pain is mostly in right lower back/hip/upper thigh, worse with movement. Not controlled with current home meds Since last hospital discharge, she fell twice at [facility] before discharge home from there. Patient has dementia and does not remember fall or pain but has severe pain while being moved or turned during evaluation On exam, General: Elderly woman in no distress Eyes: PERRL, conjunctivae normal, not pale, anicteric sclerae, EOM intact bilaterally ENMT: External ear and nose normal, oropharynx normal Respiratory: Normal respiratory effort, no respiratory distress, lungs clear to auscultation, no crackles and no wheezes Cardiovascular: RRR S1 S2 Gastrointestinal (Abdomen): Abdomen is not distended, soft, non-tender to palpation, normal bowel sounds Musculoskeletal: No pain at rest but right hip/back pain with turning in bed or sitting, +pedal edema Neurologic: Alert and oriented to person only. +memory deficits Psychiatric: Cooperative Lab notable for WBC 13.8, Hb 10, Cr 1.61, TBil 2.3 CT Thoracolumbar noted severe thoracolumbar osteoporosis and degenerative changes, very mild superior endplate insufficiency fracture with minimal concavity of L1 has occurred since 03/24/25, stable compression fracture of L3 Daughter reports she has one more day of her prednisone taper and has appt with [facility] on Monday and [facility] on Monday Will get Ortho spine surgery and Pain management to see her while inpatient Leukocytosis likely due to steroid Scheduled tylenol, Prn oxycodone, prn dilaudid 0.25mg for severe pain Lidocaine patch PT/OT Other plans as detailed by Vicki Dennison PA-C (1) Closed L1 vertebral fracture Encounter type: initial encounter Fracture morphology: unspecified fracture morphology Qualified Code(s): S32.019A - Unspecified fracture of first lumbar vertebra, initial encounter for closed fracture (3) Compression fracture of L3 vertebra Encounter type: subsequent encounter Fracture healing: with routine healing Qualified Code(s): S32.030D - Wedge compression fracture of third lumbar vertebra, subsequent encounter for fracture with routine healing (5) Dementia Dementia type: Alzheimer's Alzheimer's disease onset: late onset Dementia severity: moderate Dementia behavioral or psychological symptom: without behavioral, psychotic, or mood disturbance or anxiety Qualified Code(s): G30.1 - Alzheimer's disease with late onset; F02.B0 - Dementia in other diseases classified elsewhere, moderate, without behavioral disturbance, psychotic disturbance, mood disturbance, and anxiety (6) HTN (hypertension) Hypertension type: unspecified Qualified Code(s): I10 - Essential (primary) hypertension (7) HLD (hyperlipidemia) Hyperlipidemia type: unspecified Qualified Code(s): E78.5 - Hyperlipidemia, unspecified (8) Chronic kidney disease Chronic kidney disease stage: stage 3 (moderate) Chronic kidney disease stage 3 subtype: unspecified whether 3a or 3b Qualified Code(s): N18.30 - Chronic kidney disease, stage 3 unspecified
[2025-05-17] MEDS: ACETAMINOPHEN 500 MG TAB PO SCH (15:45)
[2025-05-17] MEDS: HYDROmorphone INJ 0.5 MG/0.5 ML SYR IV PRN (15:45)
[2025-05-17] MEDS: LORazepam 0.5 MG TAB PO PRN (17:02)
[2025-05-17] MEDS: GADOBUTROL 65ML VIAL IV ONE (17:22)
[2025-05-17] MEDS: LIDOCAINE 5% 1 PATCH TD ONE (17:40)
[2025-05-17] MEDS: Patient's HEIGHT &/or WEIGHT Needed STA (18:53)
--- NOTE | 2025-05-17 18:57 | Magnetic Resonance Report ---
INDICATION: Fracture, pain COMPARISON: CAT scan 03/24/2025 FINDINGS: CONUS MEDULLARIS: Unremarkable terminating at L1-L2. PARASPINAL AREA: No paraspinal mass or adenopathy. BONES: Known severe subacute compression fracture of L3 which is slightly worsened. New minimal acute fracture through the inferior endplate of L2. Minimal acute fracture of the superior endplate of L1 is also noted. Stable spondylolisthesis of L5 on S1. Degenerative marrow signal changes throughout the lumbar spine. OTHER: No abnormal enhancement is appreciated. LUMBAR DISC LEVELS: At the L1-L2 level, there is moderate disc space narrowing. Mild disc bulging. Mild facet hypertrophy.No significant canal stenosis or foraminal narrowing. At the L2-L3 level, there is mild facet hypertrophy. No significant canal stenosis. There is mild bilateral foraminal narrowing. At the L3-L4 level, there is minimal disc bulging. Moderate facet hypertrophy.No significant canal stenosis. There is mild bilateral foraminal narrowing. At the L4-L5 level, there is mild diffuse disc bulging. Moderate facet hypertrophy. Mild central canal stenosis. Mild to moderate bilateral foraminal narrowing. At the L5-S1 level, there is severe disc space narrowing vacuum disc phenomenon.Mild disc bulging. Moderate facet hypertrophy. Moderate central canal stenosis. Moderate to severe bilateral foraminal narrowing. IMPRESSION: As compared to the prior CAT scan of 03/24/2025, there is some interval worsening of the severe L3 compression fracture and new fracture involving the inferior endplate of L2. New minimal compression fracture of the superior endplate of L1 is also noted. Multilevel degenerative changes most pronounced at L5-S1 as above. Electronically signed by Brandt Briones 05-17-2025 6:57 PM
[2025-05-17] MEDS ORDERED: HYDROmorphone INJ 0.5 MG/0.5 ML SYR IV PRN (21:03)
[2025-05-17] MEDS: HEPARIN SOD 5,000 UNIT/0.5 ML VIAL SQ SCH (21:05)
[2025-05-17] MEDS: REMOVE LIDODERM PATCH SCH (21:06)
[2025-05-17] MEDS: HYDROmorphone INJ 0.5 MG/0.5 ML SYR IV STA (21:11)
[2025-05-18 07:38] LABS: Anion Gap 8.0 (3-11); Calcium 8.8 mg/dl (8.6-10.3); Carbon Dioxide 26.0 mmol/L (21-32); Chloride 104.0 mmol/L (98-107); Potassium 4.2 mmol/L (3.5-5.1); Sodium 138.0 mmol/L (136-145)
[2025-05-18 07:40] LABS: Hematocrit (blood only) 33.3 % (37.0-47.0); Hemoglobin 10.8 g/dl (12.0-16.0); Immature Granulocytes # (auto) 0.10 K/uL (0.01-0.20); Immature Granulocytes % (auto) 1.1 %; Mean Corpuscular Hemoglobin 31.1 pg (25.0-34.0); Mean Corpuscular Volume 96.0 fL (80.0-100.0); Platelet Count 264 K/uL (130-400); RDW Standard Deviation 81.0 fL (36.4-46.3); Red Blood Count 3.47 M/uL (4.20-5.40); White Blood Count 9.35 K/ul (4.8-10.8)
[2025-05-18 07:43] LABS: Blood Urea Nitrogen 27.0 mg/dl (6-23); Creatinine Clr Calc Pharmacy 29.3 ml/min; Glucose 100.0 mg/dl (70-99(Fasting))
[2025-05-18 08:01] LABS: Anisocytosis Present; Ovalocytes 1+; Target Cells 1+
[2025-05-18] MEDS: ATORVASTATIN 20 MG TAB PO SCH (08:50)
[2025-05-18] MEDS: ASPIRIN 81 MG ECTAB PO SCH (08:50)
[2025-05-18] MEDS: MULTIVITAMIN TAB PO SCH (08:51)
[2025-05-18] MEDS: CALCITONIN SALMON NA 200 IU/AC 3.7 ML BTL SCH (08:51)
[2025-05-18] MEDS: METOPROLOL SUCC 25MG EXT REL TAB PO SCH (08:51)
[2025-05-18] MEDS: POLYETHYLENE (MIRALAX) 17 GM PACK PO SCH (08:56)
[2025-05-18] MEDS: LIDOCAINE 5% 1 PATCH TD SCH (09:11)
--- NOTE | 2025-05-18 10:47 | Orthopedic Consultation ---
Date of Service May 18, 2025 Assessment & Plan (1) Closed lumbar vertebral fracture: * Case/imaging reviewed and discussed with Dr Malave. * Recommend closed management of Lumbar L1-L3 FX * TLSO brace In Room with patient. recommended to continue with this. * Limit bending, twisting, lifting motions * Disposition: TBD, rehab? * Daily treatment: Physical Therapy/ Occupational Therapy per protocol * Weight bearing status: As tolerated * Pain control * Remainder care per primary team * Patient is interested in getting a second opinion still from [facility]. Recommenced to reach out to [facility] for evaluation Monday. * Recommend pain management consultation. Has appointment scheduled this week but wishes to see them during inpatient stay. History of Present Illness Reason for Consultation: Patient is a 84y/o female with low back pain. PMH including CAD, breast cancer, dementia, TIA, HTN, HLD. Presents to hospital with low back pain and lower extremity weakness after multiple falls over the past several weeks. Patient's daughter is in room and provides insight to injury history. They note that about a month ago, they were admitted into the hospital for similar issues. She was worked up at that time was found to have an L3 compression fracture. She was sent [facility] rehabilitation and then was discharged to [facility]. While she was at this facility, she did sustain 2 new falls. These were never really radiographed to see if anything worsened. Her daughter does note that the patient was complaining a lot more about lower back pain so she brought her to the emergency department yesterday evening to get evaluated. Emergency department did do a CT scan of the lumbar spine which showed similar appearance of compression fracture at L3 but also did note a very mild superior endplate insufficiency fracture with minimal concavity at the L1 level that was new since her previous imaging. Because of her weakness and difficulty with ambulation and for pain control, they did admit her into the hospital. Today, the patient and the daughter seen at bedside. They note that when at rest, she is really not having any pain. She notes that anytime that she is up with physical therapy she has a lot of lumbar back pain. She has been wearing her TLSO as given to her during her last admission to the hospital but notes that she is really not quite comfortable in this. We were asked to see her on consultation just to give it a different opinion that [facility] has already given her. Denies any tingling or numbness of the bilateral lower extremities. Notes that her strength feels pretty even bilaterally but just has a lot of discomfort. She denies any other concerns today. Requesting Physician: . Attending Physician: Ian Mckay MD . Allergies Allergy/AdvReac Type Severity Reaction Status Date / Time No Known Allergies Allergy Unverified 04/09/25 16:30 Home Medications Medication Instructions Recorded Confirmed Type multivitamin 1 tab PO QAM 03/31/24 05/17/25 History acetaminophen 500 mg tablet 1,000 mg (2 x 500 mg) PO Q6H PRN 04/11/25 05/17/25 Rx (Tylenol Extra Strength) pain (scale score 1-3) #100 tabs amlodipine 5 mg tablet 2.5 mg (1/2 x 5 mg) PO QAM #15 tabs 04/11/25 05/17/25 Rx aspirin 81 mg tablet,delayed 81 mg PO QAM #90 tabs 04/11/25 05/17/25 Rx release atorvastatin 20 mg tablet 20 mg PO QAM #30 tabs 04/11/25 05/17/25 Rx metoprolol succinate 25 mg 25 mg PO QAM #30 tabs 04/11/25 05/17/25 Rx tablet,extended release 24 hr oxycodone 5 mg tablet 5 mg PO Q4H PRN pain #10 tabs 04/11/25 05/17/25 Rx pantoprazole 40 mg tablet,delayed 40 mg PO BID #60 tabs 04/11/25 05/17/25 Rx release polyethylene glycol 3350 17 17 g PO DAILY #30 grams 04/11/25 05/17/25 Rx gram/dose oral powder (Miralax) trazodone 50 mg tablet 50 mg PO HS #30 tabs 04/11/25 05/17/25 Rx calcitonin (salmon) 200 1 spray intranasal DAILY 05/17/25 05/17/25 History unit/actuation nasal spray Past Med/Surg History Problem List (Updated 05/18/25 @ 12:07 by Edi Malave MD) Closed lumbar vertebral fracture Closed L1 vertebral fracture (Acute) Jose ulcer AVM (arteriovenous malformation) of stomach, acquired Erosive gastritis Large hiatal hernia Chronic renal failure, stage 3b Acute on chronic anemia Weakness (Acute) Symptomatic anemia (Acute) GI bleed (Acute) Falls (Acute) Compression fracture of L3 vertebra (Acute) Chronic kidney disease-mineral and bone disorder Chronic kidney disease (Acute) Medical History Coronary artery disease severe calcific vascular disease on imaging PFO (patent foramen ovale) Breast cancer 09/04 infiltrative ductal carcinoma. right total mastectomy with axillary node dissection and adjuvant radiation therapy. T2 N0 disease. Completed 5 years letrozole. Myelodysplastic syndrome with ringed sideroblast. follows with Dr. James [facility] Dementia Alzheimers type TIA (transient ischemic attack) HTN (hypertension) HLD (hyperlipidemia) Surgical History History of mastectomy, total right Family History Other Hypertension Social History Smoking Status: Former smoker Tobacco Type: Cigarettes Second Hand Exposure: No; Do You Dip or Chew Tobacco: No; Hx Alcohol Use: No Hx Substance Use: No Preferred Language: Czech Communication Ability: Effective Credit And Collections Analyst Required: No Beliefs That Will Affect Care: None Current Living Situation: Family current occupational status: retired Other Information That Helps Us Care for You: No Feels Safe at Home: Yes Safety Concerns: Feels Safe At This Time Diet: regular caffeine: Yes (1-1.5 cups coffee daily) Dental Care, Regularly: Yes Physical Activity Frequency: Does not Exercise Seatbelt Use: always Do you think of yourself as: straight/heterosexual Gender Identity: Female Assistive Devices: Hearing Aid - Bilateral and Walker Assistive Devices Comment: Has hearing aid on admission Review of Systems All systems reviewed & are unremarkable except as noted in HPI & below. Physical Exam . * General: Alert and oriented, no acute distress * Constitutional: well-developed, well-nourished. * Respiratory: Normal respiratory effort, no distress * Gastrointestinal: No tenderness to palpation, no rigidity or guarding. * Skin: No rash or lesion. * Neurologic: Grossly normal * Musculoskeletal: Lumbar spine region with no obvious deformity or overlying skin changes. Otherwise no abnormality noted to bilateral lower extremity. Mild TTP midline lumbar spine throughout region, mild lumbar paraspinal spasm and tenderness. Otherwise no specific tenderness of bilateral gluteal region, thigh, lower legs. AROM hip flexion 5/5 bilaterally, ankle dorsiflexion/plantarflexion 5/5 bilaterally. Intact extensor hallux longus with 5/5 bilaterally. Sensation intact plantar/dorsal foot. Brisk capillary refill. Results & Data Results & Data Laboratory Results . Abnormal Labs 05/17/25 05/18/25 12:15 07:11 WBC 13.82 H RBC 3.27 L 3.47 L Hgb 10.0 L 10.8 L Hct 31.0 L 33.3 L RDW Std Deviation 79.8 H 81.0 H RDW Coeff of Jadiel 23.4 H 23.3 H Neut # (Auto) 11.63 H Lymph # (Auto) 0.61 L Fallon # (Auto) 1.29 H 1.11 H Absolute Nucleated RBC 0.25 H 0.17 H BUN 29 H 27 H Creatinine 1.61 H 1.33 H BUN/Creatinine Ratio 20.3 H Glucose 153 H 100 H Total Bilirubin 2.3 H 25-OH Vitamin D Total 27.2 L Diagnostic Findings . Thoracic Spine CT 05/17/25 11:50 EXAM: CT Thoracic and Lumbar Spine Without Intravenous Contrast INDICATION: Back pain and right radiculopathy. TECHNIQUE: Axial computed tomography images of the thoracic and lumbar spine without intravenous contrast. Sagittal and coronal reformatted images were created and reviewed. This CT exam was performed using one or more of the following dose reduction techniques: automated exposure control, adjustment of the mA and/or kV according to patient size, and/or use of iterative reconstruction technique. COMPARISON: Lumbar spine CT 03/24/2025 and plain radiographs of the thoracic spine 11/19/2024 FINDINGS: Vertebrae: The bones are demineralized. There is new slight decreased height loss of compression fracture of L3 since a prior study. No retropulsion and mild canal stenosis. Stable moderate to severe multilevel degenerative changes including anterolisthesis at L4-L5 and L5-S1. Mild superior endplate compression deformity of L1 has occurred since the prior exam. Appearance chronic. No retropulsion. Diffuse thoracolumbar spondylosis and lumbar facet arthrosis. Diffuse thoracolumbar disc base narrowing relatively sparing L2-L3, L3-L4 and L4-L5. Discs/spinal canal/neural foramina: See above. Soft tissues: No significant abnormality noted. Mediastinum: Moderate hiatal hernia. IMPRESSION: 1. Severe thoracolumbar osteoporosis and degenerative changes. 2. Very mild superior endplate insufficiency fracture with minimal concavity of L1 has occurred since the exam of 03/24/2025. 3. Stable compression fracture L3. 4. No acute change of the thoracic spine. ACT 112: N/A Electronically signed by Edith Parr 05-17-2025 13:[address] 05/17/25 11:53 EXAM: CT Thoracic and Lumbar Spine Without Intravenous Contrast INDICATION: Back pain and right radiculopathy. TECHNIQUE: Axial computed tomography images of the thoracic and lumbar spine without intravenous contrast. Sagittal and coronal reformatted images were created and reviewed. This CT exam was performed using one or more of the following dose reduction techniques: automated exposure control, adjustment of the mA and/or kV according to patient size, and/or use of iterative reconstruction technique. COMPARISON: Lumbar spine CT 03/24/2025 and plain radiographs of the thoracic spine 11/19/2024 FINDINGS: Vertebrae: The bones are demineralized. There is new slight decreased height loss of compression fracture of L3 since a prior study. No retropulsion and mild canal stenosis. Stable moderate to severe multilevel degenerative changes including anterolisthesis at L4-L5 and L5-S1. Mild superior endplate compression deformity of L1 has occurred since the prior exam. Appearance chronic. No retropulsion. Diffuse thoracolumbar spondylosis and lumbar facet arthrosis. Diffuse thoracolumbar disc base narrowing relatively sparing L2-L3, L3-L4 and L4-L5. Discs/spinal canal/neural foramina: See above. Soft tissues: No significant abnormality noted. Mediastinum: Moderate hiatal hernia. IMPRESSION: 1. Severe thoracolumbar osteoporosis and degenerative changes. 2. Very mild superior endplate insufficiency fracture with minimal concavity of L1 has occurred since the exam of 03/24/2025. 3. Stable compression fracture L3. 4. No acute change of the thoracic spine. ACT 112: N/A Electronically signed by Edith Parr 05-17-2025 13:15 PM Lumbar Spine MRI 05/17/25 16:12 INDICATION: Fracture, pain COMPARISON: CAT scan 03/24/2025 FINDINGS: CONUS MEDULLARIS: Unremarkable terminating at L1-L2. PARASPINAL AREA: No paraspinal mass or adenopathy. BONES: Known severe subacute compression fracture of L3 which is slightly worsened. New minimal acute fracture through the inferior endplate of L2. Minimal acute fracture of the superior endplate of L1 is also noted. Stable spondylolisthesis of L5 on S1. Degenerative marrow signal changes throughout the lumbar spine. OTHER: No abnormal enhancement is appreciated. LUMBAR DISC LEVELS: At the L1-L2 level, there is moderate disc space narrowing. Mild disc bulging. Mild facet hypertrophy.No significant canal stenosis or foraminal narrowing. At the L2-L3 level, there is mild facet hypertrophy. No significant canal stenosis. There is mild bilateral foraminal narrowing. At the L3-L4 level, there is minimal disc bulging. Moderate facet hypertrophy.No significant canal stenosis. There is mild bilateral foraminal narrowing. At the L4-L5 level, there is mild diffuse disc bulging. Moderate facet hypertrophy. Mild central canal stenosis. Mild to moderate bilateral foraminal narrowing. At the L5-S1 level, there is severe disc space narrowing vacuum disc phenomenon.Mild disc bulging. Moderate facet hypertrophy. Moderate central canal stenosis. Moderate to severe bilateral foraminal narrowing. IMPRESSION: As compared to the prior CAT scan of 03/24/2025, there is some interval worsening of the severe L3 compression fracture and new fracture involving the inferior endplate of L2. New minimal compression fracture of the superior endplate of L1 is also noted. Multilevel degenerative changes most pronounced at L5-S1 as above. Electronically signed by Brandt Briones 05-17-2025 6:57 PM PG Care Time/CCT Total # of Minutes Spent Total Time Spent with Patient: Total time spent is greater than 50% in coordination of care (as documented) at patient's floor/unit and/or counseling patient: Coding Level of Care Code 65045 IN/OBS CONSULT LVL 3,45M Diagnoses Closed fracture of lumbar vertebra, unspecified fracture morphology, unspecified lumbar vertebral level, initial encounter S32.009A Encounter type: initial encounter Lumbar vertebra fracture level: unspecified lumbar vertebra Fracture morphology: unspecified fracture morphology (1) Closed lumbar vertebral fracture Encounter type: initial encounter Lumbar vertebra fracture level: unspecified lumbar vertebra Fracture morphology: unspecified fracture morphology Qualified Code(s): S32.009A - Unspecified fracture of unspecified lumbar vertebra, initial encounter for closed fracture
--- NOTE | 2025-05-18 15:02 | Hospitalist Progress Note ---
Date of Service May 18, 2025 Assessment & Plan (1) Closed L1 vertebral fracture: (2) Falls: (3) Compression fracture of L3 vertebra: (4) Weakness: (5) Dementia: (6) HTN (hypertension): (7) HLD (hyperlipidemia): (8) Chronic kidney disease: Plan This is an 84 y/o female with dementia, HTN, CAD, PVD, MDS, breast cancer s/p mastectomy, anemia, CKD3, and other history as outlined below who was brought to the ED today by her daughter due to severe back pain. Pt was diagnosed with acute L3 burst fracture in early March, sent to rehab at [facility] then [facility]. She has reportedly had two more falls at [facility], now with worsening lower back and right hip pain. Her pain has become more difficult to control, and patient has been significantly limited in her ambulation so daughter brought her to the ED today for evaluation. In the ED, CT of the thoracic and lumbar spine showed new superior endplate fracture of L1. She was referred for admission for pain control and possible placement for additional rehab though daughter requests that she not go back to [facility]. #Intractable back pain #L1 endplate fracture, L3 burst fracture #Recurrent falls #Ambulatory dysfunction - Admit to med surg - PT/OT evaluations - Scheduled acetaminophen, Lidocaine patch -increase oxycodone to 10mg q4hr prn -start butrans patch 5mcg daily, discussed extensively with patient and daughter - Consult ortho spine for additional recs -ortho not recommending surgical intervention, patient daughter would like second opinion tomorrow - Consult pain management for assistance with pain control -will consult in morning if pain still uncontrolled -would likely benefit from RFA ablation/epidural injections if not already considered #Chronic anemia/MDS - H&H appear to be at baseline, no evidence of acute blood loss - Continue to follow with Dr. Feliz outpatient #Hypertension - Chronic, continue outpatient regimen #Hyperlipidemia - Chronic, continue statin #Dementia - Fall precautions, frequent reorientation - On trazodone at chronically - will continue #CKD3 - baseline creatinine around 1.5 - Creatinine today 1.6, continue to monitor I spent a total of 50 minutes in direct patient care, including [id number] time with the patient and/or family, reviewing medical records, ordering and reviewing diagnostic tests, and coordinating care with other healthcare providers. This time includes: history taking, physical examination, medical decision making, counseling, ECG interpretation, imaging interpretation, lab interpretation, orders, and education, excluding time spent in the performance of separately billed services. Admission and Anticipated Discharge Date Admission Date: May 17, 2025 Subjective Patient seen and examined at bedside. Daughter at bedside. Long discussion regarding patients pain. Per daughter, patient has been having worsening back pain with exertion over the past few weeks. Very frustrating for patient and family that her pain has been getting worse, and they are concerned it is not adequately being addressed. Daughter would like the pain to be surgically addressed, and is frustrated that it has not been so. Patient minimally involved in conversation. When asked, she states she is in pain when she moves. Taking oxycodone at home which only minimally helps the pain. Review of Systems Review of Systems: CONSTITUTIONAL: Patient denies fevers, chills, sweats and weight changes. EYES: Patient denies any visual symptoms. EARS, NOSE, AND THROAT: No difficulties with hearing. No symptoms of rhinitis or sore throat. CARDIOVASCULAR: Patient denies chest pains, palpitations, orthopnea and paroxysmal nocturnal dyspnea. RESPIRATORY: No dyspnea on exertion, no wheezing or cough. GI: No nausea, vomiting, diarrhea, constipation, abdominal pain, hematochezia or melena. : No urinary hesitancy or dribbling. No nocturia or urinary frequency. No abnormal urethral discharge. MUSCULOSKELETAL: No myalgias or arthralgias. NEUROLOGIC: No chronic headaches, no seizures. Patient denies numbness, tingling or weakness. PSYCHIATRIC: Patient denies problems with mood disturbance. No problems with anxiety. ENDOCRINE: No excessive urination or excessive thirst. DERMATOLOGIC: Patient denies any rashes or skin changes. Physical Exam Physical Exam: Gen: A&O 2 NAD HEENT: NCAT, EOMI, not icteric. External ears normal. No rhinorrhea. Moist mucous membranes. Neck: Supple, full range of motion, no observable masses, No meningeal sign. Lungs: No Respiratory distress. CV: RRR, no edema. Abdomen: Soft, nondistended, No rebound tenderness. MSK: No joint swelling, no redness. Skin: No rashes, petechiae, lesions. Normal color per patient. Neuro: Normal Gait, Grossly intact. Moderate dementia noted. Psych: Appropriate for situation. Results & Data Results & Data Vital Signs (Past 12 Hours) Vital Signs Temp Pulse Resp BP Pulse Ox O2 Del Method 05/18/25 07:23 36.8 C 67 18 177/84 H 94 Room Air Laboratory Results -personally reviewed, no leukocytosis, creatinine at baseline Medications Administered Acetaminophen (Acetaminophen 500 Mg Tab) 1,000 mg PO Q8H [facility] Stop: 06/16/25 14:29 Last Admin: 05/18/25 05:21 Dose: 1,000 mg Documented By: Admin: 05/17/25 23:00 Dose: 1,000 mg Documented By: [id number] Admin: 05/17/25 15:45 Dose: 1,000 mg Documented By: cak Amlodipine Besylate (Amlodipine Besylate 5 Mg Tab) [facility] Stop: 06/17/25 08:59 Last Admin: 05/18/25 08:50 Dose: 2.5 mg Documented By: TBK Aspirin (Aspirin 81 Mg Ectab) 81 [facility] Stop: 06/17/25 08:59 Last Admin: 05/18/25 08:50 Dose: 81 mg Documented By: TBK Atorvastatin Calcium (Atorvastatin 20 Mg Tab) 20 [facility] Stop: 06/17/25 08:59 Last Admin: 05/18/25 08:50 Dose: 20 mg Documented By: TBK Calcitonin Boston (Calcitonin [place] Na 200 Iu/Ac 3.7 Ml Btl) 1 sprays NA DAILY [facility] Stop: 06/17/25 08:59 Last Admin: 05/18/25 08:51 Dose: 1 sprays Documented By: TBK Heparin Sodium (Porcine) (Heparin Sod 5,000 Unit/0.5 Ml Vial) 5,000 units SQ Q8 [facility] Stop: 06/16/25 21:59 Last Admin: 05/18/25 05:20 Dose: 5,000 units Documented By: Admin: 05/17/25 21:05 Dose: 5,000 units Documented By: NEYMAR Lidocaine (Lidocaine 5% 1 Patch) 1 patch TD QAM [facility] Stop: 06/17/25 08:59 Last Admin: 05/18/25 09:11 Dose: Not Given Documented By: TBK Lorazepam (Lorazepam 0.5 Mg Tab) 0.5 mg PO ONE PRN PRN Reason: MRI Stop: 06/16/25 16:45 Last Admin: 05/17/25 17:02 Dose: 0.5 mg Documented By: KAYLA Metoprolol Succinate (Metoprolol Succ 25mg Ext Rel Tab) 25 mg PO QAM [facility] Stop: 06/17/25 08:59 Last Admin: 05/18/25 08:51 Dose: 25 mg Documented By: KAYLA Miscellaneous (Remove Lidoderm Patch) 1 each N/A DAILY@2100 [facility] Stop: 06/16/25 20:59 Last Admin: 05/17/25 21:06 Dose: Not Given Documented By: NEYMAR Multivitamins (Multivitamin Tab) 1 tab [facility] Stop: 06/17/25 08:59 Last Admin: 05/18/25 08:51 Dose: 1 tab Documented By: KAYLA Oxycodone HCl (Oxycodone Hcl Ir 5 Mg Tab (Immediate Release)) 10 mg PO Q4H PRN PRN Reason: Severe Pain (Scale 7, 8, 9,10) Stop: 06/01/25 08:35 Last Admin: 05/18/25 12:38 Dose: 10 mg Documented By: KAYLA Pantoprazole Sodium (Pantoprazole 40 Mg Tab) 40 mg PO BID [facility] Stop: 06/16/25 20:59 Last Admin: 05/18/25 08:51 Dose: 40 mg Documented By: Admin: 05/17/25 21:05 Dose: 40 mg Documented By: NEYMAR Polyethylene Glycol (Polyethylene (Miralax) 17 Gm Pack) 17 gm PO DAILY [facility] Stop: 06/17/25 08:59 Last Admin: 05/18/25 08:56 Dose: 17 gm Documented By: KAYLA Trazodone HCl (Trazodone Hcl 50 Mg Tab) 50 mg PO HS [facility] Stop: 06/16/25 20:59 Last Admin: 05/17/25 21:25 Dose: 50 mg Documented By: [id number] (1) Closed L1 vertebral fracture Encounter type: initial encounter Fracture morphology: unspecified fracture morphology Qualified Code(s): S32.019A - Unspecified fracture of first lumbar vertebra, initial encounter for closed fracture (3) Compression fracture of L3 vertebra Encounter type: subsequent encounter Fracture healing: with routine healing Qualified Code(s): S32.030D - Wedge compression fracture of third lumbar vertebra, subsequent encounter for fracture with routine healing (5) Dementia Dementia type: Alzheimer's Alzheimer's disease onset: late onset Dementia severity: moderate Dementia behavioral or psychological symptom: without behavioral, psychotic, or mood disturbance or anxiety Qualified Code(s): G30.1 - Alzheimer's disease with late onset; F02.B0 - Dementia in other diseases classified elsewhere, moderate, without behavioral disturbance, psychotic disturbance, mood disturbance, and anxiety (6) HTN (hypertension) Hypertension type: unspecified Qualified Code(s): I10 - Essential (primary) hypertension (7) HLD (hyperlipidemia) Hyperlipidemia type: unspecified Qualified Code(s): E78.5 - Hyperlipidemia, unspecified (8) Chronic kidney disease Chronic kidney disease stage: stage 3 (moderate) Chronic kidney disease stage 3 subtype: unspecified whether 3a or 3b Qualified Code(s): N18.30 - Chronic kidney disease, stage 3 unspecified
[2025-05-18] MEDS: BUPRENORPHINE 5 MCG/HR TDSY TD SCH (16:17)
[2025-05-18] MEDS: CHECK BUPRENORPHINE PATCH SCH (16:21)
[2025-05-18] MEDS: REMOVE & WASTE BUTRANS PATCH 1 EA EA SCH (16:21)
[2025-05-19 07:39] LABS: Hematocrit (blood only) 28.0 % (37.0-47.0); Hemoglobin 9.6 g/dl (12.0-16.0); Mean Corpuscular Hemoglobin 32.3 pg (25.0-34.0); Mean Corpuscular Volume 94.3 fL (80.0-100.0); Platelet Count 270 K/uL (130-400); RDW Standard Deviation 79.6 fL (36.4-46.3); Red Blood Count 2.97 M/uL (4.20-5.40); White Blood Count 7.22 K/ul (4.8-10.8)
[2025-05-19 08:03] LABS: Anion Gap 6.0 (3-11); Blood Urea Nitrogen 27.0 mg/dl (6-23); Calcium 8.5 mg/dl (8.6-10.3); Carbon Dioxide 27.0 mmol/L (21-32); Chloride 104.0 mmol/L (98-107); Creatinine Clr Calc Pharmacy 24.8 ml/min; Glucose 99.0 mg/dl (70-99(Fasting)); Potassium 4.4 mmol/L (3.5-5.1); Sodium 137.0 mmol/L (136-145)
--- NOTE | 2025-05-19 11:47 | Communication Note ---
Preoperative Risk Stratification Patient is higher risk for a lower risk procedure. Cardiac risk is below 1% which is acceptable in most cases. Medical recommendations include: chest xray, ECG, glucose check before procedure. Otherwise, patient is medically optimized for a low risk surgery. Date of Service: May 19, 2025
--- NOTE | 2025-05-19 12:20 | XRay Report ---
XR chest 1V portable CLINICAL HISTORY: preop COMPARISON STUDY: 03/27/2025 FINDINGS: There is moderate cardiomegaly without pulmonary vascular congestion. Inspiration is shallo w. There is interval mild stranding opacity at the left lung base. No other consolidation or pleural effusion. No pneumothorax. IMPRESSION: Atelectasis versus early pneumonia left lung base. ACT 112: Negative or not required by law. Electronically signed by: Tao Valdes M.D. 05/19/2025 12:19 PM
--- NOTE | 2025-05-19 13:22 | Hospitalist Progress Note ---
Date of Service May 19, 2025 Assessment & Plan (1) Closed L1 vertebral fracture: (2) Falls: (3) Compression fracture of L3 vertebra: (4) Weakness: (5) Dementia: (6) HTN (hypertension): (7) HLD (hyperlipidemia): (8) Chronic kidney disease: Plan This is an 84 y/o female with dementia, HTN, CAD, PVD, MDS, breast cancer s/p mastectomy, anemia, CKD3, and other history as outlined below who was brought to the ED today by her daughter due to severe back pain. Pt was diagnosed with acute L3 burst fracture in early March, sent to rehab at [facility] then [facility]. She has reportedly had two more falls at [facility], now with worsening lower back and right hip pain. Her pain has become more difficult to control, and patient has been significantly limited in her ambulation so daughter brought her to the ED today for evaluation. In the ED, CT of the thoracic and lumbar spine showed new superior endplate fracture of L1. She was referred for admission for pain control and possible placement for additional rehab though daughter requests that she not go back to [facility]. #Intractable back pain #L1 endplate fracture, L3 burst fracture #Recurrent falls #Ambulatory dysfunction - Admit to med surg - PT/OT evaluations - Scheduled acetaminophen, Lidocaine patch -continue oxycodone 10mg q4hr prn -continue butrans patch 5mcg daily, patient has responded well -pain management consulted, appreciate recs - Consult ortho spine for additional recs -discussed personally with Dr. Naylor, who will consider kyphoplasty -patient is medically optimized for procedure, higher risk for low risk procedure, cardiac risk below 1% -xr chest shows possible atelectasis, started incentive spirometer, ECG relatively unchanged from prior #Chronic anemia/MDS - H&H appear to be at baseline, no evidence of acute blood loss - Continue to follow with Dr. Feliz outpatient #Hypertension - Chronic, continue outpatient regimen #Hyperlipidemia - Chronic, continue statin #Dementia - Fall precautions, frequent reorientation - On trazodone at chronically - will continue #CKD3 - baseline creatinine around 1.5 I spent a total of 50 minutes in direct patient care, including [id number] time with the patient and/or family, reviewing medical records, ordering and reviewing diagnostic tests, and coordinating care with other healthcare providers. This time includes: history taking, physical examination, medical decision making, counseling, ECG interpretation, imaging interpretation, lab interpretation, orders, and education, excluding time spent in the performance of separately billed services. Admission and Anticipated Discharge Date Admission Date: May 17, 2025 Subjective Patient seen and examined at bedside. Daughter at bedside. Discussed this providers discussion with Dr. Naylor from ortho spine, who is willing to discuss a possible kyphoplasty with patient/daughter. Discussed that this procedure is up to ortho spine if they want to offer, and that this provider will provide preop risk stratification. Patient has responded fairly well to butrans patch, no worsening confusion or sedation. Review of Systems Review of Systems: CONSTITUTIONAL: Patient denies fevers, chills, sweats and weight changes. EYES: Patient denies any visual symptoms. EARS, NOSE, AND THROAT: No difficulties with hearing. No symptoms of rhinitis or sore throat. CARDIOVASCULAR: Patient denies chest pains, palpitations, orthopnea and paroxysmal nocturnal dyspnea. RESPIRATORY: No dyspnea on exertion, no wheezing or cough. GI: No nausea, vomiting, diarrhea, constipation, abdominal pain, hematochezia or melena. : No urinary hesitancy or dribbling. No nocturia or urinary frequency. No abnormal urethral discharge. MUSCULOSKELETAL: No myalgias or arthralgias. NEUROLOGIC: No chronic headaches, no seizures. Patient denies numbness, tingling or weakness. PSYCHIATRIC: Patient denies problems with mood disturbance. No problems with anxiety. ENDOCRINE: No excessive urination or excessive thirst. DERMATOLOGIC: Patient denies any rashes or skin changes. Physical Exam Physical Exam: Gen: A&O 2 NAD HEENT: NCAT, EOMI, not icteric. External ears normal. No rhinorrhea. Moist muco us membranes. Neck: Supple, full range of motion, no observable masses, No meningeal sign. Lungs: No Respiratory distress. CV: RRR, no edema. Abdomen: Soft, nondistended, No rebound tenderness. MSK: No joint swelling, no redness. Skin: No rashes, petechiae, lesions. Normal color per patient. Neuro: Normal Gait, Grossly intact. Moderate dementia noted. Psych: Appropriate for situation. Results & Data Results & Data Vital Signs (Past 12 Hours) Vital Signs Temp Pulse Resp BP Pulse Ox O2 Del Method 05/19/25 07:28 36.5 C 77 16 113/72 93 Room Air Laboratory Results -personally reviewed, no leukocytosis, creatinine at baseline Medications Administered Acetaminophen (Acetaminophen 500 Mg Tab) 1,000 mg PO Q8H [facility] Stop: 06/16/25 14:29 Last Admin: 05/19/25 06:10 Dose: 1,000 mg Documented By: Admin: 05/18/25 21:08 Dose: 1,000 mg Documented By: Admin: 05/18/25 16:24 Dose: 1,000 mg Documented By: JUAN JOSÉK Admin: 05/18/25 05:21 Dose: 1,000 mg Documented By: Admin: 05/17/25 23:00 Dose: 1,000 mg Documented By: [id number] Admin: 05/17/25 15:45 Dose: 1,000 mg Documented By: esmek Amlodipine Besylate (Amlodipine Besylate 5 Mg Tab) 2.5 mg PO [facility] Stop: 06/17/25 08:59 Last Admin: 05/19/25 09:16 Dose: 2.5 mg Documented By: daysi Admin: 05/18/25 08:50 Dose: 2.5 mg Documented By: JUAN JOSÉK Aspirin (Aspirin 81 Mg Ectab) 81 mg PO [facility] Stop: 06/17/25 08:59 Last Admin: 05/19/25 09:17 Dose: 81 mg Documented By: daysi Admin: 05/18/25 08:50 Dose: 81 mg Documented By: TBK Atorvastatin Calcium (Atorvastatin 20 Mg Tab) 20 mg PO [facility] Stop: 06/17/25 08:59 Last Admin: 05/19/25 09:15 Dose: 20 mg Documented By: daysi Admin: 05/18/25 08:50 Dose: 20 mg Documented By: JUAN JOSÉK Buprenorphine HCl (Buprenorphine 5 Mcg/Hr Tdsy) 1 patch TD Q7D [facility] Stop: 06/17/25 12:59 Last Admin: 05/18/25 16:17 Dose: 1 patch Documented By: TBK Calcitonin [place] (Calcitonin [place] Na 200 Iu/Ac 3.7 Ml Btl) 1 sprays NA DAILY [facility] Stop: 06/17/25 08:59 Last Admin: 05/19/25 09:17 Dose: 1 sprays Documented By: daysi Admin: 05/18/25 08:51 Dose: 1 sprays Documented By: TBK Heparin Sodium (Porcine) (Heparin Sod 5,000 Unit/0.5 Ml Vial) 5,000 units SQ Q8 [facility] Stop: 06/16/25 21:59 Last Admin: 05/19/25 06:10 Dose: 5,000 units Documented By: Admin: 05/18/25 21:08 Dose: 5,000 units Documented By: Admin: 05/18/25 16:24 Dose: 5,000 units Documented By: Admin: 05/18/25 05:20 Dose: 5,000 units Documented By: Admin: 05/17/25 21:05 Dose: 5,000 units Documented By: NEYMAR Lidocaine (Lidocaine 5% 1 Patch) 1 patch TD [facility] Stop: 06/17/25 08:59 Last Admin: 05/19/25 09:26 Dose: Not Given Documented By: daysi Admin: 05/18/25 09:11 Dose: Not Given Documented By: KAYLA Metoprolol Succinate (Metoprolol Succ 25mg Ext Rel Tab) 25 mg PO [facility] Stop: 06/17/25 08:59 Last Admin: 05/19/25 09:16 Dose: 25 mg Documented By: daysi Admin: 05/18/25 08:51 Dose: 25 mg Documented By: KAYLA Miscellaneous (Remove Lidoderm Patch) 1 each N/A DAILY@2100 [facility] Stop: 06/16/25 20:59 Last Admin: 05/18/25 21:08 Dose: Not Given Documented By: Admin: 05/17/25 21:06 Dose: Not Given Documented By: NEYMAR Miscellaneous (Remove & Waste Butrans Patch 1 Ea Ea) 1 each N/A Q7D [facility] Stop: 06/17/25 12:59 Last Admin: 05/18/25 16:21 Dose: Not Given Documented By: KAYLA Lindaaneous (Check Buprenorphine Patch) 1 each N/A QS [facility] Stop: 06/17/25 15:59 Last Admin: 05/19/25 09:26 Dose: 1 each Documented By: daysi Admin: 05/19/25 00:09 Dose: 1 each Documented By: Admin: 05/18/25 16:21 Dose: 1 each Documented By: KAYLA Multivitamins (Multivitamin Tab) 1 tab PO [facility] Stop: 06/17/25 08:59 Last Admin: 05/19/25 09:16 Dose: 1 tab Documented By: daysi Admin: 05/18/25 08:51 Dose: 1 tab Documented By: KAYLA Oxycodone HCl (Oxycodone Hcl Ir 5 Mg Tab (Immediate Release)) 10 mg PO Q4H PRN PRN Reason: Severe Pain (Scale 7, 8, 9,10) Stop: 06/01/25 08:35 Last Admin: 05/19/25 02:24 Dose: 10 mg Documented By: Admin: 05/18/25 17:27 Dose: 10 mg Documented By: Admin: 05/18/25 12:38 Dose: 10 mg Documented By: KAYLA Pantoprazole Sodium (Pantoprazole 40 Mg Tab) 40 mg PO BID [facility] Stop: 06/16/25 20:59 Last Admin: 05/19/25 09:17 Dose: 40 mg Documented By: daysi Admin: 05/18/25 21:08 Dose: 40 mg Documented By: Admin: 05/18/25 08:51 Dose: 40 mg Documented By: Admin: 05/17/25 21:05 Dose: 40 mg Documented By: NEYMAR Polyethylene Glycol (Polyethylene (Miralax) 17 Gm Pack) 17 gm PO DAILY [facility] Stop: 06/17/25 08:59 Last Admin: 05/19/25 09:25 Dose: 17 gm Documented By: daysi Admin: 05/18/25 08:56 Dose: 17 gm Documented By: KAYLA Trazodone HCl (Trazodone Hcl 50 Mg Tab) 50 mg PO HS [facility] Stop: 06/16/25 20:59 Last Admin: 05/18/25 21:07 Dose: 50 mg Documented By: Admin: 05/17/25 21:25 Dose: 50 mg Documented By: [id number] (1) Closed L1 vertebral fracture Encounter type: initial encounter Fracture morphology: unspecified fracture morphology Qualified Code(s): S32.019A - Unspecified fracture of first lumbar vertebra, initial encounter for closed fracture (3) Compression fracture of L3 vertebra Encounter type: subsequent encounter Fracture healing: with routine healing Qualified Code(s): S32.030D - Wedge compression fracture of third lumbar vert ebra, subsequent encounter for fracture with routine healing (5) Dementia Dementia type: Alzheimer's Alzheimer's disease onset: late onset Dementia severity: moderate Dementia behavioral or psychological symptom: without behavioral, psychotic, or mood disturbance or anxiety Qualified Code(s): G30.1 - Alzheimer's disease with late onset; F02.B0 - Dementia in other diseases classified elsewhere, moderate, without behavioral disturbance, psychotic disturbance, mood disturbance, and anxiety (6) HTN (hypertension) Hypertension type: unspecified Qualified Code(s): I10 - Essential (primary) hypertension (7) HLD (hyperlipidemia) Hyperlipidemia type: unspecified Qualified Code(s): E78.5 - Hyperlipidemia, unspecified (8) Chronic kidney disease Chronic kidney disease stage: stage 3 (moderate) Chronic kidney disease stage 3 subtype: unspecified whether 3a or 3b Qualified Code(s): N18.30 - Chronic kidney disease, stage 3 unspecified
--- NOTE | 2025-05-19 14:13 | Orthopedic Consultation ---
Date of Consultation May 19, 2025 Assessment & Plan (1) Closed lumbar vertebral fracture: I do lengthy discussion today with the patient and her daughter reviewing her updated imaging and treatment options. We could consider kyphoplasty of L2 and L3 and possibly even L1. I explained that this would require general anesthetic which puts her at risk for complications including worsening of her cognitive state. The goals of surgery would be improvement of her axial back pain and subsequent ability to transfer and ambulate without severe discomfort. At this point they would like us to consider surgery. I will make her n.p.o. after midnight and plan for possible kyphoplasty tomorrow. We will wait for final input from medicine and anesthesia. History of Present Illness Reason for Consultation: Chronic back pain with compression fractures Attending Physician: Ian Mckay MD History of Present Illness This is a 84-year-old female who presents to the hospital now for second time with worsening back pain. She has been diagnosed with acute compression fracture of L2 burst fracture of L3 and small fracture of L1. This has been secondary to falls from standing height. She denies any leg pain numbness or tingling. Her daughter was at the bedside for history and exam. Allergies Allergy/AdvReac Type Severity Reaction Status Date / Time No Known Allergies Allergy Unverified 04/09/25 16:30 Home Medications Medication Instructions Recorded Confirmed Type multivitamin 1 tab PO QAM 03/31/24 05/17/25 History acetaminophen 500 mg tablet 1,000 mg (2 x 500 mg) PO Q6H PRN 04/11/25 05/17/25 Rx (Tylenol Extra Strength) pain (scale score 1-3) #100 tabs amlodipine 5 mg tablet 2.5 mg (1/2 x 5 mg) PO QAM #15 tabs 04/11/25 05/17/25 Rx aspirin 81 mg tablet,delayed 81 mg PO QAM #90 tabs 04/11/25 05/17/25 Rx release atorvastatin 20 mg tablet 20 mg PO QAM #30 tabs 04/11/25 05/17/25 Rx metoprolol succinate 25 mg 25 mg PO QAM #30 tabs 04/11/25 05/17/25 Rx tablet,extended release 24 hr oxycodone 5 mg tablet 5 mg PO Q4H PRN pain #10 tabs 08/22/25 09/27/25 Rx pantoprazole 40 mg tablet,delayed 40 mg PO BID #60 tabs 04/11/25 05/17/25 Rx release polyethylene glycol 3350 17 17 g PO DAILY #30 grams 04/11/25 05/17/25 Rx gram/dose oral powder (Miralax) trazodone 50 mg tablet 50 mg PO HS #30 tabs 04/11/25 05/17/25 Rx calcitonin (salmon) 200 1 spray intranasal DAILY 05/17/25 05/17/25 History unit/actuation nasal spray Patient History Medical History Coronary artery disease severe calcific vascular disease on imaging PFO (patent foramen ovale) Breast cancer 09/04 infiltrative ductal carcinoma. right total mastectomy with axillary node dissection and adjuvant radiation therapy. T2 N0 disease. Completed 5 years letrozole. Myelodysplastic syndrome with ringed sideroblast. follows with Dr. James jenny [place] Dementia Alzheimers type TIA (transient ischemic attack) HTN (hypertension) HLD (hyperlipidemia) Surgical History History of mastectomy, total right Family History Other Hypertension Social History Smoking Status: Former smoker Tobacco Type: Cigarettes Second Hand Exposure: No; Do You Dip or Chew Tobacco: No; Hx Alcohol Use: No Hx Substance Use: No Preferred Language: Peruvian Communication Ability: Impaired Orange Peel Operator Required: No Beliefs That Will Affect Care: None Current Living Situation: Family current occupational status: retired Other Information That Helps Us Care for You: No Feels Safe at Home: Yes Safety Concerns: Feels Safe At This Time Diet: regular caffeine: Yes (1-1.5 cups coffee daily) Dental Care, Regularly: Yes Physical Activity Frequency: Does not Exercise Seatbelt Use: always Do you think of yourself as: straight/heterosexual Gender Identity: Female Assistive Devices: Walker Assistive Devices Comment: Has hearing aid on admission Physical Exam Physical Exam: Patient does have marked discomfort when I try to roll her in bed to examine her back. She is comfortable at rest. She exhibits reasonable plantarflexion dorsiflexion quadriceps with sensory intact bilaterally. She does have cognitive decline. Results & Data Vital Signs (Past 12 Hours) Vital Signs Temp Pulse Resp BP Pulse Ox O2 Del Method 05/19/25 07:28 36.5 C 77 16 113/72 93 Room Air (1) Closed lumbar vertebral fracture Encounter type: initial encounter Lumbar vertebra fracture level: unspecified lumbar vertebra Fracture morphology: unspecified fracture morphology Qualified Code(s): S32.009A - Unspecified fracture of unspecified lumbar vertebra, initial encounter for closed fracture
[2025-05-19] MEDS ORDERED: MICONAZOLE NITRATE POWDER 85 GM EXT PRN (15:57)
--- NOTE | 2025-05-19 16:53 | Electrocardiogram Report ---
Test Reason : Blood Pressure : */* mmHG Vent. Rate : 83 BPM Atrial Rate : 83 BPM P-R Int : 162 ms QRS Dur : 74 ms QT Int : 358 ms P-R-T Axes : -13 3 47 degrees QTcB Int : 420 ms Normal sinus rhythm Possible Inferior infarct (cited on or before 19-Jul-2024) Anterior infarct (cited on or before 19-Nov-2024) Abnormal ECG When compared with ECG of 27-Mar-2025 10:52, Premature supraventricular complexes are no longer Present Questionable change in initial forces of Inferior leads Confirmed by Noel Mathew ([id number]) on 05/19/2025 4:52:37 PM Referred By: REFERRED SELF Confirmed By: Noel Mathew
[2025-05-20 09:03] LABS: Hematocrit (blood only) 32.6 % (37.0-47.0); Hemoglobin 10.9 g/dl (12.0-16.0); Mean Corpuscular Hemoglobin 31.6 pg (25.0-34.0); Mean Corpuscular Volume 94.5 fL (80.0-100.0); Platelet Count 309 K/uL (130-400); RDW Standard Deviation 79.7 fL (36.4-46.3); Red Blood Count 3.45 M/uL (4.20-5.40); White Blood Count 6.98 K/ul (4.8-10.8)
--- NOTE | 2025-05-20 09:16 | Pain Management Consultation ---
Date of Consultation May 20, 2025 Assessment & Plan (1) Closed lumbar vertebral fracture: Encounter type: initial encounter Lumbar vertebra fracture level: unspecified lumbar vertebra Fracture morphology: unspecified fracture morphology Qualified Code(s): S32.009A - Unspecified fracture of unspecified lumbar vertebra, initial encounter for closed fracture (2) Closed L1 vertebral fracture: Encounter type: initial encounter Fracture morphology: unspecified fracture morphology Qualified Code(s): S32.019A - Unspecified fracture of first lumbar vertebra, initial encounter for closed fracture (3) Compression fracture of L3 vertebra: Encounter type: subsequent encounter Fracture healing: with routine healing Qualified Code(s): S32.030D - Wedge compression fracture of third lumbar vertebra, subsequent encounter for fracture with routine healing Plan Patient is to have kyphoplasty procedure performed by Dr. Naylor. No role for interventional pain management at this time. She is scheduled for a new patient appointment with [facility] pain management. This will be canceled and we will contact the patient in a week's time to see if she would like to reschedule. Continue current medication regimen. Will sign off on the patient. Please contact with any questions or concerns. History of Present Illness Attending Physician: Ian Mckay MD History of Present Illness This is an 84-year-old female that has been admitted to the [facility] for low back pain. She has had a series of falls and found to have an acute compression fracture of L2, burst fracture of L3, and small fracture of L1. Pain is significant and located along the upper lumbar region. No radiation of pain. She is receiving oxycodone if needed for pain relief which is mildly effective. She has met with [facility] orthopedic spine surgery as well as [place] orthopedic spine surgery and Dr. Naylor has agreed to perform a kyphoplasty today at L2 and L3, possibly L1. No bowel/bladder incontinence, saddle anesthesia, foot drop. She does have leg weakness and frequent falls. She was scheduled with the [facility] pain clinic to address low back pain for tomorrow 05/21/2025 with Edi Barker PA-C. Case discussed with Dr. Yanely Moreno Allergies Allergy/AdvReac Type Severity Reaction Status Date / Time No Known Allergies Allergy Unverified 04/09/25 16:30 Home Medications Medication Instructions Recorded Confirmed Type multivitamin 1 tab PO QAM 03/31/24 05/17/25 History acetaminophen 500 mg tablet 1,000 mg (2 x 500 mg) PO Q6H PRN 04/11/25 05/17/25 Rx (Tylenol Extra Strength) pain (scale score 1-3) #100 tabs amlodipine 5 mg tablet 2.5 mg (1/2 x 5 mg) PO QAM #15 tabs 04/11/25 05/17/25 Rx aspirin 81 mg tablet,delayed 81 mg PO QAM #90 tabs 04/11/25 05/17/25 Rx release atorvastatin 20 mg tablet 20 mg PO QAM #30 tabs 04/11/25 05/17/25 Rx metoprolol succinate 25 mg 25 mg PO QAM #30 tabs 04/11/25 05/17/25 Rx tablet,extended release 24 hr oxycodone 5 mg tablet 5 mg PO Q4H PRN pain #10 tabs 04/11/25 05/17/25 Rx pantoprazole 40 mg tablet,delayed 40 mg PO BID #60 tabs 04/11/25 05/17/25 Rx release polyethylene glycol 3350 17 17 g PO DAILY #30 grams 04/11/25 05/17/25 Rx gram/dose oral powder (Miralax) trazodone 50 mg tablet 50 mg PO HS #30 tabs 04/11/25 05/17/25 Rx calcitonin (salmon) 200 1 spray intranasal DAILY 05/17/25 05/17/25 History unit/actuation nasal spray Patient History Medical History Coronary artery disease severe calcific vascular disease on imaging PFO (patent foramen ovale) Breast cancer 09/04 infiltrative ductal carcinoma. right total mastectomy with axillary node dissection and adjuvant radiation therapy. T2 N0 disease. Completed 5 years letrozole. Myelodysplastic syndrome with ringed sideroblast. follows with [facility] [place] Dementia Alzheimers type TIA (transient ischemic attack) HTN (hypertension) HLD (hyperlipidemia) Surgical History History of mastectomy, total right Family History Other Hypertension Social History Smoking Status: Former smoker Tobacco Type: Cigarettes Second Hand Exposure: No; Do You Dip or Chew Tobacco: No; Hx Alcohol Use: No Hx Substance Use: No Preferred Language: Bhutanese Communication Ability: Impaired Entry Level Software Engineer Required: No Beliefs That Will Affect Care: None Current Living Situation: Family current occupational status: retired Other Information That Helps Us Care for You: No Feels Safe at Home: Yes Safety Concerns: Feels Safe At This Time Diet: regular caffeine: Yes (1-1.5 cups coffee daily) Dental Care, Regularly: Yes Physical Activity Frequency: Does not Exercise Seatbelt Use: always Do you think of yourself as: straight/heterosexual Gender Identity: Female Assistive Devices: Walker Assistive Devices Comment: Has hearing aid on admission Physical Exam Physical Exam: GENERAL: This is a pleasant 84-year-old female that is accompanied by her daughter. HEAD/FACE: Normocephalic and atraumatic. EYES: No drainage or conjunctival injection. ENT: Nose without bleeding or discharge. Oral mucosa moist. NECK: Full ROM without apparent pain. No swelling or masses noted. RESPIRATORY: Patient with unlabored breathing. No signs of respiratory distress. CHEST/AXILLA: Chest movement symmetrical. No deformities noted. ABDOMEN/GI: No distension BACK: Limited range of motion. Mild diffuse lumbosacral tenderness. SKIN: [place], warm and dry. No rash noted. MS/EXTREMITY: No swelling, no deformities. Moving extremities appropriately. NEURO: Alert and appears oriented. Speech is fluent. Cranial Nerves are grossly intact. PSYCH: Alert, pleasant, affect is calm Results (Pain Clinic) Diagnostic Review CT Findings: EXAM: CT Thoracic and Lumbar Spine Without Intravenous Contrast INDICATION: Back pain and right radiculopathy. TECHNIQUE: Axial computed tomography images of the thoracic and lumbar spine without intravenous contrast. Sagittal and coronal reformatted images were created and reviewed. This CT exam was performed using one or more of the following dose reduction techniques: automated exposure control, adjustment of the mA and/or kV according to patient size, and/or use of iterative reconstruction technique. COMPARISON: Lumbar spine CT 03/24/2025 and plain radiographs of the thoracic spine 11/19/2024 FINDINGS: Vertebrae: The bones are demineralized. There is new slight decreased height loss of compression fracture of L3 since a prior study. No retropulsion and mild canal stenosis. Stable moderate to severe multilevel degenerative changes including anterolisthesis at L4-L5 and L5-S1. Mild superior endplate compression deformity of L1 has occurred since the prior exam. Appearance chronic. No retropulsion. Diffuse thoracolumbar spondylosis and lumbar facet arthrosis. Diffuse thoracolumbar disc base narrowing relatively sparing L2-L3, L3-L4 and L4-L5. Discs/spinal canal/neural foramina: See above. Soft tissues: No significant abnormality noted. Mediastinum: Moderate hiatal hernia. IMPRESSION: 1. Severe thoracolumbar osteoporosis and degenerative changes. 2. Very mild superior endplate insufficiency fracture with minimal concavity of L1 has occurred since the exam of 03/24/2025. 3. Stable compression fracture L3. 4. No acute change of the thoracic spine. ACT 112: N/A Electronically signed by Edith Parr 05-17-2025 13:15 PM
[2025-05-20 09:18] LABS: Anion Gap 9.0 (3-11); Calcium 9.0 mg/dl (8.6-10.3); Carbon Dioxide 25.0 mmol/L (21-32); Chloride 103.0 mmol/L (98-107); Potassium 4.5 mmol/L (3.5-5.1); Sodium 137.0 mmol/L (136-145)
[2025-05-20 09:24] LABS: Blood Urea Nitrogen 28.0 mg/dl (6-23); Creatinine Clr Calc Pharmacy 26.3 ml/min; Glucose 122.0 mg/dl (70-99(Fasting))
[2025-05-20] MEDS ORDERED: PROPOFOL IV EMULSION 10 MG/ML 20 ML VIAL IV ONE (10:29)
[2025-05-20] MEDS ORDERED: ROCURONIUM BROMIDE 10 MG/ML 5 ML VIAL IV ONE (10:29)
[2025-05-20] MEDS ORDERED: LIDOCAINE 2% 2 ML VIAL/AMP(20MG/ML) INFIL ONE (10:29)
[2025-05-20] MEDS: LACTATED RINGER'S 1,000 ML IV SCH (10:32)
[2025-05-20] MEDS ORDERED: KETAMINE HCL 10MG/ML SYR ONE (10:41)
[2025-05-20] MEDS ORDERED: ONDANSETRON INJ 2 MG/ML 2 ML VIAL IV PRN (11:38)
[2025-05-20] MEDS ORDERED: ATROPINE SULFATE 0.1 MG/ML 10ML SYR IV PRN (11:38)
--- NOTE | 2025-05-20 11:38 | Anesthesiology Consultation ---
Date of Service May 20, 2025 Assessment & Plan (1) Encounter for pre-operative examination: Chart Review Chart Review: Acceptable Risk for Surgery and Patient NOT seen in Pre Admission Testing Consults Requested none History Surgery Operation Date: 05/20/25 11:05 Proposed Procedures p L1, L2, L3 Kyphoplasty - Angel Naylor DO Height/Weight Height: 5 ft 1 in Weight: 73 kg Allergies Allergy/AdvReac Type Severity Reaction Status Date / Time No Known Allergies Allergy Unverified 05/20/25 10:11 Medications Home Medications Medication Instructions Recorded Confirmed Last Taken multivitamin 1 tab PO QAM 03/31/24 05/17/25 05/17/25 acetaminophen 500 mg tablet 1,000 mg (2 x 500 mg) PO Q6H PRN 04/11/25 05/17/25 05/17/25 (Tylenol Extra Strength) pain (scale score 1-3) #100 tabs amlodipine 5 mg tablet 2.5 mg (1/2 x 5 mg) PO QAM #15 tabs 04/11/25 05/17/25 05/17/25 aspirin 81 mg tablet,delayed 81 mg PO QAM #90 tabs 04/11/25 05/17/25 05/17/25 release atorvastatin 20 mg tablet 20 mg PO QAM #30 tabs 04/11/25 05/17/25 05/17/25 metoprolol succinate 25 mg 25 mg PO QAM #30 tabs 04/11/25 05/17/25 05/17/25 tablet,extended release 24 hr oxycodone 5 mg tablet 5 mg PO Q4H PRN pain #10 tabs 04/11/25 05/17/25 05/17/25 pantoprazole 40 mg tablet,delayed 40 mg PO BID #60 tabs 04/11/25 05/17/25 05/17/25 release polyethylene glycol 3350 17 17 g PO DAILY #30 grams 04/11/25 05/17/25 05/17/25 gram/dose oral powder (Miralax) trazodone 50 mg tablet 50 mg PO HS #30 tabs 04/11/25 05/17/25 05/16/25 calcitonin (salmon) 200 1 spray intranasal DAILY 05/17/25 05/17/25 05/17/25 unit/actuation nasal spray Active Medications Generic Name Dose Route Start Last Admin Trade Name Freq PRN Reason Stop Dose Admin Acetaminophen 1,000 mg 05/17/25 14:30 05/20/25 05:43 Acetaminophen 500 Mg Tab PO 06/16/25 14:29 1,000 mg Q8H KIARA Administration Amlodipine Besylate 2.5 mg 05/18/25 09:00 05/20/25 08:38 Amlodipine Besylate 5 Mg Tab PO 06/17/25 08:59 2.5 mg QAM KIARA Administration Aspirin 81 mg 05/18/25 09:00 05/20/25 08:38 Aspirin 81 Mg Ectab PO 06/17/25 08:59 81 mg QAM KIARA Administration Atorvastatin Calcium 20 mg 05/18/25 09:00 05/20/25 08:38 Atorvastatin 20 Mg Tab PO 06/17/25 08:59 20 mg QAM KIARA Administration Buprenorphine HCl 1 patch 05/18/25 13:00 05/18/25 16:17 Buprenorphine 5 Mcg/Hr Tdsy TD 06/17/25 12:59 1 patch Q7D KIARA Administration Calcitonin [place] 1 sprays 05/18/25 09:00 05/20/25 08:38 Calcitonin [place] Na 200 Iu/Ac 3.7 Ml Btl NA 06/17/25 08:59 1 sprays DAILY KIARA Administration Heparin Sodium (Porcine) 5,000 units 05/17/25 22:00 05/20/25 05:43 Heparin Sod 5,000 Unit/0.5 Ml Vial SQ 06/16/25 21:59 5,000 units Q8 KIARA Administration Lactated Ringer's 1,000 mls @ 15 mls/hr 05/20/25 10:00 05/20/25 10:32 Lr IV 05/23/25 09:59 15 mls/hr .Q24H KIARA Administration Lidocaine 1 patch 05/18/25 09:00 05/20/25 08:40 Lidocaine 5% 1 Patch TD 06/17/25 08:59 Not Given QAM KIARA Metoprolol Succinate 25 mg 05/18/25 09:00 05/20/25 08:38 Metoprolol Succ 25mg Ext Rel Tab PO 06/17/25 08:59 25 mg QAM KIARA Administration Miscellaneous 1 each 05/17/25 21:00 05/19/25 20:55 Remove Lidoderm Patch N/A 06/16/25 20:59 Not Given DAILY@2100 KIARA Miscellaneous 1 each 05/18/25 13:00 05/18/25 16:21 Remove & Waste Butrans Patch 1 Ea Ea N/A 06/17/25 12:59 Not Given Q7D KIARA Miscellaneous 1 each 05/18/25 16:00 05/20/25 08:38 Check Buprenorphine Patch N/A 06/17/25 15:59 1 each QS KIARA Administration Multivitamins 1 tab 05/18/25 09:00 05/20/25 08:38 Multivitamin Tab PO 06/17/25 08:59 1 tab QAM KIARA Administration Oxycodone HCl 10 mg 05/18/25 08:36 05/20/25 08:41 Oxycodone Hcl Ir 5 Mg Tab (Immediate Release) PO 06/01/25 08:35 10 mg Q4H PRN Administration Severe Pain (Scale 7, 8, 9,10) Pantoprazole Sodium 40 mg 05/17/25 21:00 05/20/25 08:38 Pantoprazole 40 Mg Tab PO 06/16/25 20:59 40 mg BID KIARA Administration Polyethylene Glycol 17 gm 05/18/25 09:00 05/20/25 08:37 Polyethylene (Miralax) 17 Gm Pack PO 06/17/25 08:59 Not Given DAILY KIARA Trazodone HCl 50 mg 05/17/25 21:00 05/19/25 20:57 Trazodone Hcl 50 Mg Tab PO 06/16/25 20:59 50 mg HS KIARA Administration NPO Date Last Intake of Fluids: 05/20/25 Time Last Intake of Fluids: 08:40 Last Intake of Fluids Comment: sips water with meds this am Date Last Intake of Solids: 05/19/25 Time Last Intake of Solids: 17:30 Past Medical History Medical History Coronary artery disease severe calcific vascular disease on imaging PFO (patent foramen ovale) Breast cancer 09/04 infiltrative ductal carcinoma. right total mastectomy with axillary node dissection and adjuvant radiation therapy. T2 N0 disease. Completed 5 years letrozole. Myelodysplastic syndrome with ringed sideroblast. follows with [facility] Dementia Alzheimers type TIA (transient ischemic attack) HTN (hypertension) HLD (hyperlipidemia) Past Family History Family History Other Hypertension Past Surgical History Surgical History History of mastectomy, total right Social History Smoking Status: Former smoker Do You Dip or Chew Tobacco: No Hx Alcohol Use: No Hx Substance Use: No substance use type: does not use Physical Exam Vital Signs Last Vital Signs Temp 97.9 F 05/20/25 06:59 Pulse 79 05/20/25 10:11 Resp 20 05/20/25 10:11 BP 171/79 H 05/20/25 10:11 Pulse Ox 96 05/20/25 10:11 O2 Del Method Room Air 05/20/25 10:11 Testing Laboratory Results 05/20/25 08:09 05/20/25 08:09 Electrocardiogram Date: 05/19/25 Findings: + NSR @ (83) Possible Inferior infarct (cited on or before 19-Jul-2024) Anterior infarct (cited on or before 19-Nov-2024) Echocardiogram Date: 07/20/24 EF: 60-65 LV Function: normal PFO
--- NOTE | 2025-05-20 11:40 | History & Physical Bridge Note ---
Date of Service May 20, 2025 History & Physical Bridge Note I have examined the patient, reviewed the History & Physical and in the interval since the performance of the History & Physical I have noted the following changes of clinical significance: no changes noted Patient continues to have significant axial back pain with transfers and ambulation. Subsequently she is here for kyphoplasty L1, L2 and L3
[2025-05-20] MEDS ORDERED: PHENYLEPHRINE HCL 10 MG/ML VIAL ONE ×3 (12:33→12:34)
[2025-05-20] MEDS ORDERED: ePHEDrine sulfate 50 MG/5 ML SYR ONE (12:39)
[2025-05-20] MEDS ORDERED: ONDANSETRON INJ 2 MG/ML 2 ML VIAL ONE (12:50)
[2025-05-20] MEDS ORDERED: DEXAMETHASONE SOD INJ 4 MG/ML VIAL ONE (12:50)
[2025-05-20] MEDS ORDERED: SUGAMMADEX SODIUM 200 MG/2 ML VIAL IV ONE ×2 (12:51→13:00)
[2025-05-20] MEDS: ceFAZolin 330 MG/ML 1 GM VIAL ONE (12:59)
[2025-05-20] MEDS: BUPIVACAINE/EPINEPHRINE 0.25% 1:200,000 30 ML VIAL ONE (12:59)
--- NOTE | 2025-05-20 13:09 | Operative Report ---
Post Operative Report Pre & Post Diagnosis Operation Date: 05/20/25 11:05 Pre-Op Diagnosis: Osteoporotic compression fractures L1, L2 and L3 Post-Op Diagnosis: Same I identified the patient and participated in the time-out.: Yes Procedure Operation Date: 05/20/25 11:05 Actual Procedures #1 kyphoplasty L1, L2 and L3 vertebral bodies. #2 biopsy of L1-L2 and L3 vertebral bodies Surgeon Angel Naylor, DO Child Adolescent Psychiatrist None Estimated Blood Loss 5 Findings Consistent with Post-Op Diagnosis Specimens Biopsies of L1-L2 and L3 vertebral bodies Indications This is an 84-year-old female who presents above-mentioned diagnosis after attempts at nonoperative care and continued limitations and functional decline she is here for surgical invention. Description of Procedure Patient and her daughter were met with properly case discussed all questions addressed. Patient was taken back to operative suite underwent intubation placed in a prone position on the Ramon table chest padded bolsters. All bony prominences well-padded eyes inspected to ensure no external pressure placed upon them. The lumbar spine was then prepped and draped in normal sterile fashion. With the assistance of fluoroscopy in AP and lateral planes identified the L3 vertebral body and by way of EXTR particular approach was able to place a Kyphon working cannula into the center of the vertebral body. A core biopsy was then obtained. Then inserted 20 mm balloon and sequentially inflated with fluoroscopic visualization. This is subsequently removed and approximately 3 cc of Kyphon cement injected into the L3 vertebral body demonstrating excellent interdigitation in the fill. I then approached L2. By way of an extrapedicular approach was able to access the center of the vertebral body and obtain a core biopsy. A 20 mm balloon was then inserted sequentially inflated and approximately 3 cc of Kyphon cement injected demonstrating excellent interdigitation and fill. Lastly approached L1. And again by way of an extra particular approach was able to place a Kyphon working cannula into the center of the L1 vertebral body. A core biopsy was then obtained. And I inserted a 20 mm balloon. It was sequentially inflated with fluoroscopic visualization subsequently removed and approximately 3 cc of Kyphon cement injected demonstrating excellent interdigitation and fill. All working apparatus was removed the small incisions were closed with subcutaneous Monocryl and a sterile dressing placed. Patient waken taken to PACU in stable condition. I attest to the content of the Intraoperative Record and any orders documented therein. Any exceptions are noted below.
--- NOTE | 2025-05-20 13:56 | Hospitalist Progress Note ---
Date of Service May 20, 2025 Assessment & Plan (1) Closed L1 vertebral fracture: (2) Falls: (3) Compression fracture of L3 vertebra: (4) Weakness: (5) Dementia: (6) HTN (hypertension): (7) HLD (hyperlipidemia): (8) Chronic kidney disease: Plan This is an 84 y/o female with dementia, HTN, CAD, PVD, MDS, breast cancer s/p mastectomy, anemia, CKD3, and other history as outlined below who was brought to the ED today by her daughter due to severe back pain. Pt was diagnosed with acute L3 burst fracture in early March, sent to rehab at [facility] then [facility]. She has reportedly had two more falls at [facility], now with worsening lower back and right hip pain. Her pain has become more difficult to control, and patient has been significantly limited in her ambulation so daughter brought her to the ED today for evaluation. In the ED, CT of the thoracic and lumbar spine showed new superior endplate fracture of L1. She was referred for admission for pain control and possible placement for additional rehab though daughter requests that she not go back to [facility]. #Intractable back pain #L1 endplate fracture, L3 burst fracture #Recurrent falls #Ambulatory dysfunction - PT/OT evaluations - Scheduled acetaminophen, Lidocaine patch -continue oxycodone 10mg q4hr prn -continue butrans patch 5mcg daily, patient has responded well - Consult ortho spine for additional recs -discussed personally with Dr. Naylor, who will consider kyphoplasty -patient is medically optimized for procedure, higher risk for low risk procedure, cardiac risk below 1% -xr chest shows possible atelectasis, started incentive spirometer, ECG relatively unchanged from prior -going for procedure today #Chronic anemia/MDS - H&H appear to be at baseline, no evidence of acute blood loss - Continue to follow with Dr. Feliz outpatient #Hypertension - Chronic, continue outpatient regimen #Hyperlipidemia - Chronic, continue statin #Dementia - Fall precautions, frequent reorientation - continue trazodone #CKD3 - baseline creatinine around 1.5 I spent a total of 45 minutes in direct patient care, including [id number] time with the patient and/or family, reviewing medical records, ordering and reviewing diagnostic tests, and coordinating care with other healthcare providers. This time includes: history taking, physical examination, medical decision making, counseling, ECG interpretation, imaging interpretation, lab interpretation, orders, and education, excluding time spent in the performance of separately billed services. Admission and Anticipated Discharge Date Admission Date: May 17, 2025 Subjective Patient seen and examined at bedside. Patient sitting comfortably in bed. Daughter present, all questions answered to best of my ability. Review of Systems Review of Systems: CONSTITUTIONAL: Patient denies fevers, chills, sweats and weight changes. EYES: Patient denies any visual symptoms. EARS, NOSE, AND THROAT: No difficulties with hearing. No symptoms of rhinitis or sore throat. CARDIOVASCULAR: Patient denies chest pains, palpitations, orthopnea and paroxysmal nocturnal dyspnea. RESPIRATORY: No dyspnea on exertion, no wheezing or cough. GI: No nausea, vomiting, diarrhea, constipation, abdominal pain, hematochezia or melena. : No urinary hesitancy or dribbling. No nocturia or urinary frequency. No abnormal urethral discharge. MUSCULOSKELETAL: No myalgias or arthralgias. NEUROLOGIC: No chronic headaches, no seizures. Patient denies numbness, tingling or weakness. PSYCHIATRIC: Patient denies problems with mood disturbance. No problems with anxiety. ENDOCRINE: No excessive urination or excessive thirst. DERMATOLOGIC: Patient denies any rashes or skin changes. Physical Exam Physical Exam: Gen: A&O 2 NAD HEENT: NCAT, EOMI, not icteric. External ears normal. No rhinorrhea. Moist mucous membranes. Neck: Supple, full range of motion, no observable masses, No meningeal sign. Lungs: No Respiratory distress. CV: RRR, no edema. Abdomen: Soft, nondistended, No rebound tenderness. MSK: No joint swelling, no redness. Skin: No rashes, petechiae, lesions. Normal color per patient. Neuro: Normal Gait, Grossly intact. Moderate dementia noted. Psych: Appropriate for situation. Results & Data Results & Data Vital Signs (Past 12 Hours) Vital Signs Temp Pulse Pulse Resp BP Pulse Ox O2 Del Method 05/20/25 13:40 78 18 150/81 H 99 Oxymask 05/20/25 13:30 81 16 139/75 98 Oxymask 05/20/25 13:23 36.0 C L 79 14 141/81 H 95 Oxymask 05/20/25 10:11 79 20 171/79 H 96 Room Air 05/20/25 06:59 36.6 C 77 16 138/77 93 Room Air O2 Flow Rate 05/20/25 13:40 4 05/20/25 13:30 6 05/20/25 13:23 6 05/20/25 10:11 05/20/25 06:59 Laboratory Results -personally reviewed, no leukocytosis, creatinine at baseline Medications Administered Acetaminophen (Acetaminophen 500 Mg Tab) 1,000 mg PO Q8H [facility] Stop: 06/16/25 14:29 Last Admin: 05/20/25 05:43 Dose: 1,000 mg Documented By: mirtha Admin: 05/19/25 22:05 Dose: 1,000 mg Documented By: mirtha Admin: 05/19/25 13:56 Dose: 1,000 mg Documented By: daysi Admin: 05/19/25 06:10 Dose: 1,000 mg Documented By: Admin: 05/18/25 21:08 Dose: 1,000 mg Documented By: Admin: 05/18/25 16:24 Dose: 1,000 mg Documented By: Admin: 05/18/25 05:21 Dose: 1,000 mg Documented By: Admin: 05/17/25 23:00 Dose: 1,000 mg Documented By: [id number] Admin: 05/17/25 15:45 Dose: 1,000 mg Documented By: daysi Amlodipine Besylate (Amlodipine Besylate 5 Mg Tab) 2.5 mg PO [facility] Stop: 06/17/25 08:59 Last Admin: 05/20/25 08:38 Dose: 2.5 mg Documented By: Admin: 05/19/25 09:16 Dose: 2.5 mg Documented By: daysi Admin: 05/18/25 08:50 Dose: 2.5 mg Documented By: KAYLA Aspirin (Aspirin 81 Mg Ectab) 81 mg PO [facility] Stop: 06/17/25 08:59 Last Admin: 05/20/25 08:38 Dose: 81 mg Documented By: Admin: 05/19/25 09:17 Dose: 81 mg Documented By: daysi Admin: 05/18/25 08:50 Dose: 81 mg Documented By: JUAN JOSÉK Atorvastatin Calcium (Atorvastatin 20 Mg Tab) 20 mg PO [facility] Stop: 06/17/25 08:59 Last Admin: 05/20/25 08:38 Dose: 20 mg Documented By: Admin: 05/19/25 09:15 Dose: 20 mg Documented By: daysi Admin: 05/18/25 08:50 Dose: 20 mg Documented By: KAYLA Buprenorphine HCl (Buprenorphine 5 Mcg/Hr Tdsy) 1 patch TD Q7D KIARA Stop: 06/17/25 12:59 Last Admin: 05/18/25 16:17 Dose: 1 patch Documented By: KAYLA Calcitonin [place] (Calcitonin [place] Na 200 Iu/Ac 3.7 Ml Btl) 1 sprays NA DAILY KIARA Stop: 06/17/25 08:59 Last Admin: 05/20/25 08:38 Dose: 1 sprays Documented By: Admin: 05/19/25 09:17 Dose: 1 sprays Documented By: daysi Admin: 05/18/25 08:51 Dose: 1 sprays Documented By: KAYLA Heparin Sodium (Porcine) (Heparin Sod 5,000 Unit/0.5 Ml Vial) 5,000 units SQ Q8 KIARA Stop: 06/16/25 21:59 Last Admin: 05/20/25 05:43 Dose: 5,000 units Documented By: mirtha Admin: 05/19/25 22:05 Dose: 5,000 units Documented By: mirtha Admin: 05/19/25 13:56 Dose: 5,000 units Documented By: daysi Admin: 05/19/25 06:10 Dose: 5,000 units Documented By: Admin: 05/18/25 21:08 Dose: 5,000 units Documented By: Admin: 05/18/25 16:24 Dose: 5,000 units Documented By: Admin: 05/18/25 05:20 Dose: 5,000 units Documented By: Admin: 05/17/25 21:05 Dose: 5,000 units Documented By: NEYMAR Lactated Ringer's (Lr) 1,000 mls @ 15 mls/hr IV .Q24H KIARA Stop: 05/23/25 09:59 Last Infusion: 05/20/25 12:12 Dose: Infused Documented By: Admin: 05/20/25 10:32 Dose: 15 mls/hr Documented By: STU Lidocaine (Lidocaine 5% 1 Patch) 1 patch TD QAM KIARA Stop: 06/17/25 08:59 Last Admin: 05/20/25 08:40 Dose: Not Given Documented By: Admin: 05/19/25 09:26 Dose: Not Given Documented By: daysi Admin: 05/18/25 09:11 Dose: Not Given Documented By: KAYLA Metoprolol Succinate (Metoprolol Succ 25mg Ext Rel Tab) 25 mg PO QAM [facility] Stop: 06/17/25 08:59 Last Admin: 05/20/25 08:38 Dose: 25 mg Documented By: Admin: 05/19/25 09:16 Dose: 25 mg Documented By: daysi Admin: 05/18/25 08:51 Dose: 25 mg Documented By: KAYLA Miscellaneous (Remove Lidoderm Patch) 1 each N/A DAILY@2100 [facility] Stop: 06/16/25 20:59 Last Admin: 05/19/25 20:55 Dose: Not Given Documented By: mirtha Admin: 05/18/25 21:08 Dose: Not Given Documented By: Admin: 05/17/25 21:06 Dose: Not Given Documented By: NEYMAR May (Remove & Waste Butrans Patch 1 Ea Ea) 1 each N/A Q7D KIARA Stop: 06/17/25 12:59 Last Admin: 05/18/25 16:21 Dose: Not Given Documented By: KAYLA May (Check Buprenorphine Patch) 1 each N/A QS [facility] Stop: 06/17/25 15:59 Last Admin: 05/20/25 08:38 Dose: 1 each Documented By: Admin: 05/20/25 01:29 Dose: 1 each Documented By: mirtha Admin: 05/19/25 16:03 Dose: 1 each Documented By: Admin: 05/19/25 09:26 Dose: 1 each Documented By: daysi Admin: 05/19/25 00:09 Dose: 1 each Documented By: Admin: 05/18/25 16:21 Dose: 1 each Documented By: KAYLA [facility]ivitamins ([facility]ivitamin Tab) [facility] [place]: 06/17/25 08:59 Last Admin: 05/20/25 08:38 Dose: 1 tab Documented By: Admin: 05/19/25 09:16 Dose: 1 tab Documented By: daysi Admin: 05/18/25 08:51 Dose: 1 tab Documented By: KAYLA Oxycodone HCl (Oxycodone Hcl Ir 5 Mg Tab (Immediate Release)) 10 mg PO Q4H PRN PRN Reason: Severe Pain (Scale 7, 8, 9,10) Stop: 06/01/25 08:35 Last Admin: 05/20/25 08:41 Dose: 10 mg Documented By: Admin: 05/20/25 02:09 Dose: 10 mg Documented By: mirtha Admin: 05/19/25 16:01 Dose: 10 mg Documented By: Admin: 05/19/25 02:24 Dose: 10 mg Documented By: Admin: 05/18/25 17:27 Dose: 10 mg Documented By: Admin: 05/18/25 12:38 Dose: 10 mg Documented By: KAYLA Pantoprazole Sodium (Pantoprazole 40 Mg Tab) 40 mg PO BID KIARA Stop: 06/16/25 20:59 Last Admin: 05/20/25 08:38 Dose: 40 mg Documented By: Admin: 05/19/25 20:57 Dose: 40 mg Documented By: mirtha Admin: 05/19/25 09:17 Dose: 40 mg Documented By: daysi Admin: 05/18/25 21:08 Dose: 40 mg Documented By: Admin: 05/18/25 08:51 Dose: 40 mg Documented By: Admin: 05/17/25 21:05 Dose: 40 mg Documented By: NEYMAR Polyethylene Glycol (Polyethylene (Miralax) 17 Gm Pack) 17 gm PO DAILY KIARA Stop: 06/17/25 08:59 Last Admin: 05/20/25 08:37 Dose: Not Given Documented By: Admin: 05/19/25 09:25 Dose: 17 gm Documented By: daysi Admin: 05/18/25 08:56 Dose: 17 gm Documented By: KAYLA Trazodone HCl (Trazodone Hcl 50 Mg Tab) 50 mg PO HS [facility]IARA Stop: 06/16/25 20:59 Last Admin: 05/19/25 20:57 Dose: 50 mg Documented By: mirtha Admin: 05/18/25 21:07 Dose: 50 mg Documented By: Admin: 05/17/25 21:25 Dose: 50 mg Documented By: [id number] (1) Closed L1 vertebral fracture Encounter type: initial encounter Fracture morphology: unspecified fracture morphology Qualified Code(s): S32.019A - Unspecified fracture of first lumbar vertebra, initial encounter for closed fracture (3) Compression fracture of L3 vertebra Encounter type: subsequent encounter Fracture healing: with routine healing Qualified Code(s): S32.030D - Wedge compression fracture of third lumbar vertebra, subsequent encounter for fracture with routine healing (5) Dementia Alzheimer's disease onset: late onset Dementia behavioral or psychological symptom: without behavioral, psychotic, or mood disturbance or anxiety Dementia severity: moderate Dementia type: Alzheimer's Qualified Code(s): G30.1 - Alzheimer's disease with late onset; F02.B0 - Dementia in other diseases classified elsewhere, moderate, without behavioral disturbance, psychotic disturbance, mood disturbance, and anxiety (6) HTN (hypertension) Hypertension type: unspecified Qualified Code(s): I10 - Essential (primary) hypertension (7) HLD (hyperlipidemia) Hyperlipidemia type: unspecified Qualified Code(s): E78.5 - Hyperlipidemia, unspecified (8) Chronic kidney disease Chronic kidney disease stage: stage 3 (moderate) Chronic kidney disease stage 3 subtype: unspecified whether 3a or 3b Qualified Code(s): N18.30 - Chronic kid truman disease, stage 3 unspecified
--- NOTE | 2025-05-20 14:10 | Anesthesiology Progress Note ---
Date of Service May 20, 2025 Anesthesia Post Procedure Vital Signs Vital Signs: Temp Pulse Pulse Resp BP Pulse Ox O2 Del Method 05/20/25 14:00 74 16 135/68 98 Oxymask 05/20/25 13:50 73 18 132/68 98 Oxymask 05/20/25 13:40 78 18 150/81 H 99 Oxymask 05/20/25 13:30 81 16 139/75 98 Oxymask 05/20/25 13:23 96.8 F L 79 14 141/81 H 95 Oxymask 05/20/25 10:11 79 20 171/79 H 96 Room Air 05/20/25 06:59 97.9 F 77 16 138/77 93 Room Air 05/19/25 23:00 98.1 F 73 18 131/71 93 Room Air 05/19/25 14:45 98.4 F 93 H 18 132/71 92 Room Air O2 Flow Rate 05/20/25 14:00 2 05/20/25 13:50 2 05/20/25 13:40 4 05/20/25 13:30 6 05/20/25 13:23 6 05/20/25 10:11 05/20/25 06:59 05/19/25 23:00 05/19/25 14:45 Pain Intensity Back: Pain Intensity: 5 Transfer of Care Handoff Completed per policy Notes Mental Status: alert / awake / arousable and participated in evaluation Patient Amnestic to Procedure: Yes Nausea / Vomiting: adequately controlled Pain: adequately controlled Airway Patency, RR, SpO2: stable & adequate BP & HR: stable & adequate Hydration State: stable & adequate Anesthetic Complications: no major complications apparent and Pt Satisfied with anesthetic care
--- NOTE | 2025-05-20 14:27 | Fluoroscopy Report ---
FL lumbar spine 2-3V CLINICAL HISTORY: L1, L2, L3 KYPHOPLASTY COMPARISON STUDY: None FLUOROSCOPY TIME: 2 minutes 50 seconds FLUOROSCOPY IMAGES: 2 EXPOSURE DOSE: 120 mGy FINDINGS: Fluoroscopy was provided for L1-L3 kyphoplasty. IMPRESSION: Intraoperative fluoroscopy. ACT 112: Negative or not required by law. Electronically signed by: Tao Valdes M.D. 05/20/2025 2:25 PM
[2025-05-21 06:33] LABS: Hematocrit (blood only) 27.2 % (37.0-47.0); Hemoglobin 9.5 g/dl (12.0-16.0); Mean Corpuscular Hemoglobin 32.4 pg (25.0-34.0); Mean Corpuscular Volume 92.8 fL (80.0-100.0); Platelet Count 300 K/uL (130-400); RDW Standard Deviation 78.7 fL (36.4-46.3); Red Blood Count 2.93 M/uL (4.20-5.40); White Blood Count 7.37 K/ul (4.8-10.8)
[2025-05-21 06:49] LABS: Anion Gap 8.0 (3-11); Blood Urea Nitrogen 30.0 mg/dl (6-23); Calcium 8.7 mg/dl (8.6-10.3); Carbon Dioxide 24.0 mmol/L (21-32); Chloride 103.0 mmol/L (98-107); Creatinine Clr Calc Pharmacy 26.3 ml/min; Glucose 154.0 mg/dl (70-99(Fasting)); Potassium 4.8 mmol/L (3.5-5.1); Sodium 135.0 mmol/L (136-145)
[2025-05-21 07:07] VITALS: RESP 16
--- NOTE | 2025-05-21 08:24 | Orthopedic Progress Note ---
Date of Service May 21, 2025 Assessment & Plan (1) Closed L1 vertebral fracture: Plan: At this time I would initiate physical therapy to tolerance. She should avoid lifting no more than 5 pounds. Admission and Anticipated Discharge Date Admission Date: May 17, 2025 Subjective Patient complaining of back pain. She denies any leg pain numbness or tingling. Physical Exam Physical Exam: On exam patient is sitting at the bedside. She is neurologically intact. Dressings are in place. She does not recall having surgery yesterday. Results & Data Vital Signs (Past 12 Hours) Vital Signs Temp Pulse Resp BP Pulse Ox O2 Del Method 05/21/25 07:05 36.6 C 90 16 157/78 H 92 Room Air 05/21/25 03:00 36.5 C 97 H 18 152/71 H 93 Room Air 05/20/25 23:00 36.5 C 81 18 136/71 93 Room Air (1) Closed L1 vertebral fracture Encounter type: initial encounter Fracture morphology: unspecified fracture morphology Qualified Code(s): S32.019A - Unspecified fracture of first lumbar vertebra, initial encounter for closed fracture
[2025-05-21 14:53] VITALS: O2SAT 95
--- NOTE | 2025-05-21 15:34 | Hospitalist Progress Note ---
Date of Service May 21, 2025 Assessment & Plan (1) Closed L1 vertebral fracture: (2) Compression fracture of L3 vertebra: (3) Compression fracture of L2: (4) Status post kyphoplasty: (5) Chronic renal failure, stage 3b: (6) AVM (arteriovenous malformation) of stomach, acquired: (7) Myelodysplastic syndrome: (8) Dementia: Plan Patient presented with uncontrolled back pain due to compression fractures L1- L3. Status post kyphoplasty. Continue pain management Continue therapies Ongoing communication with family disposition plans Communication with case management. Phone conversation with patient's daughter, she is with the patient now. Reports the patient is moving well with minimal assistance from her. She is confident that she will be able to manage her at home with home health care. Discussed with daughter anticipated plans for discharge tomorrow afternoon. Admission and Anticipated Discharge Date Admission Date: May 17, 2025 Subjective Patient feels as though her pain is slightly better after the kyphoplasty yesterday. Physical Exam Physical Exam: Constitutional: Alert HEENT: Mucous membranes moist. Lungs: Clear to auscultation, decreased, no wheezes rales or rhonchi CV: S1-S2, regular, systolic murmur Abdomen: Soft, nontender, nondistended Extremities: No significant edema Neuro: No focal deficits Psych: Cooperative, normal mood Results & Data Results & Data Vital Signs (Past 12 Hours) Vital Signs Temp Pulse Resp BP Pulse Ox O2 Del Method 05/21/25 14:52 36.6 C 79 16 112/69 95 Room Air 05/21/25 07:05 36.6 C 90 16 157/78 H 92 Room Air Diagnostic Findings Reviewed imaging, laboratory and diagnostic studies. Pertinent findings as below. WBC 7.3 Hemoglobin 9.5 Electrolytes stable Creatinine 1.48, baseline (1) Closed L1 vertebral fracture Encounter type: initial encounter Fracture morphology: unspecified fracture morphology Qualified Code(s): S32.019A - Unspecified fracture of first lumbar vertebra, initial encounter for closed fracture (2) Compression fracture of L3 vertebra Encounter type: subsequent encounter Fracture healing: with routine healing Qualified Code(s): S32.030D - Wedge compression fracture of third lumbar vertebra, subsequent encounter for fracture with routine healing (8) Dementia Dementia type: Alzheimer's Alzheimer's disease onset: late onset Dementia severity: moderate Dementia behavioral or psychological symptom: without behavioral, psychotic, or mood disturbance or anxiety Qualified Code(s): G30.1 - Alzheimer's disease with late onset; F02.B0 - Dementia in other diseases classified elsewhere, moderate, without behavioral disturbance, psychotic dis turbance, mood disturbance, and anxiety
[2025-05-22 07:46] VITALS: BP 128/72; PULSE 95; TEMP 98.2
--- NOTE | 2025-05-22 08:24 | Orthopedic Progress Note ---
Date of Service May 22, 2025 Assessment & Plan (1) Compression fracture of L2: Plan: At this time she continue to ambulate as tolerated and is stable for discharge per orthopedics. Admission and Anticipated Discharge Date Admission Date: May 17, 2025 Subjective Patient's back pain seems improved. Denies any leg pain. Physical Exam Physical Exam: Patient is sitting up in bed. Appears comfortable. Results & Data Vital Signs (Past 12 Hours) Vital Signs Temp Pulse Pulse Resp BP Pulse Ox O2 Del Method 05/22/25 07:00 36.8 C 95 H 16 128/72 95 Room Air 05/21/25 23:21 37.0 C 81 16 147/73 H 95 Room Air
--- NOTE | 2025-05-22 09:54 | Discharge Summary ---
Discharge Summary Date of Service May 22, 2025 Principal Dx & Hospital Course #1 = Principal Diagnosis (1) Closed L1 vertebral fracture: (2) Compression fracture of L3 vertebra: (3) Compression fracture of L2: (4) Status post kyphoplasty: (5) Chronic renal failure, stage 3b: (6) AVM (arteriovenous malformation) of stomach, acquired: (7) Myelodysplastic syndrome: (8) Dementia: Plan Patient 84-year-old female who has had a series of falls. At previous admission where an L3 fracture was identified. Presented to the emergency room with significant back pain and some side effects of her medications. Patient was admitted to the hospital. Her pain regimen was readjusted. She is started on Butrans patch, Lidoderm patch, scheduled Tylenol and as needed oxycodone. Orthopedic consultation was also obtained. Follow-up MRI showed compression fractures of L1-L2 and L3. Kyphoplasty was offered to the patient. Patient underwent kyphoplasty with Dr. Naylor. Postprocedure course was uneventful. Patient reported improved pain. Her pain was manageable with the scheduled medications and patches. The as needed oxycodone managed any breakthrough pain. She was seen by therapies. Patient's daughter also was at the bedside when the patient was up and ambulatory. Daughter felt that she was more than capable of taking care of the patient at home with the assistance of home health services and home physical therapy. This was coordinated for her. On the day of discharge she was sitting straight up in bed with her legs crossed and eating her breakfast with a breakfast tray on her bed. She said her pain was manageable. No other acute issues. Should be discharged home with the current pain regimen and follow-up with her outpatient providers. Notes For Next Care Provider Continue to evaluate how patient is doing at home and managing home with daughter and outside caregivers Medication Changes From Visit Tylenol scheduled Butrans patch started Lidoderm patch started Oxycodone as needed Admission HPI Per Admitting Provider This is an 84 y/o female with dementia, HTN, CAD, PVD, MDS, breast cancer s/p mastectomy, anemia, and other history as outlined below who was brought to the ED today by her daughter due to severe back pain. Pt has advanced dementia so most of history was obtained from her daughter at the bedside and from review of outpatient notes from PCP/Rosemary and from recent admission. Pt was originally admitted to [facility] 03/24/25 to 03/27/25 after she had a series of falls at home with resultant back pain, imaging showed acute L3 burst fracture. This was managed conservatively and pt was discharged to [facility] where she was from 03/27-04/08 when she was discharged home. On 04/09, she was readmitted due to incidental finding of low hgb in the setting of possible GI bleed. She was evaluated by GI and underwent EGD that showed mild erosive gastritis, hiatal hernia but no evidence of bleeding. She was discharged to [facility] on 04/11 for continued rehab where she was from 04/11-05/07. There were reportedly two falls when she was at [facility] but no additional imaging completed. Pt's daughter reports that pt was not progressing there and in fact her pain and ambulatory dysfunction seemed worse so she brought her home. She was discharged on a prednisone taper. She saw her PCP on 05/09 due to ongoing pain who recommended MRI L-spine and attempted to prescribe Butrans patch, which insurance denied unless a prior authorization was completed. This is in process but pt has not been able to obtain this yet. Pt's daughter has been giving patient acetaminophen 500 mg plus oxycodone 10 mg over the last few days, which seems to provide only a couple hours of relief. Pt's pain is relieved when she is lying flat but becomes severe with sitting up or any attempt at ambulation. Because of the severity of the pain, pt has mostly been lying in bed. Daughter is her primary crop pest control specialist but she also has a home health aide for four hours per day. Pt developed significant drowsiness and slurred speech on Lyrica, did not have significant relief on gabapentin, and developed an unknown cardiac reaction with morphine. Her back pain recently seems to be more in anterior right hip area, even into the groin at times. She uses a walker for ambulation. She denies chest pain, SOB, cough, N/V/D, fevers, chills. Her bowel pattern recently has tended towards constipation, for which the daughter has been giving patient Miralax. Admission Exam Per Admitting Provider See H&P Discharge Exam Constitutional: Alert, nontoxic, no acute distress HEENT: Mucous membranes moist. Lungs: Clear to auscultation, decreased, no wheezes rales or rhonchi CV: S1-S2, regular, systolic murmur Abdomen: Soft, nontender, nondistended Extremities: No significant edema Neuro: No focal deficits, moving all 4 extremities, moving around in bed on her own. Psych: Cooperative, normal mood, significant memory and judgment impairment consistent with her diagnosis of dementia Updated Medication List Medication Instructions Recorded Confirmed Type multivitamin 1 tab PO QAM 03/31/24 05/17/25 History amlodipine 5 mg tablet 2.5 mg (1/2 x 5 mg) PO QAM #15 tabs 04/11/25 05/17/25 Rx aspirin 81 mg tablet,delayed 81 mg PO QAM #90 tabs 04/11/25 05/17/25 Rx release atorvastatin 20 mg tablet 20 mg PO QAM #30 tabs 04/11/25 05/17/25 Rx metoprolol succinate 25 mg 25 mg PO QAM #30 tabs 04/11/25 05/17/25 Rx tablet,extended release 24 hr pantoprazole 40 mg tablet,delayed 40 mg PO BID #60 tabs 04/11/25 05/17/25 Rx release polyethylene glycol 3350 17 17 g PO DAILY #30 grams 04/11/25 05/17/25 Rx gram/dose oral powder (Miralax) trazodone 50 mg tablet 50 mg PO HS #30 tabs 04/11/25 05/17/25 Rx calcitonin (salmon) 200 1 spray intranasal DAILY 05/17/25 05/17/25 History unit/actuation nasal spray acetaminophen 500 mg tablet 1,000 mg (2 x 500 mg) PO TID pain 05/22/25 Rx (Tylenol Extra Strength) (scale score 1-3) #300 tabs buprenorphine 5 mcg/hour weekly 1 patch transdermal Q7D #4 ea 05/22/25 Rx transdermal patch (Butrans) lidocaine 5 % topical patch 1 patch transdermal QAM #30 ea 05/22/25 Rx oxycodone 5 mg tablet 10 mg (2 x 5 mg) PO Q6H PRN pain 05/22/25 Rx #16 tabs Hospital Stay Data Consultations 05/17/25 13:41 ED Decision to Admit Stat 05/18/25 08:31 Consult Orthopedic Spine Surgery Routine 05/19/25 07:59 Consult Pain Management Routine Procedures Performed Operation Date: 05/20/25 11:05 Actual Procedures p L1, L2, L3 Kyphoplasty(Not Applicable) - Angel Naylor, Diagnostic Imagining Performed 05/17/25 11:50 CT thoracic spine wo con Stat 05/17/25 11:53 CT lumbar spine wo con Stat 05/17/25 16:12 MRI Lumbar Spine [MR lumbar spine wo/w con] Routine 05/20/25 [place] kyphoplasty any level Routine Reviewed imaging, laboratory and diagnostic studies. Pertinent findings as below. WBC 7.3 Hemoglobin 9.5, baseline Platelets 300 Electrolytes stable Creatinine 1.48, baseline MRI of the lumbar spine done prior to kyphoplasty showed interval worsening of L3 compression fracture new fracture of L2 and minimal compression fracture L1 Pending Results Patient Have Any Pending Studies at Discharge: No Discharge Instructions Given to Patient (Per Discharging Provider) Using assistive device when ambulating Continue to work with home therapies Follow-up with your providers outpatient as scheduled Total Time Total Time Spent Total Time Spent (In Minutes): 33
[2025-05-22] MEDS: BUPRENORPHINE 5 MCG/HR TDSY TD SCH (10:03)
--- NOTE | 2025-05-23 08:32 | Coding Query ---
To promote full compliance with coding requirements relating to patient care, physician participation is requested in all cases of practice office associate uncertainty. Please assist us with the question(s) below: Coding Question(s): It was noted in the operative report that the patient's fracture is osteoporotic while the rest of the record notes compression fractures. According to coding guidelines "a code for osteoporotic fracture, and not a traumatic fracture, should be used for any patient with known osteoporosis who suffers a fracture, even if the patient had a minor fall or trauma, if that fall or trauma would not usually break a normal, healthy bone." Please indicate below the type of fracture: Physician's Response(s): ( x) Osteoporotic fracture of lumbar vertebrae ( ) Traumatic fracture of lumbar vertebrae ( ) Other, please specify MTDD
[2025-05-29] MEDS ORDERED: REMOVE & WASTE BUTRANS PATCH 1 EA EA SCH (11:00)
== END 2025-05-22 13:18 | disposition home health service (06) | DRG 478 ==
LOC: ED 11:11 → 3W 14:19 → SUATTDRO 14:19 → 3W 15:02

== ENCOUNTER 2025-05-30 16:32 | Inpatient (IN) ==
--- NOTE | 2025-05-30 16:57 | Emergency Department Note ---
Impression & Plan Lower back pain, Lumbar compression fracture, Failure of outpatient treatment, Anemia ED Provider Note NAME: KODY SHIN AGE: 84 SEX: F : 1940 ARRIVES VIA: Ambulance INFORMANT: [Patient][ems] ED PROVIDER(S): [Edi Mccray MD] CHIEF COMPLAINT: Back pain HISTORY OF PRESENT ILLNESS: Patient is an 84-year-old female with some dementia. She had kyphoplasty on L1- L3 recently. She was discharged from our hospital 8 days ago. She has been using Tylenol and oxycodone. Today, she apparently refused to get up and move because of increased pain. The ambulance was called. The patient did receive morphine and Zofran in route, as per EMS, this helped control her pain. The patient currently has no complaints. She states that she has been having back pain but, this has been the case for some time. She denies that it is worse today. There has been no fever, no chills. She is not having chest pain. As per the EMS notes, there was concern for constipation as she has not had a good bowel movement in a week. PMHx/PSHx/Social Hx: See Below PHYSICAL EXAM: GENERAL: Patient is in no acute distress. HEENT: No acute trauma, normocephalic atraumatic, mucous membranes moist, no nasal congestion. NECK: No stridor, no adenopathy, no meningismus, trachea is midline. LUNGS: Clear to auscultation bilaterally, no wheeze, no rhonchi, breath sounds equal. HEART: Without murmurs gallops or rubs, regular rate and rhythm. ABDOMEN: Soft, nontender, no peritonitis. EXTREMITIES: No cyanosis, full range of motion of all the joints without pain or difficulty. NEUROLOGIC: Awake and alert, no focal motor deficits. SKIN: No jaundice, no diaphoresis. DIFFERENTIAL DIAGNOSIS: Acute on chronic pain, dehydration, constipation, UTI, among others. EMERGENCY DEPARTMENT PROCEDURES: MEDICAL DECISION MAKING: There is no leukocytosis. Patient is anemic, she carries a history of anemia although, today's value is lower than her typical baseline. Platelet count somewhat elevated at 521. There is elevation to the creatinine but, this appears baseline. No electrolyte abnormality in need of emergent correction. No concerning liver enzyme elevation. The patient appears to be in a euthyroid state. ECG shows a sinus rhythm, no ST elevation. Cardiac enzyme testing x 1 is not consistent with acute cardiac injury. Urinalysis does not show infection. KUB does not show constipation or bowel obstruction. Chest x-ray does not show pneumonia or CHF. Lumbar spine CT shows worsening of the L1 compression fracture. On exam, patient was not toxic or febrile. Patient was given IV morphine for pain, she received a small dose of IV Versed for agitation and stress. The patient is unable to function at home with her discomfort. She is failing outpatient management for her compression fractures. She may actually have a worsening of one of her compression fractures, L1. I did speak with the family at length. I did speak with case management. For now, hospitalization is warranted. The on-call hospitalist was consulted. Prior/Outside records/notes reviewed: Today's EMS notes describing her presentation and transport at this hospital. ECG per my interpretation: Indication was back pain. The ECG shows a normal sinus rhythm with a rate of 82. There is an old anterior infarct. There is no ST elevation, there are no PVCs. The QTc is 413. Continuous Cardiac Monitoring per my interpretation: An order was placed for continuous cardiac monitoring. The monitor shows a rate of 85 with normal sinus rhythm. Imaging/x-ray results per my interpretation: Chest x-ray does not show CHF or pneumonia. KUB does not show significant constipation or bowel obstruction. Chronic Medical/Social conditions affecting care: Advanced age, recent hospitalization. Care/Management discussed with: Case management, the on-call hospitalist. Level of care consideration(s): After review of the information above and other included data: --I believe the patient requires escalation of care to admission DISPOSITION: Admission Past Med/Surg History Problem List (Updated 05/31/25 @ 00:08 by Edi Mccray MD) Anemia (Acute) Failure of outpatient treatment (Acute) Lumbar compression fracture (Acute) Lower back pain (Acute) Status post kyphoplasty Compression fracture of L2 Encounter for pre-operative examination Closed lumbar vertebral fracture Closed L1 vertebral fracture (Acute) Jose ulcer AVM (arteriovenous malformation) of stomach, acquired Erosive gastritis Large hiatal hernia Chronic renal failure, stage 3b Acute on chronic anemia Weakness (Acute) Symptomatic anemia (Acute) GI bleed (Acute) Falls (Acute) Compression fracture of L3 vertebra (Acute) Chronic kidney disease-mineral and bone disorder Chronic kidney disease (Acute) Medical History Coronary artery disease severe calcific vascular disease on imaging PFO (patent foramen ovale) Breast cancer 09/04 infiltrative ductal carcinoma. right total mastectomy with axillary node dissection and adjuvant radiation therapy. T2 N0 disease. Completed 5 years letrozole. 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 TIA (transient ischemic attack) HTN (hypertension) HLD (hyperlipidemia) Surgical History History of mastectomy, total right Family History Other Hypertension Social History Smoking Status: Former smoker Tobacco Type: Cigarettes Cigarettes Per Day: 12; Smoking End Date: 03/2025; Second Hand Exposure: No; Do You Dip or Chew Tobacco: No; Tobacco Cessation Education Requested by Patient: No Hx Alcohol Use: No Hx Substance Use: No Preferred Language: Luxembourgish Communication Ability: Effective Conservation Or Heritage Architect Required: No Beliefs That Will Affect Care: None Current Living Situation: Family Current Living Situation Comment: Lives with daughter Fara Junior current occupational status: retired Other Information That Helps Us Care for You: No Feels Safe at Home: Yes Safety Concerns: Feels Safe At This Time Diet: regular caffeine: Yes (1-1.5 cups coffee daily) Dental Care, Regularly: Yes Physical Activity Frequency: Does not Exercise Seatbelt Use: always Do you think of yourself as: straight/heterosexual Gender Identity: Female Assistive Devices: Bedside Commode, Brace/Splint/Immobilizer and Walker Allergies Allergies Allergy/AdvReac Type Severity Reaction Status Date / Time No Known Allergies Allergy Unverified 05/20/25 10:11 Home Meds Home Medications Medication Instructions Recorded Confirmed multivitamin 1 tab PO QAM 03/31/24 05/30/25 calcitonin (salmon) 200 1 spray intranasal DAILY 05/17/25 05/30/25 unit/actuation nasal spray Previous Rx's Medication Instructions Recorded amlodipine 5 mg tablet 2.5 mg (1/2 x 5 mg) PO QAM #15 tabs 04/11/25 aspirin 81 mg tablet,delayed 81 mg PO QAM #90 tabs 04/11/25 release atorvastatin 20 mg tablet 20 mg PO QAM #30 tabs 04/11/25 metoprolol succinate 25 mg 25 mg PO QAM #30 tabs 04/11/25 tablet,extended release 24 hr pantoprazole 40 mg tablet,delayed 40 mg PO BID #60 tabs 04/11/25 release polyethylene glycol 3350 17 17 g PO DAILY #30 grams 04/11/25 gram/dose oral powder (Miralax) trazodone 50 mg tablet 50 mg PO HS #30 tabs 04/11/25 acetaminophen 500 mg tablet 1,000 mg (2 x 500 mg) PO TID pain 05/22/25 (Tylenol Extra Strength) (scale score 1-3) #300 tabs buprenorphine 5 mcg/hour weekly 1 patch transdermal Q7D #4 ea 05/22/25 transdermal patch (Butrans) lidocaine 5 % topical patch 1 patch transdermal QAM #30 ea 05/22/25 miconazole nitrate 2 % topical 1 applic EXT PRN PRN rash #85 grams 05/22/25 powder (Desenex) oxycodone 5 mg tablet 10 mg (2 x 5 mg) PO Q6H PRN pain 05/22/25 #16 tabs Results & Data (ED) Vital Signs Vital Signs - 24 hr 05/30/25 16:42 05/30/25 16:51 05/30/25 17:00 Temperature 37 C Temperature Source Oral Pulse Rate 85 82 Pulse Rate from SpO2 Sensor 81 Respiratory Rate 18 20 Respiratory Effort / Characteristics Non-Labored Spontaneous Respiratory Depth Normal Respiratory Pattern Regular Blood Pressure 155/91 H 147/106 H Blood Pressure Mean 112 127 Pulse Oximetry 98 98 Oxygen Delivery Method Room Air Room Air Oxygen Flow Rate Sepsis Recent Fever Within 48 Hours No Sepsis New/Unexplained Change in Mental Status No Sepsis Action Taken by Nursing No Action Required Oxygen Flow Rate - Titration Pulse Oximetry Post Tiitration 05/30/25 17:00 05/30/25 17:24 05/30/25 17:36 Temperature Temperature Source Pulse Rate 136 H 79 87 Pulse Rate from SpO2 Sensor 97 H 87 Respiratory Rate 20 21 Respiratory Effort / Characteristics Respiratory Depth Respiratory Pattern Blood Pressure Blood Pressure Mean Pulse Oximetry 100 Oxygen Delivery Method Room Air Oxygen Flow Rate Sepsis Recent Fever Within 48 Hours Sepsis New/Unexplained Change in Mental Status Sepsis Action Taken by Nursing Oxygen Flow Rate - Titration Pulse Oximetry Post Tiitration 05/30/25 18:12 05/30/25 18:24 05/30/25 18:30 Temperature Temperature Source Pulse Rate 89 86 Pulse Rate from SpO2 Sensor 89 85 Respiratory Rate 19 17 Respiratory Effort / Characteristics Respiratory Depth Respiratory Pattern Blood Pressure 172/76 H Blood Pressure Mean 105 Pulse Oximetry 97 100 Oxygen Delivery Method Room Air Room Air Oxygen Flow Rate Sepsis Recent Fever Within 48 Hours Sepsis New/Unexplained Change in Mental Status Sepsis Action Taken by Nursing Oxygen Flow Rate - Titration Pulse Oximetry Post Tiitration 05/30/25 18:36 05/30/25 19:00 05/30/25 19:33 Temperature Temperature Source Pulse Rate 94 H 89 82 Pulse Rate from SpO2 Sensor 87 82 Respiratory Rate 32 H 17 22 Respiratory Effort / Characteristics Respiratory Depth Respiratory Pattern Blood Pressure 144/87 H 155/85 H Blood Pressure Mean 119 108 Pulse Oximetry 96 98 100 Oxygen Delivery Method Room Air Room Air Oxygen Flow Rate Sepsis Recent Fever Within 48 Hours Sepsis New/Unexplained Change in Mental Status Sepsis Action Taken by Nursing Oxygen Flow Rate - Titration Pulse Oximetry Post Tiitration 05/30/25 20:00 05/30/25 20:00 05/30/25 20:08 Temperature Temperature Source Pulse Rate 78 79 Pulse Rate from SpO2 Sensor 80 Respiratory Rate 31 H 19 Respiratory Effort / Characteristics Respiratory Depth Respiratory Pattern Blood Pressure 108/61 94/51 L Blood Pressure Mean 76 56 Pulse Oximetry 77 L 80 L 99 Oxygen Delivery Method Oxymask Oxymask Oxygen Flow Rate 0 0 10 Sepsis Recent Fever Within 48 Hours Sepsis New/Unexplained Change in Mental Status Sepsis Action Taken by Nursing Oxygen Flow Rate - Titration 10 Pulse Oximetry Post Tiitration 96 Home Medications Current Medication List: was personally reviewed by ia Laboratory Data Attestation: I reviewed the patient's lab results. 05/30/25 16:49 05/30/25 16:49 Lab Results 05/30/25 Range/Units 16:49 WBC 9.29 (4.8-10.8) K/ul RBC 2.84 L (4.20-5.40) M/uL Hgb 8.9 L (12.0-16.0) g/dl Hct 27.3 L (37.0-47.0) % MCV 96.1 (80.0-100.0) fL MCH 31.3 (25.0-34.0) pg MCHC 32.6 (32.0-36.0) g/dL RDW Std Deviation 85.7 H (36.4-46.3) fL RDW Coeff of Jadiel 24.9 H (11.5-14.5) % Plt Count 521 H (130-400) K/uL MPV 9.1 L (9.4-12.4) fL Immature Gran % (Auto) 1.5 % Neut % (Auto) 69.0 % Lymph % (Auto) 15.6 % Riley % (Auto) 12.1 % Eos % (Auto) 1.4 % Baso % (Auto) 0.4 % Neut # (Auto) 6.41 (1.40-6.50) K/uL Lymph # (Auto) 1.45 (1.20-3.40) K/uL Riley # (Auto) 1.12 H (0.11-0.59) K/uL Eos # (Auto) 0.13 (0.00-0.50) K/uL Baso # (Auto) 0.04 (0.00-0.20) K/uL Immature Gran # (Auto) 0.14 (0.01-0.20) K/uL Absolute Nucleated RBC 0.32 H (0.00-0.12) K/uL Nucleated RBC % (auto) 3.4 % Polychromasia 1+ Basophilic Stippling Occasional Pappenheimer Bodies Occasional Target Cells 1+ Sodium 137 (136-145) mmol/L Potassium 4.7 (3.5-5.1) mmol/L Chloride 106 (98-107) mmol/L Carbon Dioxide 18 L (21-32) mmol/L Anion Gap 13 H (3-11) BUN 27 H (6-23) mg/dl Creatinine 1.39 H (0.6-1.2) mg/dl Est Cr Clr Drug Dosing 31.1 ml/min eGFR 37.65 BUN/Creatinine Ratio 19.4 (10-20) Glucose 86 (70-99(Fasting)) mg/dl Calcium 8.8 (8.6-10.3) mg/dl Magnesium 1.9 (1.7-2.4) mg/dl Total Bilirubin 1.0 (0.2-1.0) mg/dl AST 21 (13-39) U/L ALT 17 (7-52) U/L Alkaline Phosphatase 79 (34-104) U/L Troponin I High Sens 8.9 (0-14) pg/ml Total Protein 6.2 (6.0-8.3) gm/dl Albumin 3.5 (3.4-5.0) gm/dl Globulin 2.7 (2.5-4.0) gm/dl Albumin/Globulin Ratio 1.3 (0.9-2) TSH 2.069 (0.300-4.500) uIu/ml Administered Medications Discontinued Medications Midazolam HCl (Midazolam Hcl 5 Mg/Ml 2ml Vial) 0.5 mg IV NOW STA Stop: 05/30/25 19:45 Last Admin: 05/30/25 19:53 Dose: 0.5 mg Documented By: NRB Morphine Sulfate (Morphine Sulfate 4 Mg/Ml 1 Ml Carp\Vial) 4 mg IV NOW STA Stop: 05/30/25 18:20 Last Admin: 05/30/25 18:23 Dose: 4 mg Documented By: CAP Imaging Data Radiologist's Impression: Chest X-Ray 05/30/25 16:50 Chest radiograph, one view History: Weakness Comparison: None Findings: Single AP view of the chest performed. No focal consolidation or pleural effusion. No pneumothorax. The cardiomediastinal silhouette is within normal limits. Normal pulmonary vascularity. No evidence for lymphadenopathy. No visualized bony or soft tissue abnormality. Impression: Normal chest radiograph Electronically signed by Noel Ortiz 05-30-2025 6:06 PM KUB X-Ray 05/30/25 16:50 Abdominal radiograph, one view History: Abdominal pain Comparison: 02/05/2025 Findings: Single AP view of the abdomen performed. The bowel gas pattern appears nonobstructive. Mild stool in the right colon and rectum is seen. No pneumatosis or portal venous gas. No abnormal calcifications project over the abdomen. No acute abnormality of the bony structures. Impression: Nonobstructive bowel gas pattern Electronically signed by Noel Ortiz 05-30-2025 6:[address] 05/30/25 16:50 Clinical history: Pain Technique: Axial computed tomography images were obtained of the lumbar spine without intravenous contrast. Sagittal and coronal reconstructions were obtained Comparison is made to the prior CT dated 05/17/2025 Findings: There is a worsened L1 compression fracture. There is an unchanged mild L2 compression fracture. There is an unchanged marked L3 compression fracture. There is an unchanged L4 compression fracture. There are new vertebroplasty changes involving L1, L2, and L3. There is scoliosis. There is grade 1 anterolisthesis at L4-5 and there is grade 2 anterolisthesis at L5-S1. There is 3 mm of retrolisthesis of L1 on L2. No focal osseous lesion is evident. There is no definite sign of osteomyelitis At L1-2, there is a disc bulge without spinal stenosis. There is right greater than the left neural foramen narrowing that may affect the right L1 nerve root At L2-3, there is spinal stenosis due to a disc bulge and facet osteoarthritis. There is bilateral neural foramen narrowing that may affect the exiting L2 nerve roots At L3-4, there is a disc bulge without spinal stenosis. There is right greater than left neural foramen narrowing that may affect the exiting L3 nerve roots At L4-5, there is spinal stenosis due to a disc bulge and facet osteoarthritis. There is left greater than right neural foramen narrowing that may affect the exiting L4 nerve roots At L5-S1, there is mild spinal stenosis due to a disc bulge and facet osteoarthritis. There is bilateral neural foramen narrowing that may affect the exiting L5 nerve roots There is a moderate to large hiatal hernia Impression: 1. Interval worsening of an L1 compression fracture 2. Unchanged compression fractures of L3 and L4 and to a lesser extent L2 3. New vertebroplasty changes involving L1, L2, and L3 4. Scoliosis 5. Anterolisthesis at L4-5 and L5-S1 6. Mild retrolisthesis at L1-2 7. Hiatal hernia 8. Spinal stenosis at L2-3 and L4-5 and to a lesser extent at L5-S1 9. Right L1-2 and bilateral L2-3 through L5-S1 neural foramen narrowing. This may affect the exiting nerve roots ACT 112: Positive. There are findings on this exam that require communication between the performing entity and the patient following Patient Test Result Information Act ([place] ACT 112) guidelines. Electronically signed by Anuj Snider 05-30-2025 6:10 PM Discharge Plan Visit Data Chief Complaint: Back Injury/Pain Stated Complaint: BACK PAIN ED Provider: Edi Mccray Discharge Problem: Lower back pain, Lumbar compression fracture, Failure of outpatient treatment, Anemia Patient Disposition: Admitted As Inpatient Condition: Fair Discharge Instructions Interventions: ED Discharge Assessment Last Done: 05/30/25 22:36 Discharge Problem: Lower back pain Qualifiers: Chronicity: unspecified Back pain laterality: midline Sciatica presence: w ithout sciatica Qualified Code(s): M54.50 - Low back pain, unspecified Lumbar compression fracture Qualifiers: Encounter type: subsequent encounter Lumbar vertebra fracture level: L1 F racture healing: with delayed healing Qualified Code(s): S32.010G - Wedge compression fracture of first lumbar vertebra, subsequent encounter for fracture with delayed healing Anemia Qualifiers: Anemia type: unspecified type Qualified Code(s): D64.9 - Anemia, unspecified
[2025-05-30 17:10] LABS: Hematocrit (blood only) 27.3 % (37.0-47.0); Hemoglobin 8.9 g/dl (12.0-16.0); Immature Granulocytes # (auto) 0.14 K/uL (0.01-0.20); Immature Granulocytes % (auto) 1.5 %; Mean Corpuscular Hemoglobin 31.3 pg (25.0-34.0); Mean Corpuscular Volume 96.1 fL (80.0-100.0); Platelet Count 521 K/uL (130-400); RDW Standard Deviation 85.7 fL (36.4-46.3); Red Blood Count 2.84 M/uL (4.20-5.40); White Blood Count 9.29 K/ul (4.8-10.8)
[2025-05-30 17:38] LABS: Thyroid Stimulating Hormone 2.069 uIu/ml (0.300-4.500)
[2025-05-30 17:47] LABS: Basophilic Stippling Occasional; Polychromasia 1+; Target Cells 1+
--- NOTE | 2025-05-30 18:06 | XRay Report ---
Chest radiograph, one view History: Weakness Comparison: None Findings: Single AP view of the chest performed. No focal consolidation or pleural effusion. No pneumothorax. The cardiomediastinal silhouette is within normal limits. Normal pulmonary vascularity. No evidence for lymphadenopathy. No visualized bony or soft tissue abnormality. Impression: Normal chest radiograph Electronically signed by Noel Ortiz 05-30-2025 6:06 PM
--- NOTE | 2025-05-30 18:10 | CT Scan Report ---
Clinical history: Pain Technique: Axial computed tomography images were obtained of the lumbar spine without intravenous contrast. Sagittal and coronal reconstructions were obtained Comparison is made to the prior CT dated 05/17/2025 Findings: There is a worsened L1 compression fracture. There is an unchanged mild L2 compression fracture. There is an unchanged marked L3 compression fracture. There is an unchanged L4 compression fracture. There are new vertebroplasty changes involving L1, L2, and L3. There is scoliosis. There is grade 1 anterolisthesis at L4-5 and there is grade 2 anterolisthesis at L5-S1. There is 3 mm of retrolisthesis of L1 on L2. No focal osseous lesion is evident. There is no definite sign of osteomyelitis At L1-2, there is a disc bulge without spinal stenosis. There is right greater than the left neural foramen narrowing that may affect the right L1 nerve root At L2-3, there is spinal stenosis due to a disc bulge and facet osteoarthritis. There is bilateral neural foramen narrowing that may affect the exiting L2 nerve roots At L3-4, there is a disc bulge without spinal stenosis. There is right greater than left neural foramen narrowing that may affect the exiting L3 nerve roots At L4-5, there is spinal stenosis due to a disc bulge and facet osteoarthritis. There is left greater than right neural foramen narrowing that may affect the exiting L4 nerve roots At L5-S1, there is mild spinal stenosis due to a disc bulge and facet osteoarthritis. There is bilateral neural foramen narrowing that may affect the exiting L5 nerve roots There is a moderate to large hiatal hernia Impression: 1. Interval worsening of an L1 compression fracture 2. Unchanged compression fractures of L3 and L4 and to a lesser extent L2 3. New vertebroplasty changes involving L1, L2, and L3 4. Scoliosis 5. Anterolisthesis at L4-5 and L5-S1 6. Mild retrolisthesis at L1-2 7. Hiatal hernia 8. Spinal stenosis at L2-3 and L4-5 and to a lesser extent at L5-S1 9. Right L1-2 and bilateral L2-3 through L5-S1 neural foramen narrowing. This may affect the exiting nerve roots ACT 112: Positive. There are findings on this exam that require communication between the performing entity and the patient following Patient Test Result Information Act ([place] ACT 112) guidelines. Electronically signed by Anuj Snider 05-30-2025 6:10 PM
[2025-05-30 18:11] LABS: Albumin Level 3.5 gm/dl (3.4-5.0); Anion Gap 13.0 (3-11); Bilirubin,Total 1.0 mg/dl (0.2-1.0); Calcium 8.8 mg/dl (8.6-10.3); Carbon Dioxide 18.0 mmol/L (21-32); Chloride 106.0 mmol/L (98-107); Magnesium 1.9 mg/dl (1.7-2.4); Potassium 4.7 mmol/L (3.5-5.1); Sodium 137.0 mmol/L (136-145)
[2025-05-30 18:17] LABS: Alanine Aminotransferase 17.0 U/L (7-52); Albumin Globulin Ratio 1.3 (0.9-2); Alkaline Phosphatase 79.0 U/L (34-104); Blood Urea Nitrogen 27.0 mg/dl (6-23); Creatinine Clr Calc Pharmacy 31.1 ml/min; Globulin 2.7 gm/dl (2.5-4.0); Glucose 86.0 mg/dl (70-99(Fasting)); Total Protein 6.2 gm/dl (6.0-8.3)
[2025-05-30] MEDS: MoRPHine SULFATE 4 MG/ML 1 ML CARP\\VIAL IV STA (18:23)
--- NOTE | 2025-05-30 18:44 | XRay Report ---
Abdominal radiograph, one view History: Abdominal pain Comparison: 02/05/2025 Findings: Single AP view of the abdomen performed. The bowel gas pattern appears nonobstructive. Mild stool in the right colon and rectum is seen. No pneumatosis or portal venous gas. No abnormal calcifications project over the abdomen. No acute abnormality of the bony structures. Impression: Nonobstructive bowel gas pattern Electronically signed by Noel Ortiz 05-30-2025 6:44 PM
[2025-05-30 19:33] LABS: Appearance Urine Clear (Clear); Glucose Urine UA Negative (Negative)
[2025-05-30] MEDS: MIDAZOLAM HCL 5 MG/ML 2ML VIAL IV STA (19:53)
--- NOTE | 2025-05-30 20:48 | History & Physical Report ---
Date of Service May 30, 2025 Assessment & Plan (1) Closed L1 vertebral fracture: (2) Status post kyphoplasty: Plan: Closed L1 compression fracture --H/O S/P kyphoplasty of L1, L2 and L3 vertebral bodies on 05/20/[address] Naylor ---Lumbar CT: Interval worsening of an L1 compression fracture. Unchanged compression fractures of L3 and L4 and to a lesser extent L2. New vertebroplasty changes involving L1, L2, and L3. Scoliosis. Anterolisthesis at L4-5 and L5-S1 . Mild retrolisthesis at L1-2 . Hiatal hernia . Spinal stenosis at L2-3 and L4-5 and to a lesser extent at L5-S1. Right L1-2 and bilateral L2-3 through L5-S1 neural foramen narrowing. This may affect the exiting nerve roots -- Pain control as needed Continue buprenorphine patch Bowel regimen to prevent constipation PT OT, fall precautions Consulted orthospine Consider pain management Hypotension Hypoxia Likely due to Versed, morphine given in ED IV fluids as needed Continue supplemental oxygen as needed Hold sedating medications as able Monitor blood pressure closely Severe dementia Oriented to person at baseline Reorient frequently to minimize delirium Hypertension Currently hypotensive as above Monitor blood pressure closely Hold amlodipine for now Coronary artery disease Peripheral vascular disease Aortic valve stenosis Continue aspirin, atorvastatin Breast cancer s/p surgery Myelodysplastic syndrome Chronic anemia Follows with [facility] oncology Dr. Feliz on Reblozyl injections every 3 weeks CKD stage III Renal function at baseline Monitor H/O AVM of stomach H/o Erosive gastritis As per record No acute issues Continue PPI DVT Px: SCDs for now CODE STATUS DNI DNR as per my discussion with patient's daughter History of Present Illness Chief Complaint: Back Pain Primary Care Provider: Lu Phillips DO Patient is an 84-year-old female with history of severe dementia, hypertension, coronary artery disease, peripheral vascular disease, aortic valve stenosis, breast cancer s/p surgery, MDS, CKD stage III, AVM of stomach, erosive gastritis, chronic anemia and other medical problems presents with history of worsening back pain. Patient had kyphoplasty of L1, L2 and L3 vertebral bodies on 05/20/[address] Naylor and was discharged home. Patient is currently very drowsy and history is obtained from patient's daughter at bedside. Also reviewed old records and obtained some history from ED physician. Patient has been having lower back pain postsurgery which has been gradually worsening. She has been alternating Tylenol 1000 mg and 10 mg oxycodone every 3 hours to control her pain. She had follow-up evaluation by her primary care physician who prescribed gabapentin to minimize narcotic use. After using gabapentin, patient had significant lower extremity weakness and so gabapentin was discontinued as per family. She reports lower back pain associated with some spasms. At baseline patient is oriented only to self per family. She also reports having some constipation. No known history of chest pain, dyspnea, dizziness, fever, chills, fall, trauma, nausea, vomiting, abdominal pain, diarrhea, dysuria, hematuria. In ED patient was very agitated and was distressed secondary to back pain. Patient received 0.5 mg of Versed and 4 mg of morphine. Patient was hypotensive and was ordered for 100 mL normal saline bolus. Also placed on supplemental oxygen. Allergies Allergy/AdvReac Type Severity Reaction Status Date / Time No Known Allergies Allergy Unverified 05/20/25 10:11 Home Medications Medication Instructions Recorded Confirmed Type multivitamin 1 tab PO QAM 03/31/24 05/30/25 History amlodipine 5 mg tablet 2.5 mg (1/2 x 5 mg) PO QAM #15 tabs 04/11/25 05/30/25 Rx aspirin 81 mg tablet,delayed 81 mg PO QAM #90 tabs 04/11/25 05/30/25 Rx release atorvastatin 20 mg tablet 20 mg PO QAM #30 tabs 04/11/25 05/30/25 Rx metoprolol succinate 25 mg 25 mg PO QAM #30 tabs 04/11/25 05/30/25 Rx tablet,extended release 24 hr pantoprazole 40 mg tablet,delayed 40 mg PO BID #60 tabs 04/11/25 05/30/25 Rx release polyethylene glycol 3350 17 17 g PO DAILY #30 grams 04/11/25 05/30/25 Rx gram/dose oral powder (Miralax) trazodone 50 mg tablet 50 mg PO HS #30 tabs 04/11/25 05/30/25 Rx calcitonin (salmon) 200 1 spray intranasal DAILY 05/17/25 05/30/25 History unit/actuation nasal spray acetaminophen 500 mg tablet 1,000 mg (2 x 500 mg) PO TID pain 05/22/25 05/30/25 Rx (Tylenol Extra Strength) (scale score 1-3) #300 tabs buprenorphine 5 mcg/hour weekly 1 patch transdermal Q7D #4 ea 05/22/25 05/30/25 Rx transdermal patch (Butrans) lidocaine 5 % topical patch 1 patch transdermal QAM #30 ea 05/22/25 05/30/25 Rx miconazole nitrate 2 % topical 1 applic EXT PRN PRN rash #85 grams 05/22/25 05/30/25 Rx powder (Desenex) oxycodone 5 mg tablet 10 mg (2 x 5 mg) PO Q6H PRN pain 05/22/25 05/30/25 Rx #16 tabs Past Med/Surg History Problem List Status post kyphoplasty Compression fracture of L2 Encounter for pre-operative examination Closed lumbar vertebral fracture Closed L1 vertebral fracture (Acute) Jose ulcer AVM (arteriovenous malformation) of stomach, acquired Erosive gastritis Large hiatal hernia Chronic renal failure, stage 3b Acute on chronic anemia Weakness (Acute) Symptomatic anemia (Acute) GI bleed (Acute) Falls (Acute) Compression fracture of L3 vertebra (Acute) Chronic kidney disease-mineral and bone disorder Chronic kidney disease (Acute) Medical History Coronary artery disease severe calcific vascular disease on imaging PFO (patent foramen ovale) Breast cancer 09/04 infiltrative ductal carcinoma. right total mastectomy with axillary node dissection and adjuvant radiation therapy. T2 N0 disease. Completed 5 years letrozole. Myelodysplastic syndrome with ringed sideroblast. follows with [facility] [place] Dementia Alzheimers type TIA (transient ischemic attack) HTN (hypertension) HLD (hyperlipidemia) Surgical History History of mastectomy, total right Family History Other Hypertension Social History Smoking Status: Current every day smoker Tobacco Type: Cigarettes Second Hand Exposure: No; Do You Dip or Chew Tobacco: No; Hx Alcohol Use: No Hx Substance Use: No Preferred Language: Persian Communication Ability: Impaired Wash House Worker Required: No Beliefs That Will Affect Care: None Current Living Situation: Family current occupational status: retired Feels Safe at Home: Yes Diet: regular caffeine: Yes (1-1.5 cups coffee daily) Dental Care, Regularly: Yes Physical Activity Frequency: Does not Exercise Seatbelt Use: always Do you think of yourself as: straight/heterosexual Gender Identity: Female Assistive Devices: Walker Review of Systems Review of Systems: All systems reviewed & are unremarkable except as noted in Subjective Physical Exam Physical Exam: Physical Exam: Vitals signs as noted above General Appearance:Moderately built and nourished, no apparent distress, Drowsy Head: normocephalic, Atraumatic , +Hearing aids Eyes: normal inspection, EOMI Neck: supple, Trachea midline Respiratory/Chest: Normal breath sounds, CTA, No accessory muscle use Cardiovascular: S1, S2, +murmur Abdomen/GI:Soft, Non tender, Bowel sounds present Back: Lower fatback trimmer Extremities/Musculoskeletal:normal inspection, Trace pedla edema Neurologic/Psych:AAOX1, grossly no focal neurological deficits Skin: normal color, warm Results & Data Results & Data Vital Signs (Past 12 Hours) Vital Signs Temp Pulse Resp BP Pulse Ox O2 Del Method O2 Flow Rate 05/30/25 20:08 79 19 94/51 L 99 Oxymask 10 05/30/25 20:00 78 31 H 108/61 80 L 0 05/30/25 20:00 77 L Oxymask 0 05/30/25 19:33 82 22 155/85 H 100 Room Air 05/30/25 19:00 89 17 144/87 H 98 05/30/25 18:36 94 H 32 H 96 Room Air 05/30/25 18:30 172/76 H 05/30/25 18:24 86 17 100 Room Air 05/30/25 18:12 89 19 97 Room Air 05/30/25 17:36 87 21 100 Room Air 05/30/25 17:24 79 05/30/25 17:00 136 H 20 05/30/25 17:00 147/106 H 05/30/25 16:51 82 20 98 Room Air 05/30/25 16:42 37 C 85 18 155/91 H 98 Room Air Laboratory Results Short CBC 05/30/25 Range/Units 16:49 WBC 9.29 (4.8-10.8) K/ul Hgb 8.9 L (12.0-16.0) g/dl Hct 27.3 L (37.0-47.0) % Plt Count 521 H (130-400) K/uL BMP 05/30/25 16:49 Sodium 137 Potassium 4.7 Chloride 106 Carbon Dioxide 18 L BUN 27 H Creatinine 1.39 H Glucose 86 Calcium 8.8 Liver Function 05/30/25 Range/Units 16:49 Total Bilirubin 1.0 (0.2-1.0) mg/dl AST 21 (13-39) U/L ALT 17 (7-52) U/L Alkaline Phosphatase 79 (34-104) U/L Albumin 3.5 (3.4-5.0) gm/dl Urine 05/30/25 Range/Units Unknown Urine Color Yellow Urine Appearance Clear (Clear) Urine pH 8.0 H (4.5-7.5) Ur Specific [place] 1.009 (1.000-1.030) Urine Protein Negative (Negative) Urine Glucose (UA) Negative (Negative) Diagnostic Findings -Lumbar CT: Interval worsening of an L1 compression fracture. Unchanged compression fractures of L3 and L4 and to a lesser extent L2. New vertebroplasty changes involving L1, L2, and L3. Scoliosis. Anterolisthesis at L4-5 and L5-S1 . Mild retrolisthesis at L1-2 . Hiatal hernia . Spinal stenosis at L2-3 and L4-5 and to a lesser extent at L5-S1. Right L1-2 and bilateral L2-3 through L5-S1 neural foramen narrowing. This may affect the exiting nerve roots --KUB :Nonobstructive bowel gas pattern --cxr:Normal chest radiograph Medications Administered Home Medications Medication Instructions Recorded Confirmed multivitamin 1 tab PO QAM 03/31/24 05/30/25 calcitonin (salmon) 200 1 spray intranasal DAILY 05/17/25 05/30/25 unit/actuation nasal spray Previous Rx's Medication Instructions Recorded amlodipine 5 mg tablet 2.5 mg (1/2 x 5 mg) PO QAM #15 tabs 04/11/25 aspirin 81 mg tablet,delayed 81 mg PO QAM #90 tabs 04/11/25 release atorvastatin 20 mg tablet 20 mg PO QAM #30 tabs 04/11/25 metoprolol succinate 25 mg 25 mg PO QAM #30 tabs 04/11/25 tablet,extended release 24 hr pantoprazole 40 mg tablet,delayed 40 mg PO BID #60 tabs 04/11/25 release polyethylene glycol 3350 17 17 g PO DAILY #30 grams 04/11/25 gram/dose oral powder (Miralax) trazodone 50 mg tablet 50 mg PO HS #30 tabs 04/11/25 acetaminophen 500 mg tablet 1,000 mg (2 x 500 mg) PO TID pain 05/22/25 (Tylenol Extra Strength) (scale score 1-3) #300 tabs buprenorphine 5 mcg/hour weekly 1 patch transdermal Q7D #4 ea 05/22/25 transdermal patch (Butrans) lidocaine 5 % topical patch 1 patch transdermal QAM #30 ea 05/22/25 miconazole nitrate 2 % topical 1 applic EXT PRN PRN rash #85 grams 05/22/25 powder (Desenex) oxycodone 5 mg tablet 10 mg (2 x 5 mg) PO Q6H PRN pain 05/22/25 #16 tabs ECG Additional Comments: --EKG: Normal sinus rhythm. Overall nonspecific T wave inversion in inferior leads. QTc 413 Code Status & VTE Plan VTE Prophylaxis Plan VTE Prophylaxis will be ordered: Yes (1) Closed L1 vertebral fracture Encounter type: initial encounter Fracture morphology: unspecified fracture morphology Qualified Code(s): S32.019A - Unspecified fracture of first lumbar vertebra, initial encounter for closed fracture
[2025-05-30] MEDS ORDERED: ACETAMINOPHEN 325 MG TAB PO PRN (23:13)
[2025-05-30] MEDS ORDERED: ONDANSETRON INJ 2 MG/ML 2 ML VIAL IV PRN (23:13)
[2025-05-30] MEDS ORDERED: SODIUM CHLORIDE 0.9% 100 ML IV PRN (23:13)
[2025-05-30] MEDS ORDERED: POLYETHYLENE (MIRALAX) 17 GM PACK PO PRN (23:13)
[2025-05-31] MEDS ORDERED: INFLUENZA VACC TS2025-26(65y+)/PF (IIV3) 0.5mL Syr IM ONE (00:06)
[2025-05-31] MEDS: DOCUSATE SODIUM 100 MG CAP PO SCH (00:13)
[2025-05-31] MEDS: REMOVE & WASTE BUTRANS PATCH 1 EA EA SCH ×2 (00:14→17:13)
[2025-05-31] MEDS: BUPRENORPHINE 5 MCG/HR TDSY TD SCH (00:14)
[2025-05-31] MEDS: REMOVE LIDODERM PATCH SCH (00:14)
[2025-05-31] MEDS: CHECK BUPRENORPHINE PATCH SCH (00:22)
[2025-05-31] MEDS: HYDROmorphone INJ 0.5 MG/0.5 ML SYR IV STA ×2 (02:41→21:18)
[2025-05-31] MEDS: LORazepam Inj 0.25 MG in SYRINGE 0.125 ML IV STA (04:48)
[2025-05-31 05:59] LABS: Hematocrit (blood only) 26.2 % (37.0-47.0); Hemoglobin 8.5 g/dl (12.0-16.0); Mean Corpuscular Hemoglobin 31.3 pg (25.0-34.0); Mean Corpuscular Volume 96.3 fL (80.0-100.0); Platelet Count 485 K/uL (130-400); RDW Standard Deviation 87.1 fL (36.4-46.3); Red Blood Count 2.72 M/uL (4.20-5.40); White Blood Count 6.71 K/ul (4.8-10.8)
[2025-05-31 06:14] LABS: Anion Gap 5.0 (3-11); Blood Urea Nitrogen 22.0 mg/dl (6-23); Calcium 8.7 mg/dl (8.6-10.3); Carbon Dioxide 25.0 mmol/L (21-32); Chloride 109.0 mmol/L (98-107); Creatinine Clr Calc Pharmacy 30.4 ml/min; Glucose 87.0 mg/dl (70-99(Fasting)); Magnesium 2.0 mg/dl (1.7-2.4); Potassium 4.6 mmol/L (3.5-5.1); Sodium 139.0 mmol/L (136-145)
--- NOTE | 2025-05-31 06:29 | Orthopedic Consultation ---
Date of Consultation May 31, 2025 Assessment & Plan (1) Closed L1 vertebral fracture: Patient has worsening and uncontrolled pain. Even if the L1 compression fracture has progressed slightly it is not possible to perform another kyphoplasty at a level as previous lead been cemented. She is conservative treatment including physical therapy ambulation with a walker and the use of her brace for comfort. No further intervention is indicated. History of Present Illness Attending Physician: Kalli Laureano MD History of Present Illness This patient is known to our practice. On 05/20/2025 she undergone kyphoplasty's of L1, L2, and L3. Her pain seem to be significantly improved she was sent to senior care returning back through the emergency room due to continued in creased pain. They repeated CT scan that per the report noted worsening of the L1 fracture. There is no mention of leg pain. No witnessed falls were recorded. No other numbness, tingling, or paresthesias. Allergies Allergy/AdvReac Type Severity Reaction Status Date / Time No Known Allergies Allergy Unverified 05/20/25 10:11 Home Medications Medication Instructions Recorded Confirmed Type multivitamin 1 tab PO QAM 03/31/24 05/30/25 History amlodipine 5 mg tablet 2.5 mg (1/2 x 5 mg) PO QAM #15 tabs 04/11/25 05/30/25 Rx aspirin 81 mg tablet,delayed 81 mg PO QAM #90 tabs 04/11/25 05/30/25 Rx release atorvastatin 20 mg tablet 20 mg PO QAM #30 tabs 04/11/25 05/30/25 Rx metoprolol succinate 25 mg 25 mg PO QAM #30 tabs 04/11/25 05/30/25 Rx tablet,extended release 24 hr pantoprazole 40 mg tablet,delayed 40 mg PO BID #60 tabs 04/11/25 05/30/25 Rx release polyethylene glycol 3350 17 17 g PO DAILY #30 grams 04/11/25 05/30/25 Rx gram/dose oral powder (Miralax) trazodone 50 mg tablet 50 mg PO HS #30 tabs 04/11/25 05/30/25 Rx calcitonin (salmon) 200 1 spray intranasal DAILY 05/17/25 05/30/25 History unit/actuation nasal spray acetaminophen 500 mg tablet 1,000 mg (2 x 500 mg) PO TID pain 05/22/25 05/30/25 Rx (Tylenol Extra Strength) (scale score 1-3) #300 tabs buprenorphine 5 mcg/hour weekly 1 patch transdermal Q7D #4 ea 05/22/25 05/30/25 Rx transdermal patch (Butrans) lidocaine 5 % topical patch 1 patch transdermal QAM #30 ea 05/22/25 05/30/25 Rx miconazole nitrate 2 % topical 1 applic EXT PRN PRN rash #85 grams 05/22/25 05/30/25 Rx powder (Desenex) oxycodone 5 mg tablet 10 mg (2 x 5 mg) PO Q6H PRN pain 05/22/25 05/30/25 Rx #16 tabs Patient History Medical History Coronary artery disease severe calcific vascular disease on imaging PFO (patent foramen ovale) Breast cancer 09/04 infiltrative ductal carcinoma. right total mastectomy with axillary node dissection and adjuvant radiation therapy. T2 N0 disease. Completed 5 years letrozole. Myelodysplastic syndrome with ringed [facility]ideroblast. [facility] [place] Alzheimers type TIA (transient ischemic attack) HTN (hypertension) HLD (hyperlipidemia) Surgical History History of mastectomy, total right Family History Other Hypertension Social History Smoking Status: Former smoker Tobacco Type: Cigarettes Cigarettes Per Day: 12; Smoking End Date: 03/2025; Second Hand Exposure: No; Do You Dip or Chew Tobacco: No; Tobacco Cessation Education Requested by Patient: No Hx Alcohol Use: No Hx Substance Use: No Preferred Language: Slovenian Communication Ability: Effective Pumping Supervisor Required: No Beliefs That Will Affect Care: None Current Living Situation: Family Current Living Situation Comment: Lives with daughter Fara Junior current occupational status: retired Other Information That Helps Us Care for You: No Feels Safe at Home: Yes Safety Concerns: Feels Safe At This Time Diet: regular caffeine: Yes (1-1.5 cups coffee daily) Dental Care, Regularly: Yes Physical Activity Frequency: Does not Exercise Seatbelt Use: always Do you think of yourself as: straight/heterosexual Gender Identity: Female Assistive Devices: Bedside Commode, Brace/Splint/Immobilizer and Walker Physical Exam Physical Exam: On exam the patient is resting comfortably. She was awoken. She is moving all of her extremities to gravity. She able to logroll. Abdomen soft and nontender calves are supple and nontender she can dorsiflex and plantarflex without difficulties. Results & Data Vital Signs (Past 12 Hours) Vital Signs Temp Pulse Pulse Resp BP BP Pulse Ox 05/31/25 02:54 36.3 C L 95 H 20 162/95 H 93 05/30/25 23:50 36.3 C L 84 20 157/79 H 94 05/30/25 23:10 79 05/30/25 22:36 68 19 95 05/30/25 22:00 67 14 140/83 97 05/30/25 21:31 69 22 154/74 H 99 05/30/25 21:08 67 05/30/25 20:33 72 15 111/60 100 05/30/25 20:08 79 19 94/51 L 99 05/30/25 20:00 78 31 H 108/61 80 L 05/30/25 20:00 77 L 05/30/25 19:33 82 22 155/85 H 100 05/30/25 19:00 89 17 144/87 H 98 05/30/25 18:36 94 H 32 H 96 05/30/25 18:30 172/76 H O2 Del Method O2 Flow Rate 05/31/25 02:54 Room Air 05/30/25 23:50 Room Air 05/30/25 23:10 05/30/25 22:36 Room Air 05/30/25 22:00 Room Air 05/30/25 21:31 Oxymask 5 05/30/25 21:08 05/30/25 20:33 05/30/25 20:08 Oxymask 10 05/30/25 20:00 0 05/30/25 20:00 Oxymask 0 05/30/25 19:33 Room Air 05/30/25 19:00 05/30/25 18:36 Room Air 05/30/25 18:[address] scan performed and reviewed. There is evidence of kyphoplasty cement in L1, L2, and L3. It is equivocal whether or not the L1 fracture has progressed to any degree. No new fractures are noted. (1) Closed L1 vertebral fracture Encounter type: initial encounter Fracture morphology: unspecified fracture morphology Qualified Code(s): S32.019A - Unspecified fracture of first lumbar vertebra, initial encounter for closed fracture
[2025-05-31] MEDS: POLYETHYLENE (MIRALAX) 17 GM PACK PO SCH (09:44)
[2025-05-31] MEDS: ASPIRIN 81 MG ECTAB PO SCH (09:46)
[2025-05-31] MEDS: ATORVASTATIN 20 MG TAB PO SCH (09:47)
[2025-05-31] MEDS: METOPROLOL SUCC 25MG EXT REL TAB PO SCH (09:47)
[2025-05-31] MEDS: CALCITONIN SALMON NA 200 IU/AC 3.7 ML BTL SCH (09:48)
[2025-05-31] MEDS: LIDOCAINE 5% 1 PATCH TD SCH (09:51)
--- NOTE | 2025-05-31 10:46 | Hospitalist Progress Note ---
Date of Service May 31, 2025 Assessment & Plan (1) Closed L1 vertebral fracture: (2) Status post kyphoplasty: Plan: Closed L1 compression fracture Intractable back pain --H/O S/P kyphoplasty of L1, L2 and L3 vertebral bodies on 05/20/[address] Naylor ---Lumbar CT: Interval worsening of an L1 compression fracture. Unchanged compression fractures of L3 and L4 and to a lesser extent L2. New vertebroplasty changes involving L1, L2, and L3. Scoliosis. Anterolisthesis at L4-5 and L5-S1 . Mild retrolisthesis at L1-2 . Hiatal hernia . Spinal stenosis at L2-3 and L4-5 and to a lesser extent at L5-S1. Right L1-2 and bilateral L2-3 through L5-S1 neural foramen narrowing. This may affect the exiting nerve roots -- Very painful with any movement - has not tolerated gabapentin (generalized weakness) or lyrica (confusion, slurred speech) trialed in outpatient setting Current regimen - PRN Tylenol, buprenorphine patch, PRN oxycodone 10mg Q6H, Lidoderm patch Adjustments made 05/31 - increased tylenol to 1,000mg, scheduled Q8H. Added trial of flexeril 5 TID PRN Ortho spine consulted - recommending conservative mgmt with PT, TLSO brace and walker with ambulation Consulted pain mgmt for further recs due to uncontrolled pain Bowel regimen augmented to prevent constipation PT/OT, fall precautions Hypotension -> resolved Hypoxia -> resolved Likely due to Versed, morphine given in ED Hold sedating medications as able Saturating at 90% on room air, BP normotensive Transferring to med/surg Severe dementia Oriented to person at baseline Reorient frequently to minimize delirium Hypertension BP slightly elevated this AM, home amlodipine resumed Coronary artery disease Peripheral vascular disease Aortic valve stenosis Continue aspirin, atorvastatin Breast cancer s/p surgery Myelodysplastic syndrome Chronic anemia Follows with [facility] oncology Dr. Feliz on Reblozyl injections every 3 weeks CKD stage III Renal function at baseline Monitor H/O AVM of stomach H/o Erosive gastritis As per record No acute issues Continue PPI DVT Px: SCDs for now CODE STATUS: DNI DNR as per discussion with patient's daughter Care coordinated with Dr. Laureano I spent a total of 50 minutes coordinating, documenting, and providing care for this patient excluding time spent in the performance of separately billed services or time spent by another provider/QHP. Admission and Anticipated Discharge Date Admission Date: May 30, 2025 Supervising Physician Co-Signing Physician Notes Attending addendum: Patient was seen and examined in medical telemetry unit in presence of the daughter He has significant dementia and complains of some pain at the lower back without radiation as far as she can tell Pain is worse with movement but and has had a recent fall Discharge denies any other significant symptoms On examination Lying in bed without any apparent distress Remains hemodynamically stable Chestclear to auscultate bilaterally HeartS1-S2, regular Abdomenbenign Extremitiesno edema CNSalert and awake. Pleasantly confused Has decreased power with movement of the right lower extremity otherwise no other significant deficit Her admission labs, imaging studies and medications reviewed Has L1 vertebral compression fracture. Awaiting orthospine evaluation Likely conservative management and pain control Will ask for pain therapy evaluation and continue with PT and OT Her other significant medical conditions remained stable as above Agree with assessment and plan as outlined above by Theresa Kelly PA-C and take the full responsibility of care in the hospital Total time taken to document all of the above including physical examination, review of labs and imaging studies including medications took about [address] Angelica Anderson Seen and examined with daughter at bedside. Pain overnight around thoracic - lumbar spine. Comfortable laying down but any movement exacerbating pain. No F/C, CP, SOB, N/V, abd pain, dysuria. No bowel movement in 1 week. Daughter wants her to return home on discharge where she has 24 hr care but concerned about pain level with any movement. Review of Systems Review of Systems: At least ten systems reviewed and negative except as noted in the HPI. Physical Exam Physical Exam: Gen: WD/WN, NAD, laying down resting, A&Ox2 with limited insight HEENT: Normocephalic, atraumatic, mucous membranes moist Lung: Clear to Auscultation bilaterally Heart: Regular rate, regular rhythm Abdomen: Soft, NT, ND +BS x 4 Extremities/MSK: TTP thoracic - lumbar spine, no edema Skin: Warm, no rash Results & Data Results & Data Vital Signs (Past 12 Hours) Vital Signs Temp Pulse Pulse Resp BP Pulse Ox O2 Del Method 05/31/25 08:35 36.7 C 82 20 170/77 H 93 Room Air 05/31/25 05:55 70 05/31/25 02:54 36.3 C L 95 H 20 162/95 H 93 Room Air 05/30/25 23:50 36.3 C L 84 20 157/79 H 94 Room Air 05/30/25 23:10 79 Laboratory Results Short CBC 05/30/25 05/31/25 Range/Units 16:49 05:28 WBC 9.29 6.71 (4.8-10.8) K/ul Hgb 8.9 L 8.5 L (12.0-16.0) g/dl Hct 27.3 L 26.2 L (37.0-47.0) % Plt Count 521 H 485 H (130-400) K/uL BMP 05/30/25 05/31/25 16:49 05:28 Sodium 137 139 Potassium 4.7 4.6 Chloride 106 109 H Carbon Dioxide 18 L 25 BUN 27 H 22 Creatinine 1.39 H 1.38 H Glucose 86 87 Calcium 8.8 8.7 Liver Function 05/30/25 Range/Units 16:49 Total Bilirubin 1.0 (0.2-1.0) mg/dl AST 21 (13-39) U/L ALT 17 (7-52) U/L Alkaline Phosphatase 79 (34-104) U/L Albumin 3.5 (3.4-5.0) gm/dl Urine 05/30/25 Range/Units Unknown Urine Color Yellow Urine Appearance Clear (Clear) Urine pH 8.0 H (4.5-7.5) Ur Specific Cameron 1.009 (1.000-1.030) Urine Protein Negative (Negative) Urine Glucose (UA) Negative (Negative) Diagnostic Findings Chest X-Ray 05/30/25 16:50 Chest radiograph, one view History: Weakness Comparison: None Findings: Single AP view of the chest performed. No focal consolidation or pleural effusion. No pneumothorax. The cardiomediastinal silhouette is within normal limits. Normal pulmonary vascularity. No evidence for lymphadenopathy. No visualized bony or soft tissue abnormality. Impression: Normal chest radiograph Electronically signed by Noel Ortiz 05-30-2025 6:06 PM KUB X-Ray 05/30/25 16:50 Abdominal radiograph, one view History: Abdominal pain Comparison: 02/05/2025 Findings: Single AP view of the abdomen performed. The bowel gas pattern appears nonobstructive. Mild stool in the right colon and rectum is seen. No pneumatosis or portal venous gas. No abnormal calcifications project over the abdomen. No acute abnormality of the bony structures. Impression: Nonobstructive bowel gas pattern Electronically signed by Noel Ortiz 05-30-2025 6:[address] 05/30/25 16:50 Clinical history: Pain Technique: Axial computed tomography images were obtained of the lumbar spine without intravenous contrast. Sagittal and coronal reconstructions were obtained Comparison is made to the prior CT dated 05/17/2025 Findings: There is a worsened L1 compression fracture. There is an unchanged mild L2 compression fracture. There is an unchanged marked L3 compression fracture. There is an unchanged L4 compression fracture. There are new vertebroplasty changes involving L1, L2, and L3. There is scoliosis. There is grade 1 anterolisthesis at L4-5 and there is grade 2 anterolisthesis at L5-S1. There is 3 mm of retrolisthesis of L1 on L2. No focal osseous lesion is evident. There is no definite sign of osteomyelitis At L1-2, there is a disc bulge without spinal stenosis. There is right greater than the left neural foramen narrowing that may affect the right L1 nerve root At L2-3, there is spinal stenosis due to a disc bulge and facet osteoarthritis. There is bilateral neural foramen narrowing that may affect the exiting L2 nerve roots At L3-4, there is a disc bulge without spinal stenosis. There is right greater than left neural foramen narrowing that may affect the exiting L3 nerve roots At L4-5, there is spinal stenosis due to a disc bulge and facet osteoarthritis. There is left greater than right neural foramen narrowing that may affect the exiting L4 nerve roots At L5-S1, there is mild spinal stenosis due to a disc bulge and facet osteoarthritis. There is bilateral neural foramen narrowing that may affect the exiting L5 nerve roots There is a moderate to large hiatal hernia Impression: 1. Interval worsening of an L1 compression fracture 2. Unchanged compression fractures of L3 and L4 and to a lesser extent L2 3. New vertebroplasty changes involving L1, L2, and L3 4. Scoliosis 5. Anterolisthesis at L4-5 and L5-S1 6. Mild retrolisthesis at L1-2 7. Hiatal hernia 8. Spinal stenosis at L2-3 and L4-5 and to a lesser extent at L5-S1 9. Right L1-2 and bilateral L2-3 through L5-S1 neural foramen narrowing. This may affect the exiting nerve roots ACT 112: Positive. There are findings on this exam that require communication between the performing entity and the patient following Patient Test Result Information Act ([place] ACT 112) guidelines. Electronically signed by Anuj Snider 05-30-2025 6:10 PM (1) Closed L1 vertebral fracture Encounter type: initial encounter Fracture morphology: unspecified fracture morphology Qualified Code(s): S32.019A - Unspecified fracture of first lumbar vertebra, initial encounter for closed fracture
[2025-05-31] MEDS ORDERED: CYCLOBENZAPRINE HCL 5 MG TAB PO PRN (13:12)
[2025-05-31] MEDS: ACETAMINOPHEN 500 MG TAB PO SCH (14:03)
--- NOTE | 2025-05-31 15:45 | Pain Management Consultation ---
Date of Consultation May 31, 2025 Assessment & Plan (1) Lumbar compression fracture: Encounter type: subsequent encounter Fracture healing: with delayed healing Lumbar vertebra fracture level: L1 Qualified Code(s): S32.010G - Wedge compression fracture of first lumbar vertebra, subsequent encounter for fracture with delayed healing (2) Closed L1 vertebral fracture: Encounter type: initial encounter Fracture morphology: u nspecified fracture morphology Qualified Code(s): S32.019A - Unspecified fracture of first lumbar vertebra, initial encounter for closed fracture (3) Compression fracture of L2: (4) Compression fracture of L3 vertebra: Encounter type: subsequent encounter Fracture healing: with routine healing Qualified Code(s): S32.030D - Wedge compression fracture of third lumbar vertebra, subsequent encounter for fracture with routine healing (5) Sacroiliitis: (6) Opioid-induced constipation: Plan 1. Acknowledge that patient has L1-2 and 3 compression fracture status post kyphoplasty but her pain appears to be more over her left L5-S1 facet and left sacroiliac joint at this time. She has exquisite pain to provocation at these locations. Can consider left sacroiliac joint injection and possible left lumbar medial branch blocks and potential RFA as an outpatient but would like her to complete wound healing to her kyphoplasty sites prior to consideration of interventional pain management. We discussed continued utilization of her TLSO brace for comfort while out of bed. PT OT as previously ordered. 2. Recommend increasing Butrans patch to 10 mcg q. weekly to ultimately diminish dependence on Oxy IR and Tylenol dosing. Orders were placed. This will require an EKG within the next 30 days to ensure QTc interval remains appropriate. Butrans can take 5 to 7 days for maximal effect with dose changes so she will need to continue reliance on Oxy IR and Tylenol for the short-term. Recommend continuation of Lidoderm patch as scheduled. 3. Recommend utilization of Cymbalta 20 mg p.o. every morning for augmentation of descending pain regulatory pathways. 4. For opioid-induced constipation recommend scheduled MiraLAX and stool softeners. Consider methylnaltrexone should this be ineffective. 5. Thank you for this consultation would be happy to see her in my office as an outpatient for ongoing care and interventional pain management once her kyphoplasty sites are healed. History of Present Illness Attending Physician: Kalli Laureano MD History of Present Illness 84-year-old female who presented to [facility] with increasing pain and inability to comfortably ambulate at home. She has a history of L1, L2, and L3 osteoporotic compression fractures now status post kyphoplasty of these levels on 05/20/[address] Naylor. According to the daughter her pain is much improved status post kyphoplasty but pain has slightly changed in character. Patient's overall condition is complicated by severe Alzheimer's dementia and difficulty in answering questions appropriately. Most of the history gathered today was from the patient's daughter. Patient's daughter reports that she has been utilizing her TLSO brace while out of bed and has been utilizing Butrans 5 mcg q. weekly patch since discharge from the hospital on 05/22/2025. The patient's daughter reports that she has been utilizing alternating Tylenol and Oxy IR 10 mg for pain control. Patient has been utilizing Oxy IR 10 mg 4 times daily for total 40 mg scheduled. She has not had a bowel movement in approximately 7 days. Patient's daughter reports that she had been utilizing daily MiraLAX but this was causing diarrhea so she diminished it to every other day. In discussion with the patient along with physical exam she appears to have most pain over her left L5-S1 facet and exquisite pain over her left sacroiliac joint. Patient notes pain can radiate into her groin but denies radicular symptoms. Pain ranging between 7-10 out of 10 sharp stabbing shooting. Pain is worse with activity but according to the patient's daughter she does have some pain even while sitting at rest. Pain appears to be improved with lying down and Oxy IR administration. Patient admits to full sensation bilateral lower extremities, denies motor weakness, bowel or bladder incontinence, saddle anesthesia, foot drop, new falls/trauma or fevers. Previous interventions include Butrans patch, Tylenol, Oxy IR, kyphoplasty, calcitonin nasal spray, gabapentin which caused significant sedation and disorientation, TLSO bracing, and physical therapy. Pain Assessment Full Body Front + Back: 2 1. 2. 3. [facility] Combined Pain Scale: 7-Severe - Pain prevents productive activity. Impossible to tolerate. Pain scale - at its best (0-10): 7 Pain scale - at its worst (0-10): 10 Allergies Allergy/AdvReac Type Severity Reaction Status Date / Time No Known Allergies Allergy Unverified 05/20/25 10:11 Home Medications Medication Instructions Recorded Confirmed Type multivitamin 1 tab PO QAM 03/31/24 05/30/25 History amlodipine 5 mg tablet 2.5 mg (1/2 x 5 mg) PO QAM #15 tabs 04/11/25 05/30/25 Rx aspirin 81 mg tablet,delayed 81 mg PO QAM #90 tabs 04/11/25 05/30/25 Rx release atorvastatin 20 mg tablet 20 mg PO QAM #30 tabs 04/11/25 05/30/25 Rx metoprolol succinate 25 mg 25 mg PO QAM #30 tabs 04/11/25 05/30/25 Rx tablet,extended release 24 hr pantoprazole 40 mg tablet,delayed 40 mg PO BID #60 tabs 04/11/25 05/30/25 Rx release polyethylene glycol 3350 17 17 g PO DAILY #30 grams 04/11/25 05/30/25 Rx gram/dose oral powder (Miralax) trazodone 50 mg tablet 50 mg PO HS #30 tabs 04/11/25 05/30/25 Rx calcitonin (salmon) 200 1 spray intranasal DAILY 05/17/25 05/30/25 History unit/actuation nasal spray acetaminophen 500 mg tablet 1,000 mg (2 x 500 mg) PO TID pain 05/22/25 05/30/25 Rx (Tylenol Extra Strength) (scale score 1-3) #300 tabs buprenorphine 5 mcg/hour weekly 1 patch transdermal Q7D #4 ea 05/22/25 05/30/25 Rx transdermal patch (Butrans) lidocaine 5 % topical patch 1 patch transdermal QAM #30 ea 05/22/25 05/30/25 Rx miconazole nitrate 2 % topical 1 applic EXT PRN PRN rash #85 grams 05/22/25 05/30/25 Rx powder (Desenex) oxycodone 5 mg tablet 10 mg (2 x 5 mg) PO Q6H PRN pain 05/22/25 05/30/25 Rx #16 tabs Pain History Pain Intensity Pain scale - at its best (0-10): 7 Pain scale - at its worst (0-10): 10 Patient History Medical History (Updated 05/31/25 @ 15:44 by Yanely Moreno DO) GI bleed Symptomatic anemia Coronary artery disease severe calcific vascular disease on imaging PFO (patent foramen ovale) Breast cancer 09/04 infiltrative ductal carcinoma. right total mastectomy with axillary node dissection and adjuvant radiation therapy. T2 N0 disease. Completed 5 years letrozole. Myelodysplastic syndrome with ringed sideroblast. [facility] [place] Dementia Alzheimers type TIA (transient ischemic attack) HTN (hypertension) HLD (hyperlipidemia) Surgical History Status post kyphoplasty L1,L2,L3 History of mastectomy, total right Family History Other Hypertension Social History Smoking Status: Former smoker Tobacco Type: Cigarettes Cigarettes Per Day: 12; Smoking End Date: 03/2025; Second Hand Exposure: No; Do You Dip or Chew Tobacco: No; Tobacco Cessation Education Requested by Patient: No Hx Alcohol Use: No Hx Substance Use: No Preferred Language: Khmer Communication Ability: Effective Air Crew Supervisor Required: No Beliefs That Will Affect Care: None Current Living Situation: Family Current Living Situation Comment: Lives with daughter Fara Junior current occupational status: retired Other Information That Helps Us Care for You: No Feels Safe at Home: Yes Safety Concerns: Feels Safe At This Time Diet: regular caffeine: Yes (1-1.5 cups coffee daily) Dental Care, Regularly: Yes Physical Activity Frequency: Does not Exercise Seatbelt Use: always Do you think of yourself as: straight/heterosexual Gender Identity: Female Assistive Devices: Bedside Commode, Brace/Splint/Immobilizer and Walker Physical Exam 2 Physical Exam: Constitutional: Well-developed, well-nourished, normal weight, accompanied by her daughter on today's examination Psych: Awake, alert, and oriented 3 with normal affect and mood. Patient has significant difficulty in remembering her history secondary likely to Alzheimer's. Does not appear in acute distress Eyes: Pupils are equally round and reactive to light with normal size pupils, eyelids appear normal Ear, nose, mouth, and throat: Moist nasal and oral membranes, lips and tongues appear normal, no external ear abnormalities are noted Neck: The trachea is midline without deviation Respiratory: Normal respiratory effort without distress, no audible wheezes or rhonchi CV: Normal S1 and S2, warm distal extremities Chest: Deferred GI/abdomen: Non-tender without guarding, soft slightly distended Musculoskeletal: Head is normocephalic and atraumatic, gait not observed but patient is able to logroll with some difficulty in the bed Cervical: Lordotic curve: Normal Range of motion is normal with extension, flexion, side-bending, rotation Strength: Strength is grossly equal bilaterally with 5 out of 5 strength in all planes Sensation of upper extremities: Intact bilaterally Thoracic: Kyphotic curve: Slight exaggeration of kyphosis Range of motion is normal with extension, flexion, side-bending, rotation Tenderness: Minimally tender over the axial midline Myofascial spasm: No appreciable spasm. No discrete trigger points noted Lumbar: Lordotic curve: Complete loss of lumbar lordosis with evidence of recent kyphoplasty bandages dry and intact Range of motion is decreased in all planes Tenderness: Moderately tender over the axial midline particularly over left L5- S1. Mildly tender over L1-2 and 3 Facet provocation: Positive bilaterally Straight leg raise: Negative bilaterally not worse with Achilles stretch Step-off injuries: None Strength: Strength is equal bilaterally with 4+ out of 5 strength in all planes Sensation of lower extremities: Intact bilaterally Deep tendon reflexes: Rated at 1+ in bilateral S1, difficult to assess L4 secondary to bilateral total knee replacement Myofascial spasm: No appreciable spasm. No discrete trigger points noted Greater trochanters: Nontender bilaterally Sacroiliac joints: Exquisitely tender left negative right Thigh thrust, Fabere and Gaenslens: negative right positive left Pathologic reflexes noted: None Skin: No rashes, lesions, ulcers, or induration noted Neuro: No nystagmus noted, the tongue is midline, the patient is able to rotate their head bilaterally : Deferred Results (Pain Clinic) Diagnostic Review MRI: non enhanced, reports reviewed, images reviewed and findings discussed with patient MRI Findings: 05/17/25 INDICATION: Fracture, pain COMPARISON: CAT scan 03/24/2025 FINDINGS: CONUS MEDULLARIS: Unremarkable terminating at L1-L2. PARASPINAL AREA: No paraspinal mass or adenopathy. BONES: Known severe subacute compression fracture of L3 which is slightly worsened. New minimal acute fracture through the inferior endplate of L2. Minimal acute fracture of the superior endplate of L1 is also noted. Stable spondylolisthesis of L5 on S1. Degenerative marrow signal changes throughout the lumbar spine. OTHER: No abnormal enhancement is appreciated. LUMBAR DISC LEVELS: At the L1-L2 level, there is moderate disc space narrowing. Mild disc bulging. Mild facet hypertrophy.No significant canal stenosis or foraminal narrowing. At the L2-L3 level, there is mild facet hypertrophy. No significant canal stenosis. There is mild bilateral foraminal narrowing. At the L3-L4 level, there is minimal disc bulging. Moderate facet hypertrophy.No significant canal stenosis. There is mild bilateral foraminal narrowing. At the L4-L5 level, there is mild diffuse disc bulging. Moderate facet hypertrophy. Mild central canal stenosis. Mild to moderate bilateral foraminal narrowing. At the L5-S1 level, there is severe disc space narrowing vacuum disc phenomenon.Mild disc bulging. Moderate facet hypertrophy. Moderate central canal stenosis. Moderate to severe bilateral foraminal narrowing. IMPRESSION: As compared to the prior CAT scan of 03/24/2025, there is some interval worsening of the severe L3 compression fracture and new fracture involving the inferior endplate of L2. New minimal compression fracture of the superior endplate of L1 is also noted. Multilevel degenerative changes most pronounced at L5-S1 as above. CT: non enhanced, reports reviewed, images reviewed and findings discussed with patient CT Findings: 05/30/25 Clinical history: Pain Technique: Axial computed tomography images were obtained of the lumbar spine without intravenous contrast. Sagittal and coronal reconstructions were obtained Comparison is made to the prior CT dated 05/17/2025 Findings: There is a worsened L1 compression fracture. There is an unchanged mild L2 compression fracture. There is an unchanged marked L3 compression fracture. There is an unchanged L4 compression fracture. There are new vertebroplasty changes involving L1, L2, and L3. There is scoliosis. There is grade 1 anterolisthesis at L4-5 and there is grade 2 anterolisthesis at L5-S1. There is 3 mm of retrolisthesis of L1 on L2. No focal osseous lesion is evident. There is no definite sign of osteomyelitis At L1-2, there is a disc bulge without spinal stenosis. There is right greater than the left neural foramen narrowing that may affect the right L1 nerve root At L2-3, there is spinal stenosis due to a disc bulge and facet osteoarthritis. There is bilateral neural foramen narrowing that may affect the exiting L2 nerve roots At L3-4, there is a disc bulge without spinal stenosis. There is right greater than left neural foramen narrowing that may affect the exiting L3 nerve roots At L4-5, there is spinal stenosis due to a disc bulge and facet osteoarthritis. There is left greater than right neural foramen narrowing that may affect the exiting L4 nerve roots At L5-S1, there is mild spinal stenosis due to a disc bulge and facet osteoarthritis. There is bilateral neural foramen narrowing that may affect the exiting L5 nerve roots There is a moderate to large hiatal hernia Impression: 1. Interval worsening of an L1 compression fracture 2. Unchanged compression fractures of L3 and L4 and to a lesser extent L2 3. New vertebroplasty changes involving L1, L2, and L3 4. Scoliosis 5. Anterolisthesis at L4-5 and L5-S1 6. Mild retrolisthesis at L1-2 7. Hiatal hernia 8. Spinal stenosis at L2-3 and L4-5 and to a lesser extent at L5-S1 9. Right L1-2 and bilateral L2-3 through L5-S1 neural foramen narrowing. This may affect the exiting nerve roots Other Findings: 05/30/2025 EKG reveals normal sinus rhythm at 82 bpm with a QTc interval of 413 ms Previous Records Review Previous Records: personally reviewed by me Opioid Risk Assessment Opioid Risk Assessment: risk assessment performed and minimal risk identified
[2025-05-31 16:32] VITALS: RESP 18
[2025-05-31] MEDS: BUPRENORPHINE 10 MCG/HR TDSY TD SCH (17:13)
[2025-05-31 23:42] VITALS: O2SAT 94
[2025-06-01 06:38] LABS: Hematocrit (blood only) 24.5 % (37.0-47.0); Hemoglobin 8.3 g/dl (12.0-16.0); Mean Corpuscular Hemoglobin 32.8 pg (25.0-34.0); Mean Corpuscular Volume 96.8 fL (80.0-100.0); Platelet Count 446 K/uL (130-400); RDW Standard Deviation 87.3 fL (36.4-46.3); Red Blood Count 2.53 M/uL (4.20-5.40); White Blood Count 6.15 K/ul (4.8-10.8)
[2025-06-01 07:03] LABS: Anion Gap 6.0 (3-11); Blood Urea Nitrogen 24.0 mg/dl (6-23); Calcium 8.7 mg/dl (8.6-10.3); Carbon Dioxide 25.0 mmol/L (21-32); Chloride 107.0 mmol/L (98-107); Creatinine Clr Calc Pharmacy 29.0 ml/min; Glucose 106.0 mg/dl (70-99(Fasting)); Potassium 4.7 mmol/L (3.5-5.1); Sodium 138.0 mmol/L (136-145)
--- NOTE | 2025-06-01 07:05 | Electrocardiogram Report ---
Test Reason : Blood Pressure : */* mmHG Vent. Rate : 82 BPM Atrial Rate : 82 BPM P-R Int : 192 ms QRS Dur : 76 ms QT Int : 354 ms P-R-T Axes : 17 -16 0 degrees QTcB Int : 413 ms Normal sinus rhythm Anterior infarct (cited on or before 19-Nov-2024) Abnormal ECG When compared with ECG of 19-May-2025 13:05, T wave inversion now evident in Inferior leads Confirmed by Ramirez Aguilar ([id number]) on 06/01/2025 7:05:29 AM Referred By: REFERRED SELF Confirmed By: Ramirez Aguilar
[2025-06-01 07:59] VITALS: BP 163/85; PULSE 82; TEMP 98.1
--- NOTE | 2025-06-01 10:23 | Hospitalist Progress Note ---
Date of Service June 01, 2025 Assessment & Plan Admission and Anticipated Discharge Date Admission Date: May 30, 2025 Supervising Physician Co-Signing Physician Notes Attending addendum: Patient was seen and examined in medical telemetry unit in presence of the daughter He has significant dementia and complains of some pain at the lower back without radiation as far as she can tell Pain is worse with movement but and has had a recent fall Discharge denies any other significant symptoms On examination Lying in bed without any apparent distress Remains hemodynamically stable Chestclear to auscultate bilaterally HeartS1-S2, regular Abdomenbenign Extremitiesno edema CNSalert and awake. Pleasantly confused Has decreased power with movement of the right lower extremity otherwise no other significant deficit Her admission labs, imaging studies and medications reviewed Has L1 vertebral compression fracture. Awaiting orthospine evaluation Likely conservative management and pain control Will ask for pain therapy evaluation and continue with PT and OT Her other significant medical conditions remained stable as above Agree with assessment and plan as outlined above by Theresa Kelly PA-C and take the full responsibility of care in the hospital Total time taken to document all of the above including physical examination, review of labs and imaging studies including medications took about [address] Angelica Laureano 06/01/2025 The patient was seen and examined in medical floor in presence of the daughter She has dementia but denies any significant symptoms Does not have any distress at rest Only complaints was with activity she has some back pain On examination Lying in bed without any acute distress Remains hemodynamically stable with blood pressure on the upper side at 163/85 Other system examination remained unremarkable Her labs and medications reviewed Has L1 vertebral compression fracture with history of surgery for kyphosis in the past Appreciate pain therapy input and recommendation Possible discharge this afternoon Agree with assessment and plan as outlined above by Theresa Kelly PA-C and take the full responsibility of care in the hospital Total time taken to examine the patient, discussed with the daughter and the patient about the plan and review medications was [address] Angelica Laureano Results & Data Results & Data Vital Signs (Past 12 Hours) Vital Signs Temp Pulse Resp BP Pulse Ox O2 Del Method 06/01/25 07:58 36.7 C 82 18 163/85 H 94 Room Air 05/31/25 23:03 36.6 C 78 18 133/69 94 Room Air
[2025-06-01] MEDS ORDERED: SOD PHOSPHATE/SOD BIPHOSPHATE ENEMA 132 ML BTL PR PRN (10:28)
--- NOTE | 2025-06-01 13:50 | Discharge Summary ---
Discharge Summary Date of Service June 01, 2025 Principal Dx & Hospital Course #1 = Principal Diagnosis (1) Closed L1 vertebral fracture: (2) Compression fracture of L2: (3) Compression fracture of L3 vertebra: (4) Status post kyphoplasty: (5) Sacroiliitis: (6) Opioid-induced constipation: (7) Chronic renal failure, stage 3b: (8) Erosive gastritis: (9) Anemia: (10) Dementia: Plan Patient is an 84-year-old female with history of severe dementia, hypertension, coronary artery disease, peripheral vascular disease, aortic valve stenosis, breast cancer s/p surgery, MDS, CKD stage III, AVM of stomach, erosive gastriti s, chronic anemia and other medical problems presents with history of worsening back pain. Closed L1 compression fracture Intractable back pain S/P kyphoplasty of L1, L2 and L3 vertebral bodies on 05/20/[address] Naylor ---Lumbar CT: Interval worsening of an L1 compression fracture. Unchanged compression fractures of L3 and L4 and to a lesser extent L2. New vertebroplasty changes involving L1, L2, and L3. Scoliosis. Anterolisthesis at L4-5 and L5-S1 . Mild retrolisthesis at L1-2 . Hiatal hernia . Spinal stenosis at L2-3 and L4-5 and to a lesser extent at L5-S1. Right L1-2 and bilateral L2-3 through L5-S1 neural foramen narrowing. This may affect the exiting nerve roots -- Very painful with any movement - has not tolerated gabapentin (generalized weakness) or lyrica (confusion, slurred speech) trialed in outpatient setting Ortho spine consulted: * Recommending conservative mgmt with PT, TLSO brace and walker with ambulation * Follow up in clinic for post-op as scheduled Consulted pain mgmt for further recs due to uncontrolled pain * Increased Butrans patch to 10mcg/hr Q7D, continue tylenol and oxy IR for breakthrough pain for next 5-7 days until new dose takes full effect, lidocaine patch, Cymbalta 20mg daily started * Possible SI injection for sacroiliitis vs block, scheduled to be seen in pain mgmt clinic 07/04 once kyphoplasty fully healed * Will need ECG within the next 30 days to ensure QTc interval remains appropriate Bowel regimen augmented to prevent constipation with bowel movement today. Continue daily Miralax, Colace BID at home Hypotension -> resolved Hypoxia -> resolved Likely due to Versed, morphine given in ED Hold sedating medications as able Saturating at 94% on room air, BP normotensive Transferred to med/surg Severe dementia Oriented to person at baseline Reorient frequently to minimize delirium Hypertension Home amlodipine resumed Coronary artery disease Peripheral vascular disease Aortic valve stenosis Continue aspirin, atorvastatin Breast cancer s/p surgery Myelodysplastic syndrome Chronic anemia Follows with [facility] oncology Dr. Feliz On Reblozyl injections every 3 weeks CKD stage III Renal function at baseline Monitor H/O AVM of stomach H/o Erosive gastritis As per record No acute issues Continue PPI Care coordinated with Dr. Laureano Notes For Next Care Provider Pain 2/2 sacroiliitis, compression fractures of L spine -> improved with pain mgmt recs, dc with ortho post op as scheduled, pain mgmt for possible injections Medication Changes From Visit Cymbalta 20mg daily started, Butrans patch increased to 10mcg/hr Q7D, continue augmented bowel regimen as above Admission HPI Per Admitting Provider Patient is an 84-year-old female with history of severe dementia, hypertension, coronary artery disease, peripheral vascular disease, aortic valve stenosis, breast cancer s/p surgery, MDS, CKD stage III, AVM of stomach, erosive gastritis, chronic anemia and other medical problems presents with history of worsening back pain. Patient had kyphoplasty of L1, L2 and L3 vertebral bodies on 05/20/[address] Naylor and was discharged home. Patient is currently very drowsy and history is obtained from patient's daughter at bedside. Also reviewed old records and obtained some history from ED physician. Patient has been having lower back pain postsurgery which has been gradually worsening. She has been alternating Tylenol 1000 mg and 10 mg oxycodone every 3 hours to control her pain. She had follow-up evaluation by her primary care physician who prescribed gabapentin to minimize narcotic use. After using gabapentin, patient had significant lower extremity weakness and so gabapentin was discontinued as per family. She reports lower back pain associated with some spasms. At baseline patient is oriented only to self per family. She also reports having some constipation. No known history of chest pain, dyspnea, dizziness, fever, chills, fall, trauma, nausea, vomiting, abdominal pain, diarrhea, dysuria, hematuria. In ED patient was very agitated and was distressed secondary to back pain. Patient received 0.5 mg of Versed and 4 mg of morphine. Patient was hypotensive and was ordered for 100 mL normal saline bolus. Also placed on supplemental oxygen. Admission Exam Per Admitting Provider Vitals signs as noted above General Appearance:Moderately built and nourished, no apparent distress, Drowsy Head: normocephalic, Atraumatic , +Hearing aids Eyes: normal inspection, EOMI Neck: supple, Trachea midline Respiratory/Chest: Normal breath sounds, CTA, No accessory muscle use Cardiovascular: S1, S2, +murmur Abdomen/GI:Soft, Non tender, Bowel sounds present Back: Lower drying machine back tender Extremities/Musculoskeletal:normal inspection, Trace pedla edema Neurologic/Psych:AAOX1, grossly no focal neurological deficits Skin: normal color, warm Discharge Exam Gen: WD/WN, NAD, laying down resting, A&Ox2 with limited insight HEENT: Normocephalic, atraumatic, mucous membranes moist Lung: Clear to Auscultation bilaterally Heart: Regular rate, regular rhythm Abdomen: Soft, NT, ND +BS x 4 Extremities/MSK: Dressing c/d/i, some TTP left lower back/hip with movement Skin: Warm, no rash Updated Medication List Medication Instructions Recorded Confirmed Type multivitamin 1 tab PO QAM 03/31/24 05/30/25 History amlodipine 5 mg tablet 2.5 mg (1/2 x 5 mg) PO QAM #15 tabs 04/11/25 05/30/25 Rx aspirin 81 mg tablet,delayed 81 mg PO QAM #90 tabs 04/11/25 05/30/25 Rx release atorvastatin 20 mg tablet 20 mg PO QAM #30 tabs 04/11/25 05/30/25 Rx metoprolol succinate 25 mg 25 mg PO QAM #30 tabs 04/11/25 05/30/25 Rx tablet,extended release 24 hr pantoprazole 40 mg tablet,delayed 40 mg PO BID #60 tabs 04/11/25 05/30/25 Rx release trazodone 50 mg tablet 50 mg PO HS #30 tabs 04/11/25 05/30/25 Rx calcitonin (salmon) 200 1 spray intranasal DAILY 05/17/25 05/30/25 History unit/actuation nasal spray acetaminophen 500 mg tablet 1,000 mg (2 x 500 mg) PO TID pain 05/22/25 05/30/25 Rx (Tylenol Extra Strength) (scale score 1-3) #300 tabs lidocaine 5 % topical patch 1 patch transdermal QAM #30 ea 05/22/25 05/30/25 Rx miconazole nitrate 2 % topical 1 applic EXT PRN PRN rash #85 grams 05/22/25 05/30/25 Rx powder (Desenex) buprenorphine 10 mcg/hour weekly 1 patch transdermal Q7D #4 ea 06/01/25 Rx transdermal patch (Butrans) docusate sodium 100 mg capsule 100 mg PO BID #60 caps 06/01/25 Rx duloxetine 20 mg capsule,delayed 20 mg PO QAM #30 caps 06/01/25 Rx release oxycodone 5 mg tablet 5 mg PO Q6H PRN pain #16 tabs 06/01/25 Rx polyethylene glycol 3350 17 17 g PO DAILY opioid induced 06/01/25 05/30/25 Rx gram/dose oral powder (Miralax) constipation #119 grams Hospital Stay Data Consultations 05/30/25 19:47 ED Decision to Admit Stat 05/30/25 23:13 Consult Orthopedic Spine Surgery Routine 05/31/25 13:13 Consult Pain Management Routine Diagnostic Imagining Performed 05/30/25 16:50 CT lumbar spine wo con Stat Pending Results Patient Have Any Pending Studies at Discharge: No Discharge Instructions Given to Patient (Per Discharging Provider) MEDICATION CHANGES: NEW: Cymbalta 20g daily CHANGED: Butrans patch increased to 10 mcg/hr dose Q7 days PENDING TEST RESULTS: None RECOMMENDATIONS FOR FOLLOW-UP: Follow up with PCP as scheduled. Will need ECG within the next 30 days to ensure QTc interval remains appropriate Follow up with pain management on 07/04 as scheduled- their cardio clinician will call if able to fit you in sooner. Your use of as needed Tylenol and oxycodone IR should decrease in the next few days as new dose of Butrans patch takes full effect. Continue using Miralax daily as well as Colace stool softener twice a day to avoid constipation. Continue medication regimen as scheduled aside from changes noted above. OTHER INSTRUCTIONS: Seek medical attention if you have: * temperature above 101 * chest pain or trouble breathing * abdominal pain, nausea, vomiting * diarrhea, dark stools or bloody stools * any unanswered questions or concerns Call 911 if symptoms are severe. Please take good care of yourself. Call if you have any questions or problems. You can reach a [facility] hospitalist on duty at [facility] 24 hours a day by calling [phone]. Total Time Total Time Spent Total Time Spent (In Minutes): 50
== END 2025-06-01 15:49 | disposition home or self-care (01) | DRG 552 ==
LOC: ED 16:32 → 2N 20:26 → 3W 05-31 16:13